=== PATIENT | male | born 1945 | race Caucasian/White ===

== ENCOUNTER 2024-07-09 13:29 | Inpatient (IN) ==
--- OUTSIDE RECORDS SUMMARY | 2024-07-09 13:36 | External Medical Summary | Summary of Care ---
Author Name Unknown Organization [facility] Address [address] [place] [address] Phone [phone] Care Team Providers Care Hitting Coach Name Role Phone Sourav Moss MD Primary Care Provider [phone] Reason for Referral * (Within 10 days (routine)) - Pending Review Specialty Diagnoses / Procedures Referred By Contac t Referred To Contact Radiology Diagnoses Brain tumor (HCC) Right hemiparesis (HCC) Procedures MRI NEURO 3-D RECONSTRUCTION James Moncada PA-C [address] [place] [address] Referral ID Status Reason Start Date Expiration Date V isits Requested Visits Authorized [id number] Pending Review 07/15/2024 999 999 * Precert (Within 10 days (routine)) - Pending Review Specialty Diagnoses / Procedures Referred By Contac t Referred To Contact Radiology Diagnoses Brain tumor (HCC) Right hemiparesis (HCC) Procedures MRI BRAIN W WO CONTRAST James Moncada PA-C [address] [place] [address] Referral ID Status Reason Start Date Expiration Date V isits Requested Visits Authorized [id number] Pending Review 07/15/2024 999 999 Reason for Visit * Reason Onset Date Comments Test Results 07/08/2024 Unexpected or In determinate Result Encounter Details Date Type Department Care Team (Late st Contact Info) Description 07/08/2024 Telephone Laboratory, [place] [address] [place] [address] James Moncada PA-C [address] [place] [address] Test Results (Unexpected or Indeterminate ... Allergies No known active allergiesdocumented as of this encounter (statuses as of 07/08/2024) Medications Medication Sig Dispensed Refills Start Date End Date Status ASPIRIN 81 MG PO TABSIndications:Othe r specified prophylactic or treatment measure one tab by mouth daily 0 0 07/14/2005 Active VITAMIN D 1000 UNITS PO CAPSIndications:Shabana min D deficiency 1 capsule daily 30 Cap 11 09/10/2012 Active ACETAMINOPHEN 500 MG PO TABSIndications:Gene ralized osteoarthritis Two pills by mouth 3 times daily as needd for arthritis 100 Tab 0 09/16/2013 Active metFORMIN HCl ER 500 MG Oral Tablet Extended Release 24 Hour (Glucophage XR) Take 1 Tablet by mouth in the morning. 90 Tablet 3 09/21/2023 Active Additional Information Patient not taking.Reported on 02/02/2024 Benzonatate 200 MG Oral CapsuleIndications:B gómeztis, complicated Take 1 Capsule by mouth 3 times a day as needed for Cough. 30 Capsule 02/02/2024 Active Additional Information Patient not taking.Reported on 05/25/2024 Atorvastatin Calcium 20 MG Oral Tablet (Lipitor)Indications :Hyperlipidemia with target LDL less than 100 Take 1 Tablet by mouth in the morning. 90 Tablet 3 02/18/2024 Active Lisinopril-hydroCHLO ROthiazide 10-12.5 MG Oral TabletIndications:St age 4 chronic kidney disease, unspecified whether stage 3a or 3b CKD (HCC) Take 1 Tablet by mouth in the morning. 90 Tablet 3 02/18/2024 Active Omeprazole 20 MG Oral Capsule Delayed Release (PriLOSEC)Indication s:Gastroesophageal reflux disease, unspecified whether esophagitis present Take 1 Capsule by mouth in the morning. 1 hour before the first meal of the day.. 90 Capsule 3 02/18/2024 Active Empagliflozin 10 MG Oral Tablet (Jardiance) Take 1 Tablet by mouth in the morning. 90 Tablet 3 03/07/2024 Active levETIRAcetam 500 MG Oral Tablet (Keppra) Take 1 Tablet by mouth in the morning and 1 Tablet before bedtime. 60 Tablet 07/08/2024 Active documented as of this encounter (statuses as of 07/08/2024) Active Problems Problem Noted Date Diagnosed Date Diabetes mellitus without complication 4 Chronic kidney disease, stage 3a 03/05/2021 Overview: Per CKD protocol Hypertensive kidney disease with stage 3a chronic kidney disease 09/03/2020 Overview: Per CKD protocol Hyperlipidemia with target LDL less than 100 02/2013 Overview: ICD-10 update of inactive term Generalized osteoarthritis 09/16/2013 Vitamin D deficiency 09/10/2012 Vertigo 11/16/2009 History of tobacco use 11/16/2009 Allergic rhinitis 03/21/2008 ADVANCE DIRECTIVE INFORMATION 07/14/2005 Overview: No, Advance Directive brochure offered , patient declined. Cervical spondylosis 04/18/2004 documented as of this encounter (statuses as of 07/08/2024) Resolved Problems Problem Noted Date Diagnosed Date Resolved Date Prediabetes 03/02/2023 03/09/2024 Overview: Per Prediabetes protocol Hypertensive kidney disease with chronic kidney disease stage III 09/16/2019 09/06/2020 Overview: Per CKD protocol Kidney disease, chronic, sta ge III (GFR 30-59 ml/min) 12/31/2015 10/06/2019 Overview: Per CKD protocol #1 Headache 11/16/2009 09/13/2018 Overview: ICD-10 update of inactive term Acute URI 11/16/2009 09/13/2018 Acute sinusitis 11/16/2009 09/13/2018 Dysfunction of eustachian tube 11/16/2009 09/13/2018 Acute URI 03/21/2008 12/14/2008 Overview: Resolved per Benign Acute Dxs Protocol #3 Cough 03/21/2008 09/13/2018 Acute bronchitis, antibiotics not indicated 03/21/2008 12/21/2008 Overview: Resolved per Benign Acute Dxs Protocol #3 Tobacco use disorder 03/21/2008 010 Major depressive disorder 01/26/2006 Overview: ICD-10 update of inactive term PROPHYLACTIC MEASURE NEC 07/14/2005 DEPRESS PSYCHOSIS-UNSPEC 07/12/1999 documented as of this encounter (statuses as of 07/08/2024) Immunizations Name Administration Dates Next Due COVID-19 mRNA, LNP-s, No Pre serve, 2-Dose Series (SputnikBot) 08/04/2021,01/12/2021,12/22/2020 COVID-19, LNP-s, No Preserve , Messi-sucrose, Ages 12+ (SputnikBot) 07/28/2022 COVID-19, MRNA-LNP, 23-24, P F, 30 MCG/0.3 mL, 12 YRS AND ABOVE, IM (UNYQ-Comirnat) 06/29/2024,07/16/2023 Covid-19, Mrna, Lnp-s, Pf, B ivalent, 30 Mcg, IM, 12 yrs and above (SputnikBot) 12/01/2022 PPD 08/16/2007 Pneumococcal Conjugate Vacc, 13 Valent (Prevnar) 11/27/2015 Pneumococcal Polysaccharide PPV23 (Pneumovax) 09/10/2012,01/26/2006 RSV Vac., Recomb, Adjuvant, PF,0.5 Ml (Arexvy) 07/02/2023 Season Influenza, Quad, PF, Adjuvanted, 65+ Yrs, IM (FLUAD) 06/29/2024,07/02/2023,07/09/2020 Seasonal Influenza Virus Vac cine, Unspecified Formulation 07/14/2018 Seasonal Influenza, High Dos e, Trivalent, PF, IM (Fluzone HD) 08/15/2019,08/07/2017 Seasonal Influenza, Quadriva lent Hd (Fluzone Hd) 07/01/2022,07/02/2021 Seasonal Influenza, Quadriva lent, No Preserve, IM 08/05/2016 Seasonal Influenza, Trivalen t, (IIV3), with Preserv, (Fluzone) 07/19/2015,08/28/2014,08/22/2013,09/10,08/16/2010,08/07/2009,08/21/2008 ,08/16/2007,09/02/2006,08/14/2005 TD - Tetanus/Diptheria (ADULT) 01/25/2004 TD, Preservative Free 02/05/2023 TDAP (age 10 and older)(Boostrix) 09/16/2013 Varicella Zoster Vaccine (Adult) 12/12/2015 Zoster Vaccine Recombinant (Shingrix) 05/14/2023 ,03/13/2023 documented as of this encounter Social History Tobacco Use Types Packs/Day Years Used Date Smoking Tobacco: Former Cigarettes Q uit: 10/26/2007 Smokeless Tobacco: Never Comments:4 months ago Alcohol Use Standard Drinks/Week Comments No 0 (1 standard drink = 0.6 oz pur e alcohol) PHQ-2 Answer Date Recorded PHQ Adult Total Score 0 02/18/2024 Hunger Vital Sign Answer Date Recorded Within the past 12 months, y ou worried that your food would run out before you got the money to buy more. Never true 05/26/20 24 Within the past 12 months, t he food you bought just didn't last and you didn't have money to get more. Never true 05/26/2024 Childcare Answer Date Recorded Do you feel overwhelmed with taking care of a child, family member or friend? No 05/26/2024 Does your family need help f inding childcare? (Household - for ages 0-17 years) Not on file 05/26/2024 Clothing Answer Date Recorded Have you been unable to get clothing when it was really needed? No 05/26/2024 Is your family able to get c lothes or diapers when needed? (Household - for ages 0-17 years) Not on file 05/26/2024 Personal Safety Answer Date Recorded Do you feel unsafe or have concerns for your saf ety? No 05/26/2024 Do you have concerns for you r family's safety? (Household - for ages 0-17 years) Not on file 05/26/2024 Utilities Answer Date Recorded Do you have trouble paying y our heating, water, or electric bill? No 05/26/2024 Is your family able to pay t he heat, water, or electric bill? (Household - for ages 0-17 years) Not on file 05/26/2024 Does your family have access to good internet? (Household - for ages 0-17 years) Not on file 05/26/2024 Employment Status Answer Date Recorded Are you unemployed or without regular income? No 05/26/2024 Does the household have a re lar source of income? (Household - for ages 0-17 years) Not on file 05/26/2024 Social Connections Answer Date Recorded How often do you feel lonely or isolated from th ose around you? Never 05/26/2024 Financial Resource Strain Answer Date R ecorded Do you have any trouble payi ng for your medications, or do you think you might in the future? No 05/26/2024 Does your family have troubl e paying for medicine? (Household - for ages 0-17 years) Not on file 05/26/2024 Transportation Needs Answer Date Record ed Do you have trouble getting a ride to medical visits or work? (Adult - for ages 18 years and over) Not on file 05/26/2024 Does your family have a hard time getting a ride to doctors visits? (Household - for ages 0-17 years) Not on file 05/26/2024 Has lack of transportation k ept you from medical appointments, meetings, work, or from getting things needed for daily living? Check all that apply. No 05/26/2024 Do you (or your family) have trouble finding or paying for a ride (transportation)? (Household - for ages 0-17 years) Not on file 05/26/2024 Housing Stability Answer Date Recorded Do you currently live in a s helter or have no steady place to sleep at night? No 05/26/2024 Do you think you are at risk of becoming homeless? (Adult - for ages 18 years and over) Not on file 05/26/2024 Does your family worry about paying for your home or becoming homeless? (Household - for ages 0-17 years) Not on file 0 05/26/2024 Are you homeless or worried that you might be in the future? No 05/26/2024 Are you (or your family) kapil eless or worried that you might be in the future? (Household - for ages 0-17 years) Not on file Food Insecurity Answer Date Recorded Do you need food for this week? No 05/26/2024 Are you able to get enough f ood for your family? (Household - for ages 0-17 years) Not on file 05/26/2024 Does your family need food t his week? (Household - for ages 0-17 years) Not on file 05/26/2024 Do you always have enough fo od for your family? (Household - for ages 0-17 years) Not on file 05/26/2024 Sex and Gender Information Value Date Recorded Sex Assigned at Male 09/16/2019 8:27 AM EST Gender Identity Male 09/16/2019 8:27 AM EST Sexual Orientation Straight 09/16/2019 8: 27 AM EST Job Start Date Occupation Industry Not on file Not on file Not on file documented as of this encounter Miscellaneous Notes * Addendum Note - James Moncada PA-C - 07/08/2024 1:12 PM EDTAddended by: JAMES MONCADA on: 07/08/2024 01:12 PM Modules accepted: Orders * Telephone Encounter - James Moncada PA-C - 07/08/2024 12:54 PM EDT I called and spoke to the patient and his spouse. Discussed current functional level - Can open/close his hand, can raise arm over his head. Issues with writing. Leg is worse - can lift antigravity but can not walk without a cane. (+) fatigue. He reports intermittent episodes of his R side being plegic and he can not speak. Occurred several times over past few months. Aware of episodes. Thus, I have E-Rx keppra 500 mg BID. He did have a spot EEG 06/08/24 which was negative but no episodes occurred during that visit. I discussed the use of dexamethasone but he still is functional and feels thathe is managing fine. He is diabetic and would like to hold off on steroids, which I feel is reasonable but we discussed if symptoms progress over the weekend then he should call or go to nearest ED. Lesion is concerning for malignancy given the progression over interval studies. I will place an order for CT CAP to rule out other primaries. Will also order a MRI brain w/wo contrast (brainlab protocol) with DTIs/tractography given the location of the tumor to assist in potential operative planning. * Telephone Encounter - Enma Palumbo RN - 07/08/2024 8:15 AM EDT Spoke with provider. Called patient to schedule appointment with Dr. Venegas for Thursday, 07/11. Patient states that his right side has progressively gotten weaker. He is walking with a cane for the past month. His b operator is not as tight as on the left but he is not dropping anything. Instructed him to present to the ED if the weakness symptoms get worse such as not being able to walk and not being able to hold on to objects. James Moncada PA-C will call patient in the afternoon as he is in the OR this morning. Relayed topatient and let him know to keep his phone with him for the mid to late afternoon. No further needs at this time. * Telephone Encounter - Julieth Mendez OSA - 07/08/2024 12:16 AM EDT Hello- The radiologist discovered an unexpected or indeterminate finding on Mayank Dolan ([id number]) and asks that you review the following report. Study Type: MRI BRAIN W WO CONTRAST Date of Study: 07/07/2024 IMPRESSION Significant interval increase in size of enhancing lesion at the left frontal vertex involving the precentral gyrus with new areas of leptomeningeal enhancement in the left frontal and parietal regions. 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 No midline shift. Please respond to this encounter to acknowledge receipt of this message and take responsibility to ensure this report is reviewed. Thank you, RUSTY Horner Client Service Rep [facility] [place] documented in this encounter Plan of Treatment Upcoming Encounters Date Type Department Care Team (Late st Contact Info) Description 07/11/2024 10:00 AM EDT Office Visit Neurosurgery, [address] [address] Nav Venegas MD [facility] [place] [address] 08/08/2024 12:00 PM EDT Telemedicine [facility], [address] [address] Nav Venegas MD [facility] [place] [address] 08/23/2024 8:20 AM EDT Office Visit [facility] [address] [place] [phone] Sourav Moss MD [address] [place] [address] Scheduled Orders Name Type Priority Associated Diagnoses Orde r Schedule MRI BRAIN W WO CONTRAST Medical Imaging Routine Brain tumor (HCC) Right hemiparesis (HCC) Expected: 07/15/2024 (Approximate), Expires: 08/07/2025 MRI NEURO 3-D RECONSTRUCTION Medical Imaging Routine Brain tumor (HCC) Right hemiparesis (HCC) Expected: 07/15/2024 (Approximate), Expires: 08/07/2025 Health Maintenance Due Date Last Done Comments Adult Wellness Visit 2012 *BASELINE EKG FOR HTN 05/25/2022 GFR 08/23/2024 02/22/2024, 01/24, 02/04/2022, Additional history exists HbA1c 08/23/2024 02/22/2024, 07/27, 02/05/2023, Additional history exists Depression Screening 02/17/2025 02/18/2024 Diabetic Eye Exam 02/17/2025 02/18/2024, 02/15/2024 Diabetic Foot Exam 02/17/2025 02/18/2024 Albumin/Creatinine Ratio 02/21/2025 024, 08/17/2023, 02/04/2022, Additional history exists CKD HGB USE SMARTSET 26307 02/21/202502/21, 08/17/2023, 08/17/2023, Additional history exists CKD PHOS USE SMARTSET 30373 02/21/202501/25, 02/05/2023, 02/04/2022, Additional history exists DTap/Tdap Vaccines (3 - Td or Tdap) 02/05/2033 02/05/2023, 09/16/2013, 01/25/2004 Pneumococcal Vaccine: 65+ Years Completed 11/27/2015, 09/10/2012, 01/26/2006 Zoster Vaccines Completed 05/14/2023, 02/23, 12/12/2015 COVID-19 Vaccine Completed 06/29/2024, , 12/01/2022, Additional history exists Influenza Vaccine (FLU shot) Completed 01/2024, 07/02/2023, 07/02/2023, Additional history exists HPV (Gardasil) Vaccine Aged Out No lo nger eligible based on patient's age to complete this topic Hepatitis B Vaccine Aged Out No longe r eligible based on patient's age to complete this topic MENINGOCOCCAL (MENACTRA/MENVEO) Aged Out No longer eligible based on patient's age to complete this topic documented as of this encounter Medical Devices Not on filedocumented as of this encounter Visit Diagnoses Diagnosis Brain tumor (HCC)- Primary Neoplasm of unspecified nature of brain Right hemiparesis (HCC) Hemiplegia, unspecified, affecting unspecified side documented in this encounter Care Teams Hitting Coach Relationship Specialty Start Date End Date Sourav Moss MD [address] [facility] [place] [address] PCP - General 11/13/1997 documented as of this encounter
--- OUTSIDE RECORDS SUMMARY | 2024-07-09 13:36 | External Medical Summary | Summary of Care ---
Author Name Unknown Organization [facility] Address [address] [place] [address] Phone [phone] Care Team Providers Care Cna Pct Name Role Phone Sourav Moss MD Primary Care Provider [phone] Reason for Referral * Precert (Within 10 days (routine)) - Pending Review Specialty Diagnoses / Procedures Referred By Contac t Referred To Contact Radiology Diagnoses Brain tumor (HCC) Right hemiparesis (HCC) Procedures CT CHEST/ABDOMEN/PELVIS WITH IV CONTRAST WITHOUT ORAL CONTRAST James Moncada PA-C [address] [place] [address] Referral ID Status Reason Start Date Expiration Date V isits Requested Visits Authorized [id number] Pending Review 07/09/2024 999 999 * (Within 10 days (routine)) - Pending Review Specialty Diagnoses / Procedures Referred By Contac t Referred To Contact Radiology Diagnoses Brain tumor (HCC) Right hemiparesis (HCC) Procedures MRI NEURO 3-D RECONSTRUCTION James Moncada PA-C [address] [place] [address] Referral ID Status Reason Start Date Expiration Date V isits Requested Visits Authorized [id number] Pending Review 07/15/2024 999 999 * Precert (Within 10 days (routine)) - Pending Review Specialty Diagnoses / Procedures Referred By Contac t Referred To Contact Radiology Diagnoses Brain tumor (HCC) Right hemiparesis (HCC) Procedures MRI BRAIN W WO CONTRAST James Moncada PA-C [address] [place] [address] Referral ID Status Reason Start Date Expiration Date V isits Requested Visits Authorized [id number] Pending Review 07/15/2024 999 999 Reason for Visit * Reason Onset Date Comments Test Results 07/08/2024 Unexpected or In determinate Result Encounter Details Date Type Department Care Team (Late st Contact Info) Description 07/08/2024 Telephone Laboratory, [place] [address] [place] [address] James Moncada PA-C [address] [place] [address] Test Results (Unexpected or Indeterminate [...] on 02/02/2024 Benzonatate 200 MG Oral CapsuleIndications:B ronchitis, complicated Take 1 Capsule by mouth 3 [...] mRNA, LNP-s, No Pre serve, 2-Dose Series (Make Meaning) 08/04/2021,01/12/2021,12/22/2020 COVID-19, LNP-s, No Preserve , Messi-sucrose, Ages 12+ (Pfizer) 07/28/2022 COVID-19, MRNA-LNP, 23-24, P F, 30 MCG/0.3 mL, 12 YRS AND ABOVE, IM (Biottery-Comirnat) 06/29/2024,07/16/2023 Covid-19, Mrna, Lnp-s, Pf, B ivalent, 30 Mcg, IM, 12 yrs and above (Make Meaning) 12/01/2022 PPD 08/16/2007 Pneumococcal Conjugate Vacc, 13 [...] Note - James Moncada PA-C - 07/08/2024 1:13 PM EDTAddended by: JAMES MONCADA on: 07/08/2024 01:13 PM Modules accepted: Orders * Addendum Note - James Moncada PA-C [...] a cane for the past month. 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 Thank you, RUSTY Horner Client Service [facility] documented in this encounter Plan of Treatment Upcoming Encounters Date Type Department Care Team (Late st Contact Info) Description 07/11/2024 10:00 AM EDT Office Visit Neurosurgery, [address] [address] Nav Venegas MD [facility] [place] [address] 08/08/2024 12:00 PM EDT Telemedicine Neurosurgery, [address] [address] Nav Venegas MD [address] [place] [address] 08/23/2024 8:20 AM EDT Office Visit [facility] [address] [place] [phone] Sourav Moss MD [address] [place] [address] Scheduled Orders Name Type Priority Associated Diagnoses Orde r Schedule MRI BRAIN W WO CONTRAST Medical Imaging Routine Brain tumor (HCC) Right hemiparesis (HCC) Expected: 07/15/2024 (Approximate), Expires: 08/07/2025 MRI NEURO 3-D RECONSTRUCTION Medical Imaging Routine Brain tumor (HCC) Right hemiparesis (HCC) Expected: 07/15/2024 (Approximate), Expires: 08/07/2025 CT CHEST/ABDOMEN/PELVIS WITH IV CONTRAST WITHOUT ORAL CONTRAST Medical Imaging Routine Brain tumor (HCC) Right hemiparesis (HCC) Expected: 07/09/2024 (Approximate), Expires: 08/07/2025 CREATININE Lab Routine Brain tumor (HCC) Right hemiparesis (HCC) Expected: 07/08/2024, Expires: 07/08/2025 Health Maintenance Due Date Last Done Comments Adult Wellness Visit 2012 *BASELINE EKG FOR HTN 05/25/2022 GFR 08/23/2024 02/22/2024, 01/24, 02/04/2022, Additional history exists HbA1c 08/23/2024 02/22/2024, 07/27, 02/05/2023, Additional history exists Depression Screening 02/17/2025 02/18/2024 Diabetic Eye Exam 02/17/2025 02/18/2024, 02/15/2024 Diabetic Foot Exam 02/17/2025 02/18/2024 Albumin/Creatinine Ratio 02/21/2025 024, 08/17/2023, 02/04/2022, Additional history exists CKD HGB USE SMARTSET 47216 02/21/202502/21, 08/17/2023, 08/17/2023, Additional history exists CKD PHOS USE SMARTSET 75769 02/21/202501/25, 02/05/2023, 02/04/2022, Additional history exists DTap/Tdap [...] side documented in this encounter Care Teams Cna Pct Relationship Specialty Start Date End Date Sourav Moss MD [address] [place] [address] PCP - General 11/13/1997 documented as of this encounter
--- OUTSIDE RECORDS SUMMARY | 2024-07-09 13:36 | External Medical Summary | Summary of Care ---
Author Name Unknown Organization [facility] Address [address] [place] [address] Phone [phone] Care Team Providers Care Sterile Supply Technician Name Role Phone Sourav Moss MD Primary Care Provider [phone] Reason for Visit * Reason Onset Date Comments Test Results 07/08/2024 Unexpected or In determinate Result Encounter Details Date Type Department Care Team (Late st Contact Info) Description 07/08/2024 Telephone Laboratory, [place] [address] [place] [address] James Moncada PA-C [address] [place] [address] Test Results (Unexpected or Indeterminate [...] the morning. 90 Tablet 3 03/07/2024 Active documented as of this encounter (statuses as of 07/08/2024) Active Problems Problem Noted Date Diagnosed Date Diabetes mellitus without complication Chronic kidney disease, stage 3a 03/05/2021 Overview: [...] mRNA, LNP-s, No Pre serve, 2-Dose Series ([employer]) 08/04/2021,01/12/2021,12/22/2020 COVID-19, LNP-s, No Preserve , Messi-sucrose, Ages 12+ ([employer]) 07/28/2022 COVID-19, MRNA-LNP, 23-24, P F, 30 MCG/0.3 mL, 12 YRS AND ABOVE, IM ([employer]-Comirnat) 06/29/2024,07/16/2023 Covid-19, Mrna, Lnp-s, Pf, B ivalent, 30 Mcg, IM, 12 yrs and above ([employer]) 12/01/2022 PPD 08/16/2007 Pneumococcal Conjugate Vacc, 13 [...] Trivalen t, (IIV3), with Preserv, (Fluzone) 07/19/2015,08/28/2014,08/22/2013,09/10,08/16/2010,08/07/2009,08/21/2008 ,08/16/2007,09/02/2006 TD - Tetanus/Diptheria (ADULT) 01/25/2004 TD, Preservative [...] No 05/26/2024 Does the household have a [facility] source of income? (Household - for ages [...] as of this encounter Miscellaneous Notes * Telephone Encounter - Julieth Mendez OSA - 07/08/2024 12:16 AM EDT Hello- The radiologist discovered an unexpected or indeterminate finding on Mayank Dolan ([id number]) and asks that you review the following [...] Thank you, RUSTY Horner Client Service Rep [facility] documented in this encounter Plan of Treatment Upcoming Encounters Date Type Department Care Team (Late st Contact Info) Description 08/08/2024 12:00 PM EDT Telemedicine Neurosurgery, [place] [address] [place] [address] Nav Venegas MD [address] [place] [address] 08/23/2024 8:20 AM EDT Office Visit [facility] [address] [place] [address] Sourav Moss MD [address], [place] [phone] Health Maintenance Due Date Last Done Comments Adult Wellness Visit 2012 *BASELINE EKG FOR HTN 05/25/2022 GFR 08/23/2024 02/22/2024, 01/24, 02/04/2022, Additional history exists HbA1c 08/23/2024 02/22/2024, 07/27, 02/05/2023, Additional history exists Depression Screening 02/17/2025 02/18/2024 Diabetic Eye Exam 02/17/2025 02/18/2024, 02/15/2024 Diabetic Foot Exam 02/17/2025 02/18/2024 Albumin/Creatinine Ratio 02/21/2025 024, 08/17/2023, 02/04/2022, Additional history exists CKD HGB USE SMARTSET 20180 02/21/202502/21, 08/17/2023, 08/17/2023, Additional history exists CKD PHOS USE SMARTSET 50223 02/21/202501/25, 02/05/2023, 02/04/2022, Additional history exists DTap/Tdap [...] Not on filedocumented as of this encounter Care Teams Sterile Supply Technician Relationship Specialty Start Date End Date Sourav Moss MD [address] [place] [address] PCP - General 11/13/1997 documented as of this encounter
--- OUTSIDE RECORDS SUMMARY | 2024-07-09 13:36 | External Medical Summary | Summary of Care ---
Author Name Unknown Organization [facility] Address [address] [place] [address] Phone [phone] Care Team Providers Care Inspector Tool Name Role Phone Sourav Moss MD Primary Care Provider [phone] Reason for Visit * Reason Onset Date Comments Test Results 07/08/2024 Unexpected or In determinate Result Encounter Details Date Type Department Care Team (Late st Contact Info) Description 07/08/2024 Telephone Laboratory, [place] [address] [place] [address] James Moncada PA-C [address] [place] [address] Test Results (Unexpected or Indeterminate [...] mRNA, LNP-s, No Pre serve, 2-Dose Series ([employer] 08/04/2021,01/12/2021,12/22/2020 COVID-19, LNP-s, No Preserve , Messi-sucrose, Ages 12+ ([employer] 07/28/2022 COVID-19, MRNA-LNP, 23-24, P F, 30 MCG/0.3 mL, 12 YRS AND ABOVE, IM ([employer]-Comirnat) 06/29/2024,07/16/2023 Covid-19, Mrna, Lnp-s, Pf, B ivalent, 30 Mcg, IM, 12 yrs and above ([employer] 12/01/2022 PPD 08/16/2007 Pneumococcal Conjugate Vacc, 13 [...] 05/26/2024 Does the household have a re gular source of income? (Household - for ages [...] encounter Miscellaneous Notes * Telephone Encounter - Enma Palumbo RN - 07/08/2024 8:15 AM EDT Spoke with provider. Called patient to schedule appointment with Dr. Venegas for Thursday, 07/11. Patient states that his right side has progressively gotten weaker. He is walking with a cane for the past month. His bedspread seamer is not as tight as on the [...] unexpected or indeterminate finding on Mayank Dolan ([id number]) and asks that you review the following [...] reviewed. Thank you, RUSTY Horner Client Service [facility] documented in this encounter Plan of Treatment Upcoming Encounters Date Type Department Care Team (Late st Contact Info) Description 07/11/2024 10:00 AM EDT Office Visit Neurosurgery, [place] [address] [place] [address] Nav Venegas MD [address] [place] [address] 08/08/2024 12:00 PM EDT Telemedicine Neurosurgery, [place] [address] [place] [address] Nav Venegas MD [address] [place] [address] 08/23/2024 8:20 AM EDT [facility] [address] [facility] [place] [address] Sourav Moss MD [address] [place] [address] Health Maintenance Due Date Last Done Comments Adult Wellness Visit 2012 *BASELINE EKG FOR HTN 05/25/2022 GFR 08/23/2024 02/22/2024, 01/24, 02/04/2022, Additional history exists HbA1c 08/23/2024 02/22/2024, 07/27, 02/05/2023, Additional history exists Depression Screening 02/17/2025 02/18/2024 Diabetic Eye Exam 02/17/2025 02/18/2024, 02/15/2024 Diabetic Foot Exam 02/17/2025 02/18/2024 Albumin/Creatinine Ratio 02/21/2025 024, 08/17/2023, 02/04/2022, Additional history exists CKD HGB USE SMARTSET 68577 02/21/202502/21, 08/17/2023, 08/17/2023, Additional history exists CKD PHOS USE SMARTSET 94551 02/21/202501/25, 02/05/2023, 02/04/2022, Additional history exists DTap/Tdap [...] filedocumented as of this encounter Care Teams Inspector Tool Relationship Specialty Start Date End Date Sourav Moss MD [address] [place] [address] PCP - General 11/13/1997 documented as of this encounter
--- OUTSIDE RECORDS SUMMARY | 2024-07-09 13:36 | External Medical Summary | Summary of Care ---
Author Name Unknown Organization [facility] Address [address] [place] [address] Phone [phone] Care Team Providers Care Pourer Metal Name Role Phone Sourav Moss MD Primary Care Provider [phone] Reason for Visit * Reason Onset Date Comments Medication Refill 07/08/2024 Encounter Details Date Type Department Care Team (Late st Contact Info) Description 07/08/2024 Refill [facility] [address], [place] [phone] James Moncada PA-C [address] [place], [place] [phone] Allergies No known active allergiesdocumented as of this encounter (statuses as of 07/08/2024) Medications Medication Sig Dispensed Refills Start Date End Date Status ASPIRIN 81 MG PO TABSIndications:Oth er specified prophylactic or treatment measure one tab by mouth daily 0 0 07/14/2005 Active VITAMIN D 1000 UNITS PO CAPSIndications:Vit miguel D deficiency 1 capsule daily 30 Cap 11 09/10/2012 Active ACETAMINOPHEN 500 MG PO TABSIndications:Gen eralized osteoarthritis Two pills by mouth 3 times daily as needd for arthritis 100 Tab 0 09/16/2013 Active metFORMIN HCl ER 500 MG Oral Tablet Extended Release 24 Hour (Glucophage XR) Take 1 Tablet by mouth in the morning. 90 Tablet 3 09/21/2023 Active Additional Information Patient not taking.Reported on 02/02/2024 Benzonatate 200 MG Oral CapsuleIndications: Bronchitis, complicated Take 1 Capsule by mouth 3 times a day as needed for Cough. 30 Capsule 02/02/2024 Active Additional Information Patient not taking.Reported on 05/25/2024 Atorvastatin Calcium 20 MG Oral Tablet (Lipitor)Indication s:Hyperlipidemia with target LDL less than 100 Take 1 Tablet by mouth in the morning. 90 Tablet 3 02/18/2024 Active Lisinopril-hydroCHL OROthiazide 10-12.5 MG Oral TabletIndications:S tage 3 chronic kidney disease, unspecified whether stage 3a or 3b CKD (HCC) Take 1 Tablet by mouth in the morning. 90 Tablet 3 02/18/2024 Active Omeprazole 20 MG Oral Capsule Delayed Release (PriLOSEC)Indicatio ns:Gastroesophageal reflux disease, unspecified whether esophagitis present Take [...] Tablet before bedtime. 60 Tablet 07/08/2024 Active levETIRAcetam 500 MG Oral Tablet (Keppra) Take 1 Tablet by mouth in the morning and 1 Tablet before bedtime. 60 Tablet 07/08/2024 4 Discontinu ed(Refill) documented as of this encounter (statuses as [...] mRNA, LNP-s, No Pre serve, 2-Dose Series ([employer]) 08/04/2021,01/12/2021,12/22/2020 COVID-19, LNP-s, No Preserve , Messi-sucrose, Ages 12+ ([employer]) 07/28/2022 COVID-19, MRNA-LNP, 23-24, P F, 30 MCG/0.3 mL, 12 YRS AND ABOVE, IM (PFIZER-Comirnaty) 06/29/2024,07/16/2023 Covid-19, Mrna, Lnp-s, Pf, B ivalent, 30 Mcg, IM, 12 yrs and above (Pfizer) 12/01/2022 PPD 08/16/2007 Pneumococcal Conjugate Vacc, 13 [...] encounter Miscellaneous Notes * Telephone Encounter - Miko Santos [facility] - 07/08/2024 4:19 PM EDTSigned Prescriptions: Disp Refills levETIRAcetam 500 MG Oral Tablet (Keppra) 60 Tab*0 Sig: Take 1 Tablet by mouth in the morning and 1 Tablet before bedtime.Authorizing Provider: JAMES MONCADA User: MIKO SANTOS ---- * Telephone Encounter - Miko Santos [facility] - 07/08/2024 4:19 PM EDTSigned Prescriptions: Disp Refills levETIRAcetam 500 MG Oral Tablet (Keppra) 60 Tab*0 Sig: Take 1 Tablet by mouth in the morning and 1 Tablet before bedtime.Authorizing Provider: JAMES MONCADA User: MIKO SANTOS ---- * Telephone Encounter - Miko Santos [facility] - 07/08/2024 4:18 PM EDT Pharmacy states they did not receive transmitted script from earlier today. Pharmacist resending again. Date/Time Signed: 07/08/2024 16:19 E-Prescribing Status: Receipt confirmed by pharmacy (07/08/2024 4:19 PM EDT) Miko Lozoya Pharm.D. Clinical Pharmacist [facility] ([facility]) [phone] 07/08/2024, 4:18 PM * Telephone Encounter - Gayle Steele CPhT - 07/08/2024 3:56 PM EDT Please resend Rx to [id number] [address] [facility]. Confirmed pharmacydid not receive original prescription. In chart as a phone order Pending Prescriptions: Disp Refills levETIRAcetam 500 MG Oral Tablet (Keppra) 60 Tab*0 Sig: Take 1 Tablet by mouth in the morning and 1 Tablet before bedtime. Last Visit: 05/25/2024 (in office), Visit date not found (telemedicine) 07/11/2024 If no future appointments scheduled, and last appointment is greater than a year ago, please schedule patient for a follow-up appointment Last date the medication was ordered: [id number] Patient Phone Numbers Labs: Lab Results Component Value Date/Time CREAT 1.3 (H) 02/22/2024 08:06 AM CREAT 1.5 (H) 09/16/2019 09:27 AM POTASSIUM 4.4 02/22/2024 08:06 AM POTASSIUM 5.0 09/16/2019 09:27 AM TSH 1.10 02/16/2008 02:14 PM LDL 58 02/22/2024 08:06 AM LDL 75 09/16/2019 09:27 AM LDL 82 08/30/2018 08:13 AM ALT 21 02/22/2024 08:06 AM ALT 28 09/16/2019 09:27 AM HGBA1C 7.0 (H) 02/22/2024 08:06 AM * Telephone Encounter - Prachi Pack PHARM Tech - 07/08/2024 3:40 PM EDT PT calling to check on status of Keppra. Caller can be reached at [phone]. Thank you, Prachi Pack Social And Political Studies Professor [facility] ([facility]) 07/08/2024,3:40 PM * Telephone Encounter - Radha Rocha PHARM Tech - 07/08/2024 3:29 PM EDT Please resend Rx to [id number]. Confirmed pharmacydid not receive original prescription. Pending Prescriptions: Disp Refills levETIRAcetam 500 MG Oral Tablet (Keppra) 60 Tab*0 Sig: Take 1 Tablet by mouth in the morning and 1 Tablet before bedtime. Last Visit: 05/25/2024 (in office), Visit date not found (telemedicine) 07/11/2024 If no future appointments scheduled, and last appointment is greater than a year ago, please schedule patient for a follow-up appointment Last date the medication was ordered: 07-08-2024 Patient Phone Numbers Labs: Lab Results Component Value Date/Time CREAT 1.3 (H) 02/22/2024 08:06 AM CREAT 1.5 (H) 09/16/2019 09:27 AM POTASSIUM 4.4 02/22/2024 08:06 AM POTASSIUM 5.0 09/16/2019 09:27 AM TSH 1.10 02/16/2008 02:14 PM LDL 58 02/22/2024 08:06 AM LDL 75 09/16/2019 09:27 AM LDL 82 08/30/2018 08:13 AM ALT 21 02/22/2024 08:06 AM ALT 28 09/16/2019 09:27 AM HGBA1C 7.0 (H) 02/22/2024 08:06 AM documented in this encounter Plan of Treatment Upcoming Encounters Date Type Department Care Team (Late st Contact Info) Description 07/11/2024 10:00 AM EDT Office Visit [facility] [place] [address] [place] [address] Nav Venegas MD [address] [place] [address] 07/11/2024 10:30 AM EDT Appointment Radiology, [place] [address] [place] [address] 08/08/2024 12:00 PM EDT Telemedicine Neurosurgery, [place] [address] [place] [address] Nav Venegas MD [address] [place] [address] 08/23/2024 8:20 AM EDT Office Visit [facility] [address] [place] [phone] Sourav Moss MD [address] [place] [address] Health Maintenance Due Date Last Done Comments Adult Wellness Visit 2012 *BASELINE EKG FOR HTN 05/25/2022 GFR 08/23/2024 02/22/2024, 01/24, 02/04/2022, Additional history exists HbA1c 08/23/2024 02/22/2024, 07/27, 02/05/2023, Additional history exists Depression Screening 02/17/2025 02/18/2024 Diabetic Eye Exam 02/17/2025 02/18/2024, 02/15/2024 Diabetic Foot Exam 02/17/2025 02/18/2024 Albumin/Creatinine Ratio 02/21/2025 024, 08/17/2023, 02/04/2022, Additional history exists CKD HGB USE SMARTSET 04310 02/21/202502/21, 08/17/2023, 08/17/2023, Additional history exists CKD PHOS USE SMARTSET 04023 02/21/202501/25, 02/05/2023, 02/04/2022, Additional history exists DTap/Tdap [...] filedocumented as of this encounter Care Teams Pourer Metal Relationship Specialty Start Date End Date Sourav Moss MD [address] [place] [address] PCP - General 11/13/1997 documented as of this encounter
--- OUTSIDE RECORDS SUMMARY | 2024-07-09 13:37 | External Medical Summary | Summary of Care ---
Author Name Unknown Organization [facility] Address [address] [place] [address] Phone [phone] Care Team Providers Care Public Stenographer Name Role Phone Sourav Moss MD Primary Care Provider [phone] Reason for Visit * Reason Onset Date Comments Appointment 06/21/2024 Schedule TTE Encounter Details Date Type Department Care Team (Late st Contact Info) Description 06/21/2024 Telephone Neurology, [place] [address] [place] [address] Mitul Velarde MD [address] [place] [address] Appointment (Schedule TTE) Allergies No known active allergiesdocumented as of this encounter (statuses as of 06/21/2024) Medications Medication Sig Dispensed Refills Start Date [...] as of this encounter (statuses as of 06/21/2024) Active Problems Problem Noted Date Diagnosed Date [...] as of this encounter (statuses as of 06/21/2024) Resolved Problems Problem Noted Date Diagnosed Date [...] as of this encounter (statuses as of 06/21/2024) Immunizations Name Administration Dates Next Due COVID-19 mRNA, LNP-s, No Pre serve, 2-Dose Series ([employer]) 08/04/2021,01/12/2021,12/22/2020 COVID-19, LNP-s, No Preserve , Messi-sucrose, Ages 12+ ([employer]) 07/28/2022 COVID-19, MRNA-LNP, 23-24, P F, 30 MCG/0.3 mL, 12 YRS AND ABOVE, IM ([employer]Comirnat) 07/16/2023 Covid-19, Mrna, Lnp-s, Pf, B ivalent, 30 Mcg, IM, 12 yrs and above ([employer]) 12/01/2022 PPD 08/16/2007 Pneumococcal Conjugate Vacc, 13 Valent (Prevnar) 11/27/2015 Pneumococcal Polysaccharide PPV23 (Pneumovax) 09/10/2012,01/26/2006 RSV Vac., Recomb, Adjuvant, PF,0.5 Ml (Arexvy) 07/02/2023 Season Influenza, Quad, PF, Adjuvanted, 65+ Yrs, IM (FLUAD) 07/02/2023,07/09/2020 Seasonal Influenza Virus Vac cine, Unspecified Formulation 07/14/2018 Seasonal Influenza, Quadriva lent Hd (Fluzone Hd) 07/01/2022,07/02/2021 Seasonal Influenza, Quadriva lent, No Preserve, IM 08/05/2016 Seasonal Influenza, Split, I IV3, With Preserve, Inj 07/19/2015,08/28/2014,08/22/2013,09/10,08/16/2010,08/07/2009,08/21/2008 ,08/16/2007,09/02/2006 Seasonal Influenza, Trivalen t, High Dose, No Preserve, IM 08/15/2019,08/07/2017 TD - Tetanus/Diptheria (ADULT) 01/25/2004 TD, Preservative [...] encounter Miscellaneous Notes * Telephone Encounter - Lucila Ramos LPN - 06/21/2024 9:34 AM EDT Called Cardiology Scheduling spoke with Ryan, stated I wanted to schedule patient for TTE. She stated that she cannot schedule it as the order is still pending. I spoke with Isabela Summers Regarding this matter and she stated that she will speak with someone in Cardiology to see what needs to be done. I thanked her. documented in this encounter Plan of Treatment Upcoming Encounters Date Type Department Care Team (Late st Contact Info) Description 07/28/2024 10:30 AM EDT Imaging Radiology [address], [place] [address] [facility] [place] [id number] 08/08/2024 12:00 PM EDT Telemedicine Neurosurgery, [place] [address] [place] [address] Nav Venegas MD [address] [place] [address] 08/23/2024 8:20 AM EDT Office Visit [place] [address] [place] [phone] Sourav Moss MD [address] [place] [address] 08/31/2024 1:00 PM EST Telemedicine Neurology [address] [place] [address] Mitul Velarde MD [address] [place], [place] [address] 09/08/2024 2:00 PM EST Appointment Cardiac Studies, [address] [address] Health Maintenance Due Date Last Done Comments Adult Wellness Visit 2012 *BASELINE EKG FOR HTN 05/25/2022 COVID-19 Vaccine ( season) 2023 07/16/2023, 12/01/2022, 07/28/2022, Additional history exists Influenza Vaccine (FLU shot) (#1) 2024 07/02/2023, 07/02/2023, 07/01/2022, Additional history exists GFR 08/23/2024 02/22/2024, 01/24, 02/04/2022, Additional history exists HbA1c 08/23/2024 02/22/2024, 07/27, 02/05/2023, Additional history exists Depression Screening 02/17/2025 02/18/2024 Diabetic Eye Exam 02/17/2025 02/18/2024, 02/15/2024 Diabetic Foot Exam 02/17/2025 02/18/2024 Albumin/Creatinine Ratio 02/21/2025 024, 08/17/2023, 02/04/2022, Additional history exists CKD HGB USE SMARTSET 18497 02/21/202502/21, 08/17/2023, 08/17/2023, Additional history exists CKD PHOS USE SMARTSET 19578 02/21/202501/25, 02/05/2023, 02/04/2022, Additional history exists DTap/Tdap Vaccines (3 - Td or Tdap) 02/05/2033 02/05/2023, 09/16/2013, 01/25/2004 Pneumococcal Vaccine: 65+ Years Completed 11/27/2015, 09/10/2012, 01/26/2006 Zoster Vaccines Completed 05/14/2023, 02/23, 12/12/2015 HPV (Gardasil) Vaccine Aged Out No lo [...] filedocumented as of this encounter Care Teams Public Stenographer Relationship Specialty Start Date End Date Sourav Moss MD [address] [place] [address] PCP - General 11/13/1997 documented as of this encounter
--- OUTSIDE RECORDS SUMMARY | 2024-07-09 13:37 | External Medical Summary | Summary of Care ---
Author Name Unknown Organization [facility] Address [address] [place] [address] Phone [phone] Care Team Providers Care Credit Associate Name Role Phone Sourav Moss MD Primary Care Provider [phone] Reason for Visit * Reason Onset Date Comments Advice 07/06/2024 Encounter Details Date Type Department Care Team (Late st Contact Info) Description 07/06/2024 Telephone Access Center, [place] [address] [facility] *DO NOT REMOVE THIS DEPARTMENT* [place] [phone] Services, Scheduling [address] [place] [address] Advice Allergies No known active allergiesdocumented as of this encounter (statuses as of 07/06/2024) Medications Medication Sig Dispensed Refills Start Date [...] as of this encounter (statuses as of 07/06/2024) Active Problems Problem Noted Date Diagnosed Date [...] as of this encounter (statuses as of 07/06/2024) Resolved Problems Problem Noted Date Diagnosed Date [...] as of this encounter (statuses as of 07/06/2024) Immunizations Name Administration Dates Next Due COVID-19 mRNA, LNP-s, No Pre serve, 2-Dose Series (Roomlr) 08/04/2021,01/12/2021,12/22/2020 COVID-19, LNP-s, No Preserve , Messi-sucrose, Ages 12+ (Pfizer) 07/28/2022 COVID-19, MRNA-LNP, 23-24, P F, 30 MCG/0.3 mL, 12 YRS AND ABOVE, IM (Setred-Comirnat) 06/29/2024,07/16/2023 Covid-19, Mrna, Lnp-s, Pf, B ivalent, 30 Mcg, IM, 12 yrs and above (Roomlr) 12/01/2022 PPD 08/16/2007 Pneumococcal Conjugate Vacc, 13 [...] encounter Miscellaneous Notes * Telephone Encounter - James Moncada PA-C - 07/06/2024 10:10 AM EDT Returned call. Agree with Neurology recs if symptoms are significantly progressing, he should obtain sooner work up. He was scheduled for MRI brain w/wo contrast tomorrow but it was cancelled by the patient and he is rescheduled for later in the month. He reports intermittent episodes of his R sidebeing paralyzed and he can not speak. These have been occurring since previous visit and Episodes occur in varying degrees and duration. He feels the R hemiparesis is worsening since his last evaluation ~ 2 months ago. I agree that an updated MRI brain w/wo contrast is warranted given the broad differential in prior visit and to re-evaluate for progression of the lesion. He will attempt to move MRI up to sooner date by calling radiology in his area. If symptoms significantly progress or acutelychange, an ER visit would be warranted. * Telephone Encounter - Clif Edmonds OSA - 07/06/2024 9:14 AM EDT Neuroscience Phone Call Form- Requested Information from caller: Who is calling patient Provider patient is established with: Dr Venegas What is the concern or issue they are having: neuro said all test are negative neuro would like for Pt to go to ER to get more test done. Pt would like some advice from neurosurg . Pt is still having mini seizure and would like to know what Dr Venegas has to advice about it How long has the issue been going on: 3 months on and off Any additional details to add: no Phone number for nurse to call back: [phone] Are forms needed? no Medication Refill? no Verify Pharmacy information is correct. Form to be used for established patients only (not new patients) Clinic has 24-48 hours to respond to caller. If caller is calling back before timeframe with any changes in condition/issues reported, update TEand re-route to appropriate pool If caller is calling back before timeframe- update TE- no need to re-route [facility] Neurology Pool- [facility] Neuro Food Service Attendant- [phone] (All messages get sent to the [facility]) Neurology Pool Numbers- [place] patients - follow normal process Ops req [facility] Neurology ([place])- [id number] Ops req [place] Neurology ([place]- [facility] and [facility] Only)- [id number] Neurosurgery Pool Numbers- [place] patients- follow normal process Ops req Neurosurgery [facility] ([place])- [id number] Ops req Neurosurgery [facility] ([place] Only) [id number] documented in this encounter Plan of Treatment Upcoming Encounters Date Type Department Care Team (Late st Contact Info) Description 07/07/2024 3:15 PM EDT Imaging Radiology [address], [place] [address] [email or web address] [place] [address] 08/08/2024 12:00 PM EDT Telemedicine Neurosurgery, [place] [address] [place] [address] Nav Venegas MD [address] [place] [address] 08/23/2024 8:20 AM EDT Office Visit [facility] [address] [place] [address] Sourav Moss MD [address] [place] [address] Health Maintenance Due Date Last Done Comments Adult Wellness Visit 2012 *BASELINE EKG FOR HTN 05/25/2022 GFR 08/23/2024 02/22/2024, 01/24, 02/04/2022, Additional history exists HbA1c 08/23/2024 02/22/2024, 07/27, 02/05/2023, Additional history exists COVID-19 Vaccine ( season) 2024 06/29/2024, 07/16/2023, 12/01/2022, Additional history exists Depression Screening 02/17/2025 02/18/2024 Diabetic Eye Exam 02/17/2025 02/18/2024, 02/15/2024 Diabetic Foot Exam 02/17/2025 02/18/2024 Albumin/Creatinine Ratio 02/21/2025 024, 08/17/2023, 02/04/2022, Additional history exists CKD HGB USE SMARTSET 62217 02/21/202502/21, 08/17/2023, 08/17/2023, Additional history exists CKD PHOS USE SMARTSET 77516 02/21/202501/25, 02/05/2023, 02/04/2022, Additional history exists DTap/Tdap Vaccines (3 - Td or Tdap) 02/05/2033 02/05/2023, 09/16/2013, 01/25/2004 Pneumococcal Vaccine: 65+ Years Completed 11/27/2015, 09/10/2012, 01/26/2006 Zoster Vaccines Completed 05/14/2023, 02/23, 12/12/2015 Influenza Vaccine (FLU shot) Completed 01/2024, 07/02/2023, [...] filedocumented as of this encounter Care Teams Credit Associate Relationship Specialty Start Date End Date Sourav Moss MD [address] [place] [address] PCP - General 11/13/1997 documented as of this encounter
--- OUTSIDE RECORDS SUMMARY | 2024-07-09 13:37 | External Medical Summary | Summary of Care ---
Author Name Unknown Organization [facility] Address [address] [place] [address] Phone [phone] Care Team Providers Care Music Therapy Teacher Name Role Phone Sourav Moss MD Primary Care Provider [phone] Reason for Visit * Reason Onset Date Comments Test Results 06/20/2024 Encounter Details Date Type Department Care Team (Late st Contact Info) Description 06/20/2024 Telephone [facility] Neurology [address] [place] [address] Mitul Velarde MD [address] [place] [address] Test Results Allergies No known active allergiesdocumented as of [...] mRNA, LNP-s, No Pre serve, 2-Dose Series (SVXR) 08/04/2021,01/12/2021,12/22/2020 COVID-19, LNP-s, No Preserve , Messi-sucrose, Ages 12+ (SVXR) 07/28/2022 COVID-19, MRNA-LNP, 23-24, P F, 30 MCG/0.3 mL, 12 YRS AND ABOVE, IM ([employer]-Comirnat) 07/16/2023 Covid-19, Mrna, Lnp-s, Pf, B ivalent, 30 Mcg, IM, 12 yrs and above (SVXR) 12/01/2022 PPD 08/16/2007 Pneumococcal Conjugate Vacc, 13 [...] Split, I IV3, With Preserve, Inj 07/19/2015,08/28/2014,08/22/2013,09/10,08/16/2010,08/07/2009,08/21/2008 ,08/16/2007,09/02/2006,08/14/2005 Seasonal Influenza, Trivalen t, High Dose, No [...] Encounter - Lucila Ramos LPN - 06/21/2024 9:37 AM EDT Called patient's mobile number, no answer, left message stating I was calling with results and thatI will send a [facility] message regarding this. If he has any questions he may call me at [phone]. Wanted to inform him per Dr. Velarde: No seizure seen on EEG, it showed some slowing but this does not need a seizure medication. Still needs TTE. Based on the results of the TTE he may consider a zio patch. Received a call back from Isabela stating that patient is scheduled for TTE on 09/08/24 at [facility] and patient is aware. She also stated that the insurance was listed as HMO and he actually has a PPO so there should be not issue with insurance. * Telephone Encounter - Mitul Velarde MD - 06/20/2024 4:17 AM EDT EEG showed no epileptifrom changes but showed some slowing. No need to start a seizure medication. Needs TTE performed and based on this consider ziopatch. documented in this encounter Plan of Treatment Upcoming Encounters Date Type Department Care Team (Late st Contact Info) Description 07/28/2024 10:30 AM EDT Imaging Radiology [address] [place] [address] 08/08/2024 12:00 PM EDT Telemedicine Neurosurgery, [place] [address] [place], [place] [phone] Nav Venegas MD [address] [place] [address] 08/23/2024 8:20 AM EDT Office Visit [facility] [address] [place] [phone] Sourav Moss MD [address] [place] [address] 08/31/2024 1:00 PM EST Telemedicine Neurology [address] [place] [address] Mitul Velarde MD [address] [place] [address] 09/08/2024 2:00 PM EST Appointment Cardiac Studies, [address] [place] [address] Health Maintenance Due Date Last Done Comments Adult Wellness Visit 2012 *BASELINE EKG FOR HTN 05/25/2022 COVID-19 Vaccine (2022- season) 2023 07/16/2023, 12/01/2022, 07/28/2022, Additional history [...] Additional history exists CKD HGB USE SMARTSET 92817 02/21/202502/21, 08/17/2023, 08/17/2023, Additional history exists CKD PHOS USE SMARTSET 08423 02/21/202501/25, 02/05/2023, 02/04/2022, Additional history exists DTap/Tdap [...] filedocumented as of this encounter Care Teams Music Therapy Teacher Relationship Specialty Start Date End Date Sourav Moss MD [address] [place] [address] PCP - General 11/13/1997 documented as of this encounter
--- OUTSIDE RECORDS SUMMARY | 2024-07-09 13:37 | External Medical Summary | Summary of Care ---
Author Name Unknown Organization [facility] Address [address] [place] [address] Phone [phone] Care Team Providers Care Masking Machine Feeder Name Role Phone Sourav Moss MD Primary Care Provider [phone] Reason for Visit * Reason Onset Date Comments Advice 06/23/2024 Encounter Details Date Type Department Care Team (Late st Contact Info) Description 06/23/2024 Telephone Neurology, [place] [address] [place] [address] Mitul Velarde MD [address] [place] [address] Advice Allergies No known active allergiesdocumented as of this encounter (statuses as of 07/05/2024) Medications Medication Sig Dispensed Refills Start Date [...] as of this encounter (statuses as of 07/05/2024) Active Problems Problem Noted Date Diagnosed Date [...] as of this encounter (statuses as of 07/05/2024) Resolved Problems Problem Noted Date Diagnosed Date [...] as of this encounter (statuses as of 07/05/2024) Immunizations Name Administration Dates Next Due COVID-19 mRNA, LNP-s, No Pre serve, 2-Dose Series ([employer]) 08/04/2021,01/12/2021,12/22/2020 COVID-19, LNP-s, No Preserve , Messi-sucrose, Ages 12+ ([employer]) 07/28/2022 COVID-19, MRNA-LNP, 23-24, P F, 30 MCG/0.3 mL, 12 YRS AND ABOVE, IM (Syncano-Comirnat) 06/29/2024,07/16/2023 Covid-19, Mrna, Lnp-s, Pf, B ivalent, 30 Mcg, IM, 12 yrs and above ([employer]) 12/01/2022 PPD 08/16/2007 Pneumococcal Conjugate Vacc, 13 [...] No 05/26/2024 Does the household have a [facility] source of income? (Household - for ages [...] encounter Miscellaneous Notes * Telephone Encounter - Mitul Velarde MD - 07/05/2024 3:37 PM EDT There is no significant abnormalities seen on the TTE other than some narrowing of the aortic valvethat I would have him see his PCP and Cardiology for and this does not explain his symptoms. If he is worsening that may point to a tumor as opposed to stroke and would recommend that he go to the emergency department if his speech is worsening. Things could be progression of the previously seen lesion or a new ischemic event. My concern on his initial evaluation was it seemed less likely to be an ischemic event given description of onset and lack of improvement in his examination at that time which differed from the neurosurgical report. I asked that he go to the ED for further evaluation including possible CT head/repeat MRI brain w/wo contrast in light of his deteriorating condition and Neurology evaluation as we will be unable to obtain testing/evaluate him in an urgent OP setting at this time. * Telephone Encounter - Lucila Ramos LPN - 07/05/2024 10:07 AM EDT Patient's called back stating that they saw the report of the TTE. I stated that I will check again. Completed result listed under Provider unknown, no physician data. I stated that I will send another message to Dr. Velarde. She also stated that his speech is deteriorating and he is getting worse instead of better. She stated that this is going on too long and if nothing is done they will have to get a second opinion. She stated that she can't sit still and watch her deteriorate. I stated that I will send the message to Dr. Velarde. She thanked me. * Telephone Encounter - Lucila Ramos LPN - 07/05/2024 9:23 AM EDT Received a message from patient's Tereza stating that patient completed his TTE and they wouldlike to know the results and what the treatment plan is going forward. She stated that the use of his right hand is deteriorating and he is very weak. She also stated that they wanted to know if he really had a stroke or is there something else goingon. Requested a call back at [phone]. Called patient's Tereza back, no answer, left message stating that in the chart it is showing that we do not have the final result of the TTE, it is still in process. Stated that when Dr. Velarde receives results we will contact her. I also stated that if she has any further questions please call me at [phone]. * Telephone Encounter - Lucila Ramos LPN - 06/23/2024 10:13 AM EDT Received a message from patient's stating that she would like a call back at [phone] as patients condition is deteriorated since he was seen by Dr. Velarde and she would like to speak with someone. Called patient's Tereza Verified patient's identity by spelling of last name and date. She stated that he is starting to get off balance. When he went to talk his lip just quivers but hecouldn't get the words out. This is not all the time, but the first time she noticed it was last evening. Mostly, whenever he goes to tell her something he has to stop and think of what he wants to say because the words are not coming to him. Last night was the first time he could not speak. T his morning he was able to speak and said he felt okay. He also tends to get off balance and his leg doesn't work all the time. His right hand is getting clawlike. He holds his right arm to his chest and his hand is turned outward and his palm is being clutched. He isn't able to write his name anymore. She stated that he is not near where he was on 05/25/24. Or when he was seen by Dr. Velarde on 06/01/24. She stated after that he had a couple of good days and then any stressful event would throw him off balance. She states that she and her son are seeing a decline since the beginning of May. She also stated that he seems to be depressed because of his condition and worries that he won't get any better. I stated that depression is not unusual when someone has experienced a life changing event that alters their capabilities and they feel frustrated. She stated that when he went to see the neurosurgeon he was told that because of the timing and howthe dye shows up on the MRI he did not believe it was a brain tumor. I stated that yes he has that documented in his note regarding the MRI results: I would not expect symptoms related to a tumor to improve untreated, but a small stroke can cause symptoms related to edema which then resolve as the edema subsides. 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 She stated that they would just like answers and requested the number for [facility] Cardiology to see if she can have his TTE scheduled sooner even if they have to come to [place] for the test. I gave her the number [phone] to call. I also stated that if his condition would worsen or he developed new symptoms or she was afraid forhis life she should get him to the ED. She stated that she would do this and thanked me for calling back. I stated that I will send this message for review, however Dr. Velarde is not in the office this week but there is a covering doctor. If something is recommended we will contact her. documented in this encounter Plan of Treatment Upcoming Encounters Date Type Department Care Team (Late st Contact Info) Description 07/28/2024 10:30 AM EDT Imaging Radiology [facility], [address] [place] [address] 08/08/2024 12:00 PM EDT Telemedicine Neurosurgery, [place] [address] [place] [address] Nav Venegas MD [address] [place] [address] 08/23/2024 8:20 AM EDT Office Visit [facility] [address] [place] [phone] Sourav Moss MD [address] [place], [place] [id number] 08/31/2024 1:00 PM EST Telemedicine Neurology [facility] [place] [address] [place] [address] Mitul Velarde MD [address] [place] [address] Health Maintenance Due Date Last Done Comments [...] Additional history exists CKD HGB USE SMARTSET 80428 02/21/202502/21, 08/17/2023, 08/17/2023, Additional history exists CKD PHOS USE SMARTSET 46642 02/21/202501/25, 02/05/2023, 02/04/2022, Additional history exists DTap/Tdap [...] filedocumented as of this encounter Care Teams Masking Machine Feeder Relationship Specialty Start Date End Date Sourav Moss MD [address] [facility] [place] [address] PCP - General 11/13/1997 documented as of this encounter
--- OUTSIDE RECORDS SUMMARY | 2024-07-09 13:37 | External Medical Summary | Summary of Care ---
Author Name Unknown Organization [facility] Address [address] [place] [address] Phone [phone] Care Team Providers Care Voice Network Administrator Name Role Phone Sourav Moss MD Primary Care Provider [phone] Reason for Referral * Precert (Diagnostic [facility]) (Within 10 days (routine)) - Pending Review Specialty Diagnoses / Procedures Referred By Contac t Referred To Contact Cardiac Studies Diagnoses Stroke-like episode Procedures ECHO, COMPLETE (2D), TRANS-THORACIC Mitul Velarde MD [address] [place] [address] Referral ID Status Reason Start Date Expiration Date Visits Requested Visits Authorized [id number] Pending Review Precert 06/28/2024 [id number] Reason for Visit * Reason Onset Date Comments Cardiology Study 06/28/2024 Encounter Details Date Type Department Care Team (Late st Contact Info) Description 06/28/2024 Telephone Cardiac Studies, [facility] [address] [place] [address] Mitul Velarde MD [address] [place] [address] Cardiology Study Allergies No known active allergiesdocumented as of this encounter (statuses as of 06/28/2024) Medications Medication Sig Dispensed Refills Start Date [...] the morning. 90 Tablet 3 03/07/2024 Active Hospital, Clinic, or Other Facility Administered Medication Ordered Dose Route Frequency Start Date End Date Status perflutren lipid microsphere inj SUSP 1.956 mgIndications:Stroke-like symptoms 1.956 mg IV ONCE PRN 06/28/2024 06/28/2024 Active documented as of this encounter (statuses as of 06/28/2024) Active Problems Problem Noted Date Diagnosed Date [...] as of this encounter (statuses as of 06/28/2024) Resolved Problems Problem Noted Date Diagnosed Date [...] as of this encounter (statuses as of 06/28/2024) Immunizations Name Administration Dates Next Due COVID-19 mRNA, LNP-s, No Pre serve, 2-Dose Series ([employer] Control) 08/04/2021,01/12/2021,12/22/2020 COVID-19, LNP-s, No Preserve , Messi-sucrose, Ages 12+ (SubC Control) 07/28/2022 COVID-19, MRNA-LNP, 23-24, P F, 30 MCG/0.3 mL, 12 YRS AND ABOVE, IM ([employer]-Comirnaty) 07/16/2023 Covid-19, Mrna, Lnp-s, Pf, B ivalent, 30 Mcg, IM, 12 yrs and above (SubC Control) 12/01/2022 PPD 08/16/2007 Pneumococcal Conjugate Vacc, 13 [...] on file documented as of this encounter Plan of Treatment Upcoming Encounters Date Type Department Care Team (Late st Contact Info) Description 07/28/2024 10:30 AM EDT Imaging Radiology [address] [place] [address] 08/08/2024 12:00 PM EDT Telemedicine Neurosurgery, [place] [address] [place], [place] [phone] Nav Venegas MD [address] [place] [address] 08/23/2024 8:20 AM EDT Office Visit [facility] [address] [place] [phone] Sourav Moss MD [address] [place], [place] [phone] 08/31/2024 1:00 PM EST Telemedicine Neurology [facility] [place] [address] [place] [address] Mitul Velarde MD [address] [place], [place] [phone] Pending Results Name Type Priority Associated Diagnoses Date /Time ECHO, COMPLETE (2D), TRANS-THORACIC Echocardiology Routine Stroke-like episode 06/28/2024 12:02 PM EDT Scheduled Orders Name Type Priority Associated Diagnoses Orde r Schedule ECHO, COMPLETE (2D), TRANS-THORACIC Echocardiology Routine Stroke-like episode Expected: 06/28/2024 (Approximate), Expires: 12/26/2024 Health Maintenance Due Date Last Done Comments Adult Wellness Visit 2012 *BASELINE EKG FOR HTN 05/25/2022 COVID-19 Vaccine ( season) 2024 07/16/2023, 12/01/2022, 07/28/2022, Additional history exists Influenza Vaccine (FLU shot) (#1) 2024 07/02/2023, 07/02/2023, 07/01/2022, Additional history exists GFR 08/23/2024 02/22/2024, 01/24, 02/04/2022, Additional history exists HbA1c 08/23/2024 02/22/2024, 07/27, 02/05/2023, Additional history exists Depression Screening 02/17/2025 02/18/2024 Diabetic Eye Exam 02/17/2025 02/18/2024, 02/15/2024 Diabetic Foot Exam 02/17/2025 02/18/2024 Albumin/Creatinine Ratio 02/21/2025 024, 08/17/2023, 02/04/2022, Additional history exists CKD HGB USE SMARTSET 85587 02/21/202502/21, 08/17/2023, 08/17/2023, Additional history exists CKD PHOS USE SMARTSET 44703 02/21/202501/25, 02/05/2023, 02/04/2022, Additional history exists DTap/Tdap [...] as of this encounter Visit Diagnoses Diagnosis Stroke-like episode- Primary Unspecified cerebral artery occlusion with cerebral infarction documented in this encounter Care Teams Voice Network Administrator Relationship Specialty Start Date End Date Sourav Moss MD [address] [place] [facility] [place] [address] PCP - General 11/13/1997 documented as of this encounter
--- OUTSIDE RECORDS SUMMARY | 2024-07-09 13:37 | External Medical Summary | Summary of Care ---
Author Name Unknown Organization [facility] Address [address] [facility] [address] Phone [phone] Care Team Providers Care Cigar Packer Name Role Phone Sourav Moss MD Primary Care Provider [phone] Encounter Details Date Type Department Care Team (Late st Contact Info) Description 06/28/2024 Orders Only Unspecified Department Allergies No known active allergiesdocumented as of [...] on 02/02/2024 Benzonatate 200 MG Oral CapsuleIndications:B rontravtis, complicated Take 1 Capsule by mouth 3 [...] mRNA, LNP-s, No Pre serve, 2-Dose Series (Edvivo) 08/04/2021,01/12/2021,12/22/2020 COVID-19, LNP-s, No Preserve , Messi-sucrose, Ages 12+ (Pfizer) 07/28/2022 COVID-19, MRNA-LNP, 23-24, P F, 30 MCG/0.3 mL, 12 YRS AND ABOVE, IM ([employer]-Comirnaty) 07/16/2023 Covid-19, Mrna, Lnp-s, Pf, B ivalent, 30 Mcg, IM, 12 yrs and above (Edvivo) 12/01/2022 PPD 08/16/2007 Pneumococcal Conjugate Vacc, 13 [...] Description 07/28/2024 10:30 AM EDT Imaging Radiology [address] [place] [address] 08/08/2024 12:00 PM EDT Telemedicine Neurosurgery, [place] [address] [place] [address] Nav Venegas MD [address] [place] [address] 08/23/2024 8:20 AM EDT Office Visit [facility] [address] [place] [address] Sourav Moss MD [address] [place], [place] [address] 08/31/2024 1:00 PM EST Telemedicine Neurology [address] [place] [address] Mitul Velarde MD [address] [facility] [place] [address] Health Maintenance Due Date Last Done Comments [...] Additional history exists CKD HGB USE SMARTSET 22836 02/21/202502/21, 08/17/2023, 08/17/2023, Additional history exists CKD PHOS USE SMARTSET 50875 02/21/202501/25, 02/05/2023, 02/04/2022, Additional history exists DTap/Tdap [...] Not on filedocumented as of this encounter Procedures Procedure Name Priority Date/Time Associated Diagnosis Comments ECHO, COMPLETE (2D), TRANS-THORACIC Routine 06/28/2024 10:36 AM EDT documented in this encounter Results * ECHO, COMPLETE (2D), TRANS-THORACIC (06/28/2024 10:36 AM EDT) 06/28/2024 10:3 6 AM EDT No Physician Data Unknown ECHOCARDIOLOGY Performing Organization Address City/State/[facility] [place] Phone Number [facility] documented in this encounter Care Teams Cigar Packer Relationship Specialty Start Date End Date Sourav Moss MD [address] [place] [address] PCP - General 11/13/1997 documented as of this encounter
--- OUTSIDE RECORDS SUMMARY | 2024-07-09 13:37 | External Medical Summary | Summary of Care ---
Author Name Unknown Organization [facility] Address [address] [place] [address] Phone [phone] Care Team Providers Care Furniture Crater Name Role Phone Sourav Moss MD Primary Care Provider [phone] Reason for Visit * Reason Onset Date Comments Advice 06/23/2024 Encounter Details Date Type Department Care Team (Late st Contact Info) Description 06/23/2024 Telephone Neurology, [place] [address] [place] [address] Mitul Velarde MD [address] [place] [address] Advice Allergies No known active allergiesdocumented as of this encounter (statuses as of 07/04/2024) Medications Medication Sig Dispensed Refills Start Date [...] as of this encounter (statuses as of 07/04/2024) Active Problems Problem Noted Date Diagnosed Date [...] as of this encounter (statuses as of 07/04/2024) Resolved Problems Problem Noted Date Diagnosed Date [...] as of this encounter (statuses as of 07/04/2024) Immunizations Name Administration Dates Next Due COVID-19 mRNA, LNP-s, No Pre serve, 2-Dose Series (Treehouse) 08/04/2021,01/12/2021,12/22/2020 COVID-19, LNP-s, No Preserve , Messi-sucrose, Ages 12+ (Treehouse) 07/28/2022 COVID-19, MRNA-LNP, 23-24, P F, 30 MCG/0.3 mL, 12 YRS AND ABOVE, IM ([employer]-Comirnat) 06/29/2024,07/16/2023 Covid-19, Mrna, Lnp-s, Pf, B ivalent, 30 Mcg, IM, 12 yrs and above (Treehouse) 12/01/2022 PPD 08/16/2007 Pneumococcal Conjugate Vacc, 13 [...] No 05/26/2024 Does the household have a [facility] source of income? (Household - for ages [...] she would like a call back at [phone] as patients condition is deteriorated since he [...] like answers and requested the number for [facility] Cardiology to see if she can have his TTE scheduled sooner even if they have to come to [place] for the test. I gave her the number [phone] to call. I also stated that if [...] Description 07/28/2024 10:30 AM EDT Imaging Radiology [address], [place] [address] [facility] [place] [address] 08/08/2024 12:00 PM EDT Telemedicine Neurosurgery, [place] [address] [place], [place] [phone] Nav Venegas MD [address] [place], [place] [phone] 08/23/2024 8:20 AM EDT Office Visit [facility] [address] [place] [address] Sourav Moss MD [address] [place] [address] 08/31/2024 1:00 PM EST Telemedicine Neurology [address] [place] [address] [place] [address] Mitul Velarde MD [address] [place], [place] [address] Health Maintenance Due Date Last Done Comments Adult Wellness Visit 2012 *BASELINE EKG FOR HTN 05/25/2022 GFR 08/23/2024 02/22/2024, 01/24, 02/04/2022, Additional history exists HbA1c 08/23/2024 02/22/2024, 07/27, 02/05/2023, Additional history exists Depression Screening 02/17/2025 02/18/2024 Diabetic Eye Exam 02/17/2025 02/18/2024, 02/15/2024 Diabetic Foot Exam 02/17/2025 02/18/2024 Albumin/Creatinine Ratio 02/21/2025 024, 08/17/2023, 02/04/2022, Additional history exists CKD HGB USE SMARTSET 84007 02/21/202502/21, 08/17/2023, 08/17/2023, Additional history exists CKD PHOS USE SMARTSET 83992 02/21/202501/25, 02/05/2023, 02/04/2022, Additional history exists DTap/Tdap [...] filedocumented as of this encounter Care Teams Furniture Crater Relationship Specialty Start Date End Date Sourav Moss MD [address] [place] [address] PCP - General 11/13/1997 documented as of this encounter
--- OUTSIDE RECORDS SUMMARY | 2024-07-09 13:37 | External Medical Summary | Summary of Care ---
Author Name Unknown Organization [facility] Address [address] [place] [address] Phone [phone] Care Team Providers Care Pizzamaker Name Role Phone Sourav Moss MD Primary Care Provider [phone] Reason for Visit * Reason Onset Date Comments Advice 06/23/2024 Encounter Details Date Type Department Care Team (Late st Contact Info) Description 06/23/2024 Telephone Neurology, [place] [address] [place] [address] Mitul Velarde MD [address] [place] [address] Advice Allergies No known active [...] mRNA, LNP-s, No Pre serve, 2-Dose Series (Peer39) 08/04/2021,01/12/2021,12/22/2020 COVID-19, LNP-s, No Preserve , Messi-sucrose, Ages 12+ (Peer39) 07/28/2022 COVID-19, MRNA-LNP, 23-24, P F, 30 MCG/0.3 mL, 12 YRS AND ABOVE, IM ([employer]SQUAR-Comirnat) 06/29/2024,07/16/2023 Covid-19, Mrna, Lnp-s, Pf, B ivalent, 30 Mcg, IM, 12 yrs and above (Peer39) 12/01/2022 PPD 08/16/2007 Pneumococcal Conjugate Vacc, 13 [...] No 05/26/2024 Does the household have a [facility]? (Household - for ages [...] else goingon. Requested a call back at [phone]. Called patient's Tereza back, no answer, left message stating that in the chart it is showing that we do not have the final result of the TTE, it is still in process. Stated that when Dr. Velarde receives results we will contact her. I also stated that if she has any further questions please call me at [phone]. * Telephone Encounter - Lucila Ramos LPN - 06/23/2024 10:13 AM EDT Received a message from patient's stating that she would like a call back at [phone] as patients condition is deteriorated since he [...] like answers and requested the number for [facility] Cardiology to see if she can have his TTE scheduled sooner even if they have to come to [place] for the test. I gave her the number [phone] to call. I also stated that if [...] Description 07/28/2024 10:30 AM EDT Imaging Radiology [facility] [address] [place] [address] 08/08/2024 12:00 PM EDT Telemedicine Neurosurgery, [place] [address] [place] [address] Nav Venegas MD [address] [place] [address] 08/23/2024 8:20 AM EDT Office Visit [facility] [address] [place] [address] Sourav Msos MD [address] [place] [address] 08/31/2024 1:00 PM EST Telemedicine Neurology [address] [place] [address] Mitul Velarde MD [address] [facility] [place] [address] Health Maintenance Due Date Last Done Comments [...] Additional history exists CKD HGB USE SMARTSET 80673 02/21/202502/21, 08/17/2023, 08/17/2023, Additional history exists CKD PHOS USE SMARTSET 91523 02/21/202501/25, 02/05/2023, 02/04/2022, Additional history exists DTap/Tdap [...] filedocumented as of this encounter Care Teams Pizzamaker Relationship Specialty Start Date End Date Sourav Moss MD [address] [place] [address] PCP - General 11/13/1997 documented as of this encounter
--- OUTSIDE RECORDS SUMMARY | 2024-07-09 13:37 | External Medical Summary | Summary of Care ---
Author Name Unknown Organization [facility] Address [address] [facility] [address] Phone [phone] Care Team Providers Care Manufacturing Production Technician Name Role Phone Sourav Moss MD Primary Care Provider [phone] Reason for Visit * Reason Onset Date Comments Appointment 07/06/2024 Encounter Details Date Type Department Care Team (Late st Contact Info) Description 07/06/2024 [address]phone [address] [place] [address] Alyse Pack, RT (R) Appointment Allergies No known active allergiesdocumented as of [...] mRNA, LNP-s, No Pre serve, 2-Dose Series ([employer] [facility]) 08/04/2021,01/12/2021,12/22/2020 COVID-19, LNP-s, No Preserve , Messi-sucrose, Ages 12+ (Pfizer) 07/28/2022 COVID-19, MRNA-LNP, 23-24, P F, 30 MCG/0.3 mL, 12 YRS AND ABOVE, IM ([employer]-Comirnat) 06/29/2024,07/16/2023 Covid-19, Mrna, Lnp-s, Pf, B ivalent, 30 Mcg, IM, 12 yrs and above ([facility] [facility]) 12/01/2022 PPD 08/16/2007 Pneumococcal Conjugate Vacc, 13 [...] No 05/26/2024 Does the household have a [facility] source [facility] income? (Household - for ages [...] encounter Miscellaneous Notes * Telephone Encounter - Alyse Pack RT (R) - 07/06/2024 2:27 PM EDT Name: Mayank Dolan Do you have any of the following: Pacemaker, stents, heart valves, aneurysm clips? No Have you ever worked with metal or have you ever gotten metal in your eyes? No Have you had a colonoscopy in the last 30 days? No On dialysis? No Do you have any dermals or body piercing's? No or ? Do you wear an insulin pump or diabetic monitor? no RT Siddhartha (R) documented in this encounter Plan of Treatment Upcoming Encounters Date Type Department Care Team (Late st Contact Info) Description 07/07/2024 3:15 PM EDT Imaging Radiology [address], [place] 132 [facility] [place] [address] 08/08/2024 12:00 PM EDT Telemedicine Neurosurgery, [place] [address] [place] [address] Nav Venegas MD [address] [place], [place] [address] 08/23/2024 8:20 AM EDT Office Visit [facility] [address] [place] [address] Sourav Moss MD [address] [place] [address] Health Maintenance Due Date Last Done Comments [...] Additional history exists CKD HGB USE SMARTSET 35323 02/21/202502/21, 08/17/2023, 08/17/2023, Additional history exists CKD PHOS USE SMARTSET 38212 02/21/202501/25, 02/05/2023, 02/04/2022, Additional history exists DTap/Tdap [...] filedocumented as of this encounter Care Teams Manufacturing Production Technician Relationship Specialty Start Date End Date Sourav Moss MD [address] [place] [address] PCP - General 11/13/1997 documented as of this encounter
--- OUTSIDE RECORDS SUMMARY | 2024-07-09 13:37 | External Medical Summary | Summary of Care ---
Author Name Unknown Organization [facility] Address [address] [place] [address] Phone [phone] Care Team Providers Care Second Cutter Name Role Phone Sourav Moss MD Primary Care Provider [phone] Reason for Visit * Reason Onset Date Comments Advice 06/23/2024 Encounter Details Date Type Department Care Team (Late st Contact Info) Description 06/23/2024 Telephone Neurology, [place] [address] [place] [address] Mitul Velarde MD [address] [place] [address] Advice Allergies No known active [...] mRNA, LNP-s, No Pre serve, 2-Dose Series (L[employer]Era) 08/04/2021,01/12/2021,12/22/2020 COVID-19, LNP-s, No Preserve , Messi-sucrose, Ages 12+ (LucidEra) 07/28/2022 COVID-19, MRNA-LNP, 23-24, P F, 30 MCG/0.3 mL, 12 YRS AND ABOVE, IM ([employer]-Comirnat) 06/29/2024,07/16/2023 Covid-19, Mrna, Lnp-s, Pf, B ivalent, 30 Mcg, IM, 12 yrs and above (LucidEra) 12/01/2022 PPD 08/16/2007 Pneumococcal Conjugate Vacc, 13 [...] No 05/26/2024 Does the household have a [facility] source of income? (Household - for ages [...] Encounter - Lucila Ramos LPN - 07/05/2024 3:[address] Velarde: Called patient's Tereza and informed her There is no significant abnormalities seen on the TTEother than some narrowing of the aortic valve that I would have him see his PCP [...] an urgent OP setting at this time. She stated that she understands this and she will take him to the ED. She also wanted to make sure this information was documented in the chart and I told her yes it is under the 06/23/24 TE encounter. She thanked me for calling. * Telephone Encounter - Mitul Velarde MD [...] else goingon. Requested a call back at [phone]. Called patient's Tereza back, no answer, left message stating that in the chart it is showing that we do not have the final result of the TTE, it is still in process. Stated that when Dr. Velarde receives results we will contact her. I also stated that if she has any further questions please call me at [phone]. * Telephone Encounter - Lucila Ramos LPN - 06/23/2024 10:13 AM EDT Received a message from patient's stating that she would like a call back at [phone] as patients condition is deteriorated since he [...] like answers and requested the number for [facility] Cardiology to see if she can have his TTE scheduled sooner even if they have to come to [place] for the test. I gave her the number [phone] to call. I also stated that if [...] Description 07/28/2024 10:30 AM EDT Imaging Radiology [address], [address] [place] [address] 08/08/2024 12:00 PM EDT Telemedicine Neurosurgery, [place] [address] [place], [place] [phone] Nav Venegas MD [address] [place], [place] [address] 08/23/2024 8:20 AM EDT Office Visit [facility] [address] [place] [address] Sourav Moss MD [address] [place], [place] [address] 08/31/2024 1:00 PM EST Telemedicine Neurology [address] [place] [address] Mitul Velarde MD [address] [place], [place] [address] Health Maintenance Due Date Last Done Comments [...] Additional history exists CKD HGB USE SMARTSET 39425 02/21/202502/21, 08/17/2023, 08/17/2023, Additional history exists CKD PHOS USE SMARTSET 59369 02/21/202501/25, 02/05/2023, 02/04/2022, Additional history exists DTap/Tdap [...] filedocumented as of this encounter Care Teams Second Cutter Relationship Specialty Start Date End Date Sourav Moss MD [address] [place] [address] PCP - General 11/13/1997 documented as of this encounter
--- OUTSIDE RECORDS SUMMARY | 2024-07-09 13:37 | External Medical Summary | Summary of Care ---
Author Name Unknown Organization [facility] Address [address] [place] [address] Phone [phone] Care Team Providers Care Hardware Press Operator Name Role Phone Sourav Moss MD Primary Care Provider [phone] Reason for Visit * Reason Onset Date Comments Advice 06/23/2024 Encounter Details Date Type Department Care Team (Late st Contact Info) Description 06/23/2024 Telephone Neurology, [place] [address] [place] [address] Mitul Velarde MD [address] [place] [address] Advice Allergies No known active allergiesdocumented as of this encounter (statuses as of 06/23/2024) Medications Medication Sig Dispensed Refills Start Date [...] as of this encounter (statuses as of 06/23/2024) Active Problems Problem Noted Date Diagnosed Date [...] as of this encounter (statuses as of 06/23/2024) Resolved Problems Problem Noted Date Diagnosed Date [...] as of this encounter (statuses as of 06/23/2024) Immunizations Name Administration Dates Next Due COVID-19 mRNA, LNP-s, No Pre serve, 2-Dose Series (Missing[employer]) 08/04/2021,01/12/2021,12/22/2020 COVID-19, LNP-s, No Preserve , Messi-sucrose, Ages 12+ (Missingames) 07/28/2022 COVID-19, MRNA-LNP, 23-24, P F, 30 MCG/0.3 mL, 12 YRS AND ABOVE, IM ([employer]-Comirnat) 07/16/2023 Covid-19, Mrna, Lnp-s, Pf, B ivalent, 30 Mcg, IM, 12 yrs and above (Missingames) 12/01/2022 PPD 08/16/2007 Pneumococcal Conjugate Vacc, 13 [...] she would like a call back at [phone] as patients condition is deteriorated since he [...] like answers and requested the number for [facility] Cardiology to see if she can have his TTE scheduled sooner even if they have to come to [place] for the test. I gave her the number [phone] to call. I also stated that if [...] Description 07/28/2024 10:30 AM EDT Imaging Radiology [facility] 1st [facility] [address] [place] [address] 08/08/2024 12:00 PM EDT Telemedicine Neurosurgery, [place] [address] [place], [place] [phone] Nav Venegas MD [address] [place], [place] [address] 08/23/2024 8:20 AM EDT Office Visit [facility] [address] [place] [address] Sourav Moss MD [address] [place] [address] 08/26/2024 2:00 PM EDT Cardiac Studies Cardiac Studies, [facility] 132 [place] [address] 08/31/2024 1:00 PM EST Telemedicine Neurology [address] [place] [address] Mitul Velarde MD [address] [place], [place] [address] Health Maintenance Due Date Last Done Comments [...] Additional history exists CKD HGB USE SMARTSET 20753 02/21/202502/21, 08/17/2023, 08/17/2023, Additional history exists CKD PHOS USE SMARTSET 64090 02/21/202501/25, 02/05/2023, 02/04/2022, Additional history exists DTap/Tdap [...] filedocumented as of this encounter Care Teams Hardware Press Operator Relationship Specialty Start Date End Date Sourav Moss MD [address] [place] [address] PCP - General 11/13/1997 documented as of this encounter
--- OUTSIDE RECORDS SUMMARY | 2024-07-09 13:37 | External Medical Summary | Summary of Care ---
Author Name Unknown Organization [facility] Address [address] [place] [address] Phone [phone] Care Team Providers Care Mobile Service Rv Technician Name Role Phone Sourav Moss MD Primary Care Provider [phone] Reason for Visit * Reason Onset Date Comments Advice 06/23/2024 Encounter Details Date Type Department Care Team (Late st Contact Info) Description 06/23/2024 Telephone Neurology, [place] [address] [place] [address] Mitul Velarde MD [address] [place] [address] Advice Allergies No known active [...] mRNA, LNP-s, No Pre serve, 2-Dose Series ([employer]) 08/04/2021,01/12/2021,12/22/2020 COVID-19, LNP-s, No Preserve , Messi-sucrose, Ages 12+ ([employer]) 07/28/2022 COVID-19, MRNA-LNP, 23-24, P F, 30 MCG/0.3 mL, 12 YRS AND ABOVE, IM ([employer]-Comirnat) 06/29/2024,07/16/2023 Covid-19, Mrna, Lnp-s, Pf, B ivalent, 30 Mcg, IM, 12 yrs and above ([employer]) 12/01/2022 PPD 08/16/2007 Pneumococcal Conjugate Vacc, 13 [...] No 05/26/2024 Does the household have a [facility] source of income? (Household - for [...] else goingon. Requested a call back at [phone]. Called patient's Tereza back, no answer, left message stating that in the chart it is showing that we do not have the final result of the TTE, it is still in process. Stated that when Dr. Velarde receives results we will contact her. I also stated that if she has any further questions please call me at [phone]. * Telephone Encounter - Lucila Ramos LPN - 06/23/2024 10:13 AM EDT Received a message from patient's stating that she would like a call back at [phone] as patients condition is deteriorated since he [...] like answers and requested the number for [facility] Cardiology to see if she can have his TTE scheduled sooner even if they have to come to [place] for the test. I gave her the number [phone] to call. I also stated that if [...] Description 07/28/2024 10:30 AM EDT Imaging Radiology [facility] [address] [facility] [place] [address] [facility] [place] [address] 08/08/2024 12:00 PM EDT Telemedicine Neurosurgery, [place] [address] [place], [place] [address] Nav Venegas MD [address] [place], [place] [address] 08/23/2024 8:20 AM EDT Office Visit [facility] [address] [place] [address] Sourav Moss MD [address] [place], [place] [address] 08/31/2024 1:00 PM EST Telemedicine Neurology [address] [place] [address] Mitul Velarde MD [address] [place], [place] [address] Health Maintenance Due Date Last Done Comments [...] Additional history exists CKD HGB USE SMARTSET 09713 02/21/202502/21, 08/17/2023, 08/17/2023, Additional history exists CKD PHOS USE SMARTSET 84853 02/21/202501/25, 02/05/2023, 02/04/2022, Additional history exists DTap/Tdap [...] filedocumented as of this encounter Care Teams Mobile Service Rv Technician Relationship Specialty Start Date End Date Sourav Moss MD [address] [place] [address] PCP - General 11/13/1997 documented as of this encounter
--- OUTSIDE RECORDS SUMMARY | 2024-07-09 13:37 | External Medical Summary | Summary of Care ---
Author Name Unknown Organization [facility] Address [address] [place] [address] Phone [phone] Care Team Providers Care Dry Cleaner Helper Name Role Phone Sourav Moss MD Primary Care Provider [phone] Reason for Visit * Reason Onset Date Comments Advice 06/23/2024 Encounter Details Date Type Department Care Team (Late st Contact Info) Description 06/23/2024 Telephone Neurology, [place] [address] [place] [address] Mitul Velarde MD [address] [place] [address] Advice Allergies No known active [...] mRNA, LNP-s, No Pre serve, 2-Dose Series ([employer]) 08/04/2021,01/12/2021,12/22/2020 COVID-19, LNP-s, No Preserve , Messi-sucrose, Ages 12+ (WideOrbit) 07/28/2022 COVID-19, MRNA-LNP, 23-24, P F, 30 MCG/0.3 mL, 12 YRS AND ABOVE, IM (MuseStorm-Comirnat) 06/29/2024,07/16/2023 Covid-19, Mrna, Lnp-s, Pf, B ivalent, 30 Mcg, IM, 12 yrs and above ([employer]Orbit) 12/01/2022 PPD 08/16/2007 Pneumococcal Conjugate Vacc, 13 [...] No 05/26/2024 Does the household have a [facility] source [facility] income? (Household - for [...] and this does not explain his symptoms. IF he is worsening that may point to a tumor as opposed to stroke and would recommend that he go to the emergency department if his speech is worsening. Things could be progression of the previously seen lesion or a new ischemic event * Telephone Encounter - Lucila Ramos LPN [...] else goingon. Requested a call back at [phone]. Called patient's Tereza back, no answer, left message stating that in the chart it is showing that we do not have the final result of the TTE, it is still in process. Stated that when Dr. Velarde receives results we will contact her. I also stated that if she has any further questions please call me at [phone]. * Telephone Encounter - Lucila Ramos LPN - 06/23/2024 10:13 AM EDT Received a message from patient's stating that she would like a call back at [phone] as patients condition is deteriorated since he [...] answers and requested the number for [facility] to see if she can have his TTE scheduled sooner even if they have to come to [place] for the test. I gave her the number [phone] to call. I also stated that if [...] Description 07/28/2024 10:30 AM EDT Imaging Radiology [address], [address] [place] [address] 08/08/2024 12:00 PM EDT Telemedicine Neurosurgery, [place] [address] [place] [address] Nav Venegas MD [address] [place] [address] 08/23/2024 8:20 AM EDT Office Visit [facility] [address] [place] [phone] Sourav Moss MD [address] [place] [address] 08/31/2024 1:00 PM EST Telemedicine Neurology [address] [place] [address] Mitul Velarde MD [address] [place], [place] [id number] Health Maintenance Due Date Last Done Comments Adult Wellness Visit 2012 *BASELINE EKG FOR HTN 05/25/2022 GFR 08/23/2024 02/22/2024, 01/24, 02/04/2022, Additional history exists HbA1c 08/23/2024 02/22/2024, 07/27, 02/05/2023, Additional history exists COVID-19 Vaccine (2022- season) 2024 06/29/2024, 07/16/2023, 12/01/2022, Additional history exists Depression Screening 02/17/2025 02/18/2024 Diabetic Eye Exam 02/17/2025 02/18/2024, 02/15/2024 Diabetic Foot Exam 02/17/2025 02/18/2024 Albumin/Creatinine Ratio 02/21/2025 024, 08/17/2023, 02/04/2022, Additional history exists CKD HGB USE SMARTSET 50469 02/21/202502/21, 08/17/2023, 08/17/2023, Additional history exists CKD PHOS USE SMARTSET 62035 02/21/202501/25, 02/05/2023, 02/04/2022, Additional history exists DTap/Tdap [...] filedocumented as of this encounter Care Teams Dry Cleaner Helper Relationship Specialty Start Date End Date Sourav Moss MD [address] [place] [address] PCP - General 11/13/1997 documented as of this encounter
--- OUTSIDE RECORDS SUMMARY | 2024-07-09 13:38 | External Medical Summary | Summary of Care ---
Author Name Unknown Organization [facility] Address [address] [place] [address] Phone [phone] Care Team Providers Care Highwall Drill Operator Name Role Phone Sourav Moss MD Primary Care Provider [phone] Reason for Visit * Reason Onset Date Comments Test Results 06/20/2024 Encounter Details Date Type Department Care Team (Late st Contact Info) Description 06/20/2024 Telephone [facility] Neurology [address] [place] [address] Mitul Velarde MD [address] [place] [address] Test Results Allergies No known active allergiesdocumented as of this encounter (statuses as of 06/20/2024) Medications Medication Sig Dispensed Refills Start Date [...] as of this encounter (statuses as of 06/20/2024) Active Problems Problem Noted Date Diagnosed Date [...] as of this encounter (statuses as of 06/20/2024) Resolved Problems Problem Noted Date Diagnosed Date [...] as of this encounter (statuses as of 06/20/2024) Immunizations Name Administration Dates Next Due COVID-19 mRNA, LNP-s, No Pre serve, 2-Dose Series ([employer]) 08/04/2021,01/12/2021,12/22/2020 COVID-19, LNP-s, No Preserve , Messi-sucrose, Ages 12+ ([employer]) 07/28/2022 COVID-19, MRNA-LNP, 23-24, P F, 30 MCG/0.3 mL, 12 YRS AND ABOVE, IM ([employer]ane-Comirnat) 07/16/2023 Covid-19, Mrna, Lnp-s, Pf, B ivalent, 30 Mcg, IM, 12 yrs and above ([employer]o) 12/01/2022 PPD 08/16/2007 Pneumococcal Conjugate Vacc, 13 [...] Does the household have a [facility] source [facility] income? (Household - for [...] Description 07/28/2024 10:30 AM EDT Imaging Radiology [address] [facility] [place] [address] 08/08/2024 12:00 PM EDT Telemedicine Neurosurgery, [place] [address] [place] [address] Nav Venegas MD [address] [place] [address] 08/23/2024 8:20 AM EDT Office Visit [facility] [address] [place] [phone] Sourav Moss MD [address] [place] [address] 08/31/2024 1:00 PM EST Telemedicine Neurology [facility] [place] [address] [place] [address] Mitul Velarde MD [address], [place] [phone] Health Maintenance Due Date Last Done Comments [...] Additional history exists CKD HGB USE SMARTSET 79938 02/21/202502/21, 08/17/2023, 08/17/2023, Additional history exists CKD PHOS USE SMARTSET 38294 02/21/2025 0406/2024, 02/05/2023, 02/04/2022, Additional history exists DTaP,Tdap,and Td Vaccines (3 - Td or Tdap) 02/05/2033 [...] filedocumented as of this encounter Care Teams Highwall Drill Operator Relationship Specialty Start Date End Date Sourav Moss MD [address] [place] [facility] [place] [address] PCP - General 11/13/1997 documented as of this encounter
--- OUTSIDE RECORDS SUMMARY | 2024-07-09 13:38 | External Medical Summary | Summary of Care ---
Author Name Unknown Organization [facility] Address [address] [place] [address] Phone [phone] Care Team Providers Care Crusher And Blender Operator Name Role Phone Sourav Moss MD Primary Care Provider [phone] Encounter Details Date Type Department Care Team (Latest Contact Info) Description 05/10/2024 8:40 AM EDT - 05/10/2024 11:14 AM EDT Hospital Encounter Radiology [facility] [address] [place], [place] [id number] Arrived Discharge Disposition: Home - Self Care Allergies No known active allergiesdocumented as of this encounter (statuses as of 05/11/2024) Medications Medication Sig Dispensed Refills Start Date [...] needed for Cough. 30 Capsule 02/02/2024 Active Atorvastatin Calcium 20 MG Oral Tablet (Lipitor)Indications [...] as of this encounter (statuses as of 05/11/2024) Active Problems Problem Noted Date Diagnosed Date [...] as of this encounter (statuses as of 05/11/2024) Resolved Problems Problem Noted Date Diagnosed Date [...] as of this encounter (statuses as of 05/11/2024) Immunizations Name Administration Dates Next Due COVID-19 mRNA, LNP-s, No Pre serve, 2-Dose Series ([employer]) 08/04/2021,01/12/2021,12/22/2020 COVID-19, LNP-s, No Preserve , Messi-sucrose, Ages 12+ (Pfizer) 07/28/2022 COVID-19, MRNA-LNP, 23-24, P F, 30 MCG/0.3 mL, 12 YRS AND ABOVE, IM (PFIZER-Comirnaty) 07/16/2023 Covid-19, Mrna, Lnp-s, Pf, B ivalent, [...] the money to buy more. Never true 02/06/20 23 Within the past 12 months, t he food you bought just didn't last and you didn't have money to get more. Never true 02/05/2023 Utilities Answer Date Recorded Do you have trouble paying y our heating, water, or electric bill? (Adult - for ages 18 years and over) Not on file 04/12/2024 Is your family able to pay t he heat, water, or electric bill? (Household - for ages 0-17 years) Not on file 04/12/2024 Does your family have access to good internet? (Household - for ages 0-17 years) Not on file 04/12/2024 Social Connections Answer Date Recorded How often do you feel lonely or isolated from those around you? (Adult - for ages 18 years and over) Not on file 04/12/2024 Sex and Gender Information Value Date Recorded [...] Care Team (Late st Contact Info) Description 05/25/2024 2:00 PM EDT Office Visit [facility] [place] [address] [place] [address] Nav Venegas MD [address] [place] [address] 08/23/2024 8:20 AM EDT Office Visit [facility] [address] [place] [phone] Sourav Moss MD [address] [place] [address] Health Maintenance Due Date Last Done Comments *BASELINE EKG FOR HTN 05/25/2022 COVID-19 Vaccine [...] Additional history exists CKD HGB USE SMARTSET 86125 02/21/202502/21, 08/17/2023, 08/17/2023, Additional history exists CKD PHOS USE SMARTSET 35641 02/21/202501/25, 02/05/2023, 02/04/2022, Additional history exists DTaP,Tdap,and Td [...] Procedure Name Priority Date/Time Associated Diagnosis Comments RADIOLOGY EXAM - CT (IMAGES ONLY, NO REPORT) Routine 05/10/2024 8:40 AM EDT documented in this encounter Results * RADIOLOGY EXAM - CT (IMAGES ONLY, NO REPORT) (05/10/2024 8:40 AM EDT) 05/10/2024 8:36 AM EDT Narrative Scheduling, Silent - 05/10/2024 4:56 PM EDT This is an imaging study not interpreted or resulted by a [facility] or [facility] contracted radiologist. Ede Kaye MD RAD CT documented in this encounter Care Teams Crusher And Blender Operator Relationship Specialty Start Date End Date Sourav Moss MD [address] [place] [facility] [place] [address] PCP - General 11/13/1997 documented as of this encounter
--- OUTSIDE RECORDS SUMMARY | 2024-07-09 13:38 | External Medical Summary | Summary of Care ---
Author Name Unknown Organization [facility] Address [address] [place] [address] Phone [phone] Care Team Providers Care High School Coordinator Name Role Phone Sourav Moss MD Primary Care Provider [phone] Encounter Details Date Type Department Care Team (Late st Contact Info) Description 05/10/2024 Telephone [facility] [address] [place] [address] Enma Palumbo RN Allergies No known active allergiesdocumented as of this encounter (statuses as of 05/16/2024) Medications Medication Sig Dispensed Refills Start Date [...] as of this encounter (statuses as of 05/16/2024) Active Problems Problem Noted Date Diagnosed Date [...] as of this encounter (statuses as of 05/16/2024) Resolved Problems Problem Noted Date Diagnosed Date [...] as of this encounter (statuses as of 05/16/2024) Immunizations Name Administration Dates Next Due COVID-19 mRNA, LNP-s, No Pre serve, 2-Dose Series ([employer]) 08/04/2021,01/12/2021,12/22/2020 COVID-19, LNP-s, No Preserve , Messi-sucrose, Ages 12+ (Pfizer) 07/28/2022 COVID-19, MRNA-LNP, 23-24, P F, 30 MCG/0.3 mL, 12 YRS AND ABOVE, IM (PFIZER-Comirnaty) 07/16/2023 Covid-19, Mrna, Lnp-s, Pf, B ivalent, 30 Mcg, IM, 12 yrs and above (Aiotra) 12/01/2022 PPD 08/16/2007 Pneumococcal Conjugate Vacc, 13 [...] Telephone Encounter - Enma Palumbo RN - 05/16/2024 9:21 AM EDT Imaging is in [facility] * Telephone Encounter - Nadia Booth Student - 05/11/2024 9:34 AM EDT Called [facility] and requested Brain images be pushed. * Telephone Encounter - Enma Palumbo RN - 05/10/2024 2:17 PM EDT Patient scheduled with Dr. Venegas at patient's convenience. Please call over to [facility] to obtain any brain imaging. He had a CT head and MRI brain. Thanks! * Telephone Encounter - Enma Palumbo RN - 05/10/2024 2:04 PM EDT LVM for spouse. Need to get patient scheduled with Dr. Levine or Dr. Venegas. Asked for return call. documented in this encounter Plan of Treatment Upcoming Encounters Date Type Department Care Team (Late st Contact Info) Description 05/25/2024 2:00 PM EDT [facility] [address] [place] [address] Nav Venegas MD [address] [place] [address] 08/23/2024 8:20 AM EDT Office Visit [facility] [address] [place] [address] Sourav Moss MD [address] [place] [address] Health Maintenance Due Date Last [...] Additional history exists CKD HGB USE SMARTSET 07386 02/21/202502/21, 08/17/2023, 08/17/2023, Additional history exists CKD PHOS USE SMARTSET 89938 02/21/202501/25, 02/05/2023, 02/04/2022, Additional history exists DTaP,Tdap,and [...] filedocumented as of this encounter Care Teams High School Coordinator Relationship Specialty Start Date End Date Sourav Moss MD [address] [place] [address] PCP - General 11/13/1997 documented as of this encounter
--- OUTSIDE RECORDS SUMMARY | 2024-07-09 13:38 | External Medical Summary | Summary of Care ---
Author Name Unknown Organization [facility] Address [address] [place] [address] Phone [phone] Care Team Providers Care Salesperson Children'S Shoes Name Role Phone Sourav Moss MD Primary Care Provider [phone] Reason for Visit * Reason Comments EEG * Ancillary Services (Within 3 days (urgent)) - Authorized Specialty Diagnoses / Procedures Referred By Contac t Referred To Contact Neurophysiology Diagnoses Unspecified convulsions (HCC) Procedures EEG Mitul Velarde MD [address] [place] [address] Referral ID Status Reason Start Date Expiration Date Visits Requested Visits Authorized [id number] Authorized Ancillary Services Required 06/01/2024 06/24/[phone] Encounter Details Date Type Department Care Team (Late st Contact Info) Description 06/08/2024 10:30 AM EDT NeuroDiagnostic Study Neurophysiology [facility] [address] [facility] [place] [address] Sp, Neurophys Tech [facility] [address] Allergies No known active allergiesdocumented as of this encounter (statuses as of 06/14/2024) Medications Medication Sig Dispensed Refills Start Date [...] as of this encounter (statuses as of 06/14/2024) Active Problems Problem Noted Date Diagnosed Date [...] as of this encounter (statuses as of 06/14/2024) Resolved Problems Problem Noted Date Diagnosed Date [...] as of this encounter (statuses as of 06/14/2024) Immunizations Name Administration Dates Next Due COVID-19 mRNA, LNP-s, No Pre serve, 2-Dose Series (Testt) 08/04/2021,01/12/2021,12/22/2020 COVID-19, LNP-s, No Preserve , Messi-sucrose, Ages 12+ (Testt) 07/28/2022 COVID-19, MRNA-LNP, 23-24, P F, 30 [...] on file documented as of this encounter Progress Notes * Jhon Hernandez, - 06/14/2024 2:02 PM EDT ROUTINE EEG REPORT Name: Mayank Dolan Date of study: 06/08/2024, 10:29-10:59 Age: [age] year old Outpatient Referring Physician: Mitul Velarde MD TECHNICAL REMARKS: This is a technically satisfactory eighteen channel record employing 21 disc electrodes applied according to a measured international 10-20 electrode placement system. There were no significant technical difficulties. CLINICAL INFORMATION: A 78-year-old male with seizure-like activity. EEG performed for evaluation of epileptiform activity. MEDICATIONS: Current Outpatient Medications Medication Sig Dispense Refill ASPIRIN 81 MG PO TABS one tab by mouth daily 0 0 VITAMIN D 1000 UNITS PO CAPS 1 capsule daily 30 Cap 11 ACETAMINOPHEN 500 MG PO TABS Two pills by mouth 3 times daily as needd for arthritis 100 Tab 0 metFORMIN HCl ER 500 MG Oral Tablet Extended Release 24 Hour (Glucophage XR) Take 1 Tablet by mouthin the morning. (Patient not taking: Reported on 02/02/2024) 90 Tablet 3 Benzonatate 200 MG Oral Capsule Take 1 Capsule by mouth 3 times a day as needed for Cough. (Patientnot taking: Reported on 05/25/2024) 30 Capsule 0 Atorvastatin Calcium 20 MG Oral Tablet (Lipitor) Take 1 Tablet by mouth in the morning. 90 Tablet 3 Lisinopril-hydroCHLOROthiazide 10-12.5 MG Oral Tablet Take 1 Tablet by mouth in the morning. 90 Tablet 3 Omeprazole 20 MG Oral Capsule Delayed Release (PriLOSEC) Take 1 Capsule by mouth in the morning. 1 hour before the first meal of the day.. 90 Capsule 3 Empagliflozin 10 MG Oral Tablet (Jardiance) Take 1 Tablet by mouth in the morning. 90 Tablet 3 No current facility-administered medications for this visit. REPORT: At the onset of the EEG, the patient is awake. The background is continuous and appears symmetric. The posterior dominant rhythm is 9 Hz with low amplitude faster frequencies in the frontal head region. Drowsiness is characterized by increased theta activity with intermittent generalized 2-3 Hz polymorphic delta activity. No stage 2 sleep transients are seen. Photic stimulation does not induce any abnormalities. IMPRESSION: This is an abnormal awake and drowsy routine EEG due to intermittent generalized slowing suggestive of a mild nonspecific encephalopathy. No epileptiform activity seen. Jhon Hernandez DO documented in this encounter Plan of Treatment Upcoming Encounters Date Type Department Care Team (Late st Contact Info) Description 07/28/2024 10:30 AM EDT Imaging Radiology [facility] [address] [facility], [place] [address] [facility] [place] [address] 08/08/2024 12:00 PM EDT Telemedicine Neurosurgery, [place] [address] [place], [place] [phone] Nav Venegas MD [address] [place], [place] [address] 08/23/2024 8:20 AM EDT Office Visit [facility] [address] [place] [address] Sourav Moss MD [address] [place] [address] 08/31/2024 1:00 PM EST Telemedicine Neurology [address] [place] [address] Mitul Velarde MD [address] [place] [address] Health Maintenance Due Date Last Done Comments [...] Additional history exists CKD HGB USE SMARTSET 11631 02/21/202502/21, 08/17/2023, 08/17/2023, Additional history exists CKD PHOS USE SMARTSET 79275 02/21/202501/25, 02/05/2023, 02/04/2022, Additional history exists DTaP,Tdap,and [...] as of this encounter Visit Diagnoses Diagnosis Seizure-like activity (HCC) [R56.9]- Primary Other convulsions documented in this encounter Care Teams Salesperson Children'S Shoes Relationship Specialty Start Date End Date Sourav Moss MD [address] [place] [address] PCP - General 11/13/1997 documented as of this encounter
--- OUTSIDE RECORDS SUMMARY | 2024-07-09 13:38 | External Medical Summary | Summary of Care ---
Author Name Unknown Organization [facility] Address [address] [place] [address] Phone [phone] Care Team Providers Care Inspector Tubes Name Role Phone Sourav Moss MD Primary Care Provider [phone] Reason for Visit * Reason Onset Date Comments Scan To Read 02/18/2024 Encounter Details Date Type Department Care Team (Late st Contact Info) Description 02/18/2024 Telephone [facility] [address] [place] [address] Sourav Moss MD [address] [place] [address] Scan To Read Allergies No known active allergiesdocumented as of this encounter (statuses as of 05/19/2024) Medications Medication Sig Dispensed Refills Start Date [...] the day.. 90 Capsule 3 02/18/2024 Active documented as of this encounter (statuses as of 05/19/2024) Active Problems Problem Noted Date Diagnosed Date [...] as of this encounter (statuses as of 05/19/2024) Resolved Problems Problem Noted Date Diagnosed Date [...] as of this encounter (statuses as of 05/19/2024) Immunizations Name Administration Dates Next Due COVID-19 mRNA, LNP-s, No Pre serve, 2-Dose Series ([employer]) 08/04/2021,01/12/2021,12/22/2020 COVID-19, LNP-s, No Preserve , Messi-sucrose, Ages 12+ (Pfizer) 07/28/2022 COVID-19, MRNA-LNP, 23-24, P F, 30 MCG/0.3 mL, 12 YRS AND ABOVE, IM ([employer]-Comirnat) 07/16/2023 Covid-19, Mrna, Lnp-s, Pf, B ivalent, 30 Mcg, IM, 12 yrs and above ([employer]) 12/01/2022 PPD 08/16/2007 Pneumococcal Conjugate Vacc, 13 [...] encounter Miscellaneous Notes * Telephone Encounter - Rober Carter MD - 02/18/2024 3:44 PM EDT Retinal Scan Imaging [facility] [place] [id number] Retinal Scan Interpretation: The images are not able to be interpreted. Diabetes Retinal Imaging Care Plan: The retinal scan results are uninterpretable - I will forward this encounter to the Ophthalmology DM Letter Pool [[id number]], they will send an unreadable retinal scan letter to the patient. I will forward this encounter to the ordering provider. Patient prefers to be seen at [facility] for follow-up evaluation. This encounter will be sent to Ophthalmology scheduling services, please schedule the patient within 3 months. Rober Carter MD 02/18/2024 3:44 PM * Telephone Encounter - Allegra Richards LPN - 02/18/2024 1:19 PM EDT A Diabetic Telemed Eye image was taken and requires your interpretation for Dr Moss. [facility]. Patient prefers to be seen at [facility] if a follow-up appointment is needed. documented in this encounter Plan of Treatment Upcoming Encounters Date Type Department Care Team (Late st Contact Info) Description 05/25/2024 2:00 PM EDT Office Visit [facility], [address] [address] Nav Venegas MD [address] [place] [address] 08/23/2024 8:20 AM EDT Office Visit [facility] [address] [place] [address] Sourav Moss MD [address] [place] [address] Health Maintenance Due Date Last [...] Additional history exists CKD HGB USE SMARTSET 80934 02/21/202502/21, 08/17/2023, 08/17/2023, Additional history exists CKD PHOS USE SMARTSET 42203 02/21/202501/25, 02/05/2023, 02/04/2022, Additional history exists DTaP,Tdap,and [...] as of this encounter Care Teams Inspector Tubes Relationship Specialty Start Date End Date Sourav Moss MD [address] [place] [address] PCP - General 11/13/1997 documented as of this encounter
--- OUTSIDE RECORDS SUMMARY | 2024-07-09 13:38 | External Medical Summary | Summary of Care ---
Author Name Unknown Organization [facility] Address [address] [place] [address] Phone [phone] Care Team Providers Care Rooter Operator Name Role Phone Sourav Moss MD Primary Care Provider [phone] Encounter Details Date Type Department Care Team (Latest Contact Info) Description 05/10/2024 8:50 AM EDT - 05/10/2024 11:14 AM EDT Hospital Encounter Radiology Film File [address] [place] [address] Discharge Disposition: Home - Self Care Allergies No known active allergiesdocumented as of this encounter (statuses as of 05/26/2024) Medications Medication Sig Dispensed Refills Start Date [...] as of this encounter (statuses as of 05/26/2024) Active Problems Problem Noted Date Diagnosed Date [...] as of this encounter (statuses as of 05/26/2024) Resolved Problems Problem Noted Date Diagnosed Date [...] as of this encounter (statuses as of 05/26/2024) Immunizations Name Administration Dates Next Due COVID-19 mRNA, LNP-s, No Pre serve, 2-Dose Series ([employer]) 08/04/2021,01/12/2021,12/22/2020 COVID-19, LNP-s, No Preserve , Messi-sucrose, Ages 12+ (Pfizer) 07/28/2022 COVID-19, MRNA-LNP, 23-24, P F, 30 MCG/0.3 mL, 12 YRS AND ABOVE, IM ([employer]-Comirnaty) 07/16/2023 Covid-19, Mrna, Lnp-s, Pf, B ivalent, [...] No 05/26/2024 Does the household have a [facility] source of income? (Household - for [...] Care Team (Late st Contact Info) Description 06/01/2024 1:00 PM EDT Telemedicine Neurology [address] [place] [phone] Mitul Velarde MD [address] [facility] [place] [address] 07/07/2024 12:30 PM EDT Imaging Radiology [address] [place] [id number] 08/23/2024 8:20 AM EDT Office Visit [address] [place] [address] Sourav oMss MD [address] [place] [address] Health Maintenance Due Date Last Done Comments *BASELINE EKG FOR HTN 05/25/2022 COVID-19 Vaccine (2022-24 season) 2023 07/16/2023, 12/01/2022, 07/28/2022, Additional history [...] Additional history exists CKD HGB USE SMARTSET 44719 02/21/202502/21, 08/17/2023, 08/17/2023, Additional history exists CKD PHOS USE SMARTSET 28063 02/21/202501/25, 02/05/2023, 02/04/2022, Additional history exists DTaP,Tdap,and [...] CT (IMAGES ONLY, NO REPORT) Routine 05/10/2024 8:50 AM EDT documented in this encounter Results * RADIOLOGY EXAM - CT (IMAGES ONLY, NO REPORT) (05/10/2024 8:50 AM EDT) 05/10/2024 8:36 AM EDT Narrative Scheduling, Silent - 05/25/2024 8:49 PM EDT This is an imaging study not interpreted or resulted by a [facility] or [facility] contracted radiologist. Nav Venegas MD RAD CT documented in this encounter Care Teams Rooter Operator Relationship Specialty Start Date End Date Sourav Moss MD [address] [place] [address] PCP - General 11/13/1997 documented as of this encounter
--- OUTSIDE RECORDS SUMMARY | 2024-07-09 13:38 | External Medical Summary | Summary of Care ---
Author Name Unknown Organization [facility] Address [address] [place] [address] Phone [phone] Care Team Providers Care Revolving Field Assembler Name Role Phone Sourva Moss MD Primary Care Provider Reason for Visit * Reason Onset Date Comments Appointment 06/02/2024 Encounter Details Date Type Department Care Team (Late st Contact Info) Description 06/02/2024 Telephone [facility] [address] [place], [place] [phone] Specified, Karl No Resource [address] [place], [place] [phone] Appointment Allergies No known active allergiesdocumented as of this encounter (statuses as of 06/02/2024) Medications Medication Sig Dispensed Refills Start Date [...] as of this encounter (statuses as of 06/02/2024) Active Problems Problem Noted Date Diagnosed Date [...] as of this encounter (statuses as of 06/02/2024) Resolved Problems Problem Noted Date Diagnosed Date [...] as of this encounter (statuses as of 06/02/2024) Immunizations Name Administration Dates Next Due COVID-19 mRNA, LNP-s, No Pre serve, 2-Dose Series ([employer]) 08/04/2021,01/12/2021,12/22/2020 COVID-19, LNP-s, No Preserve , Messi-sucrose, Ages 12+ ([employer]) 07/28/2022 COVID-19, MRNA-LNP, 23-24, P F, 30 MCG/0.3 mL, 12 YRS AND ABOVE, IM ([employer]-Comirnat) 07/16/2023 Covid-19, Mrna, Lnp-s, Pf, B ivalent, 30 Mcg, IM, 12 yrs and above ([employer] [facility]) 12/01/2022 PPD 08/16/2007 Pneumococcal Conjugate Vacc, 13 [...] No 05/26/2024 Does the household have a [facility] health systemr source of income? (Household - for ages [...] encounter Miscellaneous Notes * Telephone Encounter - Shona Garcia OSA - 06/02/2024 3:36 PM EDT Spoke to patient and patient stated that he wont be getting the MRI until July, I gave him the scheduling number so that once he has that scheduled we can get him back on the schedule with Dr Venegas * Telephone Encounter - Shona Garcia OSA - 06/02/2024 3:35 PM EDT ----- Message from Marcie Carter sent at 06/02/2024 12:32 PM EDT ----- Regarding: follow up appt with Neris Looks like neris's 05/25/24 ofc note indicates follow up to review MRI Brain once completed. No appt has been scheduled, just didn't want to lose the patient. Thanks, Marcie Carter PA-C 06/02/2024 12:35 PM documented in this encounter Plan of Treatment Upcoming Encounters Date Type Department Care Team (Late st Contact Info) Description 06/08/2024 10:30 AM EDT NeuroDiagnostic Study Neurophysiology [facility] [place] [address] [facility] [place] [address] Sp, Neurophys Tech [address] [facility] [place] [address] 08/23/2024 8:20 AM EDT Office Visit [facility] [address] [place] [phone] Sourav Moss MD [address] [place] [address] 08/31/2024 1:00 PM EST Telemedicine Neurology [address] [place] [phone] Mitul Velarde MD [address] [facility] [place] [address] Health Maintenance Due Date Last Done [...] Additional history exists CKD HGB USE SMARTSET 07853 02/21/202502/21, 08/17/2023, 08/17/2023, Additional history exists CKD PHOS USE SMARTSET 57603 02/21/202501/25, 02/05/2023, 02/04/2022, Additional history exists DTaP,Tdap,and [...] filedocumented as of this encounter Care Teams Revolving Field Assembler Relationship Specialty Start Date End Date Sourav Moss MD [address] [place] [address] PCP - General 11/13/1997 documented as of this encounter
--- OUTSIDE RECORDS SUMMARY | 2024-07-09 13:38 | External Medical Summary | Summary of Care ---
Author Name Unknown Organization [facility] Address [address] [place] [address] Phone [phone] Care Team Providers Care Rn Integrated Name Role Phone Sourav Moss MD Primary Care Provider [phone] Encounter Details Date Type Department Care Team (Latest Contact Info) Description 05/10/2024 8:20 AM EDT - 05/10/2024 8:39 AM EDT Hospital Encounter Radiology Film File [address] [place] [address] Discharge Disposition: Home - Self [...] mRNA, LNP-s, No Pre serve, 2-Dose Series ([employer]) 08/04/2021,01/12/2021,12/22/2020 COVID-19, LNP-s, No Preserve , Messi-sucrose, Ages 12+ (Pfizer) 07/28/2022 COVID-19, MRNA-LNP, 23-24, P F, 30 MCG/0.3 mL, 12 YRS AND ABOVE, IM ([employer]-Comirnaty) 07/16/2023 Covid-19, Mrna, Lnp-s, Pf, B ivalent, [...] No 05/26/2024 Does the household have a [facility] source of income? (Household - for [...] [place] [phone] Mitul Velarde MD [address] [facility] [place] [address] 07/07/2024 12:30 PM EDT Imaging Radiology [address] [place] [id number] 08/23/2024 8:20 AM EDT Office Visit [address] [place] [address] Sourav Moss MD [address] [place] [address] Health Maintenance Due Date Last [...] Additional history exists CKD HGB USE SMARTSET 37144 02/21/202502/21, 08/17/2023, 08/17/2023, Additional history exists CKD PHOS USE SMARTSET 22757 02/21/202501/25, 02/05/2023, 02/04/2022, Additional history exists DTaP,Tdap,and [...] Date/Time Associated Diagnosis Comments RADIOLOGY EXAM - GENERAL RAD (IMAGES ONLY,NO REPORT) Routine 05/10/2024 8:20 AM EDT documented in this encounter Results * RADIOLOGY EXAM - GENERAL RAD (IMAGES ONLY,NO REPORT) (05/10/2024 8:20 AM EDT) 05/10/2024 8:18 AM EDT Narrative Scheduling, Silent - 05/25/2024 8:45 PM EDT This is an imaging study not interpreted or resulted by a [facility] or [employer] contracted radiologist. Nav Venegas MD RADIOLOGY (RAD GENERAL) documented in this encounter Care Teams Rn Integrated Relationship Specialty Start Date End Date Sourav Moss MD [address] [place] [address] PCP - General 11/13/1997 documented as of this encounter
--- OUTSIDE RECORDS SUMMARY | 2024-07-09 13:38 | External Medical Summary | Summary of Care ---
Author Name Unknown Organization [facility] Address [address] [place] [address] Phone [phone] Care Team Providers Care Director Of Corporate Marketing Name Role Phone Sourav Moss MD Primary Care Provider [phone] Encounter Details Date Type Department Care Team (Late st Contact Info) Description 05/10/2024 Orders Only Neurosurgery, [place] [address] [place], [place] [phone] Nav Venegas MD [address] [place] [address] Allergies No known active allergiesdocumented as of this encounter (statuses as of 05/25/2024) Medications Medication Sig Dispensed Refills Start Date [...] as of this encounter (statuses as of 05/25/2024) Active Problems Problem Noted Date Diagnosed Date [...] as of this encounter (statuses as of 05/25/2024) Resolved Problems Problem Noted Date Diagnosed Date [...] as of this encounter (statuses as of 05/25/2024) Immunizations Name Administration Dates Next Due COVID-19 mRNA, LNP-s, No Pre serve, 2-Dose Series ([employer]) 08/04/2021,01/12/2021,12/22/2020 COVID-19, LNP-s, No Preserve , Messi-sucrose, Ages 12+ (Pfizer) 07/28/2022 COVID-19, MRNA-LNP, 23-24, P F, 30 MCG/0.3 mL, 12 YRS AND ABOVE, IM ([employer]-Comirnat) 07/16/2023 Covid-19, Mrna, Lnp-s, Pf, B ivalent, 30 Mcg, IM, 12 yrs and above ([employer]) 12/01/2022 PPD 08/16/2007 Pneumococcal Conjugate Vacc, 13 [...] Care Team (Late st Contact Info) Description 08/23/2024 8:20 AM EDT Office Visit [facility] [address] [place] [phone] Sourav Moss MD [address] [place] [address] Health Maintenance Due Date Last [...] Additional history exists CKD HGB USE SMARTSET 61433 02/21/202502/21, 08/17/2023, 08/17/2023, Additional history exists CKD PHOS USE SMARTSET 89411 02/21/202501/25, 02/05/2023, 02/04/2022, Additional history exists DTaP,Tdap,and [...] CT (IMAGES ONLY, NO REPORT) Routine 05/10/2024 8:45 AM EDT documented in this encounter Results * RADIOLOGY EXAM - CT (IMAGES ONLY, NO REPORT) (05/10/2024 8:45 AM EDT) 05/10/2024 8:36 AM EDT Narrative Scheduling, Silent - 05/25/2024 8:47 PM EDT This is an imaging study not interpreted or resulted by a [facility] or [employer] contracted radiologist. Nav Venegas MD RAD CT documented in this encounter Care Teams Director Of Corporate Marketing Relationship Specialty Start Date End Date Sourav Moss MD [address] [place] [address] PCP - General 11/13/1997 documented as of this encounter
--- OUTSIDE RECORDS SUMMARY | 2024-07-09 13:38 | External Medical Summary | Summary of Care ---
Author Name Unknown Organization [facility] Address [address] [place] [address] Phone [phone] Care Team Providers Care Animal Shelter Manager Name Role Phone Sourav Moss MD Primary Care Provider [phone] Reason for Visit * Reason Onset Date Comments Appointment 02/23/2024 Encounter Details Date Type Department Care Team (Late st Contact Info) Description 02/23/[address] [facility], [address] [phone] Services, Scheduling [address] [place] [address] Appointment Allergies No known active allergiesdocumented as of this encounter (statuses as of 05/24/2024) Medications Medication Sig Dispensed Refills Start Date [...] as of this encounter (statuses as of 05/24/2024) Active Problems Problem Noted Date Diagnosed Date [...] as of this encounter (statuses as of 05/24/2024) Resolved Problems Problem Noted Date Diagnosed Date [...] as of this encounter (statuses as of 05/24/2024) Immunizations Name Administration Dates Next Due COVID-19 mRNA, LNP-s, No Pre serve, 2-Dose Series ([employer]) 08/04/2021,01/12/2021,12/22/2020 COVID-19, LNP-s, No Preserve , Messi-sucrose, Ages 12+ (Pfizer) 07/28/2022 COVID-19, MRNA-LNP, 23-24, P F, 30 MCG/0.3 mL, 12 YRS AND ABOVE, IM ([employer]-Comirnaty) 07/16/2023 Covid-19, Mrna, Lnp-s, Pf, B ivalent, 30 Mcg, IM, 12 yrs and above ([employer]) 12/01/2022 PPD 08/16/2007 Pneumococcal Conjugate Vacc, 13 [...] encounter Miscellaneous Notes * Telephone Encounter - Mansi Westbrook OSA - 02/23/2024 5:54 PM EDT LMOM for pt to call to schedule New Pt- Diabetic Eye Exam documented in this encounter Plan of Treatment Upcoming Encounters Date Type Department Care Team (Late st Contact Info) Description 05/25/2024 2:00 PM EDT Office Visit [facility] [address] [place] [address] Nav Venegas MD [address] [place] [address] 08/23/2024 8:20 AM EDT Office Visit [facility] [address] [place] [address] Sourav Moss MD [address] [place] [address] Health Maintenance Due Date Last [...] Additional history exists CKD HGB USE SMARTSET 56604 02/21/202502/21, 08/17/2023, 08/17/2023, Additional history exists CKD PHOS USE SMARTSET 27507 02/21/202501/25, 02/05/2023, 02/04/2022, Additional history exists DTaP,Tdap,and [...] filedocumented as of this encounter Care Teams Animal Shelter Manager Relationship Specialty Start Date End Date Sourav Moss MD [address] [place] [address] PCP - General 11/13/1997 documented as of this encounter
--- OUTSIDE RECORDS SUMMARY | 2024-07-09 13:38 | External Medical Summary | Summary of Care ---
Author Name Unknown Organization [facility] Address [address] [place] [address] Phone [phone] Care Team Providers Care Decorating Inspector Name Role Phone Negra Moss MD Primary Care Provider [phone] Reason for Referral * Precert (Within 10 days (routine)) - Pending Review Specialty Diagnoses / Procedures Referred By Cosmo t Referred To Contact Cardiac Studies Diagnoses Stroke-like episode Procedures ECHO, COMPLETE (2D), TRANS-THORACIC Mitul Velarde MD [address] [place] [address] Referral ID Status Reason Start Date Expiration Date Visits Requested Visits Authorized [id number] Pending Review Precert 06/01/2024 [id number] Reason for Visit * Reason Comments NEW PATIENT * Evaluate & Treat - Unlimited Visits (Within 30 days (routine)) - Pending Review Specialty Diagnoses / Procedures Referred By Cosmo flores Referred To Contact Neurology Diagnoses Abnormal MRI of head Cerebrovascular accident (CVA), unspecified mechanism (HCC) James Moncada PA-C [address] [place] [address] Referral ID Status Reason Start Date Expiration Date Visits Requested Visits Authorized [id number] Pending Review Specialty Services Required 05/25/[phone] Encounter Details Date Type Department Care Team (Late st Contact Info) Description 06/01/2024 1:00 PM EDT Telemedicine Neurology [address] [place] [phone] Mitul Velarde MD [address] [place] [address] Stroke-like episode*; Abnormal brain MRI; Dyslipidemia, goal LDL below 70; HTN, goal below 130/80; Type 2 diabetes mellitus with hemoglobin A1c goal of less than 7.0% (HCC); Seizure-like activity (HCC) Allergies No known active allergiesdocumented as of this encounter (statuses as of 06/01/2024) Medications Medication Sig Dispensed Refills Start Date [...] taking.Reported on 02/02/2024 Benzonatate 200 MG Oral CapsuleIndications:Renuka reis, complicated Take 1 Capsule by mouth 3 [...] as of this encounter (statuses as of 06/01/2024) Active Problems Problem Noted Date Diagnosed Date [...] as of this encounter (statuses as of 06/01/2024) Resolved Problems Problem Noted Date Diagnosed Date [...] as of this encounter (statuses as of 06/01/2024) Immunizations Name Administration Dates Next Due COVID-19 mRNA, LNP-s, No Pre serve, 2-Dose Series ([employer] Formula) 08/04/2021,01/12/2021,12/22/2020 COVID-19, LNP-s, No Preserve , Messi-sucrose, Ages 12+ (Physicians Formula) 07/28/2022 COVID-19, MRNA-LNP, 23-24, P F, 30 MCG/0.3 mL, 12 YRS AND ABOVE, IM (PFIZER-Comirnaty) 07/16/2023 Covid-19, Mrna, Lnp-s, Pf, B ivalent, 30 Mcg, IM, 12 yrs and above (Physicians Formula) 12/01/2022 PPD 08/16/2007 Pneumococcal Conjugate Vacc, 13 [...] as of this encounter Progress Notes * Mitul Velarde MD - 06/01/2024 12:50 PM EDT Patient location: HOME. I was not in a hospital or clinic location. After connecting through televideo, patient was verified with two unique identifiers. Patient (or authorized legal customer development representative) was then informed that this was a Telemedicine visit and being conducted confidentially over secure lines. Methods to assure confidentiality were taken. Patient acknowledged consent and understanding of privacy and security of the Telemedicine visit. The patient agreed to participate. VASCULAR NEUROLOGY- New Patient Referral [facility] Name: Mayank Dolan Ref: JAMES MONCADA[[id number]] [address] [place] [address] (office) [phone] (fax) PCP: NEGRA MOSS [address] [place] [address] History provided by: Patient and Family Chief Complaint: Chief Complaint Patient presents with NEW PATIENT HPI: 78 year old right handed male referred to Neurology for suspicion for subacute infarct seen onMRI brain w/wo. He was seen in follow up by neurosurgery for concern for tumor though based on their review of the imaging and history, concern was for a subacute ischemic event rather than malignancy and planned for repeat MRI brain w/o at 3 months. He stated that he was developing 'tremors' in his right leg off an on and was sent to the hospital for a CT and MRI. Since the event and admission he does feel like the leg is weak. He noted about 3 weeks he had had those symptoms before getting the imaging. The first time it happened he noted thathis right leg went tingling or numb at that time and he started to develop a twitch in his right leg. This lasted less than 1 minute. This happened about 1 week later though it was less severe--no tingling but did have twitching at that time that occurred in the thigh. There did not appear to be any position that did not seem to help--though he moved his leg during one of the events. After the twitching started he noted that he began to develop weakness in the left leg. Again he did not note any weakness the first time and this developed over time. He does not feel that this has improved muchthough has some good days and bad. Really notices the weakness in the left leg at the end of the day No history of stroke or TIA in the past. No palpitations or fluttering in his chest. No history of seizure in self or family. Family does not recall any odd movements in between these events. During his admission he did not seem to have an ECHO performed. PAST MEDICAL HISTORY: Past Medical History: Diagnosis Date Depressive disorder, not elsewhere classified 01/26/2006 Hyperlipidemia LDL goal < 100 09/29/2013 HYPERLIPIDEMIA NEC-NOS 07/12/1999 Current Outpatient Medications: Current Outpatient Medications Medication Sig Dispense Refill [...] No current facility-administered medications for this visit. PAST SURGICAL HISTORY: Past Surgical History: Procedure Laterality Date NECK SPINE FUSION (CERV, BELOW C2) 07/25/04 Dr. Doran FAMILY HISTORY: Family History Problem Relation Name Age of Onset Glaucoma Mother Ele Dolan Arthritis Mother Ele Dolan Eye Problems Mother Ele Dolan Alcohol and Other Disorders Associated Father Eulogio Dolan Other (alcohol related father) Other Cancer Brother of [place] Kidney Cancer Brother Julian Dolan Obesity Brother Julian Dolan SOCIAL HISTORY: Social History Tobacco Use Smoking status: Former Current packs/day: 0.00 Types: Cigarettes Quit date: 10/26/2007 Years since quittin.6 Smokeless tobacco: Never Tobacco comments: 4 months ago Substance Use Topics Alcohol use: No Drug use: Not Currently ALLERGIES: Patient has no known allergies. ROS: 14 systems were reviewed are otherwise negative unless noted in HPI. PHYSICAL EXAMINATION: Most Recent Vital Signs: There were no vitals filed for this visit. Exam: Constitutional: Appearance normally developed, well nourished, non-obese, no deformities and well groomed Head and face: normocephalic and atraumatic Eyes: normal lids, normal sclera, normal conjunctiva Neck: symmetrical Respiratory: normal effort Cardiovascular: Unable to perform via video Abdomen: Unable to perform via video Skin: no rashes, lesions, or ulcers noted Psychiatric: normal judgement and insight, normal mood and normal affect NEUROLOGIC EXAMINATION: Appearance: No Acute Distress Orientation: Awake, Alert, and Oriented x 3 Mental status: alert Memory: Intact Attention: Normal Knowledge: Appropriate Language: No aphasia Speech: No dysarthria Cranial Nerves: 2 Pupils round, equal 3,4,6 Extraocular Movements Intact; no nystagmus 7 No facial asymmetry 8 Intact hearing 9,10 Palate symmetric 11 Good shoulder shrug 12 Tongue Midline Gait: Stable, No ataxia Coordination: No ataxia with finger to nose testing Sensory: Unable to perform via video Muscle exam: Normal appearing power in the bilateral upper and lower extremities. Able to lift and sustain against gravity Reflexes: Unable to perform via video LABORATORY: Labs reviewed and pertinent findings are indicated below: LDL results: Lab Results Component Value Date/Time LDL CHOLESTEROL (CALCULATED) - [facility] 82 08/30/2018 08:13 AM LDL CHOLESTEROL (DIRECT MEASURE) - [facility] 58 02/22/2024 08:06 AM LDL CHOLESTEROL (DIRECT MEASURE) - [facility] 75 09/16/2019 09:27 AM Hemoglobin AIC Results: Lab Results Component Value Date/Time HEMOGLOBIN A1C - [facility] 7.0 (H) 02/22/2024 08:06 AM HEMOGLOBIN A1C - [facility] 6.7 (H) 08/17/2023 04:00 PM HEMOGLOBIN A1C - [facility] 6.4 (H) 02/05/2023 09:41 AM Lab Results Component Value Date/Time TSH - [facility] 1.10 02/16/2008 02:14 PM Review of prior Radiology Studies: -NCCT/CTA/CTP Head and Neck 05/10/24 IMPRESSION: 1. There is no evidence of hemorrhage, midline shift, or acute territorial ischemia noting angiographic phase technique. 2. There is a 2.3 cm heterogeneously enhancing lesion seen in the high left frontoparietal cortex. Neoplasm is the diagnosis of exclusion. 3. Unremarkable CT angiogram of the brain. 4. Unremarkable CT angiogram of the neck. Decision making: -I personally reviewed the following images. My findings and interpretations are as follows: MRI brain shows a left frontal [place] territory region of DWI change with no normal ADC and contrast enhancement. Vessel imaging of the neck to the level of the [place] reviewed which showed some mildsoft and calcified plaque present in the carotid arteries though no significant stenosis noted. IMPRESSION: 78 year old male with an interesting history of onset of sensory complaints along side development of twitching of his right leg--predominantly the proximal portion lasting less than a minute then resolving. The twitching occurred for a similar duration 2 other times about 1 week apart each and during that time felt that he developed some weakness though minor in the right leg. Since his MRI he has had no recurrence of the twitching though his weakness feels about the same in which he only notices it after exercise/end of the day. Seems more concerning for a malignancy based on the description of the complaints especially with possible seizure--though it could be possible to have a relatively silent ischemic event (though based on the size and location of DWI change I would have suspected him to have significant proximal leg weakness at onset as this is more in the motor strip (or just anterior). His MRI was done in a timeframe where it would be difficult to discern a late subacute stroke from a malignant lesion. I will order a TTE and routine EEG and if evidence of epileptic focus will discuss an AED. Based on TTE will then consider ziopatch testing. No significant steno-occlusive disease that warrants surgical evaluation and will likely need ziopatch testing though will hold off until TTE performed. Agree with repeat MRI brain w/wo--would wait closer to 3 months as some DWI and enhancement after ischemic can last 2 months or slightly longer. RECOMMENDATIONS: (R29.90) Stroke-like episode (primary encounter diagnosis) (R90.89) Abnormal brain MRI Plan: ECHO, COMPLETE (2D), TRANS-THORACIC Continue low dose aspirin. Consider ziopatch after TTE (E78.5) Dyslipidemia, goal LDL below 70 Plan: Lasl LDL at goal. No change in statin dose at this time (I10) HTN, goal below 130/80 Plan: I encouraged the patient to follow up with their PCP regarding ongoing treatment and care forthis condition. (E11.9) Type 2 diabetes mellitus with hemoglobin A1c goal of less than 7.0% (HCC) Plan: At goal. I encouraged the patient to follow up with their PCP regarding ongoing treatment andcare for this condition (R56.9) Seizure-like activity (HCC) Plan: EEG ROUTINE Plan: Eeg routine Echo, complete (2d), trans-thoracic -Risk factors for stroke should continue to be addressed aggressively, with the following goals as applicable: SBP < 130/80, LDL < 70, HbA1c < 7%, adequate oral hydration (at least 64oz of water daily), 3-5 days of moderate intensity exercise per week, Mediterranean diet, -I educated the patient and his/her family regarding stroke risk factors, warning symptoms, the availability of time-sensitive therapy, and the importance of activating EMS early. He will follow up with me in 3 month(s) or sooner if needed. Mitul Velarde MD 06/01/2024 12:51 PM documented in this encounter Plan of Treatment Upcoming Encounters Date Type Department Care Team (Late st Contact Info) Description 06/08/2024 10:30 AM EDT NeuroDiagnostic Study Neurophysiology Scenery [facility] [address] [place] [address] Sp, Neurophys Tech [address] [facility] [place] [address] 07/07/2024 12:30 PM EDT Imaging Radiology [facility] [facility], [place] [address] [facility] [place] [address] 08/23/2024 8:20 AM EDT Office Visit [facility] [address] [place] [address] Negra Moss MD [address] [place] [address] 08/31/2024 1:00 PM EST Telemedicine Neurology [address] [place] [phone] Mitul Velarde MD [address] [facility] [place] [id number] Scheduled Orders Name Type Priority Associated Diagnoses Orde r Schedule EEG ROUTINE Procedures Routine Seizure-like activity (HCC) Ordered: 06/01/2024 ECHO, COMPLETE (2D), TRANS-THORACIC Echocardiology Routine Stroke-like episode Ordered: 06/01/2024 Health Maintenance Due Date Last Done Comments [...] Additional history exists CKD HGB USE SMARTSET 87726 02/21/202502/21, 08/17/2023, 08/17/2023, Additional history exists CKD PHOS USE SMARTSET 34580 02/21/202501/25, 02/05/2023, 02/04/2022, Additional history exists DTaP,Tdap,and [...] Unspecified cerebral artery occlusion with cerebral infarction Abnormal brain MRI Nonspecific (abnormal) findings on radiological and other examination of skull and head Dyslipidemia, goal LDL below 70 Other and unspecified hyperlipidemia HTN, goal below 130/80 Unspecified essential hypertension Type 2 diabetes mellitus with hemoglobin A1c goal of less than 7.0% (HCC) Seizure-like activity (HCC) Other convulsions documented in this encounter Care Teams Decorating Inspector Relationship Specialty Start Date End Date Negra Moss MD [address] [place] [address] PCP - General 11/13/1997 documented as of this encounter
--- OUTSIDE RECORDS SUMMARY | 2024-07-09 13:38 | External Medical Summary | Summary of Care ---
Author Name Unknown Organization [facility] Address [address] [place] [address] Phone [phone] Care Team Providers Care Dehorner Name Role Phone Sourav Moss MD Primary Care Provider [phone] Encounter Details Date Type Department Care Team (Latest Contact Info) Description 05/10/2024 8:45 AM EDT - 05/10/2024 8:49 AM EDT Hospital Encounter Radiology Film File [address] [place] [address] Discharge Disposition: Home - Self [...] mRNA, LNP-s, No Pre serve, 2-Dose Series ([employer]) 08/04/2021,01/12/2021,12/22/2020 COVID-19, LNP-s, No Preserve , Messi-sucrose, Ages 12+ (Pfizer) 07/28/2022 COVID-19, MRNA-LNP, 23-24, P F, 30 MCG/0.3 mL, 12 YRS AND ABOVE, IM (Shutter Guardian-Comirnaty) 07/16/2023 Covid-19, Mrna, Lnp-s, Pf, B ivalent, [...] 05/26/2024 Does the household have a [facility] source of income? (Household - for [...] [place] [phone] Mitul Velarde MD [address] [facility] [place] [address] 07/07/2024 12:30 PM EDT Imaging Radiology [address] [place] [id number] 08/23/2024 8:20 AM EDT Office Visit [address] [place] [address] Sourav Moss MD [address] [place] [address] Health Maintenance Due Date Last [...] Additional history exists CKD HGB USE SMARTSET 07502 02/21/202502/21, 08/17/2023, 08/17/2023, Additional history exists CKD PHOS USE SMARTSET 84488 02/21/202501/25, 02/05/2023, 02/04/2022, Additional history exists DTaP,Tdap,and [...] interpreted or resulted by a [facility] or [facility] contracted radiologist. Nav Venegas MD RAD CT documented in this encounter Care Teams Dehorner Relationship Specialty Start Date End Date Sourav Moss MD [address] [place] [address] PCP - General 11/13/1997 documented as of this encounter
--- OUTSIDE RECORDS SUMMARY | 2024-07-09 13:38 | External Medical Summary | Summary of Care ---
Author Name Unknown Organization [facility] Address [address] [place] [address] Phone [phone] Care Team Providers Care Shellfish Weigher Name Role Phone Sourav Moss MD Primary Care Provider [phone] Encounter Details Date Type Department Care Team (Late st Contact Info) Description 05/10/2024 Orders Only Neurosurgery, [place] [address] [place], [place] [id number] Nav Venegas MD [address] [place] [address] Allergies No known active allergiesdocumented [...] mRNA, LNP-s, No Pre serve, 2-Dose Series ([employer]) 08/04/2021,01/12/2021,12/22/2020 COVID-19, LNP-s, No Preserve , Messi-sucrose, Ages 12+ (Pfizer) 07/28/2022 COVID-19, MRNA-LNP, 23-24, P F, 30 MCG/0.3 mL, 12 YRS AND ABOVE, IM (OptiWi-fi-Comirnat) 07/16/2023 Covid-19, Mrna, Lnp-s, Pf, B ivalent, 30 Mcg, IM, 12 yrs and above ([place]) 12/01/2022 PPD 08/16/2007 Pneumococcal Conjugate Vacc, 13 [...] Description 08/23/2024 8:20 AM EDT Office Visit [facility] [address] [place] [id number] Sourav Moss MD [address] [place] [address] Health Maintenance Due Date Last [...] Additional history exists CKD HGB USE SMARTSET 51432 02/21/202502/21, 08/17/2023, 08/17/2023, Additional history exists CKD PHOS USE SMARTSET 10832 02/21/202501/25, 02/05/2023, 02/04/2022, Additional history exists DTaP,Tdap,and [...] study not interpreted or resulted by a [facility] or [employer] contracted radiologist. Nav Venegas MD RADIOLOGY (RAD GENERAL) documented in this encounter Care Teams Shellfish Weigher Relationship Specialty Start Date End Date Sourav Moss MD [address] [place] [address] PCP - General 11/13/1997 documented as of this encounter
--- OUTSIDE RECORDS SUMMARY | 2024-07-09 13:38 | External Medical Summary | Summary of Care ---
Author Name Unknown Organization [facility] Address [address] [place] [address] Phone [phone] Care Team Providers Care Candle Molder Machine Name Role Phone Sourav Moss MD Primary Care Provider [phone] Encounter Details Date Type Department Care Team (Late st Contact Info) Description 05/10/2024 Orders Only Neurosurgery, [place] [address] [place], [place] [phone] Nav Venegas MD [address] [place] [address] Allergies No known active allergiesdocumented [...] mRNA, LNP-s, No Pre serve, 2-Dose Series ([employer]) 08/04/2021,01/12/2021,12/22/2020 COVID-19, LNP-s, No Preserve , Messi-sucrose, Ages 12+ (Pfizer) 07/28/2022 COVID-19, MRNA-LNP, 23-24, P F, 30 MCG/0.3 mL, 12 YRS AND ABOVE, IM (OneShift-Comirnat) 07/16/2023 Covid-19, Mrna, Lnp-s, Pf, B ivalent, 30 Mcg, IM, 12 yrs and above ([employer]) 12/01/2022 PPD 08/16/2007 Pneumococcal Conjugate Vacc, 13 [...] Description 08/23/2024 8:20 AM EDT Office Visit [facility] [address] [place] [phone] Sourav Moss MD [address] [place] [address] Health Maintenance Due Date Last [...] Additional history exists CKD HGB USE SMARTSET 17955 02/21/202502/21, 08/17/2023, 08/17/2023, Additional history exists CKD PHOS USE SMARTSET 99197 02/21/202501/25, 02/05/2023, 02/04/2022, Additional history exists DTaP,Tdap,and [...] study not interpreted or resulted by a [facility] or [employer] contracted radiologist. Nav Venegas MD RAD CT documented in this encounter Care Teams Candle Molder Machine Relationship Specialty Start Date End Date Sourav Moss MD [address] [place] [address] PCP - General 11/13/1997 documented as of this encounter
--- OUTSIDE RECORDS SUMMARY | 2024-07-09 13:38 | External Medical Summary | Summary of Care ---
Author Name Unknown Organization [facility] Address [address] [place] [address] Phone [phone] Care Team Providers Care Fine Grade Bulldozer Operator Name Role Phone Sourav Moss MD Primary Care Provider [phone] Reason for Referral * Precert (Within 10 days (routine)) - Pending Review Specialty Diagnoses / Procedures Referred By Cosmo flores Referred To Contact Radiology Diagnoses Abnormal MRI of head Cerebrovascular accident (CVA), unspecified mechanism (HCC) Procedures MRI BRAIN W WO CONTRAST James Moncada PA-C [address] [place] [address] Referral ID Status Reason Start Date Expiration Date V isits Requested Visits Authorized [id number] Pending Review 06/25/[phone] * Evaluate & Treat - Unlimited Visits (Within 30 days (routine)) - Pending Review Specialty Diagnoses / Procedures Referred By Cosmo flores Referred To Contact Neurology Diagnoses Abnormal MRI of head Cerebrovascular accident (CVA), unspecified mechanism (HCC) James Moncada PA-C [address] [place] [address] Referral ID Status Reason Start Date Expiration Date Visits Requested Visits Authorized [id number] Pending Review Specialty Services Required 05/25/2024 [id number] Question Answer Referral Priority Within 30 days (routine) Where should this appointment be scheduled? [facility] Is this referral being placed for insurance purposes ONLY No, patient needs appointment [facility] NEUROLOGY REFERRAL QUESTIONS Stroke Comments MRI concerning for subacute stroke. Multiple risk factors. Reason for Visit * Reason Comments NEW PATIENT * Evaluate & Treat - Unlimited Visits (Within 10 days (routine)) - Pending Review Specialty Diagnoses / Procedures Referred By Cosmo t Referred To Contact Neurological Surgery Diagnoses Brain tumor (HCC) Sourav Moss MD [address] [place] [address] Referral ID Status Reason Start Date Expiration Date Visits Requested Visits Authorized [id number] Pending Review Specialty Services Required 05/11/2024 05/11/[phone] Encounter Details Date Type Department Care Team (Latest Contact Info) Description 05/25/2024 2:00 PM EDT Office Visit Neurosurgery, [place] [address] [place] [address] Nav Venegas MD [address], [place] [phone] Cerebrovascular accident (CVA), unspecified mechanism (HCC)*; Abnormal MRI of head Allergies No known active allergiesdocumented as of this encounter (statuses as of 05/29/2024) Medications Medication Sig Dispensed Refills Start Date [...] as of this encounter (statuses as of 05/29/2024) Active Problems Problem Noted Date Diagnosed Date [...] as of this encounter (statuses as of 05/29/2024) Resolved Problems Problem Noted Date Diagnosed Date [...] as of this encounter (statuses as of 05/29/2024) Immunizations Name Administration Dates Next Due COVID-19 mRNA, LNP-s, No Pre serve, 2-Dose Series ([employer]) 08/04/2021,01/12/2021,12/22/2020 COVID-19, LNP-s, No Preserve , Messi-sucrose, Ages 12+ (Pfizer) 07/28/2022 COVID-19, MRNA-LNP, 23-24, P F, 30 MCG/0.3 mL, 12 YRS AND ABOVE, IM ([employer]) 07/16/2023 Covid-19, Mrna, Lnp-s, Pf, B ivalent, 30 Mcg, IM, 12 yrs and above ([employer]) 12/01/2022 PPD 08/16/2007 Pneumococcal Conjugate Vacc, 13 [...] No 05/26/2024 Does the household have a [facility] source [facility] income? (Household - for [...] on file documented as of this encounter Last Filed Vital Signs Vital Sign Reading Time Taken Comments Blood Pressure 128/92 05/25/2024 1:40 PM EDT Pulse 103 05/25/2024 1:40 PM EDT Temperature 36.3 C (97.4 F) 05/25/2024 1:40 PM ED T Respiratory Rate - - Oxygen Saturation 95% 05/25/2024 1:40 PM EDT Inhaled Oxygen Concentration - - Weight 86 kg (189 lb 11.2 oz) 05/25/2024 1:40 PM EDT Height 172 cm (5' 7.72") 05/25/2024 1:40 PM EDT Body Mass Index 29.08 05/25/2024 1:40 PM EDT documented in this encounter Progress Notes * Nav Venegas MD - 05/29/2024 6:32 PM EDT HISTORY AND PHYSICAL EXAMINATION - Neurosurgery [facility], [facility] [address] Name: Mayank Dolan Date: 05/29/2024 Time: 6:32 PM PRESENTING PROBLEM: Brain lesion HPI: 78 yr old male who about one month ago acutely developed right sided sensori- motor symptoms primarily in the lower extremity but also in the upper extremity. Two weeks later he underwent MRI imaging.Subsequently his symptoms have more or less resolved with time. He has a history of smoking but quit several years ago. +HTN, +high cholesterol, no afib, takes baby ASA. PHYSICAL EXAMINATION: Visit Vital Signs: BP 128/92 | Pulse 103 | Temp 36.3 C (97.4 F) (Tympanic) | Ht 1.72 m (5' 7.72") | Wt 86 kg (189 lb 11.2 oz) | SpO2 95% | BMI 29.08 kg/m | BSA 2.03 m Currently his neurological exam is normal. IMAGES: . I reviewed his MRI which shows an area of contrast enhancement along the paramedian posterior left frontal lobe. This was interpreted as a tumor, but given the abrupt onset of symptoms, thetwo week interval between symptoms and imaging, and the complete resolution of symptoms over time, I suspect this area is actually a small subacute infarct. IMPRESSION: 78 yr old male who about one month ago acutely developed right sided sensori-motor symptoms that localize to a new brain lesion found on MRI. I would not expect symptoms related to a tumor to improve untreated, but a small stroke can cause symptoms related to edema which then resolve asthe edema subsides. 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 PLAN: I have recommended repeat MRI and referral to a stroke neurologist for a complete workup and secondary risk factor reduction. I will see him back to go over the new MRI. I spent a total of 40-54 minutes (exact time 46 mins) on the date of service in preparation, delivery, and documentation of the care provided to Mayank Dolan excluding any time spent in the performance of separately billed services or time spent by another provider/QHP. Nav Venegas MD, MS Pituitary and Skull Base Neurosurgery Neurosurgical Oncology [facility] documented in this encounter Plan of Treatment Upcoming Encounters Date Type Department Care Team (Late st Contact Info) Description 06/01/2024 1:00 PM EDT Telemedicine Neurology [address], [place] [phone] Mitul Velarde MD [address] [place] [address] 07/07/2024 12:30 PM EDT Imaging Radiology [address], [place] [address] [facility] [place] [address] 08/23/2024 8:20 AM EDT Office Visit [facility] [address] [place] [phone] Sourav Moss MD [address], [place] [phone] Scheduled Orders Name Type Priority Associated Diagnoses Orde r Schedule MRI BRAIN W WO CONTRAST Medical Imaging Routine Abnormal MRI of head Cerebrovascular accident (CVA), unspecified mechanism (HCC) Expected: 06/25/2024 (Approximate), Expires: 06/25/2025 Scheduled Referrals Name Type Priority Associated Diagnoses Orde r Schedule ADULT NEUROLOGY REFERRAL OP Referral Within 30 days (routine) Abnormal MRI of head Cerebrovascular accident (CVA), unspecified mechanism (HCC) Ordered: 05/25/2024 Health Maintenance Due Date Last Done Comments [...] Additional history exists CKD HGB USE SMARTSET 79167 02/21/202502/21, 08/17/2023, 08/17/2023, Additional history exists CKD PHOS USE SMARTSET 94195 02/21/202501/25, 02/05/2023, 02/04/2022, Additional history exists DTaP,Tdap,and [...] as of this encounter Visit Diagnoses Diagnosis Cerebrovascular accident (CVA), unspecified mechanism (HCC)- Primary Abnormal MRI of head Nonspecific (abnormal) findings on radiological and other examination of skull and head documented in this encounter Care Teams Fine Grade Bulldozer Operator Relationship Specialty Start Date End Date Sourav Moss MD [address] [place] [address] PCP - General 11/13/1997 documented as of this encounter
--- OUTSIDE RECORDS SUMMARY | 2024-07-09 13:39 | External Medical Summary | Summary of Care ---
Author Name Unknown Organization [facility] Address [address] [place] [address] Phone [phone] Care Team Providers Care Electrical Tester Name Role Phone Sourav Moss MD Primary Care Provider [phone] Encounter Details Date Type Department Care Team (Late st Contact Info) Description 05/10/2024 Orders Only Neurosurgery, [place] [address] [place] [phone] Ede Kaye MD [address] [place], [place] [phone] Allergies No known active allergiesdocumented as of this encounter (statuses as of 05/10/2024) Medications Medication Sig Dispensed Refills Start Date [...] as of this encounter (statuses as of 05/10/2024) Active Problems Problem Noted Date Diagnosed Date [...] as of this encounter (statuses as of 05/10/2024) Resolved Problems Problem Noted Date Diagnosed Date [...] as of this encounter (statuses as of 05/10/2024) Immunizations Name Administration Dates Next Due COVID-19 mRNA, LNP-s, No Pre serve, 2-Dose Series ([employer]) 08/04/2021,01/12/2021,12/22/2020 COVID-19, LNP-s, No Preserve , Messi-sucrose, Ages 12+ ([employer]) 07/28/2022 COVID-19, MRNA-LNP, 23-24, P F, 30 MCG/0.3 mL, 12 YRS AND ABOVE, IM ([employer]) 07/16/2023 Covid-19, Mrna, Lnp-s, Pf, B ivalent, 30 Mcg, IM, 12 yrs and above ([employer]) 12/01/2022 PPD 08/16/2007 Pneumococcal Conjugate Vacc, 13 [...] Office Visit [facility] [address] [place] [address] Nav Venegas MD [address] [place] [address] 08/23/2024 8:20 AM EDT Office Visit [facility] [address] [place] [address] Sourav Moss MD [address] [place] [address] Health Maintenance Due Date Last [...] Additional history exists CKD HGB USE SMARTSET 19669 02/21/202502/21, 08/17/2023, 08/17/2023, Additional history exists CKD PHOS USE SMARTSET 09049 02/21/2025 0406/2024, 02/05/2023, 02/04/2022, Additional history exists [...] Date/Time Associated Diagnosis Comments RADIOLOGY EXAM - MRI (IMAGES ONLY, NO REPORT) Routine 05/10/2024 11:15 AM EDT documented in this encounter Results * RADIOLOGY EXAM - MRI (IMAGES ONLY, NO REPORT) (05/10/2024 11:15 AM EDT) 05/10/2024 11:1 5 AM EDT Narrative Scheduling, Silent - 05/10/2024 4:53 PM EDT This is an imaging study not interpreted or resulted by a [facility] or [facility] contracted radiologist. Ede Kaye MD RAD MRI-MRA documented in this encounter Care Teams Electrical Tester Relationship Specialty Start Date End Date Sourav Moss MD [address] [place] [address] PCP - General 11/13/1997 documented as of this encounter
--- OUTSIDE RECORDS SUMMARY | 2024-07-09 13:39 | External Medical Summary | Summary of Care ---
Author Name Unknown Organization [facility] Address [address] [place] [address] Phone [phone] Care Team Providers Care Tie Inspector Name Role Phone Sourav Moss MD Primary Care Provider [phone] Encounter Details Date Type Department Care Team (Late st Contact Info) Description 05/10/2024 Telephone [facility] [address] [place] [address] Enma Palumbo RN Allergies No [...] mRNA, LNP-s, No Pre serve, 2-Dose Series ([employer]) 08/04/2021,01/12/2021,12/22/2020 COVID-19, LNP-s, No Preserve , Messi-sucrose, Ages 12+ (Pfizer) 07/28/2022 COVID-19, MRNA-LNP, 23-24, P F, 30 MCG/0.3 mL, 12 YRS AND ABOVE, IM ([employer]-Comirnat[employer]) 07/16/2023 Covid-19, Mrna, Lnp-s, Pf, B ivalent, 30 Mcg, IM, 12 yrs and above ([employer]) 12/01/2022 PPD 08/16/2007 Pneumococcal Conjugate Vacc, 13 [...] encounter Miscellaneous Notes * Telephone Encounter - Nadia Booth Student [...] 05/25/2024 2:00 PM EDT Office Visit Neurosurgery, [place] [address] [place] [address] Nav Venegas MD [address] [place] [address] 08/23/2024 8:20 AM EDT Office Visit [place] [phone] [place] [facility] [place] [phone] Sourav Moss MD [address] [place] [facility] [place] [address] Health Maintenance Due Date Last Done [...] Additional history exists CKD HGB USE SMARTSET 68275 02/21/202502/21, 08/17/2023, 08/17/2023, Additional history exists CKD PHOS USE SMARTSET 14520 02/21/202501/25, 02/05/2023, 02/04/2022, Additional history exists DTaP,Tdap,and [...] filedocumented as of this encounter Care Teams Tie Inspector Relationship Specialty Start Date End Date Sourav Moss MD [address] [place] [address] PCP - General 11/13/1997 documented as of this encounter
--- OUTSIDE RECORDS SUMMARY | 2024-07-09 13:39 | External Medical Summary | Summary of Care ---
Author Name Unknown Organization [facility] Address [address] [place] [address] Phone [phone] Care Team Providers Care Concrete Placement Equipment Operator Name Role Phone Sourav Moss MD Primary Care Provider [phone] Encounter Details Date Type Department Care Team (Late st Contact Info) Description 05/10/2024 Orders Only Neurosurgery, [place] [address] [phone] Ede Kaye MD [address] [place], [place] [phone] Allergies No known active allergiesdocumented as of [...] mRNA, LNP-s, No Pre serve, 2-Dose Series ([employer]) 08/04/2021,01/12/2021,12/22/2020 COVID-19, LNP-s, No Preserve , Messi-sucrose, Ages 12+ ([employer]) 07/28/2022 COVID-19, MRNA-LNP, 23-24, P F, 30 MCG/0.3 mL, 12 YRS AND ABOVE, IM ([employer]-Comirnat) 07/16/2023 Covid-19, Mrna, Lnp-s, Pf, B ivalent, 30 Mcg, IM, 12 yrs and above ([employer]) 12/01/2022 PPD 08/16/2007 Pneumococcal Conjugate Vacc, 13 [...] Description 05/25/2024 2:00 PM EDT Office Visit [facility] [address] [place] [address] Nav Venegas MD [address] [place] [address] 08/23/2024 8:20 AM EDT Office Visit [facility] [address] [place] [address] Sourav Msos MD [address] [place] [address] Health Maintenance Due Date Last [...] Additional history exists CKD HGB USE SMARTSET 69846 02/21/202502/21, 08/17/2023, 08/17/2023, Additional history exists CKD PHOS USE SMARTSET 81856 02/21/2025 0406/2024, 02/05/2023, 02/04/2022, Additional history exists [...] interpreted or resulted by a [facility] or [facility] contracted radiologist. Ede Kaye MD RAD CT documented in this encounter Care Teams Concrete Placement Equipment Operator Relationship Specialty Start Date End Date Sourav Moss MD [address] [facility] [place] [address] PCP - General 11/13/1997 documented as of this encounter
--- OUTSIDE RECORDS SUMMARY | 2024-07-09 13:39 | External Medical Summary | Summary of Care ---
Author Name Unknown Organization [facility] Address [address] [place] [address] Phone [phone] Care Team Providers Care Airplane Pilot Chief Name Role Phone Sourav Moss MD Primary Care Provider [phone] Encounter Details Date Type Department Care Team (Latest Contact Info) Description 05/10/2024 11:15 AM EDT - 05/10/2024 11:59 PM EDT Hospital Encounter Radiology [place] [address] [place], [place] [phone] Arrived Discharge Disposition: Home - Self Care [...] mRNA, LNP-s, No Pre serve, 2-Dose Series ([email or web address]) 08/04/2021,01/12/2021,12/22/2020 COVID-19, LNP-s, No Preserve , Messi-sucrose, [...] Description 05/25/2024 2:00 PM EDT Office Visit [facility] [place] [address] [place] [address] Nav Venegas MD [address] [place] [address] 08/23/2024 8:20 AM EDT Office Visit [facility] [address] [place] [phone] Sourav Moss MD [address] [place] [address] Health Maintenance Due Date Last [...] Additional history exists CKD HGB USE SMARTSET 28923 02/21/202502/21, 08/17/2023, 08/17/2023, Additional history exists CKD PHOS USE SMARTSET 31026 02/21/202501/25, 02/05/2023, 02/04/2022, Additional history exists DTaP,Tdap,and [...] interpreted or resulted by a [facility] or [facility] contracted radiologist. Ede Kaye MD RAD MRI-MRA documented in this encounter Care Teams Airplane Pilot Chief Relationship Specialty Start Date End Date Sourav Moss MD [address] [facility] [place] [address] PCP - General 11/13/1997 documented as of this encounter
--- NOTE | 2024-07-09 14:05 | Emergency Department Note ---
Impression & Plan Brain tumor ADMIT ED Provider Note HPI: History obtained from patient. The patient is a 78-year-old gentleman with history of previous CVA, presents to the emergency department with a chief complaint of continued right-sided weakness in the right upper extremity and right lower extremity for the past several months. Patient states that he was here at [facility] in April and diagnosed with a likely brain tumor, patient states and subsequent follow-up visits he was told he more likely had some type of stroke with surrounding edema. Patient states he was recently placed on Keppra. Patient states that over the past several weeks he had had increasing right sided weakness and he has had difficulty using utensils to feed himself. Patient states he did have an MRI this past at [facility] of the brain but he is unsure of what the result was. On arrival here to the ED the patient is alert and oriented x 3, he does not have any focal deficits, he ambulates all extremity spontaneously and otherwise appears to be in no acute distress. ROS: - Per HPI Differential Diagnosis: Stroke, progression of intracranial mass/brain tumor, seizure, critical electrolyte abnormalities, labile blood sugar, intracranial hemorrhage, amongst other potential pathologies. *Outpatient medications and allergy history reviewed. PE: General: Alert HEENT: Normocephalic, trachea midline Eyes: Extraocular eye movement is intact, no scleral erythema Pulmonary: Clear to auscultation bilaterally, no wheezing Cardio: Regular rate and rhythm GI: Abdomen is soft to palpation : No suprapubic tenderness MSK: No evidence of trauma or malformation of the extremities, no edema Skin: No evidence of rash Neuro: Alert, no focal deficits, equal bilateral hostel manager strength, symmetrical facial movements are appreciated, no drift of the upper extremities or lower extremities with testing against gravity Psychiatric: Cooperative INDEPENDENT INTERPRETATIONS: phototypesetting equipment monitor: (As interpreted by myself): - An order was placed for continuous cardiac monitoring - Patient was noted to be in sinus rhythm with a rate of 80 EKG: (As interpreted by myself): Rate: 96 Rhythm: Normal sinus rhythm Intervals: Within normal limits ST changes: No ST elevation Time: 1338 Interventions provided in ED: -IV Phenytoin, IV Zofran, IV Decadron Medical Decision Making: IV was established and lab work obtained, patient was placed on phototypesetting equipment monitor. Patient does not have any focal deficits on arrival. 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 This was considered per the interpreting radiologist to be highly suspicious for malignant neoplasm. I discussed this with the patient and his at the bedside. They were in contact with the neurosurgery physician offset press assistant through [facility] in regards to this report. They state they had a phone conversation with him yesterday. At that time a decision was made to hold off on steroid therapy and the patient was initiated on Keppra. I discussed all of this with the on- call neurologist at [facility], Dr. Keys. I did inform her that the patient states he is not reacting well to Keppra as he took 1 dose last night and he felt like it made him feel very lightheaded and gave him an uncomfortable feeling. He states this did correlate with taking the Keppra therefore he is concerned that this was a medication reaction of some sort. She recommends at this time loading the patient with IV phenytoin and the patient can be started on phenytoin 200 twice daily upon discharge. Patient was also advised that he will have to have a phenytoin level checked in 4 days. Patient was at this point and initially placed for discharge, unfortunately during his phenytoin infusion the patient did have what appeared to be some type of seizure-like event. He remained alert throughout the event but had some stiffness in his right upper extremity and became tearful and anxious. His speech was normal but he did have a delay in response. He was given Ativan and this did improve his symptoms. Following a period of observation, the patient was reassessed again and when he got out of bed he had an episode of vomiting. At this time I did again discuss the patient's presentation with on-call neurology at [facility], Dr. Keys. She recommended that the patient receive IV steroids and he could be admitted to this facility as long as CT imaging of the head without contrast did not show any concerning new findings. She stated he could be admitted for observation however he did not require transfer to tertiary care at this time because they would not be planning to do perform any interventions that could not be done at this facility potentially. I discussed this with the patient and his family. At this time they are in agreement, on my reassessment the patient states his nausea is improved, he is resting comfortably in bed and he is watching TV. I discussed the patient's presentation and the above conversations with the on-call hospitalist for [facility] at [facility], Dr. Loving, and the patient was placed for admission in stable condition for further care and observation. Consultants/Discussions held with other healthcare providers: -Neurology, Dr. Reese-Andary -Hospitalist, Dr. Loving Disposition discussion held by myself with: -Patient and patient's at the bedside as well as the patient's son at the bedside Discharge prescriptions: -Phenytoin Diagnosis: 1. Right sided weakness in the setting of known brain mass, acute on chronic 2. Seizure-like activity, acute 3. Nausea and vomiting, acute Disposition: Admission Sourav Damian DO Emergency Medicine Past Med/Surg History Problem List (Updated 07/09/24 @ 14:54 by Sourav Damian DO) Brain tumor (Acute) Bilateral hip bursitis Social History Smoking Status: Former smoker Preferred Language: Greenlandic Feels Safe at Home: Yes Allergies Allergies Allergy/AdvReac Type Severity Reaction Status Date / Time No Known Allergies Allergy Unknown Verified 05/10/24 09:59 Home Meds Home Medications Medication Instructions Recorded Confirmed atorvastatin 20 mg tablet 20 mg PO DAILY 05/12/22 07/09/24 omeprazole 20 mg capsule,delayed 20 mg PO DAILY 05/12/22 07/09/24 release aspirin 81 mg tablet,delayed 81 mg PO DAILY 05/10/24 07/09/24 release cholecalciferol (vitamin D3) 25 25 mcg PO DAILY 05/10/24 07/09/24 mcg (1,000 unit) tablet (Vitamin D3) empagliflozin 10 mg tablet 10 mg PO DAILY 05/10/24 07/09/24 (Jardiance) lisinopril 10 1 tab PO DAILY 05/10/24 07/09/24 mg-hydrochlorothiazide 12.5 mg tablet vit C 250 mg-vit E 90 mg-zinc 40 1 tab PO BID 05/10/24 07/09/24 mg-copper 1 [id number] capsule (PreserVision AREDS-2) Previous Rx's Medication Instructions Recorded phenytoin sodium extended 200 mg 200 mg PO BID #60 caps 07/09/24 capsule Results & Data (ED) Vital Signs Vital Signs - 24 hr 07/09/24 13:29 07/09/24 13:29 07/09/24 14:05 Temperature 36.6 C 36.8 C Temperature Source Oral Oral Pulse Rate 93 H Pulse Rate [Apical] 87 Pulse Rhythm Pulse Rhythm [Apical] Regular Pulse Strength [Apical] Normal Respiratory Rate 18 20 Respiratory Effort / Characteristics Non-Labored Spontaneous Respiratory Depth Normal Respiratory Pattern Regular Blood Pressure 125/77 Blood Pressure [Right Arm] 148/81 H Blood Pressure Mean 93 Blood Pressure Mean [Right Arm] 103 Blood Pressure Position [Right Arm] Semi-fowlers Pulse Oximetry 96 99 Oxygen Delivery Method Room Air Room Air Sepsis Recent Fever Within 48 Hours No Sepsis New/Unexplained Change in Mental Status N/A Sepsis Action Taken by Nursing No Action Required 07/09/24 14:05 07/09/24 14:05 07/09/24 16:52 Temperature Temperature Source Pulse Rate 81 Pulse Rate [Apical] 83 Pulse Rhythm Regular Pulse Rhythm [Apical] Pulse Strength [Apical] Respiratory Rate 20 20 Respiratory Effort / Characteristics Non-Labored Respiratory Depth Normal Respiratory Pattern Blood Pressure Blood Pressure [Right Arm] 142/81 H Blood Pressure Mean Blood Pressure Mean [Right Arm] 101 Blood Pressure Position [Right Arm] Pulse Oximetry 94 94 98 Oxygen Delivery Method Room Air Room Air Room Air Sepsis Recent Fever Within 48 Hours Sepsis New/Unexplained Change in Mental Status Sepsis Action Taken by Nursing 07/09/24 17:08 07/09/24 18:40 Temperature Temperature Source Pulse Rate Pulse Rate [Apical] 83 63 Pulse Rhythm Pulse Rhythm [Apical] Pulse Strength [Apical] Respiratory Rate 20 20 Respiratory Effort / Characteristics Non-Labored Non-Labored Respiratory Depth Normal Normal Respiratory Pattern Blood Pressure Blood Pressure [Right Arm] 122/68 144/72 H Blood Pressure Mean Blood Pressure Mean [Right Arm] 86 96 Blood Pressure Position [Right Arm] Pulse Oximetry 98 93 Oxygen Delivery Method Room Air Room Air Sepsis Recent Fever Within 48 Hours Sepsis New/Unexplained Change in Mental Status Sepsis Action Taken by Nursing Laboratory Data 07/09/24 13:50 07/09/24 13:50 Lab Results 07/09/24 07/09/24 Range/Units 13:50 14:24 WBC 8.55 (4.8-10.8) K/ul RBC 6.40 H (4.70-6.10) M/uL Hgb 19.5 H (14.0-18.0) g/dl Hct 57.8 H (42.0-52.0) % MCV 90.3 (80.0-100.0) fL MCH 30.5 (25.0-34.0) pg MCHC 33.7 (32.0-36.0) g/dL RDW Std Deviation 42.6 (36.4-46.3) fL RDW Coeff of Irvin 12.9 (11.5-14.5) % Plt Count 262 (130-400) K/uL MPV 10.2 (9.4-12.4) fL Immature Gran % (Auto) 0.2 % Neut % (Auto) 71.1 % Lymph % (Auto) 17.5 % O'Brien % (Auto) 8.9 % Eos % (Auto) 1.6 % Baso % (Auto) 0.7 % Neut # (Auto) 6.07 (1.40-6.50) K/uL Lymph # (Auto) 1.50 (1.20-3.40) K/uL O'Brien # (Auto) 0.76 H (0.11-0.59) K/uL Eos # (Auto) 0.14 (0.00-0.50) K/uL Baso # (Auto) 0.06 (0.00-0.20) K/uL Immature Gran # (Auto) 0.02 (0.01-0.20) K/uL PT Cancelled 10.9 INR Cancelled 1.0 APTT Cancelled 24 PTT Ratio Cancelled 0.9 Sodium 138 (136-145) mmol/L Potassium 5.0 (3.5-5.1) mmol/L Chloride 98 (98-107) mmol/L Carbon Dioxide 27 (21-32) mmol/L Anion Gap 13 H (3-11) BUN 22 (6-23) mg/dl Creatinine 1.33 (0.6-1.4) mg/dl Est Cr Clr Drug Dosing 47.8 ml/min Est GFR ( Amer) 59.3 ml/min Est GFR (Non-Af Amer) 51.2 ml/min BUN/Creatinine Ratio 16.5 (10-20) Glucose 117 H (70-99(Fasting)) mg/dl Calcium 10.5 H (8.6-10.3) mg/dl Magnesium 2.4 (1.7-2.4) mg/dl Total Bilirubin 1.2 H (0.2-1.0) mg/dl AST 21 (13-39) U/L ALT 16 (7-52) U/L Alkaline Phosphatase 94 (34-104) U/L Troponin I High Sens 7.5 (0-20) pg/ml Total Protein 8.2 (6.0-8.3) gm/dl Albumin 5.1 H (3.4-5.0) gm/dl Globulin 3.1 (2.5-4.0) gm/dl Albumin/Globulin Ratio 1.6 (0.9-2) TSH 1.825 (0.300-4.500) uIu/ml Administered Medications Discontinued Medications Dexamethasone Sodium Phosphate (DexamethasonePf 10 Mg/Ml Vial) 10 mg IV NOW ONE Stop: 07/09/24 19:00 Last Admin: 07/09/24 19:25 Dose: 10 mg Documented By: DONALD Phenytoin 1,000 mg/ Sodium (Chloride) 120 mls @ 360 mls/hr IV NOW ONE Stop: 07/09/24 15:19 Last Infusion: 07/09/24 16:18 Dose: Infused Documented By: Admin: 07/09/24 15:39 Dose: 360 mls/hr Documented By: SERENA Lorazepam (Lorazepam 1 Mg/1 Ml Syr Ed Inj Use) Confirm Administered Dose 1 mg .ROUTE .STK-MED ONE Stop: 07/09/24 16:47 Last Admin: 07/09/24 16:47 Dose: 1 mg Documented By: SERENA Ondansetron HCl (Ondansetron Inj 2 Mg/Ml 2 Ml Vial) Confirm Administered Dose 4 mg .ROUTE .STK-MED ONE Stop: 07/09/24 18:36 Last Admin: 07/09/24 18:38 Dose: 4 mg Documented By: SERENA Sodium Chloride (Sodium Chloride 0.9% 10ml Flush) 20 ml IV ONCE STA Stop: 07/09/24 14:39 Last Admin: 07/09/24 16:17 Dose: 20 ml Documented By: ES Imaging Data Radiologist's Impression: Chest X-Ray 07/09/24 13:35 XR chest 1V portable CLINICAL HISTORY: Weakness TECHNIQUE: Single frontal radiograph of the chest was obtained. Comparison: Comparison is made to chest radiograph 05/10/2024 FINDINGS: ACDF is seen. Calcified aortic knob is seen. The lungs are clear. No evidence of pleural effusion or pneumothorax. IMPRESSION: No acute chest disease. ACT 112: Negative or not required by law. Electronically signed by: Gilberto Cruz M.D. 07/09/2024 2:[address] 07/09/24 18:35 CT head/brain wo con CLINICAL HISTORY: dizzy, R sided stiffness, brain mass Technique: Contiguous axial CT images of the head were acquired from the base of the skull to the vertex without intravenous contrast administration. Images were viewed in brain, subdural and bone windows. Automated dose lowering techniques and/or adjustment according to patient size were utilized for this exam. Comparison: Comparison is made to CT head 05/10/2024 Findings: Partial visualization of left frontal mass lesion with associated vasogenic edema. No intracranial hemorrhage. Imaged portions of the paranasal sinuses and mastoid air cells are clear. The orbits appear normal. There are no acute fractures of the calvaria or scalp swelling. Impression: No acute abnormality. Partial visualization of left frontal mass lesion which was seen on prior exam. ACT 112: Negative or not required by law. Electronically signed by: Gilberto Cruz M.D. 07/09/2024 7:45 PM Discharge Plan Visit Data Chief Complaint: Weakness Stated Complaint: CARDIAC ASSESSMENT ED Provider: Sourav Damian Discharge Problem: Brain tumor Patient Disposition: Home - Self-Care Condition: Good Discharge Instructions Mara/Other Patient Handouts: Brain Tumors Activity Restrictions/Additional Instructions: Please follow-up with your neurology and neurosurgery providers through [facility] within the next 2 to 3 days for reassessment and further management. Please begin taking your new medication, phenytoin, as prescribed. Please stop taking your Keppra. Please return to the ER if you have any new or worsening symptoms. Forms Stand Alone Forms: My [facility], Important Visit Information Prescriptions Prescriptions: New phenytoin sodium extended 200 mg capsule 200 mg PO BID Qty: 60 0RF No Action omeprazole 20 mg capsule,delayed release(DR/EC) 20 mg PO DAILY atorvastatin 20 mg tablet 20 mg PO DAILY aspirin 81 mg Tablet,Delayed Release (Dr/Ec) 81 mg PO DAILY lisinopril-hydrochlorothiazide 10-12.5 mg tablet 1 tab PO DAILY cholecalciferol (vitamin D3) [Vitamin D3] 25 mcg (1,000 unit) Tablet 25 mcg PO DAILY PreserVision AREDS-2 250-90-40-1 mg Capsule 1 tab PO BID Jardiance 10 mg tablet 10 mg PO DAILY Referrals Referrals: Sourav Moss MD [Primary Care Provider] -
[2024-07-09 14:11] LABS: Basophils # (auto) 0.06 K/uL (0.00-0.20); Basophils % (auto) 0.7 %; Eosinophils # (auto) 0.14 K/uL (0.00-0.50); Eosinophils % (auto) 1.6 %; Hematocrit (blood only) 57.8 % (42.0-52.0); Hemoglobin 19.5 g/dl (14.0-18.0); Immature Granulocytes # (auto) 0.02 K/uL (0.01-0.20); Immature Granulocytes % (auto) 0.2 %; Lymphocytes % (auto) 17.5 %; Mean Corpuscular Hemoglobin 30.5 pg (25.0-34.0); Mean Corpuscular Hgb Conc 33.7 g/dL (32.0-36.0); Mean Corpuscular Volume 90.3 fL (80.0-100.0); Mean Platelet Volume 10.2 fL (9.4-12.4); Monocytes # (auto) 0.76 K/uL (0.11-0.59); Monocytes % (auto) 8.9 %; Neutrophils # (auto) 6.07 K/uL (1.40-6.50); Neutrophils % (auto) 71.1 %; Platelet Count 262 K/uL (130-400); RDW Coefficient of Variation 12.9 % (11.5-14.5); RDW Standard Deviation 42.6 fL (36.4-46.3); White Blood Count 8.55 K/ul (4.8-10.8)
--- NOTE | 2024-07-09 14:17 | XRay Report ---
XR chest 1V portable CLINICAL HISTORY: Weakness TECHNIQUE: Single frontal radiograph of the chest was obtained. Comparison: Comparison is made to chest radiograph 05/10/2024 FINDINGS: ACDF is seen. Calcified aortic knob is seen. The lungs are clear. No evidence of pleural effusion or pneumothorax. IMPRESSION: No acute chest disease. ACT 112: Negative or not required by law. Electronically signed by: Gilberto Cruz M.D. 07/09/2024 2:16 PM
[2024-07-09 14:20] LABS: Albumin Globulin Ratio 1.6 (0.9-2); Albumin Level 5.1 gm/dl (3.4-5.0); BUN Creatinine Ratio 16.5 (10-20); Bilirubin,Total 1.2 mg/dl (0.2-1.0); Calcium 10.5 mg/dl (8.6-10.3); Creatinine Clr Calc Pharmacy 47.8 ml/min; Est GFR (African American) 59.3 ml/min; Est GFR (Non-African American) 51.2 ml/min; Globulin 3.1 gm/dl (2.5-4.0); Magnesium 2.4 mg/dl (1.7-2.4); Total Protein 8.2 gm/dl (6.0-8.3)
[2024-07-09 14:28] LABS: Troponin I High Sensitivity 7.5 pg/ml (0-20)
[2024-07-09 14:38] LABS: Thyroid Stimulating Hormone 1.825 uIu/ml (0.300-4.500)
[2024-07-09] MEDS ORDERED: 0.2 MICRON FILTER SET 1 EACH IV ONE ×2 (14:38→14:47)
[2024-07-09] MEDS ORDERED: PHENYTOIN SOD INJ 50 MG/ML 5 ML VIAL IV ONE (14:39)
[2024-07-09] MEDS ORDERED: SODIUM CHLORIDE 0.9% 10ML FLUSH IV STA (14:47)
[2024-07-09 14:59] LABS: Partial Thromboplastin Ratio 0.9; Partial Thromboplastin Time 24 Seconds (21-31); Prothrombin Time 10.9 Seconds (9.0-12.0)
[2024-07-09] MEDS: PHENYTOIN IV ONE (15:39)
[2024-07-09] MEDS: SODIUM CHLORIDE 0.9% IV ONE (15:39)
[2024-07-09] MEDS: SODIUM CHLORIDE 0.9% 10ML FLUSH IV STA (16:17)
[2024-07-09] MEDS: LORazepam 1 MG/1 ML SYR ED Inj Use ONE (16:47)
[2024-07-09] MEDS: ONDANSETRON INJ 2 MG/ML 2 ML VIAL ONE (18:38)
[2024-07-09] MEDS: dexAMETHasone**PF** 10 MG/ML VIAL IV ONE (19:25)
--- NOTE | 2024-07-09 19:47 | CT Scan Report ---
CT head/brain wo con CLINICAL HISTORY: dizzy, R sided stiffness, brain mass Technique: Contiguous axial CT images of the head were acquired from the base of the skull to the mingo mary alice without intravenous contrast administration. Images were viewed in brain, subdural and bone windo ws. Automated dose lowering techniques and/or adjustment according to patient size were utilized for this exam. Comparison: Comparison is made to CT head 05/10/2024 Findings: Partial visualization of left frontal mass lesion with associated vasogenic edema. No intracranial h emorrhage. Imaged portions of the paranasal sinuses and mastoid air cells are clear. The orbits appear normal. There are no acute fractures of the calvaria or scalp swelling. Impression: No acute abnormality. Partial visualization of left frontal mass lesion which was seen on prior exam. ACT 112: Negative or not required by law. Electronically signed by: Gilberto Cruz M.D. 07/09/2024 7:45 PM
--- NOTE | 2024-07-09 21:30 | History & Physical Report ---
Date of Service July 09, 2024 Assessment & Plan (1) Seizure-like activity: Plan: 78-year-old male with past medical history significant for hyperlipidemia, diabetes, allergic rhinitis, CKD stage III, cervical spondylosis, generalized osteoarthritis, vertigo, history of tobacco abuse, comes because of weakness in the right side and also seizure-like activities of the right extremities. Patient was initially found to have left-sided brain mass on April 10, 2024. Followed up with neurosurgery and also neurology at [place]. Initially there was question of subacute infarct versus neoplasm. He was having on and off twitching starting in the right lower extremity extending the right arm and with some shakiness. This episodes last about couple of minutes. When episodes are severe he finds it difficult to speak. He had a repeat brain MRI done on 07/07/2024 which showed increase in size of enhancing lesion of the left frontal vertex involving the precentral gyrus with new areas of leptomeningeal enhancement in the left frontal and parietal regions and findings are highly suspicious for malignant neoplasm and with surrounding vasogenic edema. Seems patient had a phone conversation with neurosurgery at [place] and decision was made to hold steroid and initiate on Keppra. Patient was started Keppra last night. And there is a plan to follow-up with neurosurgery in [place] on Thursday. After taking Keppra he had a very bad reaction he felt very woozy tired nauseous and sick which made him come to the ER today. ER talked with the on- call neurologist at [facility] and was recommended IV phenytoin loading dose and then started phenytoin 200 mg twice daily upon discharge and check the phenytoin levels in 4 days. But after phenytoin infusion patient had a seizure- like event where he had some stiffness in the right extremity and became tearful and anxious though he was alert through the event and his speech was normal but seems had some delayed response. He was given Ativan and his symptoms were improved. He was observed for some time and when the patient was reassessed by ER and he got out of bed he had episode of vomiting. At this time ER again called neurology at [place] and was recommended to give IV steroids and could be admitted here for observation if CT imaging of the head without contrast did not show any concerning new findings. CT head was done which showed findings compatible with left superior frontal lesions. Patient currently resting comfortably and his nausea improved. Denies any headache. No dizziness. 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 No runny nose or sore throat or cough. No difficulty swallowing. No fevers. No chest pain or shortness of breath. No abdominal pain. Normal bowel and bladder movements. Ambulating with a cane. States he lost about 15 pounds in the last 2 months after starting Jardiance. is in the room. Hemodynamics are okay currently. Seizure-like activity Brain mass Could not tolerate Keppra Currently loaded with IV phenytoin Patient and thinks he had a reaction to phenytoin also but patient okay to try p.o. phenytoin in the morning Received IV Decadron 10 mg Will continue IV Decadron 4 mg every 6 hours Seizure precautions Consult neurology in a.m. for further recommendations followup phenytoin levels Follow-up with neurosurgery Diabetes Hold Jardiance Sliding scale We will monitor CKD stage III Creatinine 1.3 Will follow labs Hyperlipidemia On statin Hypertension Lisinopril hydrochlorothiazide And monitor GERD On omeprazole DVT prophylaxis SCDs Disposition Telemetry Full code. History of Present Illness Chief Complaint: Weakness and seizure-like activity Primary Care Provider: Sourav Moss MD 78-year-old male with past medical history significant for hyperlipidemia, diabetes, allergic rhinitis, CKD stage III, cervical spondylosis, generalized osteoarthritis, vertigo, history of tobacco abuse, comes because of weakness in the right side and also seizure-like activities of the right extremities. Taiwo mott was initially found to have left-sided brain mass on April 10, 2024. Followed up with neurosurgery and also neurology at [place]. Initially there was question of subacute infarct versus neoplasm. He was having on and off twitching starting in the right lower extremity extending the right arm and with some shakiness. This episodes last about couple of minutes. When episodes are severe he finds it difficult to speak. He had a repeat brain MRI done on 07/07/2024 which showed increase in size of enhancing lesion of the left frontal vertex involving the precentral gyrus with new areas of leptomeningeal enhancement in the left frontal and parietal regions and findings are highly suspicious for malignant neoplasm and with surrounding vasogenic edema. Seems patient had a phone conversation with neurosurgery at [place] and decision was made to hold steroid and initiate on Keppra. Patient was started Keppra last night. And there is a plan to follow-up with neurosurgery in [place] on Thursday. After taking Keppra he had a very bad reaction he felt very woozy tired nauseous and sick which made him come to the ER today. ER talked with the on- call neurologist at [facility] and was recommended IV phenytoin loading dose and then started phenytoin 200 mg twice daily upon discharge and check the phenytoin levels in 4 days. But after phenytoin infusion patient had a seizure- like event where he had some stiffness in the right extremity and became tearful and anxious though he was alert through the event and his speech was normal but seems had some delayed response. He was given Ativan and his symptoms were improved. He was observed for some time and when the patient was reassessed by ER and he got out of bed he had episode of vomiting. At this time ER again called neurology at [place] and was recommended to give IV steroids and could be admitted here for observation if CT imaging of the head without contrast did not show any concerning new findings. CT head was done which showed findings compatible with left superior frontal lesions. Patient currently resting comfortably and his nausea improved. Denies any headache. No dizziness. 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 No runny nose or sore throat or cough. No difficulty swallowing. No fevers. No chest pain or shortness of breath. No abdominal pain. Normal bowel and bladder movements. Ambulating with a cane. States he lost about 15 pounds in the last 2 months after starting Jardiance. is in the room. Hemodynamics are okay currently. Past medical history. As mentioned above. Past surgical history. Neck spine fusion. Social history. . Quit smoking 2007. No alcohol use. No drug use. Family history. Father had alcoholism. Mother had arthritis. Glaucoma. Brother from kidney cancer. Allergies Allergy/AdvReac Type Severity Reaction Status Date / Time No Known Allergies Allergy Unknown Verified 05/10/24 09:59 Home Medications Medication Instructions Recorded Confirmed Type atorvastatin 20 mg tablet 20 mg PO DAILY 05/12/22 07/09/24 History omeprazole 20 mg capsule,delayed 20 mg PO DAILY 05/12/22 07/09/24 History release aspirin 81 mg tablet,delayed 81 mg PO DAILY 05/10/24 07/09/24 History release cholecalciferol (vitamin D3) 25 25 mcg PO DAILY 05/10/24 07/09/24 History mcg (1,000 unit) tablet (Vitamin D3) empagliflozin 10 mg tablet 10 mg PO DAILY 05/10/24 07/09/24 History (Jardiance) lisinopril 10 1 tab PO DAILY 05/10/24 07/09/24 History mg-hydrochlorothiazide 12.5 mg tablet vit C 250 mg-vit E 90 mg-zinc 40 1 tab PO BID 05/10/24 07/09/24 History mg-copper 1 qv-wadlci-nbnemr capsule (PreserVision AREDS-2) phenytoin sodium extended 200 mg 200 mg PO BID #60 caps 07/09/24 Rx capsule Past Med/Surg History Problem List (Updated 07/09/24 @ 21:49 by Dayne Loving MD) Seizure-like activity Brain tumor (Acute) Bilateral hip bursitis Social History Smoking Status: Former smoker Hx Alcohol Use: No Hx Substance Use: No Preferred Language: Bulgarian Communication Ability: Effective Engineering Teacher Required: No Beliefs That Will Affect Care: None Current Living Situation: Spouse Other Information That Helps Us Care for You: No Feels Safe at Home: Yes Safety Concerns: Feels Safe At This Time Assistive Devices: Glasses Review of Systems Review of Systems: All systems reviewed & are unremarkable except as noted in HPI & below Physical Exam Physical Exam: General- Not in distress Head- atraumatic Eyes- PERRL. ENT- oropharynx clear Neck- supple, no JVD. Lungs- clear to auscultation no wheezing or crackles Heart- regular rate and rhythm; no murmur, no gallop. Abdomen- normal bowel sounds, soft, nontender, no distension Extremities- no pretibial edema, no erythema seen Neuro- alert, oriented PERRL, no facial palsy; no dysarthria; power 5/5 in left extremities 4/5 in right extremities. sensations decreased right side. Skin- warm & dry Results & Data Results & Data Vital Signs (Past 12 Hours) Vital Signs Temp Pulse Pulse Resp BP BP Pulse Ox 07/09/24 20:00 82 18 114/75 96 07/09/24 18:40 63 20 144/72 H 93 07/09/24 17:08 83 20 122/68 98 07/09/24 16:52 83 20 142/81 H 98 07/09/24 14:05 81 20 94 07/09/24 14:05 94 07/09/24 14:05 36.8 C 87 20 148/81 H 99 07/09/24 13:29 07/09/24 13:29 36.6 C 93 H 18 125/77 96 O2 Del Method 07/09/24 20:00 Room Air 07/09/24 18:40 Room Air 07/09/24 17:08 Room Air 07/09/24 16:52 Room Air 07/09/24 14:05 Room Air 07/09/24 14:05 Room Air 07/09/24 14:05 Room Air 07/09/24 13:29 Room Air 07/09/24 13:29 Diagnostic Findings Laboratory Results WBC 8.55 K/ul (4.8-10.8) 07/09/24 13:50 RBC 6.40 M/uL (4.70-6.10) H 07/09/24 13:50 Hgb 19.5 g/dl (14.0-18.0) H 07/09/24 13:50 Hct 57.8 % (42.0-52.0) H 07/09/24 13:50 MCV 90.3 fL (80.0-100.0) 07/09/24 13:50 MCH 30.5 pg (25.0-34.0) 07/09/24 13:50 MCHC 33.7 g/dL (32.0-36.0) 07/09/24 13:50 RDW Std Deviation 42.6 fL (36.4-46.3) 07/09/24 13:50 RDW Coeff of Irvin 12.9 % (11.5-14.5) 07/09/24 13:50 Plt Count 262 K/uL (130-400) 07/09/24 13:50 MPV 10.2 fL (9.4-12.4) 07/09/24 13:50 Immature Gran % (Auto) 0.2 % 07/09/24 13:50 Neut % (Auto) 71.1 % 07/09/24 13:50 Lymph % (Auto) 17.5 % 07/09/24 13:50 [place] % (Auto) 8.9 % 07/09/24 13:50 Eos % (Auto) 1.6 % 07/09/24 13:50 Baso % (Auto) 0.7 % 07/09/24 13:50 Neut # (Auto) 6.07 K/uL (1.40-6.50) 07/09/24 13:50 Lymph # (Auto) 1.50 K/uL (1.20-3.40) 07/09/24 13:50 [place] # (Auto) 0.76 K/uL (0.11-0.59) H 07/09/24 13:50 Eos # (Auto) 0.14 K/uL (0.00-0.50) 07/09/24 13:50 Baso # (Auto) 0.06 K/uL (0.00-0.20) 07/09/24 13:50 Immature Gran # (Auto) 0.02 K/uL (0.01-0.20) 07/09/24 13:50 PT 10.9 Seconds (9.0-12.0) 07/09/24 14:24 INR 1.0 (0.9-1.1) 07/09/24 14:24 APTT 24 Seconds (21-31) 07/09/24 14:24 PTT Ratio 0.9 07/09/24 14:24 Sodium 138 mmol/L (136-145) 07/09/24 13:50 Potassium 5.0 mmol/L (3.5-5.1) 07/09/24 13:50 Chloride 98 mmol/L (98-107) 07/09/24 13:50 Carbon Dioxide 27 mmol/L (21-32) 07/09/24 13:50 Anion Gap 13 (3-11) H 07/09/24 13:50 BUN 22 mg/dl (6-23) 07/09/24 13:50 Creatinine 1.33 mg/dl (0.6-1.4) 07/09/24 13:50 Est Cr Clr Drug Dosing 47.8 ml/min 07/09/24 13:50 Est GFR ( Amer) 59.3 ml/min 07/09/24 13:50 Est GFR (Non-Af Amer) 51.2 ml/min 07/09/24 13:50 BUN/Creatinine Ratio 16.5 (10-20) 07/09/24 13:50 Glucose 117 mg/dl (70-99(Fasting)) H 07/09/24 13:50 Calcium 10.5 mg/dl (8.6-10.3) H 07/09/24 13:50 Magnesium 2.4 mg/dl (1.7-2.4) 07/09/24 13:50 Total Bilirubin 1.2 mg/dl (0.2-1.0) H 07/09/24 13:50 AST 21 U/L (13-39) 07/09/24 13:50 ALT 16 U/L (7-52) 07/09/24 13:50 Alkaline Phosphatase 94 U/L (34-104) 07/09/24 13:50 Troponin I High Sens 7.5 pg/ml (0-20) 07/09/24 13:50 Total Protein 8.2 gm/dl (6.0-8.3) 07/09/24 13:50 Albumin 5.1 gm/dl (3.4-5.0) H 07/09/24 13:50 Globulin 3.1 gm/dl (2.5-4.0) 07/09/24 13:50 Albumin/Globulin Ratio 1.6 (0.9-2) 07/09/24 13:50 TSH 1.825 uIu/ml (0.300-4.500) 07/09/24 13:50 Impressions Chest X-Ray 07/09/24 13:35 XR chest 1V portable CLINICAL HISTORY: Weakness TECHNIQUE: Single frontal radiograph of the chest was obtained. Comparison: Comparison is made to chest radiograph 05/10/2024 FINDINGS: ACDF is seen. Calcified aortic knob is seen. The lungs are clear. No evidence of pleural effusion or pneumothorax. IMPRESSION: No acute chest disease. ACT 112: Negative or not required by law. Electronically signed by: Gilberto Cruz M.D. 07/09/2024 2:[address] 07/09/24 18:35 CT head/brain wo con CLINICAL HISTORY: dizzy, R sided stiffness, brain mass Technique: Contiguous axial CT images of the head were acquired from the base of the skull to the vertex without intravenous contrast administration. Images were viewed in brain, subdural and bone windows. Automated dose lowering techniques and/or adjustment according to patient size were utilized for this exam. Comparison: Comparison is made to CT head 05/10/2024 Findings: Partial visualization of left frontal mass lesion with associated vasogenic edema. No intracranial hemorrhage. Imaged portions of the paranasal sinuses and mastoid air cells are clear. The orbits appear normal. There are no acute fractures of the calvaria or scalp swelling. Impression: No acute abnormality. Partial visualization of left frontal mass lesion which was seen on prior exam. ACT 112: Negative or not required by law. Electronically signed by: Gilberto Cruz M.D. 07/09/2024 7:45 PM ECG Additional Comments: ECG normal sinus rhythm rate of 96. QTc 434 Code Status & VTE Plan VTE Prophylaxis Plan VTE Prophylaxis will be ordered: Yes
--- OUTSIDE RECORDS SUMMARY | 2024-07-09 22:13 | External Medical Summary | Summary of Care ---
Author Name Unknown Organization [facility] Address [address] [place] [address] Phone [phone] Care Team Providers Care Orthotic Assistant Name Role Phone Sourav Moss MD Primary Care Provider [phone] Encounter Details Date Type Department Care Team ([facility] st Contact Info) Description 07/09/2024 Telephone [facility] Neurology [address] [place] [address] Guido Morocho MD [address] [place] [address] Allergies No known active allergiesdocumented as of this encounter (statuses as of 07/09/2024) Medications Medication Sig Dispensed Refills Start Date [...] as of this encounter (statuses as of 07/09/2024) Active Problems Problem Noted Date Diagnosed Date [...] as of this encounter (statuses as of 07/09/2024) Resolved Problems Problem Noted Date Diagnosed Date [...] as of this encounter (statuses as of 07/09/2024) Immunizations Name Administration Dates Next Due COVID-19 mRNA, LNP-s, No Pre serve, 2-Dose Series ([employer]) 08/04/2021,01/12/2021,12/22/2020 COVID-19, LNP-s, No Preserve , Messi-sucrose, Ages 12+ ([employer]) 07/28/2022 COVID-19, MRNA-LNP, 23-24, P F, 30 MCG/0.3 mL, 12 YRS AND ABOVE, IM ([employer]) 06/29/2024,07/16/2023 Covid-19, Mrna, Lnp-s, Pf, B ivalent, 30 Mcg, IM, 12 yrs and above ([employer]) 12/01/2022 PPD 08/16/2007 Pneumococcal Conjugate Vacc, 13 [...] encounter Miscellaneous Notes * Telephone Encounter - Guido Morocho MD - 07/09/2024 2:41 PM EDT Dilantin level to be checked on 07/13: and follow up with PCP / neurology for dose adjustment. documented in this encounter Plan of Treatment Upcoming Encounters Date Type Department Care Team (Late st Contact Info) Description 07/11/2024 10:00 AM EDT Office Visit Neurosurgery, [address] [address] Nav Venegas MD [facility] [place] [address] 07/11/2024 10:30 AM EDT Appointment Radiology, [address] [phone] 08/08/2024 12:00 PM EDT Telemedicine Neurosurgery, [address] [address] Nav Venegas MD [address] [place] [id number] 08/23/2024 8:20 AM EDT Office Visit [facility] [address] [place] [phone] Sourav Moss MD [address] [place] [address] Health Maintenance Due Date Last Done Comments Adult Wellness Visit 2012 *BASELINE EKG FOR HTN 05/25/2022 GFR 08/23/2024 02/22/2024, 01/24, 02/04/2022, Additional history exists HbA1c 08/23/2024 02/22/2024, 07/27, 02/05/2023, Additional history exists Depression Screening 02/17/2025 02/18/2024 Diabetic Eye Exam 02/17/2025 02/18/2024, 02/15/2024 Diabetic Foot Exam 02/17/2025 02/18/2024 Albumin/Creatinine Ratio 02/21/2025 024, 08/17/2023, 02/04/2022, Additional history exists CKD HGB USE SMARTSET 88266 02/21/202502/21, 08/17/2023, 08/17/2023, Additional history exists CKD PHOS USE SMARTSET 69546 02/21/202501/25, 02/05/2023, 02/04/2022, Additional history exists DTap/Tdap [...] filedocumented as of this encounter Care Teams Orthotic Assistant Relationship Specialty Start Date End Date Sourav Moss MD [address] [place] [address] PCP - General 11/13/1997 documented as of this encounter
--- OUTSIDE RECORDS SUMMARY | 2024-07-09 22:13 | External Medical Summary | Summary of Care ---
Author Name Unknown Organization [facility] Address [address] [place] [address] Phone [phone] Care Team Providers Care Industrial Methods Consultant Name Role Phone Sourav Moss MD Primary Care Provider [phone] Encounter Details Date Type Department Care Team ([facility] st Contact Info) Description 07/09/2024 Medication Management [facility] [place] [place] Neurology [address], [place] [phone] Guido Morocho MD [address] [place] [address] Allergies No known active allergiesdocumented as of [...] mRNA, LNP-s, No Pre serve, 2-Dose Series ([employer]) 08/04/2021,01/12/2021,12/22/2020 COVID-19, LNP-s, No Preserve , Messi-sucrose, Ages 12+ ([employer]) 07/28/2022 COVID-19, MRNA-LNP, 23-24, P F, 30 MCG/0.3 mL, 12 YRS AND ABOVE, IM ([employer]) 06/29/2024,07/16/2023 Covid-19, Mrna, Lnp-s, Pf, B ivalent, 30 Mcg, IM, 12 yrs and above ([employer]) 12/01/2022 PPD 08/16/2007 Pneumococcal Conjugate Vacc, 13 [...] as of this encounter Progress Notes * Guido Morocho MD - 07/09/2024 2:39 PM EDT I was called about this patient presenting to [facility] ED after feeling dizzy and woozy and uncomfortable after taking Keppra. Came to the emergency room for further evaluation. Recommended stopping Keppra and loading him with 1 g of Dilantin and starting Dilantin 200 mg twicedaily. Follow-up with neuro-oncology and neurosurgery as outpatient documented in this encounter Plan of Treatment Upcoming Encounters Date Type Department Care Team (Late st Contact Info) Description 07/11/2024 10:00 AM EDT Office Visit Neurosurgery, [address] [address] Nav Venegas MD [facility] [place] [address] 07/11/2024 10:30 AM EDT Appointment Radiology, [address] [phone] 08/08/2024 12:00 PM EDT Telemedicine Neurosurgery, [address] [address] Nav Venegas MD [facility] [place] [address] 08/23/2024 8:20 AM EDT Office Visit [facility] [address] [place] [address] Sourav Moss MD [address] [place], [place] [phone] Health Maintenance Due Date Last Done Comments Adult Wellness Visit 2012 *BASELINE EKG FOR HTN 05/25/2022 GFR 08/23/2024 02/22/2024, 01/24, 02/04/2022, Additional history exists HbA1c 08/23/2024 02/22/2024, 07/27, 02/05/2023, Additional history exists Depression Screening 02/17/2025 02/18/2024 Diabetic Eye Exam 02/17/2025 02/18/2024, 02/15/2024 Diabetic Foot Exam 02/17/2025 02/18/2024 Albumin/Creatinine Ratio 02/21/2025 024, 08/17/2023, 02/04/2022, Additional history exists CKD HGB USE SMARTSET 34066 02/21/202502/21, 08/17/2023, 08/17/2023, Additional history exists CKD PHOS USE SMARTSET 95767 02/21/202501/25, 02/05/2023, 02/04/2022, Additional history exists DTap/Tdap [...] filedocumented as of this encounter Care Teams Industrial Methods Consultant Relationship Specialty Start Date End Date Sourav Moss MD [address] [place] [address] PCP - General 11/13/1997 documented as of this encounter
[2024-07-09] MEDS ORDERED: LORazepam 2 MG/1 ML VIAL IV PRN (22:15)
[2024-07-09] MEDS ORDERED: ACETAMINOPHEN 325 MG TAB PO PRN (22:15)
[2024-07-09] MEDS ORDERED: POLYETHYLENE (MIRALAX) 17 GM PACK PO PRN (22:15)
[2024-07-09] MEDS ORDERED: GLUCOSE 40% GEL 15 GM TUBE PO PRN (22:15)
[2024-07-09] MEDS ORDERED: NITROGLYCERIN SL 0.4 MG/TAB TAB SL PRN (22:15)
[2024-07-09] MEDS ORDERED: ONDANSETRON INJ 2 MG/ML 2 ML VIAL IV PRN (22:15)
[2024-07-09] MEDS ORDERED: DEXTROSE 50% 50 ML SYRINGE IV PRN (22:15)
[2024-07-09] MEDS ORDERED: CARBOHYDRATES FOR HYPOGLYCEMIA PO PRN (22:15)
[2024-07-09] MEDS ORDERED: GLUCAGON FOR INJ 1 MG VIAL SQ PRN (22:15)
[2024-07-09] MEDS ORDERED: GLUCOSE 10 TAB/TUBE PO PRN (22:15)
[2024-07-09 23:56] LABS: Appearance Urine Clear (Clear); Bilirubin Urine Negative (Negative); Blood Urine Negative (Negative); Color Urine Yellow; Glucose Urine UA 3+ (Negative); Ketones Urine 1+ (Negative); Leukocyte Esterase Urine Negative (Negative); Nitrite Urine Negative (Negative); Protein Urine Negative (Negative); Specific Gravity Urine 1.025 (1.000-1.030); Urobilinogen Urine Negative (Negative)
[2024-07-10] MEDS: dexAMETHasone 4 MG in SYRINGE 0 ML IV SCH (00:58)
[2024-07-10] MEDS ORDERED: DEXAMETHASONE SOD INJ 4 MG/ML VIAL IV SCH (01:00)
[2024-07-10 06:11] LABS: Basophils # (auto) 0.03 K/uL (0.00-0.20); Basophils % (auto) 0.4 %; Hemoglobin 18.6 g/dl (14.0-18.0); Immature Granulocytes # (auto) 0.03 K/uL (0.01-0.20); Immature Granulocytes % (auto) 0.4 %; Lymphocytes # (auto) 0.93 K/uL (1.20-3.40); Lymphocytes % (auto) 11.4 %; Mean Corpuscular Hemoglobin 30.6 pg (25.0-34.0); Mean Corpuscular Hgb Conc 33.8 g/dL (32.0-36.0); Mean Corpuscular Volume 90.5 fL (80.0-100.0); Mean Platelet Volume 10.1 fL (9.4-12.4); Monocytes # (auto) 0.13 K/uL (0.11-0.59); Monocytes % (auto) 1.6 %; Neutrophils # (auto) 7.05 K/uL (1.40-6.50); Neutrophils % (auto) 86.2 %; Platelet Count 259 K/uL (130-400); RDW Coefficient of Variation 12.8 % (11.5-14.5); RDW Standard Deviation 42.3 fL (36.4-46.3); Red Blood Count 6.08 M/uL (4.70-6.10); White Blood Count 8.17 K/ul (4.8-10.8)
[2024-07-10 06:27] LABS: BUN Creatinine Ratio 18.9 (10-20); Calcium 9.7 mg/dl (8.6-10.3); Creatinine Clr Calc Pharmacy 49.6 ml/min; Est GFR (African American) 62.7 ml/min; Est GFR (Non-African American) 54.1 ml/min; Magnesium 2.2 mg/dl (1.7-2.4); Potassium 4.2 mmol/L (3.5-5.1)
[2024-07-10] MEDS: ATORVASTATIN 20 MG TAB PO SCH (07:59)
[2024-07-10] MEDS: ASPIRIN 81 MG ECTAB PO SCH (07:59)
[2024-07-10] MEDS: PHENYTOIN SODIUM ER 100 MG CAP PO SCH (07:59)
[2024-07-10] MEDS: CHOLECALCIFEROL 25 MCG (1000 UNITS) TAB PO SCH (07:59)
[2024-07-10] MEDS: LISINOPRIL/HCTZ 10/12.5MG TAB PO SCH (08:00)
[2024-07-10] MEDS: CEROVITE ADV FORMULA TAB PO SCH (08:00)
[2024-07-10] MEDS: PANTOprazole 40 MG TAB PO SCH (08:00)
--- NOTE | 2024-07-10 08:42 | Hospitalist Progress Note ---
Date of Service July 10, 2024 Assessment & Plan (1) Seizure-like activity: Plan: 78-year-old male with past medical history significant for hyperlipidemia, diabetes, allergic rhinitis, CKD stage III, cervical spondylosis, generalized osteoarthritis, vertigo, history of tobacco abuse, comes because of weakness in the right side and also seizure-like activities of the right extremities. Patient was initially found to have left-sided brain mass on April 10, 2024. Followed up with neurosurgery and also neurology at [facility]. Patient was seen by neurosurgery Dr. Venegas on May 29, 2024 for possible brain lesion. He was recommended to repeat MRI and refer to stroke neurologist to complete workup and secondary risk factor reduction. Patient underwent MRI brain without contrast on 07/07; there was increased in size of the enhancing lesion at the left frontal vertex with new areas of leptomeningeal enhancement in left frontal and parietal lesion highly suspicious of malignant neoplasm. The result was reviewed by James Moncada PA-C;" lesion is concerning for malignancy given the progression over interval studies". Ordered for CT abdomen pelvis was placed along with MRI brain without and with contrast ([facility] protocol) given the location of the tumor to assist in potential operative planning. Patient had a phone conversation with neurosurgery at [facility] and decision was made to hold steroid and initiate on Keppra. Patient was started Keppra a day prior to presentation to the hospital here. After taking Keppra he had a very bad reaction he felt very woozy tired nauseous and sick which made him come to the ER. ER talked with the on-call neurologist at [facility] and was recommended IV phenytoin loading dose and then started phenytoin 200 mg twice daily upon discharge and check the phenytoin levels in 4 days. But after phenytoin infusion patient had a seizure-like event where he had some stiffness in the right extremity and became tearful and anxious though he was alert through the event and his speech was normal but seems had some delayed response. He was given Ativan and his symptoms were improved. He was observed for some time and when the patient was reassessed by ER and he got out of bed he had episode of vomiting. At this time ER again called neurology at [facility] and was recommended to give IV steroids and could be admitted here for observation if CT imaging of the head without contrast did not show any concerning new findings. CT head was done which showed findings compatible with left superior frontal lesions. Seizure-like activity Brain mass Medical history as above Could not tolerate Keppra Loaded with IV phenytoin Continue on oral phenytoin 200 mg twice a day Continue on steroids Discussed with neurosurgery Dr. Nelson from [facility]. Updated on clinical course and current patient's condition. Patient is due for neurosurgery follow- up tomorrow which he will not be able to make it. Plan to transfer to [facility] when bed is available. Type 2 Diabetes Hold Jardiance Sliding scale We will monitor CKD stage III Creatinine 1.3 Will follow labs Hyperlipidemia On statin, continue Hypertension Lisinopril hydrochlorothiazide And monitor GERD On omeprazole DVT prophylaxis SCDs Disposition Telemetry Full code. Time spent evaluating patient, direct bedside care, chart review, placing orders, interpretation of diagnostic studies, discussion with consultants, patient, and family members, as well as other required patient management activities is 75 minutes Please note the above document was generated using voice recognition software. It may contain grammatical, syntax or spelling errors. Any formal questions or concerns about the content, text or information contained within the body of this dictation should be directly addressed to the provider for clarification Admission and Anticipated Discharge Date Admission Date: July 09, 2024 Subjective Patient seen and examined at bedside. He reports he is tired and fatigued. Denies any seizure-like activity overnight Review of Systems Review of Systems: All systems reviewed & are unremarkable except as noted in Subjective Physical Exam Physical Exam: General- Not in distress Head- atraumatic Eyes- PERRL. ENT- oropharynx clear Neck- supple, no JVD. Lungs- clear to auscultation no wheezing or crackles Heart- regular rate and rhythm; no murmur, no gallop. Abdomen- normal bowel sounds, soft, nontender, no distension Extremities- no pretibial edema, no erythema seen Neuro- alert, oriented PERRL, no facial palsy; no dysarthria; power 5/5 in left extremities 4/5 in right upper and lower extremities. sensations decreased right side. Skin- warm & dry Results & Data Results & Data Vital Signs (Past 12 Hours) Vital Signs Temp Pulse Pulse Resp BP Pulse Ox Pulse Ox 07/10/24 04:44 36.4 C L 90 18 126/73 96 07/09/24 22:47 88 07/09/24 22:20 36.7 C 85 18 110/71 91 07/09/24 22:15 98 O2 Del Method O2 Del Method 07/10/24 04:44 Room Air 07/09/24 22:47 07/09/24 22:20 Room Air 07/09/24 22:15 Room Air
[2024-07-10 09:17] LABS: Estimated Average Glucose 137 mg/dl; Hemoglobin A1C 6.4 % (4.5-5.6)
[2024-07-10] MEDS: INSULIN ASPART PER UNIT CHARGE SC SCH (09:31)
--- NOTE | 2024-07-10 12:55 | Neurology Consultation ---
Date of Consultation July 10, 2024 Assessment & Plan (1) Seizure-like activity: Loaded with Dilantin 1 g. Continue with 200 mg twice daily. Check Dilantin level in 2 days. (2) Brain tumor: Received 1 dose of steroids. No need for continuation. Follow-up with neurology and neurosurgery as an outpatient Telehealth Consultation Telehealth Information Telehealth Information: I performed this visit using a real-time telehealth connection between my location and the patients location ([facility]). After connecting through interactive tele-video, patient was identified by name and date of and/or wristband check.Patient (or authorized healthcare floor representative) was informed that this was a telemedicine visit and it was being conducted confidentially over secure lines. My office door was closed and no one else was present in the room with me.Patient (or authorized healthcare floor representative) provided consent to proceed with the visit, expressed an understanding of privacy and security of the telemedicine visit, and gave permission to have a hospital floor representative in the room in order to assist with the visit and to conduct portions of the visit, as needed. I informed the patient (or authorized healthcare floor representative) that I reviewed their record and presented the opportunity for them to ask any questions regarding the visit today. The patient agreed to participate. History of Present Illness Reason for Consultation: seizures , brain tumor Attending Physician: Adalid Herrera MD History of Present Illness Mayank Dolan is a 78 Y.O with a PMH of HTN , HLP ,DM, CKD stage III,hx of tobacco abuse who has been recently diagnosed with a brain tumor, being followed neurology and neurosurgery. The patient was started on Keppra 500 mg twice daily for episodes of stiffening of his right upper and lower extremities. The patient took the Keppra and felt groggy throughout the day yesterday so he came to the emergency room. In the ED he had some stiffening episodes of the right upper and lower extremities. I have recommended switching Keppra to phenytoin and giving a loading dose of phenytoin 1000 mg. The patient became nauseous and was not feeling well, felt dizzy, so he was admitted for observation. Today he tells me that he feels a little foggy but a little better, he does not have any nausea did not have any significant allergic reactions to phenytoin, he still has some weakness in his right lower extremity but his right upper extremity feels fine today. Allergies Allergy/AdvReac Type Severity Reaction Status Date / Time No Known Allergies Allergy Unknown Verified 05/10/24 09:59 Home Medications Medication Instructions Recorded Confirmed Type atorvastatin 20 mg tablet 20 mg PO DAILY 05/12/22 07/09/24 History omeprazole 20 mg capsule,delayed 20 mg PO DAILY 05/12/22 07/09/24 History release aspirin 81 mg tablet,delayed 81 mg PO DAILY 05/10/24 07/09/24 History release cholecalciferol (vitamin D3) 25 25 mcg PO DAILY 05/10/24 07/09/24 History mcg (1,000 unit) tablet (Vitamin D3) empagliflozin 10 mg tablet 10 mg PO DAILY 05/10/24 07/09/24 History (Jardiance) lisinopril 10 1 tab PO DAILY 05/10/24 07/09/24 History mg-hydrochlorothiazide 12.5 mg tablet vit C 250 mg-vit E 90 mg-zinc 40 1 tab PO BID 05/10/24 07/09/24 History mg-copper 1 [id number] capsule (PreserVision AREDS-2) phenytoin sodium extended 200 mg 200 mg PO BID #60 caps 07/09/24 Rx capsule Patient History Social History Smoking Status: Former smoker Hx Alcohol Use: No Hx Substance Use: No Preferred Language: Kazakh Communication Ability: Effective In Service Educator Required: No Beliefs That Will Affect Care: None Current Living Situation: Spouse Other Information That Helps Us Care for You: No Feels Safe at Home: Yes Safety Concerns: Feels Safe At This Time Assistive Devices: Glasses Review of Systems Constitutional: Patient denies weight loss, fever, chills, and night sweats Eyes: Patient denies change in vision, tearing, pain, and redness ENT: Patient denies pain, bleeding, rhinorrhea, and dysphagia Cardiovascular: Patient denies chest pain, palpitation, dyspnea at rest, and dyspnea with exertion Respiratory: Patient denies shortness of breath, cough, wheezing, and productive cough GI: Patient denies reflux, pain, constipation, and diarrhea Skin: Patient denies rash, dryness, and itching Allergies/Immune System: Patient denies rhinorrhea, seasonal allergies, reaction to current MEDS, and joint swelling Endocrine: Patient denies weight loss, weight gain, temperature intolerance, and excessive thirst Neurological: All negative unless mentioned in the HPI Physical Exam General Constitutional: Appearance normally developed Head and face: normocephalic and atraumatic Eyes: no ptosis, no anisocoria, and no dysconjugate gaze Respiratory: normal effort Cardiovascular: regular rhythm and regular rate Abdomen: non distended Skin: no rashes, lesions, or ulcers noted Psychiatric: normal judgement and insight, normal mood, and normal affect NEUROLOGIC EXAMINATION: Mental Status:alert, oriented to time, place, person, normal recent memory, normal remote memory, normal attention span, normal concentration, normal language and normal fund of knowledge Cranial Nerves: CN 2 - no visual defect on confrontation and pupils round, equal, reactive to light CN 3, 4, 6 - extra-ocular movements intact and no nystagmus CN 5 - facial sensation intact CN 7 - no facial asymmetry CN 8 - intact hearing CN 9, 10 - palate symmetric, normal gag CN 11 - good shoulder shrug CN 12 - tongue midline MOTOR: Strength was at least antigravity throughout, right leg drift and There were no abnormal movements SENSATION: intact and symmetric to pinprick, light touch, vibration and joint position GAIT: stable, no ataxia and can perform tandem walking COORDINATION: no ataxia with finger to nose testing and heel to barcenas testing REFLEXES: cannot assess over telemedicine Results & Data Vital Signs (Past 12 Hours) Vital Signs Temp Pulse Pulse Pulse Pulse Resp BP 07/10/24 09:12 36.8 C 100 H 98 H 22 124/72 07/10/24 09:00 100 H 07/10/24 04:44 36.4 C L 90 18 126/73 Pulse Ox O2 Del Method 07/10/24 09:12 92 Room Air 07/10/24 09:00 07/10/24 04:44 96 Room Air Laboratory Results Abnormal lab results 07/09/24 07/09/24 07/10/24 Range/Units 13:50 23:40 05:26 RBC 6.40 H (4.70-6.10) M/uL Hgb 19.5 H 18.6 H (14.0-18.0) g/dl Hct 57.8 H 55.0 H (42.0-52.0) % Neut # (Auto) 7.05 H (1.40-6.50) K/uL Lymph # (Auto) 0.93 L (1.20-3.40) K/uL [place] # (Auto) 0.76 H (0.11-0.59) K/uL Anion Gap 13 H 13 H (3-11) BUN 24 H (6-23) mg/dl Glucose 117 H 159 H (70-99(Fasting)) mg/dl POC Glucose (70-99) mg/dl Hemoglobin A1c 6.4 H (4.5-5.6) % Calcium 10.5 H (8.6-10.3) mg/dl Total Bilirubin 1.2 H (0.2-1.0) mg/dl Albumin 5.1 H (3.4-5.0) gm/dl Urine Glucose (UA) 3+ H (Negative) Urine Ketones 1+ H (Negative) 07/10/24 Range/Units 08:44 RBC (4.70-6.10) M/uL Hgb (14.0-18.0) g/dl Hct (42.0-52.0) % Neut # (Auto) (1.40-6.50) K/uL Lymph # (Auto) (1.20-3.40) K/uL [place] # (Auto) (0.11-0.59) K/uL Anion Gap (3-11) BUN (6-23) mg/dl Glucose (70-99(Fasting)) mg/dl POC Glucose 130 H (70-99) mg/dl Hemoglobin A1c (4.5-5.6) % Calcium (8.6-10.3) mg/dl Total Bilirubin (0.2-1.0) mg/dl Albumin (3.4-5.0) gm/dl Urine Glucose (UA) (Negative) Urine Ketones (Negative) Diagnostic Findings Chest X-Ray 07/09/24 13:35 XR chest 1V portable CLINICAL HISTORY: Weakness TECHNIQUE: Single frontal radiograph of the chest was obtained. Comparison: Comparison is made to chest radiograph 05/10/2024 FINDINGS: ACDF is seen. Calcified aortic knob is seen. The lungs are clear. No evidence of pleural effusion or pneumothorax. IMPRESSION: No acute chest disease. ACT 112: Negative or not required by law. Electronically signed by: Gilberto Cruz M.D. 07/09/2024 2:[address] 07/09/24 18:35 CT head/brain wo con CLINICAL HISTORY: dizzy, R sided stiffness, brain mass Technique: Contiguous axial CT images of the head were acquired from the base of the skull to the vertex without intravenous contrast administration. Images were viewed in brain, subdural and bone windows. Automated dose lowering techniques and/or adjustment according to patient size were utilized for this exam. Comparison: Comparison is made to CT head 05/10/2024 Findings: Partial visualization of left frontal mass lesion with associated vasogenic edema. No intracranial hemorrhage. Imaged portions of the paranasal sinuses and mastoid air cells are clear. The orbits appear normal. There are no acute fractures of the calvaria or scalp swelling. Impression: No acute abnormality. Partial visualization of left frontal mass lesion which was seen on prior exam. ACT 112: Negative or not required by law. Electronically signed by: Gilberto Cruz M.D. 07/09/2024 7:45 PM Medications Administered Home Medications Medication Instructions Recorded Confirmed Last Taken atorvastatin 20 mg tablet 20 mg PO DAILY 05/12/22 07/09/24 07/08/24 omeprazole 20 mg capsule,delayed 20 mg PO DAILY 05/12/22 07/09/24 07/09/24 release aspirin 81 mg tablet,delayed 81 mg PO DAILY 05/10/24 07/09/24 07/09/24 release cholecalciferol (vitamin D3) 25 25 mcg PO DAILY 05/10/24 07/09/24 07/08/24 mcg (1,000 unit) tablet (Vitamin D3) empagliflozin 10 mg tablet 10 mg PO DAILY 05/10/24 07/09/24 07/09/24 (Jardiance) lisinopril 10 1 tab PO DAILY 05/10/24 07/09/24 07/09/24 mg-hydrochlorothiazide 12.5 mg tablet vit C 250 mg-vit E 90 mg-zinc 40 1 tab PO BID 05/10/24 07/09/24 07/09/24 mg-copper 1 [id number] capsule (PreserVision AREDS-2) phenytoin sodium extended 200 mg 200 mg PO BID #60 caps 07/09/24 Unknown capsule Active Medications Generic Name Dose Route Start Last Admin Trade Name Freq PRN Reason Stop Dose Admin Aspirin 81 mg 07/10/24 09:00 07/10/24 07:59 Aspirin 81 Mg Ectab PO 08/09/24 08:59 81 mg DAILY CUATE Administration Atorvastatin Calcium 20 mg 07/10/24 09:00 07/10/24 07:59 Atorvastatin 20 Mg Tab PO 08/09/24 08:59 20 mg DAILY CUATE Administration Lisinopril/HCTZ 1 tab 07/10/24 09:00 07/10/24 08:00 Lisinopril/Hctz 10/12.5mg Tab PO 08/09/24 08:59 1 tab DAILY CUATE Administration Dexamethasone 4 mg/ Syringe 1 mls @ 1 mls/min 07/10/24 01:00 07/10/24 06:42 IV 08/09/24 00:59 1 mls/min Q6H CUATE Administration Insulin Aspart 0 units 07/10/24 07:30 07/10/24 09:31 Insulin Aspart Per Unit Charge SC 08/09/24 07:29 3 units ACHS CUATE Administration Multivitamins/Minerals 1 tab 07/10/24 09:00 07/10/24 08:00 Cerovite Adv Formula Tab PO 08/09/24 08:59 1 tab QAM CUATE Administration Pantoprazole Sodium 40 mg 07/10/24 09:00 07/10/24 08:00 Pantoprazole 40 Mg Tab PO 08/09/24 08:59 40 mg DAILY CUATE Administration Phenytoin Sodium 200 mg 07/10/24 09:00 07/10/24 07:59 Phenytoin Sodium Er 100 Mg Cap PO 08/09/24 08:59 200 mg BID CUATE Administration Vitamin D 25 mcg 07/10/24 09:00 07/10/24 07:59 Cholecalciferol 25 Mcg (1000 Units) Tab PO 08/09/24 08:59 25 mcg DAILY CUATE Administration
[2024-07-11 02:57] VITALS: TEMP 97.5
[2024-07-11 07:58] VITALS: RESP 16
[2024-07-11] MEDS: dexAMETHasone 4 MG in SYRINGE 0 ML IV SCH (08:04)
[2024-07-11 11:48] VITALS: BP 112/66; PULSE 88; O2SAT 93
--- NOTE | 2024-07-11 14:06 | Discharge Summary ---
Date of Service July 11, 2024 Admission HPI Per Admitting Provider 78-year-old male with past medical history significant for hyperlipidemia, diabetes, allergic rhinitis, CKD stage III, cervical spondylosis, generalized osteoarthritis, vertigo, history of tobacco abuse, comes because of weakness in the right side and also seizure-like activities of the right extremities. Patient was initially found to have left-sided brain mass on April 10, 2024. Followed up with neurosurgery and also neurology at [facility]. Initially there was question of subacute infarct versus neoplasm. He was having on and off twitching starting in the right lower extremity extending the right arm and with some shakiness. This episodes last about couple of minutes. When episodes are severe he finds it difficult to speak. He had a repeat brain MRI done on 07/07/2024 which showed increase in size of enhancing lesion of the left frontal vertex involving the precentral gyrus with new areas of leptomeningeal enhancement in the left frontal and parietal regions and findings are highly suspicious for malignant neoplasm and with surrounding vasogenic edema. Seems patient had a phone conversation with neurosurgery at [facility] and decision was made to hold steroid and initiate on Keppra. Patient was started Keppra last night. And there is a plan to follow-up with neurosurgery in [place] on Thursday. After taking Keppra he had a very bad reaction he felt very woozy tired nauseous and sick which made him come to the ER today. ER talked with the on- call neurologist at [facility] and was recommended IV phenytoin loading dose and then started phenytoin 200 mg twice daily upon discharge and check the phenytoin levels in 4 days. But after phenytoin infusion patient had a seizure- like event where he had some stiffness in the right extremity and became tearful and anxious though he was alert through the event and his speech was normal but seems had some delayed response. He was given Ativan and his symptoms were improved. He was observed for some time and when the patient was reassessed by ER and he got out of bed he had episode of vomiting. At this time ER again called neurology at [facility] and was recommended to give IV steroids and could be admitted here for observation if CT imaging of the head without contrast did not show any concerning new findings. CT head was done which showed findings compatible with left superior frontal lesions. Patient currently resting comfortably and his nausea improved. Denies any headache. No dizziness. 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 No runny nose or sore throat or cough. No difficulty swallowing. No fevers. No chest pain or shortness of breath. No abdominal pain. Normal bowel and bladder movements. Ambulating with a cane. States he lost about 15 pounds in the last 2 months after starting Jardiance. is in the room. Hemodynamics are okay currently. Past medical history. As mentioned above. Past surgical history. Neck spine fusion. Social history. . Quit smoking 2007. No alcohol use. No drug use. Family history. Father had alcoholism. Mother had arthritis. Glaucoma. Brother from kidney cancer. Admission Exam Per Admitting Provider General- Not in distress Head- atraumatic Eyes- PERRL. ENT- oropharynx clear Neck- supple, no JVD. Lungs- clear to auscultation no wheezing or crackles Heart- regular rate and rhythm; no murmur, no gallop. Abdomen- normal bowel sounds, soft, nontender, no distension Extremities- no pretibial edema, no erythema seen Neuro- alert, oriented PERRL, no facial palsy; no dysarthria; power 5/5 in left extremities 4/5 in right extremities. sensations decreased right side. Skin- warm & dry Principal Diagnosis Brain mass Seizure-like activity Discharge Exam General- Not in distress Head- atraumatic Eyes- PERRL. ENT- oropharynx clear Neck- supple, no JVD. Lungs- clear to auscultation no wheezing or crackles Heart- regular rate and rhythm; no murmur, no gallop. Abdomen- normal bowel sounds, soft, nontender, no distension Extremities- no pretibial edema, no erythema seen Neuro- alert, oriented PERRL, no facial palsy; no dysarthria; power 5/5 in left extremities 4/5 in right upper and lower extremities. sensations decreased right side. Skin- warm & dry Discharge Data Allergies Allergy/AdvReac Type Severity Reaction Status Date / Time No Known Allergies Allergy Unknown Verified 05/10/24 09:59 Consultations 07/09/24 20:05 ED Decision to Admit Stat 07/10/24 08:00 Consult Neurology Routine 07/10/24 12:59 Burn CD for patient Stat Ordered Studies 07/09/24 18:35 CT head/brain wo con Stat Hospital Course (1) Seizure-like activity: 78-year-old male with past medical history significant for hyperlipidemia, diabetes, allergic rhinitis, CKD stage III, cervical spondylosis, generalized osteoarthritis, vertigo, history of tobacco abuse, comes because of weakness in the right side and also seizure-like activities of the right extremities. Patient was initially found to have left-sided brain mass on April 10, 2024. Followed up with neurosurgery and also neurology at [facility]. Patient was seen by neurosurgery Dr. Venegas on May 29, 2024 for possible brain lesion. He was recommended to repeat MRI and refer to stroke neurologist to complete workup and secondary risk factor reduction. Patient underwent MRI brain without contrast on 07/07; there was increased in size of the enhancing lesion at the left frontal vertex with new areas of leptomeningeal enhancement in left frontal and parietal lesion highly suspicious of malignant neoplasm. The result was reviewed by James Moncada PA-C;" lesion is concerning for malignancy given the progression over interval studies". Ordered for CT abdomen pelvis was placed along with MRI brain without and with contrast ([facility] protocol) given the location of the tumor to assist in potential operative planning. Patient had a phone conversation with neurosurgery at [facility] and decision was made to hold steroid and initiate on Keppra. Patient was started Keppra a day prior to presentation to the hospital here. After taking Keppra he had a very bad reaction he felt very woozy tired nauseous and sick which made him come to the ER. ER talked with the on-call neurologist at [facility] and was recommended IV phenytoin loading dose and then started phenytoin 200 mg twice daily upon discharge and check the phenytoin levels in 4 days. But after phenytoin infusion patient had a seizure-like event where he had some stiffness in the right extremity and became tearful and anxious though he was alert through the event and his speech was normal but seems had some delayed response. He was given Ativan and his symptoms were improved. He was observed for some time and when the patient was reassessed by ER and he got out of bed he had episode of vomiting. At this time ER again called neurology at [facility] and was recommended to give IV steroids and could be admitted here for observation if CT imaging of the head without contrast did not show any concerning new findings. CT head was done which showed findings compatible with left superior frontal lesions. Patient was admitted to telemetry floor. He was started on phenytoin 200 mg twice a day. He was also started on dexamethasone 6 mg every 6 hours. Discussion was done with neurosurgery in [facility]. Updated clinical course and current patient condition. Patient has a follow-up on 07/11/2024 which he will not be able to make due to the hospitalization. Patient [place] [facility] [place]. Please note the above document was generated using voice recognition software. It may contain grammatical, syntax or spelling errors. Any formal questions or concerns about the content, text or information contained within the body of this dictation should be directly addressed to the provider for clarification Total Time Total Time Spent Total Time Spent (In Minutes): 34 Total Time Includes: Examination of the Patient, Discharge Planning, Medication Reconciliation, Communication With Other Providers and Other Discharge Plan Discharge Items Patient Disposition: Home - Self-Care Reason For Visit: WEAKNESS, SEIZURE LIKE ACTIVITY Discharge Diagnosis: Brain mass Seizure-like activity Condition on Discharge: Good Activity: Resume your previous activity Non-emergency contact: Primary Care Provider Call non-emergency contact if: you have any medication questions and your symptoms worsen Follow-up/Referrals: Sourav Moss MD [Primary Care Provider] - Diet: Regular Addtl Attending Provider Instructions: Please follow-up with your primary care doctor after discharge. Pending Studies at Discharge: No Stand-Alone Forms: My [employer], Smoking Cessation Medications and DC Order Prescriptions: New phenytoin sodium extended 200 mg capsule 200 mg PO BID Qty: 60 0RF Continued omeprazole 20 mg capsule,delayed release(DR/EC) 20 mg PO DAILY atorvastatin 20 mg tablet 20 mg PO DAILY lisinopril-hydrochlorothiazide 10-12.5 mg tablet 1 tab PO DAILY cholecalciferol (vitamin D3) [Vitamin D3] 25 mcg (1,000 unit) Tablet 25 mcg PO DAILY PreserVision AREDS-2 250-90-40-1 mg Capsule 1 tab PO BID Jardiance 10 mg tablet 10 mg PO DAILY Held aspirin 81 mg Tablet,Delayed Release (Dr/Ec) 81 mg PO DAILY Hold Instructions: Resume on 07/25/24. Discharge Orders: Discharge Order (Routine); Ordered 07/11/24 Ordered By: Adalid Terry/Other Patient Handouts: Managing Type 2 Diabetes Admission Data Admit Date/Time: 07/09/24 21:22 Attending Provider: Adalid Herrera Admit Provider: Dayne Loving Primary Care Provider: Sourav Moss Other Providers: Dayne Loving; Tona Crane; Myles Lopez; Tona Fermin; Julian Tello; Mitul Velarde; Jhon Hernandez; Bobby Lutz; Alysa Leiva; Junaid Leos; Kenny Burciaga; Guido Morocho; Kaiden Johnson; Lisa Mendez; Maryjane Parikh; Bobby Matthews Other Interventions: Discharge Summary Assessment (RN) Last Done: 07/10/24 18:39
--- NOTE | 2024-07-12 05:29 | Electrocardiogram Report ---
Test Reason : Blood Pressure : */* mmHG Vent. Rate : 96 BPM Atrial Rate : 96 BPM P-R Int : 170 ms QRS Dur : 86 ms QT Int : 344 ms P-R-T Axes : -9 -10 -9 degrees QTcB Int : 434 ms Normal sinus rhythm Inferior infarct , age undetermined Abnormal ECG When compared with ECG of 10-May-2024 08:13, Premature ventricular complexes are no longer Present Inferior infarct is now Present T wave inversion now evident in Inferior leads Confirmed by Wilson López ([id number]) on 07/12/2024 5:29:09 AM Referred By: REFERRED SELF Confirmed By: Wilson López
== END 2024-07-11 12:17 | disposition home or self-care (01) | DRG 101 ==
LOC: ED 13:29 → 2W 21:22

== ENCOUNTER 2024-10-20 12:12 | Observation (INO) ==
[2024-10-20] MEDS: OPTIRAY 320 125ml IV ONE (12:27)
--- NOTE | 2024-10-20 12:51 | CT Scan Report ---
CT head/brain wo con CLINICAL HISTORY: neuro deficit, acute stroke suspected Technique: Contiguous axial CT images of the head were acquired from the base of the skull to the mingo mary alice without intravenous contrast administration. Images were viewed in brain, subdural and bone [facility]. Automated dose lowering techniques and/or adjustment according to patient size were utilized for this exam. Comparison: Comparison is made to CT head 07/09/2014 Findings: Interval increase in conspicuity of a region of vasogenic edema in the left frontal lobe. Previously noted mass lesion is not as well seen. Imaged portions of the paranasal sinuses and mastoid air cells are clear. The orbits appear normal. Postcraniotomy changes are seen apex. Impression: Increased vasogenic edema in the left frontal lobe is likely secondary to post craniotomy change. No acute abnormalities are seen against this background. ACT 112: Negative or not required by law. Electronically signed by: Gilberto Cruz M.D. 10/20/2024 12:49 PM
--- NOTE | 2024-10-20 12:52 | Electrocardiogram Report ---
Test Reason : Blood Pressure : */* mmHG Vent. Rate : 95 BPM Atrial Rate : 95 BPM P-R Int : 206 ms QRS Dur : 90 ms QT Int : 336 ms P-R-T Axes : -11 47 4 degrees QTcB Int : 422 ms Sinus rhythm with Fusion complexes Cannot exclude lateral injury pattern (significant artifact) Confirmed by Fredis Phan ([id number]) on 10/20/2024 12:52:01 PM Referred By: Confirmed By: Fredis Phan
--- NOTE | 2024-10-20 13:06 | CT Scan Report ---
CT angio head w con, CT angio neck with con CLINICAL HISTORY: 78 years-old Male with neuro deficit, acute stroke suspected. Acute stroke like symptoms COMPARISON STUDY: Head CT of same day, Brain MRI 07/14/2024 TECHNIQUE: Following the IV administration of 120 cc of Optiray, CT angiogram of the head and neck wa s performed from the aortic arch to the skull apex. Images are reviewed in the axial, sagittal, and c oronal planes. 3-D MIPS images are created and assessed. IV contrast was administered without complic ation. All measurements were obtained according to NASCET criteria. A dose lowering technique was uti lized adhering to the principles of ALARA. CT DOSE: 1913.79 mGy.cm FINDINGS: CT BRAIN: Dictated separately. Left parietal calvarial craniotomy. Posttreatment related changes of the superio r left frontal lobe with encephalomalacia and vasogenic edema redemonstrated. CT ANGIOGRAM OF THE HEAD AND NECK: Bovine morphology of the thoracic aortic arch which demonstrates mild atherosclerosis. Patency of the innominate and image subclavian arteries. The common carotid arteries are patent. Atherosclerosis of the carotid bulbs without significant stenosis. The internal carotid arteries are patent. The verteb ral arteries are patent. There is short segment high-grade stenosis involving the distal V4 segment r ight vertebral artery on image 340 of series 10. Patent basilar artery. There is origin of the left posterior cerebral artery. Posterior cerebral arteries are patent bilaterally. The middle and anterior cerebral arteries appear patent. Cerebral venous sinuses are patent. No defin ite intracranial enhancing lesion identified by CT. Lung apices appear clear. No pneumothorax. Unremarkable soft tissues. Degenerative and postoperative changes of the cervical spine. Mild polypoid mucosal thickening of the right maxillary sinus. IMPRESSION: 1. 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 2. No aneurysm, dissection or arterial occlusion identified within the head or neck. 3. Postoperative changes of the left frontal lobe with prior left-sided craniotomy. Please refer to [facility] same day head CT for additional findings. ACT 112: Negative or not required by law. The above report was generated using voice recognition software. It may contain grammatical, syntax o r spelling errors. Electronically signed by: Miko Rodriguez M.D. 10/20/2024 1:04 PM
[2024-10-20 13:37] LABS: Basophils # (auto) 0.05 K/uL (0.00-0.20); Basophils % (auto) 0.7 %; Eosinophils # (auto) 0.19 K/uL (0.00-0.50); Eosinophils % (auto) 2.6 %; Hemoglobin 16.2 g/dl (14.0-18.0); Immature Granulocytes # (auto) 0.02 K/uL (0.01-0.20); Immature Granulocytes % (auto) 0.3 %; Lymphocytes # (auto) 1.09 K/uL (1.20-3.40); Lymphocytes % (auto) 14.8 %; Mean Corpuscular Hgb Conc 33.8 g/dL (32.0-36.0); Mean Platelet Volume 9.7 fL (9.4-12.4); Monocytes # (auto) 0.56 K/uL (0.11-0.59); Monocytes % (auto) 7.6 %; Neutrophils # (auto) 5.47 K/uL (1.40-6.50); Platelet Count 175 K/uL (130-400); RDW Coefficient of Variation 13.1 % (11.5-14.5); RDW Standard Deviation 44.2 fL (36.4-46.3); Red Blood Count 5.22 M/uL (4.70-6.10); White Blood Count 7.38 K/ul (4.8-10.8)
[2024-10-20 13:42] LABS: Bilirubin,Total 0.7 mg/dl (0.2-1.0); Calcium 8.8 mg/dl (8.6-10.3); Magnesium 2.1 mg/dl (1.7-2.4); Potassium 4.1 mmol/L (3.5-5.1)
[2024-10-20] MEDS: levETIRAcetam 500 MG/5 ML VIAL IV STA (13:43)
--- NOTE | 2024-10-20 13:44 | History & Physical Report ---
Date of Service October 20, 2024 Assessment & Plan (1) Seizure-like activity: (2) Right sided weakness: Plan: This is a 78-year-old male with PMH of glioblastoma (s/p craniotomy with bone flap excision at [facility] in June 2024, completed chemo/radiation 09/12/24), type 2 diabetes, CKD 3 and other medical problems listed below who presents from home with stroke vs seizure like symptoms starting this morning. Painful spasms of RUE and RLE at home this AM, resolved after 10-12 minutes Back to residual R sided weakness that has been baseline since glioblastoma diagnosed in Jun [address] head with increased vasogenic edema in the left frontal lobe is likely secondary to post craniotomy change. No acute abnormalities are seen against this background CTA head/neck with : 1. 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 2. No aneurysm, dissection or arterial occlusion identified within the head or neck. 3. Postoperative changes of the left frontal lobe with prior left-sided craniotomy. Please refer to the same day head CT for additional findings. ED provider discussed with hydroelectric production manager neuro from [facility], who reviewed imaging- recommended increasing Keppra from 500mg BID to 1000mg BID, holding off on steroids for now Plan for repeat brain MRI tomorrow as patient has already received IV contrast Neuro checks, PT/OT speech evals, seizure precautions PRN Ativan for seizure Neuro to consult, appreciate recs (3) Glioblastoma of frontal lobe: Plan: S/p craniotomy with bone flap excision at [facility] in June 2024, completed chemo/radiation 09/12/[address] Mckinney (heme/onc) and Dr. Mcbride (rad onc), scheduled for repeat Brain MRI 11/11 2024 to determine next phase of treatment Will obtain repeat brain MRI while admitted (4) DM type 2 (diabetes mellitus, type 2): Plan: A1c 6.6 Jun 2024 Hold home agents SSI while in-patient BSG AC HS (5) CKD (chronic kidney disease), stage III: Plan: Cr 1.18 (at baseline), monitor with daily BMP (6) Hypertension: Plan: BP has been low over past few months - PCP discontinued lisinopril-hctz in favor of amlodipine 5mg but has not yet started Hold for now DVT Ppx: SCDs Code status: DNR/DNI per patient, paperwork PCP: Isa Dispo: admitted to [facility] tele Patient seen in collaboration with Dr. Gamino. Please see addendum. I spent a total of 75 minutes coordinating, documenting, and providing care for this patient excluding time spent in the performance of separately billed services. History of Present Illness Chief Complaint: Strokelike symptoms Primary Care Provider: Sourav Moss MD This is a 78-year-old male with PMH of glioblastoma (s/p craniotomy with bone flap excision at [facility] in June 2024, completed chemo/radiation 09/12/24), type 2 diabetes, CKD 3 and other medical problems listed below who presents from home with stroke like symptoms starting this morning. Ever since glioblastoma diagnosis and treatment, has felt weak with R sided weakness. Has been working with home PT/OT but is discouraged that he remains weak. Ambulates with a walker at baseline. Was getting ready in his room this AM and started to have spasming in his R leg followed by R arm that lasted for approximately 10-12 minutes per , who witnessed it. Spasming was very painful yet similar to presentation back in Jun when he was initially found to have glioblastoma. No LOC or difficulty speaking/swallowing although was "out of it," per . Called EMS due to concern he was having another stroke vs. seizure. R sided weakness slightly improved since arrival. Recently had lisinopril-hctz discontinued and amlodipine ordered but has not yet started because BP has been low. No other recent medication changes. No F/C, lightheadedness, CP, SOB, N/V, abd pain, dysuria, diarrhea or constipation. Poor appetite since chemo. Following with Dr. Mckinney (heme/onc) and Dr. Mcbride (rad onc) due for repeat Brain MRI 11/11 2024 to determine next phase of treatment. ED provider discussed with hydroelectric production manager neuro from [facility], who reviewed imaging - recommended increasing Keppra from 500mg BID to 1000mg BID, considering addition of steroids but holding off for now. Allergies Allergy/AdvReac Type Severity Reaction Status Date / Time No Known Allergies Allergy Unknown Verified 09/05/24 11:10 Home Medications Medication Instructions Recorded Confirmed Type atorvastatin 20 mg tablet 20 mg PO DAILY 05/12/22 10/20/24 History omeprazole 20 mg capsule,delayed 20 mg PO DAILY 05/12/22 10/20/24 History release aspirin 81 mg tablet,delayed 81 mg PO DAILY 05/10/24 10/20/24 History release cholecalciferol (vitamin D3) 25 25 mcg PO DAILY 05/10/24 10/20/24 History mcg (1,000 unit) tablet (Vitamin D3) empagliflozin 10 mg tablet 10 mg PO DAILY 05/10/24 10/20/24 History (Jardiance) acetaminophen 325 mg capsule 650 mg PO QID PRN pain or fever 08/29/24 10/20/24 History (Tylenol) levetiracetam 500 mg tablet 500 mg PO BID 08/29/24 10/20/24 History (Keppra) amlodipine 5 mg tablet 5 mg PO DAILY 10/20/24 10/20/24 History vit C 250 mg-vit E 90 mg-zinc 40 1 tab PO AMHS 10/20/24 10/20/24 History mg-copper 1 qx-ixdaic-szlopx capsule (PreserVision AREDS-2) Past Med/Surg History Problem List (Updated 10/20/24 @ 14:37 by Luz Higuera PA-C) Seizure-like activity Seizure (Acute) Right sided weakness (Acute) Glioblastoma of frontal lobe (Chronic) Bilateral hip bursitis Medical History (Updated 10/20/24 @ 14:37 by Luz Higuera PA-C) CKD (chronic kidney disease), stage III DM type 2 (diabetes mellitus, type 2) AMD (age-related macular degeneration), wet wet to right eye, dry to left eye Acid reflux Elevated lipids Hypertension Surgical History S/P cervical spinal fusion H/O craniotomy 07/14/[address] Venegas Family History Brother Cancer kidney cancer Mother Cancer Colon cancer Social History Smoking Status: Former smoker Tobacco Type: Cigarettes Age Started Using Tobacco: 20; packs per day: 1.5; Hx Alcohol Use: No Hx Substance Use: No Preferred Language: Croatian Communication Ability: Effective Adult And Pediatric Neurologist Required: No Beliefs That Will Affect Care: None Current Living Situation: Spouse current occupational status: retired Feels Safe at Home: Yes Assistive Devices: Denture - Upper, Glasses and Walker Review of Systems Review of Systems: At least ten systems reviewed and negative except as noted in the HPI. Physical Exam Physical Exam: Please see Dr. Gamino's addendum for physical exam. Results & Data Results & Data Vital Signs (Past 12 Hours) Vital Signs Pulse Pulse Resp BP BP Pulse Ox O2 Del Method 10/20/24 12:51 91 H 10/20/24 12:48 94 H 18 147/86 H 97 Room Air 10/20/24 12:27 92 H 18 143/68 H 96 Room Air Laboratory Results Short CBC 10/20/24 Range/Units 12:45 WBC 7.38 (4.8-10.8) K/ul Hgb 16.2 (14.0-18.0) g/dl Hct 48.0 (42.0-52.0) % Plt Count 175 (130-400) K/uL BMP 10/20/24 12:45 Sodium 137 Potassium 4.1 Chloride 105 Carbon Dioxide 20 L BUN 18 Creatinine 1.18 Glucose 96 Calcium 8.8 Liver Function 10/20/24 Range/Units 12:45 Total Bilirubin 0.7 (0.2-1.0) mg/dl AST 15 (13-39) U/L ALT 9 (7-52) U/L Alkaline Phosphatase 71 (34-104) U/L Albumin 4.0 (3.4-5.0) gm/dl Diagnostic Findings Head CT 10/20/24 12:09 CT head/brain wo con CLINICAL HISTORY: neuro deficit, acute stroke suspected Technique: Contiguous axial CT images of the head were acquired from the base of the skull to the vertex without intravenous contrast administration. Images were viewed in brain, subdural and bone windows. Automated dose lowering techniques and/or adjustment according to patient size were utilized for this exam. Comparison: Comparison is made to CT head 07/09/2014 Findings: Interval increase in conspicuity of a region of vasogenic edema in the left frontal lobe. Previously noted mass lesion is not as well seen. Imaged portions of the paranasal sinuses and mastoid air cells are clear. The orbits appear normal. Postcraniotomy changes are seen apex. Impression: Increased vasogenic edema in the left frontal lobe is likely secondary to post craniotomy change. No acute abnormalities are seen against this background. ACT 112: Negative or not required by law. Electronically signed by: Gilberto Cruz M.D. 10/20/2024 12:49 PM Head CTA 10/20/24 12:09 CT angio head w con, CT angio neck with con CLINICAL HISTORY: 78 years-old Male with neuro deficit, acute stroke suspected. Acute stroke like symptoms COMPARISON STUDY: Head CT of same day, Brain MRI 07/14/2024 TECHNIQUE: Following the IV administration of 120 cc of Optiray, CT angiogram of the head and neck was performed from the aortic arch to the skull apex. Images are reviewed in the axial, sagittal, and coronal planes. 3-D MIPS images are created and assessed. IV contrast was administered without complication. All measurements were obtained according to NASCET criteria. A dose lowering technique was utilized adhering to the principles of ALARA. CT DOSE: 1913.79 mGy.cm FINDINGS: CT BRAIN: Dictated separately. Left parietal calvarial craniotomy. Posttreatment related changes of the superior left frontal lobe with encephalomalacia and vasogenic edema redemonstrated. CT ANGIOGRAM OF THE HEAD AND NECK: Bovine morphology of the thoracic aortic arch which demonstrates mild atherosclerosis. Patency of the innominate and image subclavian arteries. The common carotid arteries are patent. Atherosclerosis of the carotid bulbs without significant stenosis. The internal carotid arteries are patent. The vertebral arteries are patent. There is short segment high-grade stenosis involving the distal V4 segment right vertebral artery on image 340 of series 10. Patent basilar artery. There is origin of the left posterior cerebral artery. Posterior cerebral arteries are patent bilaterally. The middle and anterior cerebral arteries appear patent. Cerebral venous sinuses are patent. No definite intracranial enhancing lesion identified by CT. Lung apices appear clear. No pneumothorax. Unremarkable soft tissues. Degenerative and postoperative changes of the cervical spine. Mild polypoid mucosal thickening of the right maxillary sinus. IMPRESSION: 1. 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 2. No aneurysm, dissection or arterial occlusion identified within the head or neck. 3. Postoperative changes of the left frontal lobe with prior left-sided craniotomy. Please refer to the same day head CT for additional findings. ACT 112: Negative or not required by law. The above report was generated using voice recognition software. It may contain grammatical, syntax or spelling errors. Electronically signed by: Miko Rodriguez M.D. 10/20/2024 1:04 PM Neck CTA 10/20/24 12:09 CT angio head w con, CT angio neck with con CLINICAL HISTORY: 78 years-old Male with neuro deficit, acute stroke suspected. Acute stroke like symptoms COMPARISON STUDY: Head CT of same day, Brain MRI 07/14/2024 TECHNIQUE: Following the IV administration of 120 cc of Optiray, CT angiogram of the head and neck was performed from the aortic arch to the skull apex. Images are reviewed in the axial, sagittal, and coronal planes. 3-D MIPS images are created and assessed. IV contrast was administered without complication. All measurements were obtained according to NASCET criteria. A dose lowering technique was utilized adhering to the principles of ALARA. CT DOSE: 1913.79 mGy.cm FINDINGS: CT BRAIN: Dictated separately. Left parietal calvarial craniotomy. Posttreatment related changes of the superior left frontal lobe with encephalomalacia and vasogenic edema redemonstrated. CT ANGIOGRAM OF THE HEAD AND NECK: Bovine morphology of the thoracic aortic arch which demonstrates mild atherosclerosis. Patency of the innominate and image subclavian arteries. The common carotid arteries are patent. Atherosclerosis of the carotid bulbs without significant stenosis. The internal carotid arteries are patent. The vertebral arteries are patent. There is short segment high-grade stenosis involving the distal V4 segment right vertebral artery on image 340 of series 10. Patent basilar artery. There is origin of the left posterior cerebral artery. Posterior cerebral arteries are patent bilaterally. The middle and anterior cerebral arteries appear patent. Cerebral venous sinuses are patent. No definite intracranial enhancing lesion identified by CT. Lung apices appear clear. No pneumothorax. Unremarkable soft tissues. Degenerative and postoperative changes of the cervical spine. Mild polypoid mucosal thickening of the right maxillary sinus. IMPRESSION: 1. 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 2. No aneurysm, dissection or arterial occlusion identified within the head or neck. 3. Postoperative changes of the left frontal lobe with prior left-sided craniotomy. Please refer to the same day head CT for additional findings. ACT 112: Negative or not required by law. The above report was generated using voice recognition software. It may contain grammatical, syntax or spelling errors. Electronically signed by: Miko Rodriguez M.D. 10/20/2024 1:04 PM ECG Additional Comments: NSR with HR 90, no acute ST changes Supervising Physician Co-Signing Physician Notes Attending Addendum: Case reviewed with the advanced practitioner. I have personally performed a history and physical examination on the patient. I have reviewed the advanced practitioner's documentation on the date of service referenced in note, and I agree with, and take responsibility for the plan of care. please refer to her notes for full details patient seen and examined, records reviewed by myself as well on exam, patient seen resting in bed, comfortable starting to feel better R arm and lower leg acute on chronic weakness improving no other symptoms VS noted and reviewed General- oriented x 3, not in distress, speaks in sentences with no effort or accessory muscle use Head- atraumatic Eyes- PERRL, EOMI, anicteric ENT- oropharynx clear Neck- supple, no JVD, no adenopathy, no thyromegaly; carotids +2/2, no bruits appreciated Lungs- clear to auscultation bilaterally, no rales/wheezes Heart- normal rate, regular rhythm; no murmur, no gallop, no rub appreciated Abdomen- normal bowel sounds, nondistended, soft, nontender, no masses or hepatosplenomegaly Extremities- no pretibial edema, no calf tenderness; peripheral pulses intact Neuro- alert, oriented x 3; CN 2-12 grossly intact; motor 4/5 R side, 5/5 left side;sensation 100% on all extremities; no other gross focal neurologic deficits Skin- warm & dry all labs, imaging noted and reviewed ASSESSMENT AND PLAN> BREAKTHROUGH SEIZURE LEFT FRONTAL GLIOBLASTOMA S/P RESECTION 06/2024, S/P CHEMO AND RADIATION THERAPY -- CT head: Increased vasogenic edema in the left frontal lobe is likely secondary to post craniotomy change. No acute abnormalities are seen against this background. -- Neurologist consulted, discussed with Dr. Burciaga does not recommend Brain MRI this admission, advised to keep scheduled Brain MRI in next month increase Keppra from 500mg bid to 1000mg BID --no signs of infection, electrolytes ok -- patient has R sided weakness since resection of glioblastoma, receives PT/OT at home other diagnoses and plan of care as per advanced practitioner's notes Marcelo Gamino MD
[2024-10-20 13:48] LABS: Albumin Globulin Ratio 1.8 (0.9-2); BUN Creatinine Ratio 15.3 (10-20); Creatinine Clr Calc Pharmacy 53.4 ml/min; Globulin 2.2 gm/dl (2.5-4.0); Total Protein 6.2 gm/dl (6.0-8.3)
[2024-10-20 13:53] LABS: Troponin I High Sensitivity 8.9 pg/ml (0-20)
[2024-10-20 13:58] LABS: Partial Thromboplastin Time 26 Seconds (21-31)
[2024-10-20] MEDS ORDERED: PHARMACIST DISCHARGE MED REC CONSULT PRN (14:05)
--- NOTE | 2024-10-20 14:05 | Emergency Department Note ---
Impression & Plan Glioblastoma of frontal lobe, Brain tumor, Right sided weakness, Seizure ED Provider Note NAME: RAY NASSAR AGE: 78 SEX: M : 1945 ARRIVES VIA: Ambulance INFORMANT: Patient ED PROVIDER(S): Ron Horne DO CHIEF COMPLAINT: Right-sided weakness HPI: Patient is a 78-year-old male who presents ER for right-sided weakness. He has a past medical history of a GBM with previous surgery. He had sudden onset of tightness/rigidity in his right upper and right lower extremity followed by sudden onset of weakness around 1115 this morning. He denies any headache or change in vision. No chest pain or shortness of breath. No nausea vomiting or diarrhea. No dysuria urgency or frequency. No other exacerbating or remitting factors. who is present at bedside confirms the story. ADDITIONAL HISTORY OBTAINED: Per HPI Chronic Medical/Social Conditions Affecting Care: Per HPI PAST MEDICAL HISTORY:See Below PAST SURGICAL HISTORY:See Below FAMILY HISTORY:See Below SOCIAL HISTORY:See Below HOME MEDICATIONS:See Below ALLERGIES:See Below VITALS:See Below PHYSICAL EXAMINATION: GENERAL: Sitting up in bed, alert, well appearing, well nourished, no distress, non-toxic EYE EXAM: normal conjunctiva. OROPHARYNX: no exudate, no erythema, lips, buccal mucosa, and tongue normal and mucous membranes are moist NECK: supple, no nuchal rigidity, no adenopathy, non-tender LUNGS: Clear to auscultation. Normal chest wall mechanics HEART: no murmurs, S1 normal and S2 normal ABDOMEN: abdomen soft, non-tender, normo-active bowel sounds, no masses, no rebound or guarding. BACK: Back is symmetrical on inspection and there is no deformity, no midline tenderness, no CVA tenderness. SKIN: no rashes and no bruising UPPER EXTREMITIES: upper extremities are grossly normal. LOWER EXTREMITIES: No pitting edema. NEURO EXAM: Normal sensorium, cranial nerves II-XII intact, normal speech, weakness in his right upper extremity with just barely able to lift off the bed initially and a faint squeeze/movement of the digits. Able to lift the right lower extremity about 2 inches off the bed. Minimal plantar and dorsiflexion. MEDICAL DECISION MAKING: Patient is a 78-year-old male who presents to the ER via EMS for sudden onset of right-sided weakness. Upon talking to the patient and the patient has a known GBM with previous surgery the patient was taken emergently to the CAT scan. He is not a TNK candidate due to known GBM and surgery. He in fact has a DNR/DNI with no aggressive measures including no additional surgeries, or antibiotics. Labs show no significant leukocytosis or anemia. BMP with a CO2 slightly low at 20. LFTs and bilirubin were unremarkable. Troponin was negative. Based on his presentation this does appear to be consistent with a seizure. I did discuss the case with [facility] neurology Dr. Cox evaluate the patient and agrees and recommended increasing the Keppra to 1 g twice daily from 500. Will hold on steroids at this time. Patient is unable to ambulate and with this discussed case with the hospitalist for further evaluation management and treatment. Patient was given a gram of Keppra while here in the ER via IV. Consults/Care Managements Discussions: Per [facility] Triage Nursing notes reviewed. Limited review of prior medical records performed Vital Signs: reviewed and remarkable for HTN Differential diagnosis: Differential Diagnosis includes but is not limited to ischemic Stroke, hemorrhagic stroke, bells palsy, mass, neoplasm, migraine headache, seizure, subarachnoid hemorrhage, TIA, and transient global amnesia. ER treatment provided: See below Diagnostics interpreted by me include EKG and cardiac monitoring as listed below: -Cardiac Monitoring: An order was placed for continuous cardiac monitoring. The monitor shows a rate of 90 with sinus rhythm. -ECG: Sinus rhythm rate of 95 Normal axis No PVCs QTc 422 -Laboratory studies:Interpreted by me as stated above in MDM and shown below. Imaging studies: Xrays: As interpreted by me:none CTs show: CT of the head per my preliminary interpretation shows abnormality in the left frontal region CTA of the head angios of the head and neck shows cerebral edema and distal V4 stenosis Procedures:none Critical Care: None Past Med/Surg History Problem List (Updated 10/20/24 @ 14:05 by Ron Horne DO) Seizure (Acute) Right sided weakness (Acute) Glioblastoma of frontal lobe (Chronic) Brain tumor (Acute) Bilateral hip bursitis Medical History (Updated 10/20/24 @ 14:05 by Ron Horne DO) Seizure-like activity AMD (age-related macular degeneration), wet wet to right eye, dry to left eye Acid reflux DM type 2 (diabetes mellitus, type 2) Elevated lipids Hypertension Surgical History (Updated 08/09/24 @ 13:36 by Karen Bishop RN) S/P cervical spinal fusion H/O craniotomy 07/14/[address] Venegas Family History (Updated 08/09/24 @ 13:37 by Karen Bishop, NICOLLE) Brother Cancer kidney cancer Mother Cancer Colon cancer Social History (Updated 08/09/24 @ 13:40 by Karen Bishop RN) Smoking Status: Current some day smoker Tobacco Type: Cigarettes Age Started Using Tobacco: 20; packs per day: 1.5; Hx Alcohol Use: No Hx Substance Use: No Preferred Language: Kazakh Communication Ability: Effective Ship Worker Required: No Beliefs That Will Affect Care: Adventism Current Living Situation: Spouse current occupational status: retired Feels Safe at Home: Yes Assistive Devices: Cane Allergies Allergies Allergy/AdvReac Type Severity Reaction Status Date / Time No Known Allergies Allergy Unknown Verified 09/05/24 11:10 Home Meds Home Medications Medication Instructions Recorded Confirmed atorvastatin 20 mg tablet 20 mg PO DAILY 05/12/22 10/20/24 omeprazole 20 mg capsule,delayed 20 mg PO DAILY 05/12/22 10/20/24 release aspirin 81 mg tablet,delayed 81 mg PO DAILY 05/10/24 10/20/24 release cholecalciferol (vitamin D3) 25 25 mcg PO DAILY 05/10/24 10/20/24 mcg (1,000 unit) tablet (Vitamin D3) empagliflozin 10 mg tablet 10 mg PO DAILY 05/10/24 10/20/24 (Jardiance) lisinopril 10 1 tab PO DAILY 05/10/24 10/20/24 mg-hydrochlorothiazide 12.5 mg tablet acetaminophen 325 mg capsule 650 mg PO QID PRN pain or fever 08/29/24 10/20/24 (Tylenol) levetiracetam 500 mg tablet 500 mg PO BID 08/29/24 10/20/24 (Keppra) amlodipine 5 mg tablet 5 mg PO DAILY 10/20/24 10/20/24 doxylamine succinate 25 mg tablet 25 mg PO HS PRN Insomnia 10/20/24 10/20/24 Results & Data (ED) Vital Signs Vital Signs - 24 hr 10/20/24 12:27 10/20/24 12:48 10/20/24 12:51 Temperature Source Oral Pulse Rate 92 H 91 H Pulse Rate [Finger] 94 H Pulse Rhythm [Finger] Regular Pulse Strength [Finger] Normal Respiratory Rate 18 18 Respiratory Effort / Characteristics Non-Labored Spontaneous Respiratory Depth Normal Blood Pressure 143/68 H Blood Pressure [Left Arm] 147/86 H Blood Pressure Mean 93 Blood Pressure Mean [Left Arm] 106 Blood Pressure Position [Left Arm] Sitting Pulse Oximetry 96 97 Oxygen Delivery Method Room Air Room Air Sepsis Recent Fever Within 48 Hours No Sepsis New/Unexplained Change in Mental Status No Sepsis Action Taken by Nursing No Action Required Laboratory Data 10/20/24 12:45 10/20/24 12:45 Lab Results 10/20/24 Range/Units 12:45 WBC 7.38 (4.8-10.8) K/ul RBC 5.22 (4.70-6.10) M/uL Hgb 16.2 (14.0-18.0) g/dl Hct 48.0 (42.0-52.0) % MCV 92.0 (80.0-100.0) fL MCH 31.0 (25.0-34.0) pg MCHC 33.8 (32.0-36.0) g/dL RDW Std Deviation 44.2 (36.4-46.3) fL RDW Coeff of Irvin 13.1 (11.5-14.5) % Plt Count 175 (130-400) K/uL MPV 9.7 (9.4-12.4) fL Immature Gran % (Auto) 0.3 % Neut % (Auto) 74.0 % Lymph % (Auto) 14.8 % [place] % (Auto) 7.6 % Eos % (Auto) 2.6 % Baso % (Auto) 0.7 % Neut # (Auto) 5.47 (1.40-6.50) K/uL Lymph # (Auto) 1.09 L (1.20-3.40) K/uL [place] # (Auto) 0.56 (0.11-0.59) K/uL Eos # (Auto) 0.19 (0.00-0.50) K/uL Baso # (Auto) 0.05 (0.00-0.20) K/uL Immature Gran # (Auto) 0.02 (0.01-0.20) K/uL Sodium 137 (136-145) mmol/L Potassium 4.1 (3.5-5.1) mmol/L Chloride 105 (98-107) mmol/L Carbon Dioxide 20 L (21-32) mmol/L Anion Gap 12 H (3-11) BUN 18 (6-23) mg/dl Creatinine 1.18 (0.6-1.4) mg/dl Est Cr Clr Drug Dosing 53.4 ml/min eGFR 63.55 BUN/Creatinine Ratio 15.3 (10-20) Glucose 96 (70-99(Fasting)) mg/dl Calcium 8.8 (8.6-10.3) mg/dl Magnesium 2.1 (1.7-2.4) mg/dl Total Bilirubin 0.7 (0.2-1.0) mg/dl AST 15 (13-39) U/L ALT 9 (7-52) U/L Alkaline Phosphatase 71 (34-104) U/L Troponin I High Sens 8.9 (0-20) pg/ml Total Protein 6.2 (6.0-8.3) gm/dl Albumin 4.0 (3.4-5.0) gm/dl Globulin 2.2 L (2.5-4.0) gm/dl Albumin/Globulin Ratio 1.8 (0.9-2) Administered Medications Discontinued Medications Ioversol (Optiray 320 125ml) 120 ml IV ONCE ONE Stop: 10/20/24 12:28 Last Admin: 10/20/24 12:27 Dose: 120 ml Documented By: LANEY Levetiracetam (Levetiracetam 500 Mg/5 Ml Vial) 1,000 mg IV NOW STA Stop: 10/20/24 13:29 Last Admin: 10/20/24 13:43 Dose: 1,000 mg Documented By: REBECA Imaging Data Radiologist's Impression: Head CT 10/20/24 12:09 CT head/brain wo con CLINICAL HISTORY: neuro deficit, acute stroke suspected Technique: Contiguous axial CT images of the head were acquired from the base of the skull to the vertex without intravenous contrast administration. Images were viewed in brain, subdural and bone windows. Automated dose lowering techniques and/or adjustment according to patient size were utilized for this exam. Comparison: Comparison is made to CT head 07/09/2014 Findings: Interval increase in conspicuity of a region of vasogenic edema in the left frontal lobe. Previously noted mass lesion is not as well seen. Imaged portions of the paranasal sinuses and mastoid air cells are clear. The orbits appear normal. Postcraniotomy changes are seen apex. Impression: Increased vasogenic edema in the left frontal lobe is likely secondary to post craniotomy change. No acute abnormalities are seen against this background. ACT 112: Negative or not required by law. Electronically signed by: Gilberto Cruz M.D. 10/20/2024 12:49 PM Head CTA 10/20/24 12:09 CT angio head w con, CT angio neck with con CLINICAL HISTORY: 78 years-old Male with neuro deficit, acute stroke suspected. Acute stroke like symptoms COMPARISON STUDY: Head CT of same day, Brain MRI 07/14/2024 TECHNIQUE: Following the IV administration of 120 cc of Optiray, CT angiogram of the head and neck was performed from the aortic arch to the skull apex. Images are reviewed in the axial, sagittal, and coronal planes. 3-D MIPS images are created and assessed. IV contrast was administered without complication. All measurements were obtained according to NASCET criteria. A dose lowering technique was utilized adhering to the principles of ALARA. CT DOSE: 1913.79 mGy.cm FINDINGS: CT BRAIN: Dictated separately. Left parietal calvarial craniotomy. Posttreatment related changes of the superior left frontal lobe with encephalomalacia and vasogenic edema redemonstrated. CT ANGIOGRAM OF THE HEAD AND NECK: Bovine morphology of the thoracic aortic arch which demonstrates mild atherosclerosis. Patency of the innominate and image subclavian arteries. The common carotid arteries are patent. Atherosclerosis of the carotid bulbs without significant stenosis. The internal carotid arteries are patent. The vertebral arteries are patent. There is short segment high-grade stenosis involving the distal V4 segment right vertebral artery on image 340 of series 10. Patent basilar artery. There is origin of the left posterior cerebral artery. Posterior cerebral arteries are patent bilaterally. The middle and anterior cerebral arteries appear patent. Cerebral venous sinuses are patent. No definite intracranial enhancing lesion identified by CT. Lung apices appear clear. No pneumothorax. Unremarkable soft tissues. Degenerative and postoperative changes of the cervical spine. Mild polypoid mucosal thickening of the right maxillary sinus. IMPRESSION: 1. 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 2. No aneurysm, dissection or arterial occlusion identified within the head or neck. 3. Postoperative changes of the left frontal lobe with prior left-sided craniotomy. Please refer to the same day head CT for additional findings. ACT 112: Negative or not required by law. The above report was generated using voice recognition software. It may contain grammatical, syntax or spelling errors. Electronically signed by: Miko Rodriguez M.D. 10/20/2024 1:04 PM Neck CTA 10/20/24 12:09 CT angio head w con, CT angio neck with con CLINICAL HISTORY: 78 years-old Male with neuro deficit, acute stroke suspected. Acute stroke like symptoms COMPARISON STUDY: Head CT of same day, Brain MRI 07/14/2024 TECHNIQUE: Following the IV administration of 120 cc of Optiray, CT angiogram of the head and neck was performed from the aortic arch to the skull apex. Images are reviewed in the axial, sagittal, and coronal planes. 3-D MIPS images are created and assessed. IV contrast was administered without complication. All measurements were obtained according to NASCET criteria. A dose lowering technique was utilized adhering to the principles of ALARA. CT DOSE: 1913.79 mGy.cm FINDINGS: CT BRAIN: Dictated separately. Left parietal calvarial craniotomy. Posttreatment related changes of the superior left frontal lobe with encephalomalacia and vasogenic edema redemonstrated. CT ANGIOGRAM OF THE HEAD AND NECK: Bovine morphology of the thoracic aortic arch which demonstrates mild atherosclerosis. Patency of the innominate and image subclavian arteries. The common carotid arteries are patent. Atherosclerosis of the carotid bulbs without significant stenosis. The internal carotid arteries are patent. The vertebral arteries are patent. There is short segment high-grade stenosis involving the distal V4 segment right vertebral artery on image 340 of series 10. Patent basilar artery. There is origin of the left posterior cerebral artery. Posterior cerebral arteries are patent bilaterally. The middle and anterior cerebral arteries appear patent. Cerebral venous sinuses are patent. No definite intracranial enhancing lesion identified by CT. Lung apices appear clear. No pneumothorax. Unremarkable soft tissues. Degenerative and postoperative changes of the cervical spine. Mild polypoid mucosal thickening of the right maxillary sinus. IMPRESSION: 1. 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 2. No aneurysm, dissection or arterial occlusion identified within the head or neck. 3. Postoperative changes of the left frontal lobe with prior left-sided craniotomy. Please refer to the same day head CT for additional findings. ACT 112: Negative or not required by law. The above report was generated using voice recognition software. It may contain grammatical, syntax or spelling errors. Electronically signed by: Miko oRdriguez M.D. 10/20/2024 1:04 PM Discharge Plan Visit Data Chief Complaint: Stroke Alert Stated Complaint: STROKE ALERT ED Provider: Ron Horne Discharge Problem: Glioblastoma of frontal lobe, Brain tumor, Right sided weakness, Seizure Forms Stand Alone Forms: My [facility] [place] Prescriptions Prescriptions: No Action levetiracetam [Keppra] 500 mg tablet 500 mg PO BID acetaminophen [Tylenol] 325 mg capsule 650 mg PO QID PRN (Reason: pain or fever) omeprazole 20 mg capsule,delayed release(DR/EC) 20 mg PO DAILY atorvastatin 20 mg tablet 20 mg PO DAILY amlodipine 5 mg tablet 5 mg PO DAILY doxylamine succinate 25 mg Tablet 25 mg PO HS PRN (Reason: Insomnia) aspirin 81 mg Tablet,Delayed Release (Dr/Ec) 81 mg PO DAILY Hold Instructions: Resume on 07/25/24. lisinopril-hydrochlorothiazide 10-12.5 mg tablet 1 tab PO DAILY Patient Comments: ON HOLD FOR NOW cholecalciferol (vitamin D3) [Vitamin D3] 25 mcg (1,000 unit) Tablet 25 mcg PO DAILY Jardiance 10 mg tablet 10 mg PO DAILY Referrals Referrals: Sourav Moss MD [Primary Care Provider] -
[2024-10-20] MEDS ORDERED: LORazepam 2 MG/1 ML VIAL IV PRN (14:15)
--- OUTSIDE RECORDS SUMMARY | 2024-10-20 14:17 | External Medical Summary | Summary of Care ---
Author Name Unknown Organization [facility] Address [address] [place] [address] Phone [phone] Care Team Providers Care Investigation Clerk Name Role Phone Sourav Moss MD Primary Care Provider [phone] Reason for Visit * Reason Comments Medication Management Encounter Details Date Type Department Care Team (Late st Contact Info) Description 10/17/2024 3:45 PM [facility] Pharmacy Pharmacy Hematology Oncology [facility] [address] [place] [address] [facility] Hem/Onc [address] [place] [address] Glioblastoma (HCC)* Allergies No known active allergiesdocumented as of this encounter (statuses as of 10/17/2024) Medications ASPIRIN 81 MG PO TABSIndications:Ot her specified prophylactic or treatment measure one tab by mouth daily 0 0 07/14/20 05 Active VITAMIN D 1000 UNITS PO CAPSIndications:Vi tamin D deficiency 1 capsule daily 30 Cap 11 09/10/20 12 Active ACETAMINOPHEN 500 MG PO TABSIndications:Ge neralized osteoarthritis Two pills by mouth 3 times daily as needd for arthritis 100 Tab 0 09/16/20 13 Active Atorvastatin Calcium 20 MG Oral Tablet (Lipitor)Indicatio ns:Hyperlipidemia with target LDL less than 100 Take 1 Tablet by mouth in the morning. 90 Tablet 3 02/18/20 24 Active Lisinopril-hydroCH LOROthiazide 10-12.5 MG Oral TabletIndications: Stage 3 chronic kidney disease, unspecified whether stage 3a or 3b CKD (HCC) Take 1 Tablet by mouth in the morning. 90 Tablet 3 02/18/20 24 Active Omeprazole 20 MG Oral Capsule Delayed Release (PriLOSEC)Indicati ons:Gastroesophage al reflux disease, unspecified whether esophagitis present Take 1 Capsule by mouth in the morning. 1 hour before the first meal of the day.. 90 Capsule 3 02/18/20 24 Active Empagliflozin 10 MG Oral Tablet (Jardiance) Take 1 Tablet by mouth in the morning. 90 Tablet 3 03/07/20 24 Active PreserVision AREDS Oral Capsule Take 1 Capsule by mouth in the morning and 1 Capsule before bedtime. 05/10/20 24 Active oxyCODONE HCl 5 MG Oral Tablet (Oxy IR) Take 1 Tablet by mouth every 4 hours as needed for Pain, Severe. 30 Tablet 07/21/20 Active Additional Information Patient not taking.Reported on 10/12/2024 Polyethylene Glycol 3350 17 GM/SCOOP Oral Powder (Miralax) Take 17 grams by mouth in the morning. 238 g 07/21/20 Active Additional Information Patient not taking.Reported on 10/12/2024 Sennosides 8.6 MG Oral Tablet (Senokot) Take 2 Tablets by mouth in the morning. 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 180 Tablet 3 08/03/20 Active Doxylamine Succinate (Sleep) 25 MG Oral Tablet (Sleep Aid) Take 1 Tablet by mouth at bedtime as needed. Active Ondansetron HCl 8 MG Oral Tablet (Zofran)Indication s:Glioblastoma (HCC) Take 1 tablet by mouth 30 minutes prior to temozolomide (Temodar) and every 8 hours as needed for nausea. Do not exceed 3 tablets per 24 hours. 60 Tablet 1 08/09/20 Active Additional Information Patient not taking.Reported on 10/12/2024 Temozolomide 5 MG Oral Capsule (Temodar)Indicatio ns:Glioblastoma (HCC) Take 1 Capsule by mouth in the morning. Take with other temozolomide prescription for dose of 145 mg by mouth daily. Take 1 hour prior to radiation therapy and at the same time on weekends. 21 Capsule 4 11:50 AM EDT 08/09/20 24 Active Temozolomide 140 MG Oral Capsule (Temodar)Indicatio ns:Glioblastoma (HCC) Take 1 Capsule by mouth in the morning. Take with other temozolomide prescription for dose of 145 mg by mouth daily. Take 1 hour prior to radiation therapy and at the same time on weekends. 21 Capsule 4 11:50 AM EDT 08/09/20 24 Active amLODIPine Besylate 5 MG Oral Tablet (Norvasc)Indicatio ns:Hypertensive kidney disease with stage 3a chronic kidney disease (HCC) Take 1 Tablet by mouth in the morning. 90 Tablet 3 10/12/20 24 Active documented as of this encounter (statuses as of 10/17/2024) Active Problems Problem Noted Date Diagnosed Date Glioblastoma 07/12/2024 Diabetes mellitus without complication 4 Chronic kidney disease, stage 3a 03/05/2021 Overview: Per CKD protocol Hypertensive kidney disease with stage 3a chronic kidney disease 09/03/2020 Overview: Per CKD protocol Hyperlipidemia with target LDL less than 100 02/2013 Overview (02/25/2016): ICD-10 update of inactive term Generalized osteoarthritis 09/16/2013 Vitamin D deficiency 09/10/2012 Vertigo 11/16/2009 History of tobacco use 11/16/2009 Allergic rhinitis 03/21/2008 Cervical spondylosis 04/18/2004 documented as of this encounter (statuses as of 10/17/2024) Resolved Problems Problem Noted Date Diagnosed Date Resolved Date Prediabetes 03/02/2023 03/09/2024 Overview: Per Prediabetes protocol Hypertensive kidney disease with chronic kidney disease stage III 09/16/2019 09/06/2020 Overview: Per CKD protocol Kidney disease, chronic, sta ge III (GFR 30-59 ml/min) 12/31/2015 10/06/2019 Overview: Per CKD protocol #1 Headache 11/16/2009 09/13/2018 Overview (01/16/2016): ICD-10 update of inactive term Acute URI 11/16/2009 09/13/2018 Acute sinusitis 11/16/2009 09/13/2018 Dysfunction of eustachian tube 11/16/2009 09/13/2018 Acute URI 03/21/2008 12/14/2008 Overview (12/14/2008): Resolved per Benign Acute Dxs Protocol #3 Cough 03/21/2008 09/13/2018 Acute bronchitis, antibiotics not indicated 03/21/2008 12/21/2008 Overview (12/21/2008): Resolved per Benign Acute Dxs Protocol #3 Tobacco use disorder 03/21/2008 010 Major depressive disorder 01/26/2006 Overview (08/18/2017): ICD-10 update of inactive term ADVANCE DIRECTIVE INFORMATION 07/14/2005 08/29/2024 Overview (07/14/2005): No, Advance Directive brochure offered , patient declined. PROPHYLACTIC MEASURE NEC 07/14/2005 DEPRESS PSYCHOSIS-UNSPEC 07/12/1999 documented as of this encounter (statuses as of 10/17/2024) Immunizations Name Administration Dates Next Due COVID-19 mRNA, LNP-s, No Pre serve, 2-Dose Series (Glycominds) 08/04/2021,01/12/2021,12/22/2020 COVID-19, LNP-s, No Preserve , Messi-sucrose, Ages 12+ (Pfizer) 07/28/2022 COVID-19, MRNA-LNP, PF, 30 M CG/0.3 mL, 12 YRS AND ABOVE, IM (PFIZER-Comirnaty) 06/29/2024,07/16/2023 Covid-19, Mrna, Lnp-s, Pf, B ivalent, 30 Mcg, IM, 12 yrs and above (Glycominds) 12/01/2022 PPD 08/16/2007 Pneumococcal Conjugate Vacc, 13 Valent (Prevnar) 11/27/2015 Pneumococcal Polysaccharide PPV23 (Pneumovax) 09/10/2012,01/26/2006 RSV Vac., Recomb, Adjuvant, PF,0.5 Ml (Arexvy) 07/02/2023 Season Influenza, Quad, PF, Adjuvanted, 65+ Yrs, IM (FLUAD) 06/29/2024,07/02/2023,07/09/2020 Seasonal Influenza Vac., MDV , IM, 0.5 mL (Fluzone) 07/19/2015,08/28/2014,08/22/2013,09/10,08/16/2010,08/07/2009,08/21/2008 ,08/16/2007,09/02/2006 Seasonal Influenza Virus Vac cine, Unspecified Formulation 07/14/2018 Seasonal Influenza, High Dos e, Trivalent, PF, IM (Fluzone HD) 08/15/2019,08/07/2017 Seasonal Influenza, Quadriva lent Hd (Fluzone Hd) 07/01/2022,07/02/2021 Seasonal Influenza, Quadriva lent, No Preserve, IM 08/05/2016 TD - Tetanus/Diptheria (ADULT) 01/25/2004 TD, Preservative [...] have concerns for your saf ety? No 07/11/2024 Do you have concerns for you r family's safety? (Household - for ages 0-17 years) Not on file 07/11/2024 Utilities Answer Date Recorded Do you have trouble paying y our heating, water, or electric bill? No 07/11/2024 Is your family able to pay t he heat, water, or electric bill? (Household - for ages 0-17 years) Not on file 07/11/2024 Does your family have access to good internet? (Household - for ages 0-17 years) Not on file 07/11/2024 Employment Status Answer Date Recorded Are you [...] 18 years and over) Not on file 07/11/2024 Does your family have a hard time getting a ride to doctors visits? (Household - for ages 0-17 years) Not on file 07/11/2024 Has lack of transportation k ept you from medical appointments, meetings, work, or from getting things needed for daily living? Check all that apply. No 07/11/2024 Do you (or your family) have trouble finding or paying for a ride (transportation)? (Household - for ages 0-17 years) Not on file 07/11/2024 Housing Stability Answer Date Recorded Do you currently live in a s helter or have no steady place to sleep at night? No 07/11/2024 Do you think you are at risk of becoming homeless? (Adult - for ages 18 years and over) Not on file 07/11/2024 Does your family worry about paying for your home or becoming homeless? (Household - for ages 0-17 years) Not on file 0 07/11/2024 Are you homeless or worried that you might be in the future? No 07/11/2024 Are you (or your family) kapil eless or worried that you might be in the future? (Household - for ages 0-17 years) Not on file Food Insecurity Answer Date Recorded Do you need food for this week? No 07/11/2024 Are you able to get enough f ood for your family? (Household - for ages 0-17 years) Not on file 07/11/2024 Does your family need food t his week? (Household - for ages 0-17 years) Not on file 07/11/2024 Do you always have enough fo od for your family? 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 Answer Date of Assessment Author No 07/11/2024 2:38 PM Sunni Huertas, RN * Are you blind or do you have serious difficulty seeing, even when wearing glasses? Answer Date of Assessment Author No 07/11/2024 2:38 PM Sunni Huertas RN * Do you have serious difficulty walking or climbing stairs? (5 years old or older) Answer Date of Assessment Author Yes 07/11/2024 2:38 PM Sunni Huertas RN * Do you have difficulty dressing or bathing? (5 years old or older) Answer Date of Assessment Author No 07/11/2024 2:38 PM Sunni Huertas RN * Because of a physical, mental, or emotional condition, do you have difficulty doing errands alone such as visiting a doctors office or shopping? (15 years old or older) Answer Date of Assessment Author Yes 07/11/2024 2:38 PM Sunni Huertas RN documented as of this encounter Mental Status * Because of a physical, mental, or emotional condition, do you have serious difficulty concentrating, remembering, or making decisions? (5 years old or older) Answer Entry Date Author No 07/11/2024 2:38 PM Sunni Huertas RN documented in this encounter Progress Notes * Ariadna Curtis, [facility] - 10/17/2024 4:18 PM EST MEDICATION THERAPY MANAGEMENT TEMOZOLOMIDE TREATMENT PROGRESS NOTE Mayank Dolan [id number] Patient Phone Numbers : Tereza Communication: Chart review Treatment: Medication: Temozolomide (Temodar) Indication/Staging/Diagnosis Code: Glioblastoma, IDH WT, MGMT unmethylated, WHO Grade IV, C71.9 Dose Basis: 75 mg/m2 - 75 mg/m2 * 1.93 m2 (07/20/24) = 144.75 mg (rounded to 145 mg) Dose: 145 mg PO daily w/ RT Administration: 1 hour before RT and at the same time on non-radiation days Start Date: 08/23/24 Primary Contracts Director/Oncologist: Dr. Mckinney Additional Therapy: RT @ [facility] Supportive Care Meds: Ondansetron Senna Miralax Prophylactic Meds: PJP ppx for ALC < 0.5 Relevant Chronic Medications: Category Medications Pertinent Notes Antihypertensives Lisinopril-HCTZ Antidiabetic Empagliflozin Anticoagulation Aspirin 81 mg PO daily Treatment History: Resection 07/14/24 Treatment Dose Adjustment/Hold History: N/A Interval History: Concurrent TMZ/RT completed 09/12 Changes to medication list since last visit? No Drug interaction assessment: Treatment plan and current medication list evaluated for drug-drug interactions. No clinically significant drug interaction identified Assessment and Plan: MRI not yet completed (scheduled for 11/11), and office f/u pending Will follow-up at that time to review plan for adjuvant therapy Assessment of compliance: compliant Assessment of adverse effects attributed to drug therapy: N/A Dose adjustment needed based on lab or adverse drug reaction? No Follow up: 1 month Ariadna Curtis, PharmD, BCOP Ambulatory Clinical Pharmacist | Oral [facility]otherapy [facility] 10/17/2024, 4:21 PM Monitoring Parameters: Estimated CrCl Serum creatinine: 1.18 mg/dL 09/07/24 0000 Estimated creatinine clearance: 49 mL/min Hepatitis panel Complete 08/05/24 Not immune to hepatitis B virus Suggested lab monitoring CBCd and CMP weekly Treatment Parameters Please refer to PI Pertinent Labs: documented in this encounter Plan of Treatment Upcoming Encounters Date Type Department Care Team (Late st Contact Info) Description 11/11/2024 1:45 PM EST Imaging Radiology [address] [facility] [place] [id number] 11/18/2024 3:45 PM EST Pharmacy Pharmacy Hematology Oncology [facility] [address] [place] [address] [facility] [address] [place] [address] 01/18/2025 4:20 PM EDT Office Visit [facility] Derrick Parham [address] [place] [address] Sourav Moss MD [address] [place] [address] Health Maintenance Due Date Last Done Comments Adult Wellness Visit 2012 HbA1c 01/10/2025 07/13/2024, 01/25, 08/17/2023, Additional history exists Depression Screening 02/17/2025 02/18/2024 Diabetic Eye Exam 02/17/2025 02/18/2024, 02/15/2024 Diabetic Foot Exam 02/17/2025 02/18/2024 Albumin/Creatinine Ratio 02/21/2025 024, 08/17/2023, 02/04/2022, Additional history exists GFR 03/07/2025 09/07/2024, 1103/2024, 08/24/2024, Additional history exists CKD PHOS USE SMARTSET 62685 07/16/202506/27, 07/15/2024, 07/14/2024, Additional history exists CKD HGB USE SMARTSET 36667 09/07/202509/07, 08/31/2024, 08/24/2024, Additional history exists DTap/Tdap Vaccines (3 - Td or Tdap) 02/05/2033 02/05/2023, 09/16/2013, 01/25/2004 Pneumococcal Vaccine: 65+ Years Completed 11/27/2015, 09/10/2012, 01/26/2006 Zoster Vaccines Completed 05/14/2023, 02/23, 12/12/2015 COVID-19 Vaccine Completed 06/29/2024, , 12/01/2022, Additional history exists Influenza Vaccine (FLU shot) Completed 01/2024, 06/29/2024, 07/02/2023, Additional history exists HPV (Gardasil) Vaccine Aged Out No lo nger eligible based on patient's age to complete this topic Hepatitis B Vaccine Aged Out No longe r eligible based on patient's age to complete this topic MENINGOCOCCAL (MENACTRA/MENVEO) Aged Out No longer eligible based on patient's age to complete this topic documented as of this encounter Medical Devices Implanted Type Area Patent Attorney Device Identifier Shelf Expiration Date Model / Serial / Lot Graft Lyoplant 5.0x5.0cm 2x2 - [id number] - [id number] Implanted:Qty : 1 on 07/14/2024 by Peter Bates MD at [facility] Left: Head B JENKINS : AESCULAP [id number] 01/23/2029 [id number] / [id number] / [id number] Cover Bur Hol Ti Lo 12 421.525 - [id number] Implanted:Qty : 2 on 07/14/2024 by Peter Bates MD at [facility] Left: Head SYNTHES MAXILLOFACIAL 421.525 / / Plate Ti Lo Pro Str 2h 421.502 - [id number] Implanted:Qty : 2 on 07/14/2024 by Peter Bates MD at [facility] Left: Head SYNTHES MAXILLOFACIAL 421.502 / / Screw Ti Lo Pro Sd 4mm 400.834 - [id number] Implanted:Qty : 10 on 07/14/2024 by Peter Bates MD at [facility] Left: Head SYNTHES MAXILLOFACIAL 400.834 / / Screw Ti Lo Pro Sd 3mm 400.833 - [id number] Implanted:Qty : 4 on 07/14/2024 by Peter Bates MD at [place] [facility] Left: Head SYNTHES MAXILLOFACIAL 400.833 / / documented as of this encounter Visit Diagnoses Diagnosis Glioblastoma (HCC)- Primary Malignant neoplasm of brain, unspecified site documented in this encounter Advance Directives * Full Code (Latest Code Status on File) Date Activated Date Inactivated Comments 07/14/2024 2:31 PM 07/21/2024 8:10 PM This order r eflects the patients wishes and were consensually agreed upon. Question Answer Comments Discussion of Advance Direct romi occurred with: Not Discussed due to patient's condition * Full Code Date Activated Date Inactivated Comments 07/14/2024 12:39 PM 07/14/2024 2:31 PM This order reflects the patients wishes and were consensually agreed upon. Question Answer Comments Discussion of Advance Directives occurred with: Patient * Full Code Date Activated Date Inactivated Comments 07/11/2024 2:31 PM 07/14/2024 12:39 PM This order reflects the patients wishes and were consensually agreed upon. Question Answer Comments Discussion of Advance Direct romi occurred with: Not Discussed due to patient's condition Care Teams Investigation Clerk Relationship Specialty Start Date End Date Sourav Moss MD PCP - General 11/13/1997 documented as of this encounter"
--- OUTSIDE RECORDS SUMMARY | 2024-10-20 14:17 | External Medical Summary | Summary of Care ---
Author Name Unknown Organization [facility] Address [address] [facility] [place] [address] Phone [phone] Care Team Providers Care Success Coach Name Role Phone Sourav Moss MD Primary Care Provider [phone] Reason for Visit * Reason Onset Date Comments Appointment Canceled 10/14/2024 Encounter Details Date Type Department Care Team (Late st Contact Info) Description 10/14/2024 Telephone Hematology/Oncology [facility] [place] [address] [facility] [address] Emily Mckinney MD Appointment Canceled Allergies No known active allergiesdocumented as of this encounter (statuses as of 10/20/2024) Medications ASPIRIN 81 MG PO TABSIndications:Ot her [...] as of this encounter (statuses as of 10/20/2024) Active Problems Problem Noted Date Diagnosed Date [...] as of this encounter (statuses as of 10/20/2024) Resolved Problems Problem Noted Date Diagnosed Date [...] as of this encounter (statuses as of 10/20/2024) Immunizations Name Administration Dates Next Due COVID-19 mRNA, LNP-s, No Pre serve, 2-Dose Series (Vertical Acuity) 08/04/2021,01/12/2021,12/22/2020 COVID-19, LNP-s, No Preserve , Messi-sucrose, Ages 12+ (Vertical Acuity) 07/28/2022 COVID-19, MRNA-LNP, PF, 30 M CG/0.3 mL, 12 YRS AND ABOVE, IM (GENERAL MEDICAL MERATE-Comirnaty) 06/29/2024,07/16/2023 Covid-19, Mrna, Lnp-s, Pf, B ivalent, 30 Mcg, IM, 12 yrs and above (Vertical Acuity) 12/01/2022 PPD 08/16/2007 Pneumococcal Conjugate Vacc, 13 Valent (Prevnar) 11/27/2015 Pneumococcal Polysaccharide PPV23 (Pneumovax) 09/10/2012,01/26/2006 RSV Vac., Recomb, Adjuvant, PF,0.5 Ml (Arexvy) 07/02/2023 Season Influenza, Quad, PF, Adjuvanted, 65+ Yrs, IM (FLUAD) 06/29/2024,07/02/2023,07/09/2020 Seasonal Influenza Vac., MDV , IM, 0.5 mL (Fluzone) 07/19/2015,08/28/2014,08/22/2013,09/10,08/16/2010,08/07/2009,08/21/2008 ,08/16/2007,09/02/2006,08/14/2005 Seasonal Influenza Virus Vac cine, Unspecified Formulation [...] 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 Answer Date of Assessment Author No 07/11/2024 2:38 PM Sunni Huertas RN * Are you blind or do you have serious difficulty seeing, even when wearing glasses? Answer Date of Assessment Author No 07/11/2024 2:38 PM Sunni Huertas RN * Do you have serious difficulty walking or climbing stairs? (5 years old or older) Answer Date of Assessment Author Yes 07/11/2024 2:38 PM EDT Sunni Ash RN * Do you have difficulty dressing or bathing? (5 years old or older) Answer Date of Assessment Author No 07/11/2024 2:38 PM EDT Sunni Ash RN * Because of a physical, mental, or emotional condition, do you have difficulty doing errands alone such as visiting a doctors office or shopping? (15 years old or older) Answer Date of Assessment Author Yes 07/11/2024 2:38 PM EDT Sunni Ash RN documented as of this encounter Mental Status * Because of a physical, mental, or emotional condition, do you have serious difficulty concentrating, remembering, or making decisions? (5 years old or older) Answer Entry Date Author No 07/11/2024 2:38 PM EDT Sunni Ash RN documented in this encounter Miscellaneous Notes * Telephone Encounter - Daksha Shaw RN - 10/20/2024 11:03 AM EST Left message for patients to return call. Will need to schedule transfer of care visit with Dr Mcbride or Dr Coelho after 11/11/24 MRI * Telephone Encounter - Cecily Stephenson OSA - 10/14/2024 9:29 AM EST Spoke to patient about rescheduling appt for 10/17/24 to morning appt - stated that he cannot do morning appts - he doesn't do well in the mornings. She then stated that he didn't do well after his chemo and radiation and rescheduled his MRI of the Brain until 11/11/24. She wanted to wait untilafter that point to schedule a follow up with the provider or until at least after the holidays. Advised that we would call patient to reschedule after the holidays. FYI - nursing. documented in this encounter Plan of Treatment Upcoming Encounters Date Type Department Care Team (Late st Contact Info) Description 11/11/2024 1:45 PM EST Imaging Radiology [facility] [address] [facility] [place] [address] [place] [address] 11/18/2024 3:45 PM EST Pharmacy Pharmacy Hematology Oncology [facility] [address] [place] [address] [facility] [address] [place] [address] 01/18/2025 4:20 PM EDT Office Visit [facility] Josie Renee [address] [phone] Sourav Moss MD [address] [place] [address] Health Maintenance Due Date Last Done Comments Adult Wellness Visit 2012 HbA1c 01/10/2025 07/13/2024, 01/25, 08/17/2023, Additional history exists Depression Screening 02/17/2025 02/18/2024 Diabetic Eye Exam 02/17/2025 02/18/2024, 02/15/2024 Diabetic Foot Exam 02/17/2025 02/18/2024 Albumin/Creatinine Ratio 02/21/2025 024, 08/17/2023, 02/04/2022, Additional history exists GFR 03/07/2025 09/07/2024, 1103/2024, 08/24/2024, Additional history exists CKD PHOS USE SMARTSET 46631 07/16/202506/27, 07/15/2024, 07/14/2024, Additional history exists CKD HGB USE SMARTSET 70624 09/07/202509/07, 08/31/2024, 08/24/2024, Additional history exists DTap/Tdap Vaccines (3 - Td or Tdap) 02/05/2033 02/05/2023, 09/16/2013, 01/25/2004 Pneumococcal Vaccine: 50+ Years Completed 11/27/2015, 09/10/2012, 01/26/2006 Zoster Vaccines [...] this encounter Medical Devices Implanted Type Area Geological Manager Device Identifier Shelf Expiration Date Model / Serial / Lot Graft Lyoplant 5.0x5.0cm 2x2 - [id number] - [id number] Implanted:Qty : 1 on 07/14/2024 [place] Bates [place] [facility] [place] Head B JENKINS : AESCULAP [id number] 01/23/2029 [id number] / [id number] / [id number] Cover Bur Hol Ti Lo 12 421.525 - [id number] Implanted:Qty : 2 on 07/14/2024 by Peter Bates [place] [facility] [place]: Head SYNTHES MAXILLOFACIAL 421.525 / / Plate Ti Lo Pro Str 2h 421.502 - [id number] Implanted:Qty : 2 on 07/14/2024 by Peter Bates [place] [facility] [place]: Head SYNTHES MAXILLOFACIAL 421.502 / / Screw Ti Lo Pro Sd 4mm 400.834 - [id number] Implanted:Qty : 10 on 07/14/2024 by Peter Bates [place] [facility] [place]: Head SYNTHES MAXILLOFACIAL 400.834 / / Screw Ti Lo Pro Sd 3mm 400.833 - [id number] Implanted:Qty : 4 on 07/14/2024 by Peter Bates MD [place] [facility] [place]: Head SYNTHES MAXILLOFACIAL 400.833 / / documented as of this encounter Advance Directives * Full Code [...] Discussed due to patient's condition Care Teams Success Coach Relationship Specialty Start Date End Date Sourav Moss MD PCP - General 11/13/1997 documented as of this encounter
--- OUTSIDE RECORDS SUMMARY | 2024-10-20 14:18 | External Medical Summary | Summary of Care ---
Author Name Unknown Organization [facility] Address [address] [address] Phone [phone] Care Team Providers Care Band Straightener Name Role Phone Sourav Moss MD Primary Care Provider [phone] Encounter Details Date Type Department Care Team (Late st Contact Info) Description 09/08/2024 Orders Only Hematology/Oncology, [facility] [address] [facility] [place] [id number] Emily Mckinney MD [address] [place] [address] Allergies No known active allergiesdocumented as of this encounter (statuses as of 09/08/2024) Medications ASPIRIN 81 MG PO TABSIndications:Ot her [...] Active Additional Information Patient not taking.Reported on 08/09/2024 Brivaracetam 25 MG Oral Tablet (Briviact) Take 1 Tablet by mouth in the morning and 1 Tablet before bedtime. 60 Tablet 07/21/20 Active Additional Information Patient not taking.Reported on 09/05/2024 Polyethylene Glycol 3350 17 GM/SCOOP Oral Powder (Miralax) Take 17 grams by mouth in the morning. 238 g 07/21/20 Active Additional Information Patient not taking.Reported on 08/09/2024 Sennosides 8.6 MG Oral Tablet (Senokot) Take 2 Tablets by mouth in the morning. 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 180 Tablet 3 08/03/20 Active LORazepam 0.5 MG Oral Tablet (Ativan)Indication s:Insomnia, unspecified type Take 1 Tablet by mouth at bedtime. 30 Tablet 3 08/03/20 24 Active Additional Information Patient not taking.Reported on 08/09/2024 Doxylamine Succinate (Sleep) 25 MG Oral Tablet (Sleep Aid) Take 1 Tablet by mouth at bedtime as needed. Active Ondansetron HCl 8 MG Oral Tablet (Zofran)Indication s:Glioblastoma (HCC) Take 1 tablet by mouth 30 minutes prior to temozolomide (Temodar) and every 8 hours as needed for nausea. Do not exceed 3 tablets per 24 hours. 60 Tablet 1 08/09/20 24 Active Temozolomide 5 MG Oral Capsule (Temodar)Indicatio ns:Glioblastoma [...] 4 11:50 AM EDT 08/09/20 24 Active documented as of this encounter (statuses as of 09/08/2024) Active Problems Problem Noted Date Diagnosed Date [...] as of this encounter (statuses as of 09/08/2024) Resolved Problems Problem Noted Date Diagnosed Date [...] as of this encounter (statuses as of 09/08/2024) Immunizations Name Administration Dates Next Due COVID-19 mRNA, LNP-s, No Pre serve, 2-Dose Series (PO-MO) 08/04/2021,01/12/2021,12/22/2020 COVID-19, LNP-s, No Preserve , Messi-sucrose, [...] 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 (5 years old or older) Answer Date of Assessment Author Yes 07/11/2024 2:38 PM SHELLYT Sunni Ash RN * Do you have [...] Sunni Huertas RN documented in this encounter Plan of Treatment Upcoming Encounters Date Type Department Care Team (Late st Contact Info) Description 09/08/2024 3:30 PM EST Pharmacy Pharmacy Hematology Oncology [facility] [address] [place] [address] [facility]c [address] [place] [address] 10/12/2024 4:20 PM EST Office Visit [facility] [address] [place] [address] Sourav Moss MD [address] [place] [address] 10/17/2024 2:30 PM EST Office Visit Hematology/Oncology [facility] [place] [address] [facility] [address] Emily Mckinney MD [address] [place] [address] [place] [phone] 11/11/2024 1:45 PM EST Imaging Radiology [address], [address] [place] [address] Health Maintenance Due Date Last Done Comments Adult Wellness Visit 2012 HbA1c 01/10/2025 07/13/2024, 01/25, 08/17/2023, Additional history exists Depression Screening 02/17/2025 02/18/2024 Diabetic Eye Exam 02/17/2025 02/18/2024, 02/15/2024 Diabetic Foot Exam 02/17/2025 02/18/2024 Albumin/Creatinine Ratio 02/21/2025 024, 08/17/2023, 02/04/2022, Additional history exists GFR 03/07/2025 09/07/2024, 1103/2024, 08/24/2024, Additional history exists CKD PHOS USE SMARTSET 68692 07/16/202506/27, 07/15/2024, 07/14/2024, Additional history exists CKD HGB USE SMARTSET 82565 09/07/202509/07, 08/31/2024, 08/24/2024, Additional history exists DTap/Tdap [...] this encounter Medical Devices Implanted Type Area Tailor Women'S Garment Alteration Device Identifier Shelf Expiration Date Model / Serial / Lot Graft Lyoplant 5.0x5.0cm 2x2 - [id number] - [id number] Implanted:Qty : 1 on 07/14/2024 by [place] Bates [place] [facility] [place] Head B JENKINS : AESCULAP [id number] 01/23/2029 [id number] / [id number] / [id number] Cover Bur Hol Ti Lo 12 421.525 - [id number] Implanted:Qty : 2 on 07/14/2024 by Peter Bates MD [place] [facility] [place]: Head SYNTHES MAXILLOFACIAL 421.525 / / Plate Ti Lo Pro Str 2h 421.502 - [id number] Implanted:Qty : 2 on 07/14/2024 by Peter Bates MD at [place] [facility] [place]: Head SYNTHES MAXILLOFACIAL 421.502 / / Screw Ti Lo Pro Sd 4mm 400.834 - [id number] Implanted:Qty : 10 on 07/14/2024 by Peter Bates MD [place] [facility] [place]: Head SYNTHES MAXILLOFACIAL 400.834 / / Screw Ti Lo Pro Sd 3mm 400.833 - [id number] Implanted:Qty : 4 on 07/14/2024 by Peter Bates MD at [place] [facility] [place]: Head SYNTHES MAXILLOFACIAL 400.833 / / documented as of this encounter Procedures Procedure Name Priority Date/Time Associated Diagnosis Comments CHEMISTRY-OUTSIDE Routine 09/07/2024 documented in this encounter Results * (ABNORMAL) CHEMISTRY-OUTSIDE (09/07/2024) Not all results display below - see scan for full detail SCAN INCLUDES: CMP, CBCD OUTSIDE LAB (SEE SCANNED REPORT) CREATININE 1.18 0.6 - 1.4 MG/DL OUTSIDE LAB (SEE SCANNED REPORT) EGFR 63.55 OUTSIDE LA B (SEE SCANNED REPORT) POTASSIUM 4.3 3.5 - 5.1 MMOL/L OUTSIDE LAB (SEE SCANNED REPORT) GLUCOSE 121(A) 70 - 99 MG/DL OUTSIDE LAB (SEE SCANNED REPORT) HOURS FASTING OUTSID E LAB (SEE SCANNED REPORT) TRIGLYCERIDES-OUT SIDE LAB OUTSIDE LAB (SEE SCANNED REPORT) CHOLESTEROL-OUTSI DE LAB OUTSIDE LAB (SEE SCANNED REPORT) HDL-OUTSIDE LAB OUTS VINICIO LAB (SEE SCANNED REPORT) CHOL/HDL RATIO-OUTSIDE LAB OUTSIDE LA B (SEE SCANNED REPORT) LDL (CALCULATED)-OUTS VINICIO LAB OUTSIDE LAB (SEE SCANNED REPORT) LDL (DIRECT MEASURE)-OUTSIDE LAB OUTSIDE LAB (SEE SCANNED REPORT) HEMOGLOBIN, O2J-LLZBKHB LAB OUTSIDE LAB (SEE SCANNED REPORT) PHOSPHORUS-OUTSID E LAB OUTSIDE LAB (SEE SCANNED REPORT) PTH-OUTSIDE LAB OUTS VINICIO LAB (SEE SCANNED REPORT) MICROALBUMIN RATIO-OUTSIDE LAB OUTSIDE LA B (SEE SCANNED REPORT) PROTEIN, UA-OUTSIDE LAB OUTSIDE LAB (SEE SCANNED REPORT) HGB 15.5 14.0 - 18.0 G/DL OUTSIDE LAB (SEE SCANNED REPORT) 09/07/2024 Emily Mckinney MD LABORATORY Final Result OUTSIDE LAB (SEE SCANNED REPORT) documented in this encounter Advance Directives * [...] Discussed due to patient's condition Care Teams Band Straightener Relationship Specialty Start Date End Date Sourav Moss MD [address] [place] [address] PCP - General 11/13/1997 documented as of this encounter
--- OUTSIDE RECORDS SUMMARY | 2024-10-20 14:18 | External Medical Summary | Summary of Care ---
Author Name Unknown Organization [facility] Address [address] [facility] [address] Phone [phone] Care Team Providers Care Director Athletic Name Role Phone Sourav Moss MD Primary Care Provider [phone] Reason for Referral * Precert (Within 10 days (routine)) - Authorized Specialty Diagnoses / Procedures Referred By Contac t Referred To Contact Pain Medicine Diagnoses Pain in joint of right shoulder Procedures ARTHROCENT ASP &/OR INJ MAJOR JX/BURSA W/O Sourav Moss MD [address] [place] [address] Phone: tel: fax: Referral ID Status Reason Start Date Expiration Date V isits Requested Visits Authorized [id number] Authorized 10/12/2024 999 999 Reason for Visit * Reason Comments Follow Up Pt is here today for a follow up.Pt states he is getting off of chemo due to brain cancer.Pt states he has been having fluctuating blood pressure. Pt is still taking blood pressure medication. Encounter Details Date Type Department Care Team (Late st Contact Info) Description 10/12/2024 4:20 PM EST Office Visit [facility] [phone] Sourav Moss MD [address] [place] [address] Hypertensive kidney disease with stage 3a chronic kidney disease*; Pain in joint of right shoulder Allergies No known active allergiesdocumented as of this encounter (statuses as of 10/12/2024) Medications ASPIRIN 81 MG PO TABSIndications:Ot her [...] needed for Pain, Severe. 30 Tablet 07/21/20 24 Active Additional Information Patient not taking.Reported on 10/12/2024 Polyethylene Glycol 3350 17 GM/SCOOP Oral Powder (Miralax) Take 17 grams by mouth in the morning. 238 g 07/21/20 24 Active Additional Information Patient not taking.Reported on 10/12/2024 Sennosides 8.6 MG Oral Tablet (Senokot) Take 2 Tablets by mouth in the morning. 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 180 Tablet 3 08/03/20 24 Active Doxylamine Succinate (Sleep) 25 MG Oral Tablet (Sleep Aid) Take 1 Tablet by mouth at bedtime as needed. Active Ondansetron HCl 8 MG Oral Tablet (Zofran)Indication s:Glioblastoma (HCC) Take 1 tablet by mouth 30 minutes prior to temozolomide (Temodar) and every 8 hours as needed for nausea. Do not exceed 3 tablets per 24 hours. 60 Tablet 1 08/09/20 24 Active Additional Information Patient not taking.Reported [...] morning. 90 Tablet 3 10/12/20 24 Active Brivaracetam 25 MG Oral Tablet (Briviact) Take 1 Tablet by mouth in the morning and 1 Tablet before bedtime. 60 Tablet 07/21/20 24 024 Discontin ued(Patie nt preferenc e/discont inuation) LORazepam 0.5 MG Oral Tablet (Ativan)Indication s:Insomnia, unspecified type Take 1 Tablet by mouth at bedtime. 30 Tablet 3 10 024 Discontin ued(Patie nt preferenc e/discont inuation) Hospital, Clinic, or Other Facility Administered Medication Ordered Dose Route Frequency Start Date End Date Status lidocaine 1 % inj 10 mgIndications:Pain in joint of right shoulder 10 mg IX ONCE 10/12/2024 10/13/2024 Active Triamcinolone Acetonide (Kenalog) 40 MG/ML inj 40 mgIndications:Pain in joint of right shoulder 40 mg IX ONCE 10/12/2024 10/13/2024 Active documented as of this encounter (statuses as of 10/12/2024) Active Problems Problem Noted Date Diagnosed Date Glioblastoma 07/12/2024 Diabetes mellitus without complication Chronic kidney disease, [...] as of this encounter (statuses as of 10/12/2024) Resolved Problems Problem Noted Date Diagnosed Date [...] as of this encounter (statuses as of 10/12/2024) Immunizations Name Administration Dates Next Due COVID-19 mRNA, LNP-s, No Pre serve, 2-Dose Series ([facility]) 08/04/2021,01/12/2021,12/22/2020 COVID-19, LNP-s, No Preserve , Messi-sucrose, Ages 12+ ([facility]) 07/28/2022 COVID-19, MRNA-LNP, PF, 30 M CG/0.3 mL, 12 YRS AND ABOVE, IM ([place]-Comirnaty) 06/29/2024,07/16/2023 Covid-19, Mrna, Lnp-s, Pf, B ivalent, [...] No 05/26/2024 Does the household have a [facility] source of income? 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 Not on file Not on file documented as of this encounter Last Filed Vital Signs Vital Sign Reading Time Taken Comments Blood Pressure 114/82 10/12/2024 4:02 PM EST Pulse 80 10/12/2024 4:02 PM EST Temperature 36.9 C (98.4 F) 10/12/2024 4:02 PM ES T Respiratory Rate 16 10/12/2024 4:02 PM EST Oxygen Saturation 99% 10/12/2024 4:02 PM EST Inhaled Oxygen Concentration - - Weight 79.3 kg (174 lb 14.4 oz) 10/12/2024 4:02 PM EST Height 170.2 cm (5' 7") 10/12/2024 4:02 PM EST Body Mass Index 27.39 10/12/2024 4:02 PM EST documented in this encounter Functional Status * Are you [...] documented in this encounter Progress Notes * Sourav Moss MD - 10/12/2024 5:07 PM EST Subjective: Mayank Dolan is a 78 year old male. Chief Complaint Patient presents with Follow Up Pt is here today for a follow up. Pt states he is getting off of chemo due to brain cancer. Pt states he has been having fluctuating blood pressure. Pt is still taking blood pressure medication. HPI: 78-year-old seen today per scheduled visit. I saw him just a little over a month ago in that was shortly after discharge from [facility] where he had Neurosurgery for glioblastoma. Sincethat visit he did radiation which he is finished with an also chemotherapy. He felt like the radiation did cause some issues: He is not as steady with his gait. When I saw him a month ago he was placed on lisinopril with hydrochlorothiazide because of elevatedblood pressure. But since then his blood pressures have dropped at times have been low with a systolic dropping to or near 100. With the lower blood pressure, he has had lightheadedness and a worsening in his balancing gait. He has stopped the lisinopril with hydrochlorothiazide in the blood pressures did increase. He thinks that on the blood pressure is high (this may be a systolic in the high 130s in 140s) he gets a headache. He is worried that his blood pressure is too high. Currently he is not taking anything for blood pressure. Is bothered with right shoulder pain having difficulty abducting the shoulder in is limited to about 70. Also limitation in internal rotation. He is working with a physical therapist at home Patient Active Problem List Diagnosis Cervical spondylosis Allergic rhinitis Vertigo History of tobacco use Vitamin D deficiency Generalized osteoarthritis Hyperlipidemia with target LDL less than 100 Hypertensive kidney disease with stage 3a chronic kidney disease Chronic kidney disease, stage 3a (HCC) Diabetes mellitus without complication (HCC) Glioblastoma (HCC) Current Outpatient Medications Medication Sig Dispense Refill ASPIRIN 81 MG PO TABS one tab by mouth daily 0 0 VITAMIN D 1000 UNITS PO CAPS 1 capsule daily 30 Cap 11 ACETAMINOPHEN 500 MG PO TABS Two pills by mouth 3 times daily as needd for arthritis 100 Tab 0 Atorvastatin Calcium 20 MG Oral Tablet [...] mouth in the morning. 90 Tablet 3 PreserVision AREDS Oral Capsule Take 1 Capsule by mouth in the morning and 1 Capsule before bedtime. Sennosides 8.6 MG Oral Tablet (Senokot) Take 2 Tablets by mouth in the morning. 60 Tablet 0 levETIRAcetam 500 MG Oral Tablet (Keppra) Take 1 Tablet by mouth in the morning and 1 Tablet beforebedtime. 180 Tablet 3 amLODIPine Besylate 5 MG Oral Tablet (Norvasc) Take 1 Tablet by mouth in the morning. 90 Tablet 3 oxyCODONE HCl 5 MG Oral Tablet (Oxy IR) Take 1 Tablet by mouth every 4 hours as needed for Pain, Severe. (Patient not taking: Reported on 10/12/2024) 30 Tablet 0 Brivaracetam 25 MG Oral Tablet (Briviact) Take 1 Tablet by mouth in the morning and 1 Tablet beforebedtime. (Patient not taking: Reported on 09/05/2024) 60 Tablet 0 Polyethylene Glycol 3350 17 GM/SCOOP Oral Powder (Miralax) Take 17 grams by mouth in the morning. (Patient not taking: Reported on 10/12/2024) 238 g 0 LORazepam 0.5 MG Oral Tablet (Ativan) Take 1 Tablet by mouth at bedtime. (Patient not taking: Reported on 08/09/2024) 30 Tablet 3 Doxylamine Succinate (Sleep) 25 MG Oral Tablet (Sleep Aid) Take 1 Tablet by mouth at bedtime as needed. Ondansetron HCl 8 MG Oral Tablet (Zofran) Take 1 tablet by mouth 30 minutes prior to temozolomide (Temodar) and every 8 hours as needed for nausea. Do not exceed 3 tablets per 24 hours. (Patient not taking: Reported on 10/12/2024) 60 Tablet 1 Temozolomide 5 MG Oral Capsule (Temodar) Take 1 Capsule by mouth in the morning. Take with other temozolomide prescription for dose of 145 mg by mouth daily. Take 1 hour prior to radiation therapy and at the same time on weekends. 21 Capsule 0 Temozolomide 140 MG Oral Capsule (Temodar) Take 1 Capsule by mouth in the morning. Take with other temozolomide prescription for dose of 145 mg by mouth daily. Take 1 hour prior to radiation therapy and at the same time on weekends. 21 Capsule 0 No current facility-administered medications for this visit. Review of patient's allergies indicates: No Known Allergies Objective: BP 114/82 | Pulse 80 | Temp 98.4 F (36.9 C) (Temporal Artery) | Resp 16 | Ht 5' 7" (1.702 m) | Wt 174 lb 14.4 oz (79.3 kg) | SpO2 99% | BMI 27.39 kg/m | BSA 1.94 m Physical Exam: CONST: alert, pleasant, no acute distress. There were a couple times when he tried to stand up fromthe exam chair as well as getting off of the exam table where he got off balance and looked like itwould be pretty easy for him to fall. He is using a walker when he is up and moving about. HEAD: Craniotomy scar in the left parietal scalp NECK: supple, soft, no adenopathy EARS: canals normal, TMs normal Eyes - PERRLA, EOM'I OROPHARYNX: clear, no swelling or erythema, moist CV: regular rate and rhythm, no murmur CHEST: clear to auscultation bilaterally, no rales or wheezing ABD: soft, non tender, non distended, no masses or hepatosplenomegaly Extremity: He does not have any pinpoint tenderness over the shoulder but he points to the anterioraspect of the shoulder in into the deltoid muscle. Adduction is limited to about 70 internal rotation is limited significantly. MENTAL STATUS: no evidence of thought disorder, no delusional thought, no evidence of paranoia, thought is non-tangential. SKIN: no rash or significant lesions ASSESSMENT/PLAN: Hypertensive kidney disease with stage 3a chronic kidney disease (Primary) - amLODIPine Besylate 5 MG Oral Tablet (Norvasc); Take 1 Tablet by mouth in the morning. Right now he is not going to take anything for his blood pressure i.e. he is not going to use amlodipine. I gave him a prescription for amlodipine so that he has a encases blood pressure does start to creep up. I told him that I do not have any problems with his systolic blood pressure in the 130s or 140s even low low 150s. He would not need an antihypertensive with blood pressures in those systol ic values unless he was getting headache. In other words, he would treat the blood pressure symptomatically as opposed to controlling blood pressure values. Right shoulder pain-probable rotator cuff tendonitis or possible tear After discussion with the patient we decided to do an injection. The right anterior shoulder was prepped with Betadine and alcohol and shoulder was then in checked it with a combination of 1.5 mL of sent lidocaine and 1 mL of triamcinolone 40 milligrams/mL. He tolerated the procedure well. if he gets reasonable results for couple of months would consider injecting again Follow Up: Return in about 3 months (around 01/10/2025). Sourav Moss MDTime Out Procedure: Correct patient identity (Ask Name/Date of ) - Yes Correct Procedure and Consent - Yes Verified Side and Site - Yes Correct patient position - Yes All necessary Equipment/Prior Studies Present - Yes Reviewed special requirements of this patient (i.e. Allergies) - Yes Sourav Moss MD After reviewing the risks with the patient (including bleeding, infection and skin atrophy) - understerile conditions and preparing the site with betadine and isopropyl alcohol, the right shoulder joint was injected with lidocaine 1% and triamcinolone 40 mg. The patient tolerated the procedure well without complications and was instructed on subsequent follow-up care (local care and any necessary restrictions). Risks, benefits, and alternatives to the procedures were discussed with the patient and all questions were answered. Patient specific risk factors were reviewed and considered. Sourav Moss MD documented in this encounter Nursing Notes * Neeta Piper, Student - 10/12/2024 4:07 PM EST The patient has been properly identified by confirmation of name and date of . Chief Complaint Patient presents with Follow Up Pt is here today for a follow up. Pt states he is getting off of chemo due to brain cancer. Pt states he has been having fluctuating blood pressure. Pt is still taking blood pressure medication. documented in this encounter Plan of Treatment Upcoming Encounters Date Type Department Care Team (Late st Contact Info) Description 10/17/2024 2:30 PM EST Office Visit Hematology/Oncology [facility] [place] [address] [facility] [place] [place] [phone] Emily Mckinney MD [address] [place] [address] [place] [phone] 10/17/2024 3:45 PM EST Pharmacy Pharmacy Hematology Oncology [facility] [address] [place] [address] [facility] Hem[facility]Onc [address] [place] [address] 11/11/2024 1:45 PM EST Imaging Radiology [facility] [place] [address] [place] [address] 01/18/2025 4:20 PM EDT Office Visit Family Practice, [facility] [address] [place] [phone] Sourav Moss MD [address] [place] [address] Scheduled Orders Name Type Priority Associated Diagnoses Orde r Schedule ARTHROCENT ASP &/OR INJ MAJOR JX/BURSA W/O US Procedures Routine Pain in joint of right shoulder Ordered: 10/12/2024 Health Maintenance Due Date Last Done Comments Adult Wellness Visit 2012 HbA1c 01/10/2025 07/13/2024, 01/25, 08/17/2023, Additional history exists Depression Screening 02/17/2025 02/18/2024 Diabetic Eye Exam 02/17/2025 02/18/2024, 02/15/2024 Diabetic Foot Exam 02/17/2025 02/18/2024 Albumin/Creatinine Ratio 02/21/2025 024, 08/17/2023, 02/04/2022, Additional history exists GFR 03/07/2025 09/07/2024, 11/03/2024, 08/24/2024, Additional history exists CKD PHOS USE SMARTSET 83987 07/16/202506/27, 07/15/2024, 07/14/2024, Additional history exists CKD HGB USE SMARTSET 87350 09/07/202509/07, 08/31/2024, 08/24/2024, Additional history exists DTap/Tdap [...] this encounter Medical Devices Implanted Type Area Strap Buckler Machine Device Identifier Shelf Expiration Date Model / Serial / Lot Graft Lyoplant 5.0x5.0cm 2x2 - [id number] - [id number] Implanted:Qty : 1 on 07/14/2024 by Peter Bates MD [place] [facility] [place]: Head B JENKINS : AESCULAP [id number] 01/23/2029 [id number] / [id number] / [id number] Cover Bur Hol Ti Lo 12 421.525 - [id number] Implanted:Qty : 2 on 07/14/2024 by Peter Bates MD [place] [facility] [place] Left: Head SYNTHES MAXILLOFACIAL 421.525 / / Plate Ti Lo Pro Str 2h 421.502 - [id number] Implanted:Qty : 2 on 07/14/2024 by Peter Bates MD [place] [facility] [place] Left: Head SYNTHES MAXILLOFACIAL 421.502 / / Screw Ti Lo Pro Sd 4mm 400.834 - [id number] Implanted:Qty : 10 on 07/14/2024 by Peter Bates MD [place] [facility] [place] Left: Head SYNTHES MAXILLOFACIAL 400.834 / / Screw Ti Lo Pro Sd 3mm 400.833 - [id number] Implanted:Qty : 4 on 07/14/2024 by Peter Bates MD [place] [facility] [place] Left: Head SYNTHES MAXILLOFACIAL 400.833 / / documented as of this encounter Visit Diagnoses Diagnosis Hypertensive kidney disease with stage 3a chronic kidney disease- Primary Pain in joint of right shoulder Pain in joint, shoulder region documented in this encounter Advance Directives * [...] Discussed due to patient's condition Care Teams Director Athletic Relationship Specialty Start Date End Date Sourav Moss MD PCP - General 11/13/1997 documented as of this encounter
--- OUTSIDE RECORDS SUMMARY | 2024-10-20 14:18 | External Medical Summary | Summary of Care ---
Author Name Unknown Organization [facility] Address [address] [facility] [address] Phone [phone] Care Team Providers Care Assistant Chief Nursing Officer Name Role Phone Sourav Moss MD Primary Care Provider Reason for Referral * Precert (Within 10 days (routine)) - Authorized Specialty Diagnoses / Procedures Referred By Contac t Referred To Contact Pain Medicine Diagnoses Pain in joint of right shoulder Procedures ARTHROCENT ASP &/OR INJ MAJOR JX/BURSA W/O Sourav Moss MD [address] [place] [address] Phone: tel: fax: Referral ID Status Reason Start Date Expiration Date V isits Requested Visits Authorized [id number] Authorized 10/12/2024 999 999 Reason for Visit [...] Description 10/12/2024 4:20 PM EST Office Visit [facility] Derrick Parham [address] [place] [phone] Sourav Moss MD [address] [place] [address] Hypertensive kidney disease with stage 3a chronic kidney disease*; Pain in joint of right shoulder Allergies No known active allergiesdocumented as of this encounter (statuses as of 10/13/2024) Medications ASPIRIN 81 MG PO TABSIndications:Ot her [...] at bedtime. 30 Tablet 3 08/03/20 24 024 Discontin ued(Patie nt preferenc e/discont inuation) Hospital, Clinic, or Other Facility Administered Medication Ordered Dose Route Frequency Start Date End Date Status lidocaine 1 % inj 10 mgIndications:Pain in joint of right shoulder 10 mg IX ONCE 10/12/2024 10/12/2024 Ended Triamcinolone Acetonide (Kenalog) 40 MG/ML inj 40 mgIndications:Pain in joint of right shoulder 40 mg IX ONCE 10/12/2024 10/12/2024 Ended documented as of this encounter (statuses as of 10/13/2024) Active Problems Problem Noted Date Diagnosed Date [...] as of this encounter (statuses as of 10/13/2024) Resolved Problems Problem Noted Date Diagnosed Date [...] as of this encounter (statuses as of 10/13/2024) Immunizations Name Administration Dates Next Due COVID-19 mRNA, LNP-s, No Pre serve, 2-Dose Series ([employer] [facility]) 08/04/2021,01/12/2021,12/22/2020 COVID-19, LNP-s, No Preserve , Messi-sucrose, Ages 12+ ([facility] [facility]) 07/28/2022 COVID-19, MRNA-LNP, PF, 30 M CG/0.3 mL, 12 YRS AND ABOVE, IM ([employer]-Comirnaty) 06/29/2024,07/16/2023 Covid-19, Mrna, Lnp-s, Pf, B ivalent, [...] No 05/26/2024 Does the household have a [facility] source of income? 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 Sincethat [...] PM EST Office Visit Hematology/Oncology [facility] [place] [address] [place] [address] Emily Mckinney MD [address] [place] [phone] 10/17/2024 3:45 PM EST Pharmacy Pharmacy Hematology Oncology [facility] [address] [place] [address] [facility], [facility] Hem/Onc [address] [place] [address] 11/11/2024 1:45 PM EST Imaging Radiology [facility] 1st [facility], [place] [address] [place] [address] 01/18/2025 4:20 PM EDT Office Visit Family Practice, [place] Josie Renee [address] [phone] Sourav Moss MD [address] [place] [address] Scheduled Orders Name Type Priority Associated Diagnoses [...] 02/04/2022, Additional history exists GFR 03/07/2025 09/07/2024, 11/0 03/2024, 08/24/2024, Additional history exists CKD PHOS USE SMARTSET 84550 07/16/202506/27, 07/15/2024, 07/14/2024, Additional history exists CKD HGB USE SMARTSET 21612 09/07/202509/07, 08/31/2024, 08/24/2024, Additional history exists DTap/Tdap [...] this encounter Medical Devices Implanted Type Area Alpine Patroller Device Identifier Shelf Expiration Date Model / Serial / Lot Graft Lyoplant 5.0x5.0cm 2x2 - [id number] - [id number] Implanted:Qty : 1 on 07/14/2024 by Peter Bates MD [place] [facility] Left: Head B JENKINS : AESCULAP [id number] 01/23/2029 [id number] / [id number] / [id number] Cover Bur Hol Ti Lo 12 421.525 - [id number] Implanted:Qty : 2 on 07/14/2024 by Peter Bates MD at [place] [facility] Left: Head SYNTHES MAXILLOFACIAL 421.525 / / Plate Ti Lo Pro Str 2h 421.502 - [id number] Implanted:Qty : 2 on 07/14/2024 by Peter Bates MD [place] [facility] Left: Head SYNTHES MAXILLOFACIAL 421.502 / / Screw Ti Lo Pro Sd 4mm 400.834 - [id number] Implanted:Qty : 10 on 07/14/2024 by Peter Bates MD at [place] [facility] Left: Head SYNTHES MAXILLOFACIAL 400.834 / / Screw Ti Lo Pro Sd 3mm 400.833 - [id number] Implanted:Qty : 4 on 07/14/2024 by Peter Bates MD at [place] [facility] Left: Head SYNTHES MAXILLOFACIAL 400.833 / / documented as of this encounter Visit Diagnoses Diagnosis Hypertensive kidney disease with stage 3a chronic kidney disease- Primary Pain in joint of right shoulder Pain in joint, shoulder region documented in this encounter Administered Medications Inactive Administered Medications - up to 3 most recent administrations Medication Order MAR Action Action Date Dose Rate Site lidocaine 1 % inj 10 mg 10 mg (1 mL), Intra-Articular, ONCE, On Thu10/12/24 at 1999, For 1 doseIndications:Pain in joint of right shoulder Given By 10/12/2024 6:49 PM EST 10 mg Triamcinolone Acetonide (Kenalog) 40 MG/ML inj 40 mg 40 mg, Intra-Articular, ONCE, On Thu10/12/24 at 1999, For 1 doseIndications:Pain in joint of right shoulder Given 10/12/2024 6:49 PM EST 40 mg documented in this encounter Advance Directives * [...] Discussed due to patient's condition Care Teams Assistant Chief Nursing Officer Relationship Specialty Start Date End Date Sourav Moss MD PCP - General 11/13/1997 documented as of this encounter
--- OUTSIDE RECORDS SUMMARY | 2024-10-20 14:18 | External Medical Summary | Summary of Care ---
Author Name Unknown Organization [facility] Address [address] [place] [address] Phone [phone] Care Team Providers Care Bottoming Machine Operator Name Role Phone Sourav Moss MD Primary Care Provider [phone] Reason for Visit * Reason Comments Medication Management Encounter Details Date Type Department Care Team (Late st Contact Info) Description 09/08/2024 3:30 PM [facility] Pharmacy Pharmacy Hematology Oncology [facility] [address] [place] [address] 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 Answer Date of Assessment Author No 07/11/2024 2:38 PM EDT Sunni Ash RN * Are you blind or do [...] 07/11/2024 2:38 PM SHELLYT Sunni Ash RN documented as of this encounter Mental Status * Because of a physical, mental, or emotional condition, do you have serious difficulty concentrating, remembering, or making decisions? (5 years old or older) Answer Entry Date Author No 07/11/2024 2:38 PM SHELLYT Sunni Ash RN documented in this encounter Progress Notes * Daksha Miller, [facility] - 09/08/2024 1:30 PM EST MEDICATION THERAPY MANAGEMENT TEMOZOLOMIDE TREATMENT PROGRESS NOTE Mayank Dolan [id number] Patient Phone Numbers : Tereza Communication: Left message Treatment: Medication: Temozolomide (Temodar) Indication/Staging/Diagnosis Code: Glioblastoma, IDH WT, MGMT unmethylated, WHO Grade IV, C71.9 Dose Basis: 75 mg/m2 - 75 mg/m2 * 1.93 m2 (07/20/24) = 144.75 mg (rounded to 145 mg) Dose: 145 mg PO daily w/ RT Administration: 1 hour before RT and at the same time on non-radiation days Start Date: 08/23/24 Primary Puppy Sitter/Oncologist: Dr. Mckinney Additional Therapy: RT @ [facility] Supportive Care Meds: Ondansetron Senna Miralax Prophylactic Meds: PJP ppx for ALC < 0.5 Relevant Chronic Medications: Category Medications Pertinent Notes Antihypertensives Lisinopril-HCTZ Antidiabetic Empagliflozin Anticoagulation Aspirin 81 mg PO daily Treatment History: Resection 07/14/24 Treatment Dose Adjustment/Hold History: N/A Interval History: Changes to medication list since last visit? No Drug interaction assessment: Treatment plan and current medication list evaluated for drug-drug interactions. No clinically significant drug interaction identified Assessment and Plan: Labs complete yesterday (under media) Labs are within parameters to continue Temodar PJP ppx not indicated for ALC > 0.5 Continue current therapy Pt completing therapy on 09/12 - advised to take last dose of Temodar on 09/12 Per review of 09/05 OV note, patient to have MRI around 10/12/24 with f/u visit around 10/17/24 Will follow-up at that time to review plan for adjuvant therapy Assessment of compliance: compliant Assessment of adverse effects attributed to drug therapy: N/A Dose adjustment needed based on lab or adverse drug reaction? No Follow up: 10/17 (tx plan) Daksha Miller, PharmD, BCOP Ambulatory Clinical Pharmacist | Oral Chemotherapy Clinic [facility] 09/08/2024, 1:33 PM Monitoring Parameters: Estimated CrCl Serum creatinine: 1.18 mg/dL 09/07/24 0000 Estimated creatinine clearance: 53 mL/min Hepatitis panel Complete 08/05/24 Not immune to hepatitis B virus Suggested lab monitoring CBCd and CMP weekly Treatment Parameters Please refer to PI Pertinent Labs: Time Spent on Encounter: 6 - 10 minutes Encounter Group: Neuro-Oncology Encounter Interventions Item Category: Oral Chemotherapy Temozolomide Problem/Rationale: Safety: Needs additional monitoring - Medication Requires monitoring Pharmacist Intervention(s): Care coordination and Lab monitoring Magnitude of Intervention: Monitoring with direction (Level 1) documented in this encounter Plan of Treatment Upcoming Encounters Date Type Department Care Team (Late st Contact Info) Description 10/12/2024 4:20 PM EST Office Visit [facility] [place] [address] [facility] [address] [place] [address] Sourav Moss MD [facility] [address] [place] [phone] 10/17/2024 2:30 PM EST Office Visit Hematology/Oncology [facility] [address] [facility] [phone] Emily Mckinney MD [address] [place] [phone] 10/17/2024 3:45 PM EST Pharmacy Pharmacy Hematology Oncology [facility] [address] [place] [facility] [place] [address] [facility], [facility] Hem/Onc [address] [place] [address] 11/11/2024 1:45 PM EST Imaging Radiology [address] [facility] [address] [place] [address] Health Maintenance Due Date Last Done Comments Adult Wellness Visit 2012 HbA1c 01/10/2025 07/13/2024, 01/25, 08/17/2023, Additional history exists Depression Screening 02/17/2025 02/18/2024 Diabetic Eye Exam 02/17/2025 02/18/2024, 02/15/2024 Diabetic Foot Exam 02/17/2025 02/18/2024 Albumin/Creatinine Ratio 02/21/2025 024, 08/17/2023, 02/04/2022, Additional history exists GFR 03/07/2025 09/07/2024, 1103/2024, 08/24/2024, Additional history exists CKD PHOS USE SMARTSET 89927 07/16/202506/27, 07/15/2024, 07/14/2024, Additional history exists CKD HGB USE SMARTSET 04834 09/07/202509/07, 08/31/2024, 08/24/2024, Additional history exists DTap/Tdap [...] this encounter Medical Devices Implanted Type Area Overseamer Device Identifier Shelf Expiration Date Model / Serial / Lot Graft Lyoplant 5.0x5.0cm 2x2 - [id number] - [id number] Implanted:Qty : 1 on 07/14/2024 by Peter Bates MD at [place] [facility] [facility] Left: Head B JENKINS : AESCULAP [id number] 01/23/2029 [id number] / [id number] / [id number] Cover Bur Hol Ti Lo 12 421.525 - [id number] Implanted:Qty : 2 on 07/14/2024 by Peter Bates MD at OR [facility] Left: Head SYNTHES MAXILLOFACIAL 421.525 / / Plate Ti Lo Pro Str 2h 421.502 - [id number] Implanted:Qty : 2 on 07/14/2024 by Peter Bates MD at OR [facility] Left: Head SYNTHES MAXILLOFACIAL 421.502 / / Screw Ti Lo Pro Sd 4mm 400.834 - [id number] Implanted:Qty : 10 on 07/14/2024 by Peter Bates MD at OR [facility] Left: Head SYNTHES MAXILLOFACIAL 400.834 / / Screw Ti Lo Pro Sd 3mm 400.833 - [id number] Implanted:Qty : 4 on 07/14/2024 by Peter Bates MD at [place] [facility] Left: Head SYNTHES MAXILLOFACIAL 400.833 / / [...] Discussed due to patient's condition Care Teams Bottoming Machine Operator Relationship Specialty Start Date End Date Sourav Moss MD [address] [place] [address] PCP - General 11/13/1997 documented as of this encounter"
--- OUTSIDE RECORDS SUMMARY | 2024-10-20 14:18 | External Medical Summary | Summary of Care ---
Author Name Unknown Organization [facility] Address [address] [place] [place] [address] Phone [phone] Care Team Providers Care Applications Development Consultant Name Role Phone Sourav Moss MD Primary Care Provider [phone] Reason for Visit * Reason Onset Date Comments Appointment 10/17/2024 Encounter Details Date Type Department Care Team (Late st Contact Info) Description 10/17/2024 Telephone Hematology/Oncology Treatment, [place] [address] [place] [address] Emily Mckinney MD [address] [place] [phone] Appointment Allergies No known active allergiesdocumented as [...] mRNA, LNP-s, No Pre serve, 2-Dose Series ([employer]) 08/04/2021,01/12/2021,12/22/2020 COVID-19, LNP-s, No Preserve , Messi-sucrose, Ages 12+ ([employer]) 07/28/2022 COVID-19, MRNA-LNP, PF, 30 M CG/0.3 [...] 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 Scheduling: looks like this was just scheduled today- was patients follow up supposed to be what was rescheduled? Appt 10/21/24 for infusion will need to be cancelled as infed was not ordered for patient. documented in this encounter Plan of Treatment Upcoming Encounters Date Type Department Care Team (Late st Contact Info) Description 10/17/2024 3:45 PM EST Pharmacy Pharmacy Hematology Oncology [address] [address] [facility] Hem/Onc [facility] [place] [address] 11/11/2024 1:45 PM EST Imaging Radiology [facility] 1st [facility], [place] [address] [place] [address] 01/18/2025 4:20 PM EDT Office Visit Family [facility], [place] Josie Renee [address] [place] [phone] Sourav Moss MD [address] [place] [address] Health Maintenance Due Date Last Done Comments Adult Wellness Visit 2012 HbA1c 01/10/2025 07/13/2024, 01/25, 08/17/2023, Additional history exists Depression Screening 02/17/2025 02/18/2024 Diabetic Eye Exam 02/17/2025 02/18/2024, 02/15/2024 Diabetic Foot Exam 02/17/2025 02/18/2024 Albumin/Creatinine Ratio 02/21/2025 024, 08/17/2023, 02/04/2022, Additional history exists GFR 03/07/2025 09/07/2024, 03/2024, 08/24/2024, Additional history exists CKD PHOS USE SMARTSET 65562 07/16/202506/27, 07/15/2024, 07/14/2024, Additional history exists CKD HGB USE SMARTSET 40483 09/07/202509/07, 08/31/2024, 08/24/2024, Additional history exists DTap/Tdap [...] this encounter Medical Devices Implanted Type Area Bobbin Handler Device Identifier Shelf Expiration Date Model / Serial / Lot Graft Lyoplant 5.0x5.0cm 2x2 - [id number] - [id number] Implanted:Qty : 1 on 07/14/2024 by Peter Bates MD [place] [facility] Left: Head B JENKINS : FADICULAP [id number] 01/23/2029 [id number] / [id number] / [id number] Cover Bur Hol Ti Lo 12 421.525 - [id number] Implanted:Qty : 2 on 07/14/2024 by Peter Bates MD [place] [facility] Left: Head SYNTHES MAXILLOFACIAL 421.525 / / Plate Ti Lo Pro Str 2h 421.502 - [id number] Implanted:Qty : 2 on 07/14/2024 by Peter Bates MD [place] [facility] Left: Head SYNTHES MAXILLOFACIAL 421.502 / / Screw Ti Lo Pro Sd 4mm 400.834 - [id number] Implanted:Qty : 10 on 07/14/2024 by Peter Bates MD [place] [facility] Left: Head SYNTHES MAXILLOFACIAL 400.834 / / Screw Ti Lo Pro Sd 3mm 400.833 - [id number] Implanted:Qty : 4 on 07/14/2024 by Peter [...] Discussed due to patient's condition Care Teams Applications Development Consultant Relationship Specialty Start Date End Date Sourav Moss MD PCP - General 11/13/1997 documented as of this encounter
--- OUTSIDE RECORDS SUMMARY | 2024-10-20 14:18 | External Medical Summary | Summary of Care ---
Author Name Unknown Organization [facility] Address [address] [place] [address] Phone [phone] Care Team Providers Care Regulatory Auditor Name Role Phone Sourav Moss MD Primary Care Provider [phone] Reason for Visit * Reason Onset Date Comments Appointment 09/06/2024 Encounter Details Date Type Department Care Team (Late st Contact Info) Description 09/06/2024 Telephone Hematology/Oncology [facility] [address] [facility] [place] [address] Emily Mckinney MD [address] [place] [address] [place] [address] Appointment Allergies No known active allergiesdocumented as of this encounter (statuses as of 09/06/2024) Medications ASPIRIN 81 MG PO TABSIndications:Ot her [...] Tablet before bedtime. 60 Tablet 07/21/20 24 Active Additional Information Patient [...] bedtime. 180 Tablet 3 08/03/20 24 Active LORazepam 0.5 MG Oral Tablet (Ativan)Indication [...] as of this encounter (statuses as of 09/06/2024) Active Problems Problem Noted Date Diagnosed Date [...] as of this encounter (statuses as of 09/06/2024) Resolved Problems Problem Noted Date Diagnosed Date [...] as of this encounter (statuses as of 09/06/2024) Immunizations Name Administration Dates Next Due COVID-19 mRNA, LNP-s, No Pre serve, 2-Dose Series ([employer]) 08/04/2021,01/12/2021,12/22/2020 COVID-19, LNP-s, No Preserve , Messi-sucrose, Ages 12+ ([employer]) 07/28/2022 COVID-19, MRNA-LNP, PF, 30 M CG/0.3 [...] 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 on file Not [...] encounter Miscellaneous Notes * Telephone Encounter - Elmo Dudley OSA - 09/06/2024 8:25 AM EST Left Message & MyG Sent * Telephone Encounter - Elmo Dudley OSA - 09/06/2024 8:24 AM EST Pt needs to schedule MRI BRAIN W WO CONTRAST Associated Diagnoses Glioblastoma (HCC) [C71.9] - Primary documented in this encounter Plan of Treatment Upcoming Encounters Date Type Department Care Team (Late st Contact Info) Description 09/08/2024 3:30 PM EST Pharmacy Pharmacy Hematology Oncology [facility] [address] [place] [address] [facility], [facility] Hem/Onc [address] [facility] [place] [address] 10/12/2024 4:20 PM EST Office Visit [facility] [address] [place] [address] Sourav Moss MD [address] [place] [facility] [place] [address] 10/17/2024 2:30 PM EST Office Visit Hematology/Oncology [facility] [address] [facility], [place] [address] Emily Mckinney MD [address] [place] [phone] Health Maintenance Due Date Last Done Comments Adult Wellness Visit 2012 HbA1c 01/10/2025 07/13/2024, 01/25, 08/17/2023, Additional history exists Depression Screening 02/17/2025 02/18/2024 Diabetic Eye Exam 02/17/2025 02/18/2024, 02/15/2024 Diabetic Foot Exam 02/17/2025 02/18/2024 Albumin/Creatinine Ratio 02/21/2025 024, 08/17/2023, 02/04/2022, Additional history exists GFR 02/28/2025 08/31/2024, 07/28, 08/05/2024, Additional history exists CKD PHOS USE SMARTSET 66007 07/16/202506/27, 07/15/2024, 07/14/2024, Additional history exists CKD HGB USE SMARTSET 26768 08/31/202508/31, 08/24/2024, 08/05/2024, Additional history exists DTap/Tdap Vaccines (3 - [...] this encounter Medical Devices Implanted Type Area Barrel Loader And Cleaner Device Identifier Shelf Expiration Date Model / Serial / Lot Graft Lyoplant 5.0x5.0cm 2x2 - [id number] - [id number] Implanted:Qty : 1 on 07/14/2024 by Peter Bates MD at [place] [facility] [place] [place] Left: Head B JENKINS : AESCULAP [id number] 01/23/2029 [id number] / [id number] / [id number] Cover Bur Hol Ti Lo 12 421.525 - [id number] Implanted:Qty : 2 on 07/14/2024 by Peter Bates MD at [place] [facility] [place] [place] Left: Head SYNTHES MAXILLOFACIAL 421.525 / / Plate Ti Lo Pro Str 2h 421.502 - [id number] Implanted:Qty : 2 on 07/14/2024 by Peter Bates MD at [place] [facility] [place] [place] Left: Head SYNTHES MAXILLOFACIAL 421.502 / / Screw Ti Lo Pro Sd 4mm 400.834 - [id number] Implanted:Qty : 10 on 07/14/2024 by Peter Bates MD at [place] [facility] [place] [place] Left: Head SYNTHES MAXILLOFACIAL 400.834 / / Screw Ti Lo Pro Sd 3mm 400.833 - [id number] Implanted:Qty : 4 on 07/14/2024 by Peter Bates MD at [place] [facility] [place] [place] Left: Head SYNTHES MAXILLOFACIAL 400.833 / / [...] Discussed due to patient's condition Care Teams Regulatory Auditor Relationship Specialty Start Date End Date Sourav Moss MD [address] [place] [address] PCP - General 11/13/1997 documented as of this encounter
--- OUTSIDE RECORDS SUMMARY | 2024-10-20 14:18 | External Medical Summary | Summary of Care ---
Author Name Unknown Organization [facility] Address [address] [facility] [place] [address] Phone [phone] Care Team Providers Care Racking Machine Operator Name Role Phone Sourav Moss MD Primary Care Provider [phone] Reason for Visit * Reason Onset Date Comments Appointment Canceled 10/14/2024 Encounter Details Date Type Department Care Team (Late st Contact Info) Description 10/14/2024 Telephone Hematology/Oncology [facility] [place] [facility] [address] Emily Mckinney MD [address] [place] [address] [place] [address] Appointment Canceled Allergies No known active allergiesdocumented as of this encounter (statuses as of 10/14/2024) Medications ASPIRIN 81 MG PO TABSIndications:Ot her [...] as of this encounter (statuses as of 10/14/2024) Active Problems Problem Noted Date Diagnosed Date [...] as of this encounter (statuses as of 10/14/2024) Resolved Problems Problem Noted Date Diagnosed Date [...] as of this encounter (statuses as of 10/14/2024) Immunizations Name Administration Dates Next Due COVID-19 mRNA, LNP-s, No Pre serve, 2-Dose Series ([employer]) 08/04/2021,01/12/2021,12/22/2020 COVID-19, LNP-s, No Preserve , Messi-sucrose, Ages 12+ (Pfizer) 07/28/2022 COVID-19, MRNA-LNP, PF, 30 M CG/0.3 mL, 12 YRS AND ABOVE, IM ([facility]) 06/29/2024,07/16/2023 Covid-19, Mrna, Lnp-s, Pf, B ivalent, [...] 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 on file Not [...] encounter Miscellaneous Notes * Telephone Encounter - Cecily Stephenson OSA [...] 3:45 PM EST Pharmacy Pharmacy Hematology Oncology [address] [address] [facility] Hem/Onc [facility] [place] [address] 11/11/2024 1:45 PM EST Imaging Radiology [facility] 1st [facility], [place] [address] [place] [address] 01/18/2025 4:20 PM EDT [facility] [address] [facility] [place] [address] Sourav Moss MD [address] [facility] [place] [address] Health Maintenance Due Date Last Done Comments Adult Wellness Visit 2012 HbA1c 01/10/2025 07/13/2024, 01/25, 08/17/2023, Additional history exists Depression Screening 02/17/2025 02/18/2024 Diabetic Eye Exam 02/17/2025 02/18/2024, 02/15/2024 Diabetic Foot Exam 02/17/2025 02/18/2024 Albumin/Creatinine Ratio 02/21/2025 024, 08/17/2023, 02/04/2022, Additional history exists GFR 03/07/2025 09/07/2024, 03/2024, 08/24/2024, Additional history exists CKD PHOS USE SMARTSET 30012 07/16/202506/27, 07/15/2024, 07/14/2024, Additional history exists CKD HGB USE SMARTSET 46120 09/07/202509/07, 08/31/2024, 08/24/2024, Additional history exists DTap/Tdap [...] this encounter Medical Devices Implanted Type Area Dimension Mill Worker Device Identifier Shelf Expiration Date Model / Serial / Lot Graft Lyoplant 5.0x5.0cm 2x2 - [id number] - [id number] Implanted:Qty : 1 on 07/14/2024 by Peter Bates MD [place] [facility] [place] Head B JENKINS : AESCULAP [id number] 01/23/2029 [id number] / [id number] / [id number] Cover Bur Hol Ti Lo 12 421.525 - [id number] Implanted:Qty : 2 on 07/14/2024 by Peter Bates MD [place] [facility]: Head SYNTHES MAXILLOFACIAL 421.525 / / Plate Ti Lo Pro Str 2h 421.502 - [id number] Implanted:Qty : 2 on 07/14/2024 by Peter Bates MD at [place] [facility]: Head SYNTHES MAXILLOFACIAL 421.502 / / Screw Ti Lo Pro Sd 4mm 400.834 - [id number] Implanted:Qty : 10 on 07/14/2024 by Peter Bates MD at [place] [facility] [place]: Head SYNTHES MAXILLOFACIAL 400.834 / / Screw Ti Lo Pro Sd 3mm 400.833 - [id number] Implanted:Qty : 4 on 07/14/2024 by Peter Bates MD at [place] [facility] [place]: Head SYNTHES MAXILLOFACIAL 400.833 / / [...] Discussed due to patient's condition Care Teams Racking Machine Operator Relationship Specialty Start Date End Date Sourav Moss MD PCP - General 11/13/1997 documented as of this encounter
--- OUTSIDE RECORDS SUMMARY | 2024-10-20 14:18 | External Medical Summary | Summary of Care ---
Author Name Unknown Organization [facility] Address [address] [place] [facility] [place] [address] Phone [phone] Care Team Providers Care Semiconductor Processing Technician Name Role Phone Sourav Moss MD Primary Care Provider [phone] Reason for Visit * Reason Onset Date Comments Appointment 10/17/2024 Encounter Details Date Type Department Care Team (Late st Contact Info) Description 10/17/2024 Telephone Hematology/Oncology Treatment, [place] [address] [place] [address] Emily Mckinney MD [address] [place] [address] Appointment Allergies No known active allergiesdocumented [...] mRNA, LNP-s, No Pre serve, 2-Dose Series ([employer]) 08/04/2021,01/12/2021,12/22/2020 COVID-19, LNP-s, No Preserve , Messi-sucrose, Ages 12+ ([employer]) 07/28/2022 COVID-19, MRNA-LNP, PF, 30 M CG/0.3 [...] 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, [facility] 226 [facility] [place] [address] Sourav Moss MD 226 [facility] [place] [address] Health Maintenance Due Date Last Done Comments Adult Wellness Visit 2012 HbA1c 01/10/2025 07/13/2024, 01/25, 08/17/2023, Additional history exists Depression Screening 02/17/2025 02/18/2024 Diabetic Eye Exam 02/17/2025 02/18/2024, 02/15/2024 Diabetic Foot Exam 02/17/2025 02/18/2024 Albumin/Creatinine Ratio 02/21/2025 024, 08/17/2023, 02/04/2022, Additional history exists GFR 03/07/2025 09/07/2024, 1103/2024, 08/24/2024, Additional history exists CKD PHOS USE SMARTSET 86426 07/16/202506/27, 07/15/2024, 07/14/2024, Additional history exists CKD HGB USE SMARTSET 53378 09/07/202509/07, 08/31/2024, 08/24/2024, Additional history exists DTap/Tdap [...] this encounter Medical Devices Implanted Type Area Residential Mental Health Worker Device Identifier Shelf Expiration Date Model / Serial / Lot Graft Lyoplant 5.0x5.0cm 2x2 - [id number] - [id number] Implanted:Qty : 1 on 07/14/2024 by Peter Bates MD at [place] [facility] Left: Head B JENKINS : AESCULAP [id number] 01/23/2029 [id number] / [id number] / [id number] Cover Bur Hol Ti Lo 12 421.525 - [id number] Implanted:Qty : 2 on 07/14/2024 by Peter Bates MD at [place] [facility] Left: Head SYNTHES MAXILLOFACIAL 421.525 / / Plate Ti Lo Pro Str 2h 421.502 - [id number] Implanted:Qty : 2 on 07/14/2024 by Peter Bates MD at [place] [facility] Left: Head SYNTHES MAXILLOFACIAL 421.502 / / Screw Ti Lo Pro Sd 4mm 400.834 - [id number] Implanted:Qty : 10 on 07/14/2024 by Peter Bates MD at [place] [facility] Left: Head SYNTHES MAXILLOFACIAL 400.834 / / Screw Ti Lo Pro Sd 3mm 400.833 - [id number] Implanted:Qty : 4 on 07/14/2024 by Peter Bates MD at [place] [facility] Left: Head SYNTHES [...] Discussed due to patient's condition Care Teams Semiconductor Processing Technician Relationship Specialty Start Date End Date Sourav Moss MD PCP - General 11/13/1997 documented as of this encounter
--- OUTSIDE RECORDS SUMMARY | 2024-10-20 14:18 | External Medical Summary | Summary of Care ---
Author Name Unknown Organization [facility] Address [address] [facility] [place] [address] Phone [phone] Care Team Providers Care Histology Teacher Name Role Phone Sourav Moss MD Primary Care Provider [phone] Reason for Visit * Reason Onset Date Comments Appointment Canceled 10/14/2024 Encounter Details Date Type Department Care Team (Late st Contact Info) Description 10/14/2024 Telephone Hematology/Oncology [facility] [place] [address] [facility] [address] Emily Mckinney MD [address] [place] [address] [place] [address] Appointment Canceled Allergies No [...] mRNA, LNP-s, No Pre serve, 2-Dose Series ([employer]) 08/04/2021,01/12/2021,12/22/2020 COVID-19, LNP-s, No Preserve , Messi-sucrose, Ages 12+ (Pfizer) 07/28/2022 COVID-19, MRNA-LNP, PF, 30 M CG/0.3 mL, 12 YRS AND ABOVE, IM ([facility]) 06/29/2024,07/16/2023 Covid-19, Mrna, Lnp-s, Pf, B ivalent, [...] 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 on file [...] 3:45 PM EST Pharmacy Pharmacy Hematology Oncology [address] [address] [place], [facility] Clinic Hem/Onc [facility] [place] [address] 11/11/2024 1:45 PM EST Imaging Radiology [facility] 1st [facility], [place] [address] [place] [address] 01/18/2025 4:20 PM EDT Office [facility] [place] [facility] [address] [facility] [place] [address] Sourav Moss MD [address] [facility] [place] [address] Health Maintenance Due Date Last Done Comments Adult Wellness Visit 2012 HbA1c 01/10/2025 07/13/2024, 01/25, 08/17/2023, Additional history exists Depression Screening 02/17/2025 02/18/2024 Diabetic Eye Exam 02/17/2025 02/18/2024, 02/15/2024 Diabetic Foot Exam 02/17/2025 02/18/2024 Albumin/Creatinine Ratio 02/21/2025 024, 08/17/2023, 02/04/2022, Additional history exists GFR 03/07/2025 09/07/2024, 03/2024, 08/24/2024, Additional history exists CKD PHOS USE SMARTSET 75709 07/16/202506/27, 07/15/2024, 07/14/2024, Additional history exists CKD HGB USE SMARTSET 29152 09/07/202509/07, 08/31/2024, 08/24/2024, Additional history exists DTap/Tdap [...] this encounter Medical Devices Implanted Type Area Heel Nail Rasper Device Identifier Shelf Expiration Date Model / Serial / Lot Graft Lyoplant 5.0x5.0cm 2x2 - [id number] - [id number] Implanted:Qty : 1 on 07/14/2024 by Peter Bates MD at OR [place] Left: Head B JENKINS : AESCULAP [id number] 01/23/2029 [id number] / [id number] / [id number] Cover Bur Hol Ti Lo 12 421.525 - [id number] Implanted:Qty : 2 on 07/14/2024 by Peter Bates MD at OR [place] Left: Head SYNTHES MAXILLOFACIAL 421.525 / / Plate Ti Lo Pro Str 2h 421.502 - [id number] Implanted:Qty : 2 on 07/14/2024 by Peter Bates MD at OR [place] Left: Head SYNTHES MAXILLOFACIAL 421.502 / / Screw Ti Lo Pro Sd 4mm 400.834 - [id number] Implanted:Qty : 10 on 07/14/2024 by Peter Bates MD at OR [place] Left: Head SYNTHES MAXILLOFACIAL 400.834 / / Screw Ti Lo Pro Sd 3mm 400.833 - [id number] Implanted:Qty : 4 on 07/14/2024 by Peter Bates MD at OR [place] Left: Head SYNTHES MAXILLOFACIAL 400.833 / / [...] Discussed due to patient's condition Care Teams Histology Teacher Relationship Specialty Start Date End Date Sourav Moss MD PCP - General 11/13/1997 documented as of this encounter
--- OUTSIDE RECORDS SUMMARY | 2024-10-20 14:19 | External Medical Summary | Summary of Care ---
Author Name Unknown Organization [facility] Address [address] [place] [address] Phone [phone] Care Team Providers Care Fruit Or Nut Grower Name Role Phone Sourav Moss MD Primary Care Provider [phone] Encounter Details Date Type Department Care Team (Late st Contact Info) Description 09/01/2024 Orders Only [facility] [address] [place] [address] Sourav Moss MD [address] [place] [address] Allergies No known active allergiesdocumented as of this encounter (statuses as of 09/01/2024) Medications Medication Sig Dispensed Refills Start Date [...] for arthritis 100 Tab 0 09/16/2013 Active Atorvastatin Calcium 20 MG Oral Tablet [...] the morning. 90 Tablet 3 03/07/2024 Active PreserVision AREDS Oral Capsule Take 1 Capsule by mouth in the morning and 1 Capsule before bedtime. 05/10/2024 Active oxyCODONE HCl 5 MG Oral Tablet (Oxy IR) Take 1 Tablet by mouth every 4 hours as needed for Pain, Severe. 30 Tablet 07/21/2024 Active Additional Information Patient not taking.Reported on 08/09/2024 Brivaracetam 25 MG Oral Tablet (Briviact) Take 1 Tablet by mouth in the morning and 1 Tablet before bedtime. 60 Tablet 07/21/2024 Active Polyethylene Glycol 3350 17 GM/SCOOP Oral Powder (Miralax) Take 17 grams by mouth in the morning. 238 g 07/21/2024 Active Additional Information Patient not taking.Reported on 08/09/2024 Sennosides 8.6 MG Oral Tablet (Senokot) Take 2 Tablets by mouth in the morning. 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 180 Tablet 3 08/03/2024 Active LORazepam 0.5 MG Oral Tablet (Ativan)Indications: Insomnia, unspecified type Take 1 Tablet by mouth at bedtime. 30 Tablet 3 08/03/2024 Active Additional Information Patient not taking.Reported on 08/09/2024 Doxylamine Succinate (Sleep) 25 MG Oral Tablet (Sleep Aid) Take 1 Tablet by mouth at bedtime as needed. Active Ondansetron HCl 8 MG Oral Tablet (Zofran)Indications: Glioblastoma (HCC) Take 1 tablet by mouth 30 minutes prior to temozolomide (Temodar) and every 8 hours as needed for nausea. Do not exceed 3 tablets per 24 hours. 60 Tablet 1 08/09/2024 Active Temozolomide 5 MG Oral Capsule (Temodar)Indications :Glioblastoma (HCC) Take 1 Capsule by mouth in the morning. Take with other temozolomide prescription for dose of 145 mg by mouth daily. Take 1 hour prior to radiation therapy and at the same time on weekends. 21 Capsule 08/09/2024 Active Temozolomide 140 MG Oral Capsule (Temodar)Indications :Glioblastoma (HCC) Take 1 Capsule by mouth in the morning. Take with other temozolomide prescription for dose of 145 mg by mouth daily. Take 1 hour prior to radiation therapy and at the same time on weekends. 21 Capsule 08/09/2024 Active documented as of this encounter (statuses as of 09/01/2024) Active Problems Problem Noted Date Diagnosed Date [...] as of this encounter (statuses as of 09/01/2024) Resolved Problems Problem Noted Date Diagnosed Date [...] 01/26/2006 Overview: ICD-10 update of inactive term ADVANCE DIRECTIVE INFORMATION 07/14/2005 08/29/2024 Overview: No, Advance Directive brochure offered , patient declined. PROPHYLACTIC MEASURE NEC 07/14/2005 DEPRESS PSYCHOSIS-UNSPEC 07/12/1999 documented as of this encounter (statuses as of 09/01/2024) Immunizations Name Administration Dates Next Due COVID-19 mRNA, LNP-s, No Pre serve, 2-Dose Series ([employer]) 08/04/2021,01/12/2021,12/22/2020 COVID-19, LNP-s, No Preserve , Messi-sucrose, Ages 12+ (Pfizer) 07/28/2022 COVID-19, MRNA-LNP, PF, 30 M CG/0.3 mL, 12 YRS AND ABOVE, IM ([facility]) 06/29/2024,07/16/2023 Covid-19, Mrna, Lnp-s, Pf, B ivalent, [...] No 05/26/2024 Does the household have a [facility] source of income? (Household - for [...] documented as of this encounter Functional Status Functional Status Response Date of Assess ment Are you deaf or do you have serious difficulty h earing? No 07/11/2024 Are you blind or do you have serious difficulty seeing, even when wearing glasses? No 07/11/2024 Do you have serious difficul ty walking or climbing stairs? (5 years old or older) Yes 07/11/2024 Do you have difficulty dress ing or bathing? (5 years old or older) No 07/11/2024 Because of a physical, menta l, or emotional condition, do you have difficulty doing errands alone such as visiting a doctor s office or shopping? (15 years old or older) Yes 07/11/20 Cognitive Status Response Date of Assessm ent Because of a physical, menta l, or emotional condition, do you have serious difficulty concentrating, remembering, or making decisions? (5 years old or older) No 07/11/2024 documented as of this encounter Plan of Treatment Upcoming Encounters Date Type Department Care Team (Late st Contact Info) Description 09/01/2024 3:30 PM EST Pharmacy Pharmacy Hematology Oncology [facility] [address] [place] [address] [facility], [facility] Clinic Hem/Onc [address] [place] [address] 09/05/2024 1:00 PM EST Office Visit Hematology/Oncology [facility] [place] [address] [facility] [place] [address] Emily Mckinney MD [address] [place] [address] 10/12/2024 4:20 PM EST Office Visit [facility] [address] [place] [address] Sourav Moss MD [address] [place] [address] Health Maintenance Due Date Last Done Comments Adult Wellness Visit 2012 HbA1c 01/10/2025 07/13/2024, 01/25, 08/17/2023, Additional history exists Depression Screening 02/17/2025 02/18/2024 Diabetic Eye Exam 02/17/2025 02/18/2024, 02/15/2024 Diabetic Foot Exam 02/17/2025 02/18/2024 Albumin/Creatinine Ratio 02/21/2025 024, 08/17/2023, 02/04/2022, Additional history exists GFR 02/22/2025 08/31/2024, 07/28, 08/05/2024, Additional history exists CKD PHOS USE SMARTSET 15411 07/16/202506/27, 07/15/2024, 07/14/2024, Additional history exists CKD HGB USE SMARTSET 39478 08/24/202508/31, 08/24/2024, 08/05/2024, Additional history exists DTap/Tdap Vaccines [...] this encounter Medical Devices Implanted Type Area Chief Contract Officer Device Identifier Shelf Expiration Date Model / Serial / Lot Graft Lyoplant 5.0x5.0cm 2x2 - [id number] - [id number] Implanted:Qty : 1 on 07/14/2024 by Peter Bates MD at [place] [facility] [place] Left: Head B JENKINS : AESCULAP [id number] 01/23/2029 [id number] / [id number] / [id number] Cover Bur Hol Ti Lo 12 421.525 - [id number] Implanted:Qty : 2 on 07/14/2024 by Peter Bates MD at [place] [facility] [place] Left: Head SYNTHES MAXILLOFACIAL 421.525 / / Plate Ti Lo Pro Str 2h 421.502 - [id number] Implanted:Qty : 2 on 07/14/2024 by Peter Bates MD at [place] [facility] [place] Left: Head SYNTHES MAXILLOFACIAL 421.502 / / Screw Ti Lo Pro Sd 4mm 400.834 - [id number] Implanted:Qty : 10 on 07/14/2024 by Peter Bates MD at [place] [facility] [place] Left: Head SYNTHES MAXILLOFACIAL 400.834 / / Screw Ti Lo Pro Sd 3mm 400.833 - [id number] Implanted:Qty : 4 on 07/14/2024 by Peter Bates MD at [place] [facility] [place] Left: Head SYNTHES MAXILLOFACIAL 400.833 / / documented as of this encounter Procedures Procedure Name Priority Date/Time Associated Diagnosis Comments CHEMISTRY-OUTSIDE Routine 08/31/2024 documented in this encounter Results * (ABNORMAL) CHEMISTRY-OUTSIDE (08/31/2024) Not all results display below - see scan for full detail OUTSIDE LAB (SEE SCANNED REPORT) Comment:SEE SCAN - CMP, CBCD CREATININE 1.21 0.6 - 1.4 MG/DL OUTSIDE LAB (SEE SCANNED REPORT) EGFR 61.67 ML/MIN OUTSIDE LA B (SEE SCANNED REPORT) POTASSIUM 4.1 3.5 - 5.1 MMOL/L OUTSIDE LAB (SEE SCANNED REPORT) GLUCOSE 128(A) 70 - 99 MG/DL OUTSIDE LAB (SEE [...] LAB OUTSIDE LAB (SEE SCANNED REPORT) HEMOGLOBIN, D2M-OTICZVT LAB OUTSIDE LAB (SEE SCANNED REPORT) PHOSPHORUS-OUTSID E LAB OUTSIDE LAB (SEE SCANNED REPORT) PTH-OUTSIDE LAB OUTS VINICIO LAB (SEE SCANNED REPORT) MICROALBUMIN RATIO-OUTSIDE LAB OUTSIDE LA B (SEE SCANNED REPORT) PROTEIN, UA-OUTSIDE LAB OUTSIDE LAB (SEE SCANNED REPORT) HGB 15.5 14.0 - 18.0 G/DL OUTSIDE LAB (SEE SCANNED REPORT) 08/31/2024 Emily SERRANO OUTSIDE LAB (SEE SCANNED REPORT) documented in [...] Discussed due to patient's condition Care Teams Fruit Or Nut Grower Relationship Specialty Start Date End Date Sourav Moss MD [address] [place] [address] PCP - General 11/13/1997 documented as of this encounter
--- OUTSIDE RECORDS SUMMARY | 2024-10-20 14:19 | External Medical Summary | Summary of Care ---
Author Name Unknown Organization [facility] Address [address] [facility] [place] [address] Phone [phone] Care Team Providers Care Screener And Blender Name Role Phone Sourav Moss MD Primary Care Provider [phone] Reason for Referral * Precert (Within 24 hrs (call dept; emergent)) - Pending Review Specialty Diagnoses / Procedures Referred By Cosmo flores Referred To Contact Radiology Diagnoses Glioblastoma (HCC) Procedures MRI BRAIN W WO CONTRAST Emily Mckinney MD [address] [place] [address] Phone: tel: fax: Referral ID Status Reason Start Date Expiration Date V isits Requested Visits Authorized [id number] Pending Review 10/12/2024 999 999 Reason for Visit * Reason Comments Follow Up 2wk Encounter Details Date Type Department Care Team (Late st Contact Info) Description 09/05/2024 1:00 PM EST Office Visit Hematology/Oncology [place] Adelfo Weber [address] [facility] [place] [address] Emily Mckinney MD [address] [place] [id number] Glioblastoma (HCC)* Allergies No known active allergiesdocumented [...] mRNA, LNP-s, No Pre serve, 2-Dose Series ([employer]) 08/04/2021,01/12/2021,12/22/2020 COVID-19, LNP-s, No Preserve , Messi-sucrose, Ages 12+ ([employer]) 07/28/2022 COVID-19, MRNA-LNP, PF, 30 M CG/0.3 mL, 12 YRS AND ABOVE, IM ([facility] 06/29/2024,07/16/2023 Covid-19, Mrna, Lnp-s, Pf, B ivalent, 30 Mcg, IM, 12 yrs and above ([employer]) 12/01/2022 PPD 08/16/2007 Pneumococcal Conjugate Vacc, 13 [...] 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 on file Not on file Not on file documented as of this encounter Last Filed Vital Signs Vital Sign Reading Time Taken Comments Blood Pressure 97/61 09/05/2024 1:15 PM EST Pulse 90 09/05/2024 1:15 PM EST Temperature 36.4 C (97.5 F) 09/05/2024 1:15 PM ES T Respiratory Rate 16 09/05/2024 1:15 PM EST Oxygen Saturation 94% 09/05/2024 1: 15 PM EST Inhaled Oxygen Concentration - - Weight 79.7 kg (175 lb 12.8 oz) 09/05/2024 1:15 PM EST Height - - Body Mass Index 27.53 08/03/2024 3:05 PM EDT documented in this encounter Functional Status * [...] documented in this encounter Progress Notes * Emily Mckinney MD - 09/05/2024 1:19 PM EST Images from the original note were not included. Date of visit: 09/05/2024 Chief Complaint Patient presents with Follow Up 2wk Date of visit: 09/05/2024 Subjective: Mayank Dolan is a 78 year old male re: GBM, currently receiving concurrent chemoradiation therapy with Temodar. Patient reports not feeling well, feels fatigued. On 09/05/2024, he has completed 10 XRT so far. He will be completing the planned total of 15 fractions of XRT on 09/12/2024. Reports extreme weakness today. Able to eat and drink ok Afebrile BP 97/61- offered IV fluids, pt refused IV fluids since he can drink fluids on his own - wants to go home. Had an ER visit recently at [facility] due to constipation, now taking stool softener +sennakot BID with adequate Bms. Not on steroids anymore. No seizures reported. Presents with his . Labs performed on 08/31/2024 shows WBC 7.3, hemoglobin 15.5 grams/deciliter, platelet count 213.CMPnormal with exception of blood glucose level 128 PLAN OF CARE DISCUSSED WITH PATIENT ON 09/05/2024 : Complete concurrent temodar + Xrt as planned on 09/12/2024. Repeat CBC Q Thursday while on treatment. MRI brain for follow up to be done 4-5 weeks after completion of T+XRT approx around 10/12/2024. Follow up with me in 5-6 weeks HPI: Date of consultation: 08/05/2024 Reason for consultation: New/recent diagnosis of GBM in order to transfer of care from [place] to [place]. Mayank Dolan is a 78 year old otherwise healthy male, with past medical history of stable, medically well managed hypertension, hyperlipidemia, diabetes, chronic kidney disease who was initiallyseen around April of 2024 with symptoms of right sided weakness and tremor as well as speech deficit. Reports weakness worse in the lower extremity worse than upper extremity. Imaging studies non diagnostic and hence the patient was diagnosed with left hemisphere/frontal stroke verses tumor. Ultimately he had additional imaging which on each occasion showed growth compared to his 1st study. He was admitted to [facility] on 07/09/2024 as he had developed just a sense of poor being in felt sick. MRI on 07/11/2024 concerning for brain tumor. He was transferred to [place] on 07/11/2024. On 07/14/2024, he underwent near-total resection of the tumor with small remnants of tumor that could not removed because of risk for significant neurologic deficit. Post-operative MRI with radiographic findings concerning for residual tumor at the resection margins. Patient apparently did well in the postoperative state at [place] [facility] then [facility] to home. He currently is being evaluated for home PT/OT. Prior prior to his admission at [facility] he took 1 dose of Keppra 500 mg. Shortly thereafter he was admitted not feeling well and his initial thoughts where it was the Keppra although he feels that in retrospect it was progression of the tumor. He was treated with Briviact ( brivaracetam) instead of Keppra and was discharged on the Briviact. He presents for Medical Oncology consultation on 08/05/2024. He has the radiation oncology appointment to see Dr. Mcbride on 08/09/2024. Since he has been home, he has been feeling okay, denies having tremor or speech deficit, headache.He has upcoming outpatient PT/OT evaluation appointments. He reports symptoms of insomnia. He reports the right arm and leg weakness improving slowly, he is however, unable to sign. Consent signed by the patient's Speech is slow but pt's reports is gradually improving. No symptoms s/o food or fluids aspiration/choking. 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 Negative for deletion of 1p. Negative for deletion of 19q. 1p/19q: intact (by FISH). Negative for IDH1 mutation. MIB index high. MGMT : Unmethylated. MGMT gene promotor methylation not detected (by PCR) EGFR gain, EGFR missense variant (EGFR vIII), TERT promotor mutation (c.- 124C>T), and CDKN2A copy number loss (by NGS) Treatment Summary Glioblastoma (HCC) 07/14/2024 Initial Diagnosis Glioblastoma (HCC) 07/14/2024 Surgery Surgical resection by Dr. Venegas 07/14/2024 Molecular Testing Results Final Diagnosis A. Left frontal lesion, biopsy: High-grade glioma favor glioblastoma, IDH-wild, WHO grade 4 B. Left frontal lesion, biopsy: High-grade glioma favor glioblastoma, IDH-wild, WHO grade 4 C. Left frontal lesion,Sonopet contents: High-grade glioma favor glioblastoma, IDH-wild, WHO grade 4 Final Diagnosis Comment The differential includes glioblastoma and oligodendroglioma. The glioblastoma is favored, however,molecular testing (NGS, 1p/19q, and MGMT) is ordered to better classify this tumor. The result willbe reported later with an integrated diagnosis. Microscopic Description H&E stains and immunostains are examined. Microscopic examination shows an infiltrative glial tumor composed of hypercellular areas of monomorphic cells with scant cytoplasm and round to oval hyperchromatic nuclei. The tumor also demonstrates moderately cellular areas composed of cells with mild to moderate cytoplasm and oval to irregular hyperchromatic nuclei. Mitoses are not infrequent. There is multifocal vascular endothelial vascular proliferation and necrosis with and without pseudopalisading. Rare microcalcifications are also noted. Immunostains show neoplastic cells are positive for Olig-2 and negative for synaptophysin, IDH1 [R132H] and H3 G34R. The GFAP reactivity is more robust in moderately cellular areas. There is an intact expression of ATRX and [id number]. The p53 is positive in a significant number of tumor cells. The Mib-1 labeling index is high. Interpretation NEGATIVE for the DELETION OF 1p NEGATIVE for the DELETION OF 19q MGMT unmethylated Addendum Left frontal lobe Integrated diagnosis: Glioblastoma, IDH-wild, WHO grade 4 Histopathological classification: Glioblastoma WELT TREATER WHO grade: 4 Molecular information: EGFR gain, EGFR missense variant (EGFR vIII), TERT promotor mutation (c.-124C>T), and CDKN2A copy number loss (by NGS) 1p/19q: intact (by FISH). MGMT gene promotor methylation not detected (by PCR) Addendum electronically signed by Rufino Hermosillo MD on 08/02/2024 at 0913 Final Diagnosis A. Left frontal lesion, biopsy: High-grade glioma favor glioblastoma, IDH-wild, WHO grade 4 B. Left frontal lesion, biopsy: High-grade glioma favor glioblastoma, IDH-wild, WHO grade 4 C. Left frontal lesion,Sonopet contents: High-grade glioma favor glioblastoma, IDH-wild, WHO grade 4 See comment at 1419 Final Diagnosis Comment The differential includes glioblastoma and oligodendroglioma. The glioblastoma is favored, however,molecular testing (NGS, 1p/19q, and MGMT) is ordered to better classify this tumor. The result willbe reported later with an integrated diagnosis. Clinical History Left frontal lobe and calvarial vertex enhancing mass with prominent neovascularity and vasogenic edema measures 4.0 cm Synoptic Report CENTRAL NERVOUS SYSTEM Protocol posted: 2CENTRAL NERVOUS SYSTEM - All Specimens CLINICAL History of Prior Therapy for this Neoplasm Not administered History of Previous Tumor and / or Familial Syndrome Not known Neuroimaging Findings Left frontal lobe and calvarial vertex enhancing mass with prominent neovascularity and vasogenic edema measures 4.0 cm SPECIMEN Procedure Biopsy with intraoperative consultation Resection Specimen Size, Gross Description Greatest Dimension (Centimeters): 3.1 cm TUMOR Tumor Site Brain Cerebral lobes Precise Location Frontal Tumor Laterality Left Tumor Focality Unifocal Integrated Diagnosis Glioblastoma, IDH-wildtype Integrated Histologic Molecular Grade WELT TREATER WHO grade 4 Treatment Effect (Histological Evidence of Prior Therapy) Not identified SPECIAL STUDIES EGFR gene copy number gain/amplification is identified. EGFR amplifications result in a mzef-yd-ybodrzur and are known to be oncogenic (PMID: 64396089). In addition, a splice variant is also identified in EGFR. This specific splice variant deletes exons 2 through 7 of EGFR and is known as EGFR vIII(PMID: 41918561). EGFR encodes a receptor tyrosine kinase activated by members of the epidermal growth factor family and is involved in cell proliferation, metastasis, migration and prevention of apoptosis (PMID: 22890022). EGFR amplification can lead to activation of several pathways, including the MAPK, PI3K/mTOR, FERMIN-STAT pathways, which result in cell proliferation, metastasis, and migration. EGFR amplification is identified in many cancer types, including lung, brain, and colorectal cancers (PMID: 56919393). EGFR amplifications have been reported in 23.3% of gliomas (PMID: 02290313). Some IDH wild-type diffusely infiltrative astrocytomas lack the histologic features of glioblastoma (necrosis and/or microvascular proliferation) but have one or more molecular hallmarks of glioblastoma, including the following: EGFR amplification; gain of chromosome 7 and loss of chromosome 10; and TERT promoter mutation. Insuch cases, the tumor can still be diagnosed as glioblastoma, IDH wild-type, WHO grade 4. These tumors have similar clinical outcomes as typical histologic grade 4 IDH wild-type glioblastomas, so they may be managed accordingly (NCCN, WELT TREATER v1.2023). EGFR vIII commonly co-occurs with the EGFR vII splice variant and EGFR amplification (PMID: 63801435, 85635248). EGFR vIII shows constitutive tyrosine phosphorylation, activates multiple downstream signaling pathways, and exhibits a high tumorigenic potential (PMID: 94090328, 23349508, 1822357). Itis often co- expressed with wild-type EGFR, especially in tumors with EGFR amplification (PMID: 52481432, 2068266). EGFR vIII has been reported in 25-64% of all glioblastoma multiforme (GBM) and in 20%-40% of EGFR amplified GBMs (PMID: 83284298, 07378703, 27680277, 15590937). EGFR vIII signaling plays a role in tumorigenesis and tumor progression by mediating cell survival, proliferation, motilityand invasion (PMID: 19235199). Tier II: Potential Significance Variants Gene Clinical Implications CDKN2A Copy number analysis of this tumor revealed a copy number loss at the region of chromosome 9(Chr.9. 50168635-14537276) that contains the CDKN2A gene. This finding is compatible with a deletion of the CDKN2A gene in this tumor (CNV value of 0.19). Please note: This sequencing-based estimate of copy number should be interpreted in the context of tumor cellularity. We recommend enumerating copy number using a cell-based method such as in situ hybridization before any therapeutic decision. CDKN2A, a tumor suppressor gene encodes two different proteins: p16(INK4a) and p14(ARF). p16 acts as a CDK inhibitor whereas p14 functions as a stabilizer of the tumor-suppressor protein p53 (PMID 23760066; 53025586). In the TCGA GBM cohort, CDKN2A deletions were associated with poor overall survival (OS) (PMID 00126372). In IDH-WT recurrent rGBM patients undergoing reoperation, CDKN2A/B loss was significantly associated with shorter survival (PMID 09540070). Following clinical trials are recruiting patients with Glioblastoma multiforme or solid tumors harboring CDKN2A alteration ([id number] II; [id number] early phase I; [id number] (as detected by array [facility])- early phase I). TERT A promoter region alteration in TERT, c.-124C>T, is identified. This alteration is located 124 bp upstream of the transcriptional start site of the TERT gene. This mutation has been suggestedas an oncogenic driver manager event and clinically, tumors carrying TERT promoter mutations (including c. -124C>T) express higher levels of TERT mRNA and telomerase activity, and confer cells immortal orsustained proliferation potentials in vitro (NCCN, WELT TREATER v2.2021; PMID 42730803). Given its presence at near 50% variant allele fraction, the possibility of germline derivation for this variant cannot be excluded. Determination of germline vs somatic origin would require specific testing of the germline, if clinically indicated. TERT c.-124C>T alteration has been reported frequently in gliomas (including anaplastic astrocytoma (AA), WHO grade III) (PMID 38666032; 60308080). TERT promoter mutations are frequent in certain glioma subtypes; associated with 1p19q codeletion and IDH1/2 mutations in oligodendrogliomas, and highly characteristic of IDH-wt and ATRX-wt glioblastomas (NCCN, WELT TREATER cancers v2.2021; PMID: 06287250, 41427433, 02969013). TERT promoter variants are associated with less favorable prognosis and shorter overall survival compared to IDH-wt high-grade gliomas without a TERT mutation. (NCCN, WELT TREATER Cancers v2.2021; AMP, MIMP Oncology: Molecular Biomarkers in Tumors of the WELT TREATER, 06/2020). While TERT promoter mutations are significantly associated with poor prognosis in patients with GBM, this correlation may be due to the association with primary GBM as opposed to IDH-positive secondary GBM (PMID: 37518860, 04651464, 12673217, 87477779). In one study of IDH1-wild type/TERT- mutant GBM patients, dendritic cell (DC)-based vaccination treatment prolonged overall survival and progression-free survival (PMID: 04944674). Tumor mutational burden (TMB) measures the quantity of somatic mutations of any pathogenicity in a tumor per million coding base pair (Mb). Microsatellite instability (MSI) refers to the hypermutability caused by genetic or acquired defects in the DNA mismatch repair pathway. MSI is reported as High, Stable, or Equivocal. Tested Case/Block [id number] Immunotherapy Markers Tumor Mutational [place] (TMB): TMB Unit [place] 3.78 m/MB Low Microsatellite Instability Status (MSI): MSI Status 0.35 Stable Glial cells with moderate cytoplasm Compact hypercellular area Monomorphic nuclei and mitoses Necrosis 07/14/2024: MRI BRAIN W WO CONTRAST : Status post resection of LEFT frontal intra-axial mass, expected immediate postoperative changes including hemorrhagic products in the resection cavity. Residual peripheral enhancement most prominent in the inferior and posterior aspect of the resection cavity indicative of residual tumor. Mild surrounding vasogenic edema. Postoperative pneumocephalus LEFT frontal pole measures 1.9 cm maximum thickness. Mild extra-axial fluid/hemorrhage LEFT frontal pole. Findings of LEFT frontal craniotomy. IMPRESSION: Status post resection of LEFT posterior frontal lesion. Residual peripheral enhancementmost prominent in the inferior and posterior aspect of the resection cavity indicative of residual tumor. 07/11/2024: MRI BRAIN W WO CONTRAST; MRI NEURO 3-D RECONSTRUCTION COMPARISON: 07/07/2024 FINDINGS: Enhancing left frontal lobe mass and calvarial vertex as before. Prominent neovascularity Y tumoralrecruitment of left anterior cerebral artery and prominent draining cortical vein. As expected, degree of T2 hyperintensity extends beyond area of enhancement, likely reflecting vasogenic edema and/or tumoral extents. This lesion overall measures 40 x 32 x 33 mm on T2 weighted images, similar to prior. Findings are unchanged from 07/07/2024. There is a thin tendril of enhancing tissue extending towards the frontal horn of the left lateral ventricle, near the body of the corpus callosum as seen on series 27, image 110. On T2 weighted images, this structure appears thinned and low signal, possibly flow void from small vessel/vein. There is an enhancing lesion present anterior in the left parasagittal region, which appears to be cortically based or within meninges and measures approximately 4 x 9 x 10 mm on postcontrast images series 27, image 95 and series 28, image 125 with mild associated T2 hyperintensity, similar to prior. This lesion is located approximately 9 mm anterior to the larger mass the color coded diffusion tensor imaging sequence appears to have skips/missing images. The source data appears intact although un-processed and DTI processing software is not available in [employer]. Left sphenoid sinus mucous retention cyst. No acute infarct. IMPRESSION IMPRESSION: 1. Stable hyperenhancing heterogeneous left calvarial vertex frontal lobe intraparenchymal mass with neovascularity. Finding concerning for primary brain tumor/glioneuronal neoplasm. Likely high grade given enhancement. Differential considerations would include metastasis. 2. Additional findings as above. MRI BRAIN W WO CONTRAST-07/07/2024 HISTORY stroke vs lesion; assess stability COMPARISON Correlation made with outside MRI dated 05/10/2024 TECHNIQUE Multiplanar multisequence MRI brain performed with and without IV contrast. FINDINGS Previously seen enhancing lesion at the left frontal vertex involving the precentral gyrus has significantly increased in size, currently measuring 2.9 x 3.5 x 3.9 cm with mild surrounding vasogenic edema. The lesion previously measured 2.2 x 2.0 x 2.1 cm. There are also areas of leptomeningeal enhancement which are new in the left parietal and frontal regions, most prominently along the medial left frontal lobe (image 116 series 21 and image 90 series 20). 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 Generalized volume loss is present with prominence of the ventricles and sulci. Minimal white matter changes are present with a few scattered foci of hyperintense T2 FLAIR signal within the cerebral white matter which are nonspecific. No diffusion evidence of acute infarction. Vascular flow voids are maintained at the skull base. Cerebellar tonsils are normal in position andconfiguration. The sellar and parasellar regions are within normal limits. No suspicious calvarial signal abnormality. Orbits are unremarkable on this nondedicated exam. Trace paranasal sinus mucosal thickening is present. The report was submitted to the radiology front office developer for communication with the referring provider. IMPRESSION IMPRESSION Significant interval increase in size of enhancing lesion at the left frontal vertex involving the precentral gyrus with new areas of leptomeningeal enhancement in the left frontal and parietal regions. 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 No midline shift. ASSESSMENT/PLAN: Mayank Dolan is a 78 year old with High-grade glioma, glioblastoma IDH wild-type who grade 4. MGMT is unmethylated, MSI-Stable and Low TMB. He presented as an enhancing lesion at the left frontal cortex measuring 2.9 x 3.5 x 3.9 cm with surrounding vasogenic edema. Also were noted new areas of leptomeningeal enhancement in the left frontal and parietal areas. He underwent left craniotomy on 07/14/2024 for near-total removal of the tumor by Dr. Venegas. Patient is aware of his diagnosis of Glioblastoma and the aggressive rapidly growing brain tumor. Recommended Oncology treatment: Daily Temodar 75mg/m2 with concurrent radiation therapy with weekly lab monitoring - CBCd and CMP. Plan to hold chemotherapy for ANC<1000; platelets<100k; Abnormal creat of LFTs >2xULN He has upcoming appointment with radiation oncology on 08/09/2024. Informed consent for Temodar signed by the patient's due to patient's inability to sign. PJP prophylaxis is required for all patients. See PI for details. Temozolomide is given continually during radiation therapy (RT) including on weekend days. Administer 1 hour prior to radiation on days with RT. Poor Performance Status and an elderly patients, data suggests treatment with adjuvant temozolomidebeyond 6 cycles may not be beneficial, particularly in MGMT promoter unmethylated tumors. Poor prognosis is defined as patients with age >= 65 or KPS < 60. Recommend Temozolomide 75 mg/m Daily concurrent with radiation therapy x 3 Weeks, to be followed by adjuvant temozolomide if tolerated. Temozolomide is given continually during radiation therapy (RT) including on weekend days. The patient has been instructed to take temozolomide 1 hour prior to radiation therapy on days with RT. We will plan to repeat MRI 1 month after completion of concurrent radiation therapy. Glioblastoma (HCC) (Primary) - CBC WITH WBC DIFFERENTIAL; Future; Expected date: 08/05/2024 - COMPREHENSIVE METABOLIC PANEL; Future; Expected date: 08/05/2024 Patient instructions given on 08/05/2024 Follow-up: Return in about 1 week (around 08/12/2024). Labs today- Labs performed on 08/05/2024 shows creat 1.3, BUN24, normal LFTs, HgB 16.3, HCT 49%, MCV 93.5, RDW 14.5%, plt 232, WBC 9.4 with mostly normal diff. Hepatitis screening tests: negative. Patient is not immune to hepatitis-B. See me back in [address] Mcbride (radiation oncologist) on 08/09/2024 09/05/2024 He has completed 10 XRT so far. He will be completing 15 fractions of XRT on 09/12/2024. Reports extreme weakness Able to eat and drink ok Afebrile BP 97/61- offered IV fluids, pt refused IV fluids since he can drink fluids on his own - wants to go home. Had an ER visit recently at [facility] due to constipation. Labs performed on 08/31/2024 shows WBC 7.3, hemoglobin 15.5 grams/deciliter, platelet count 213 CMPnormal with exception of blood glucose level 128 PMH: Patient Active Problem List Diagnosis Cervical spondylosis Allergic rhinitis Vertigo History of tobacco use Vitamin D deficiency Generalized osteoarthritis Hyperlipidemia with target LDL less than 100 Hypertensive kidney disease with stage 3a chronic kidney disease Chronic kidney disease, stage 3a (HCC) Diabetes mellitus without complication (HCC) Glioblastoma (HCC) Current Outpatient Medications Medication Sig Dispense Refill Doxylamine Succinate (Sleep) 25 MG Oral Tablet (Sleep Aid) Take 1 Tablet by mouth at bedtime as needed. ASPIRIN 81 MG PO TABS one tab [...] the morning and 1 Capsule before bedtime. oxyCODONE HCl 5 MG Oral Tablet (Oxy IR) Take 1 Tablet by mouth every 4 hours as needed for Pain, Severe. (Patient not taking: Reported on 08/09/2024) 30 Tablet 0 Brivaracetam 25 MG Oral Tablet (Briviact) Take 1 Tablet by mouth in the morning and 1 Tablet beforebedtime. (Patient not taking: Reported on 09/05/2024) 60 Tablet 0 Polyethylene Glycol 3350 17 GM/SCOOP Oral Powder (Miralax) Take 17 grams by mouth in the morning. (Patient not taking: Reported on 08/09/2024) 238 g 0 Sennosides 8.6 MG Oral Tablet (Senokot) Take 2 Tablets by mouth in the morning. 60 Tablet 0 levETIRAcetam 500 MG Oral Tablet (Keppra) Take 1 Tablet by mouth in the morning and 1 Tablet beforebedtime. 180 Tablet 3 LORazepam 0.5 MG Oral Tablet (Ativan) Take 1 Tablet by mouth at bedtime. (Patient not taking: Reported on 08/09/2024) 30 Tablet 3 Ondansetron HCl 8 MG Oral Tablet (Zofran) Take 1 tablet by mouth 30 minutes prior to temozolomide (Temodar) and every 8 hours as needed for nausea. Do not exceed 3 tablets per 24 hours. 60 Tablet 1 Temozolomide 5 MG Oral [...] of patient's allergies indicates: No Known Allergies Review of Systems Constitutional: Positive for activity change, fatigue and unexpected weight change. Negative for appetite change and fever. HENT: Negative. Eyes: Negative. Respiratory: Negative. Cardiovascular: Negative. Gastrointestinal: Negative. Endocrine: Negative. Genitourinary: Negative. Musculoskeletal: Negative. Skin: Negative. Neurological: Positive for tremors (improving), speech difficulty (improving), weakness (improving)and light-headedness. Negative for dizziness, seizures, syncope, facial asymmetry, numbness and headaches. Hematological: Negative. Psychiatric/Behavioral: Positive for sleep disturbance. Objective BP 97/61 (BP Site: Left Arm, BP Position: Sitting, BP Cuff Size: Large) | Pulse 90 | Temp 36.4 C (97.5 F) (Tympanic) | Resp 16 | Wt 79.7 kg (175 lb 12.8 oz) | SpO2 94% | BMI 27.53 kg/m | BSA 1.94 m Physical Exam Constitutional: Appearance: Normal appearance. HENT: Head: Normocephalic and atraumatic. Mouth/Throat: Mouth: Mucous membranes are moist. Pharynx: No oropharyngeal exudate or posterior oropharyngeal erythema. Eyes: General: No scleral icterus. Extraocular Movements: Extraocular movements intact. Pupils: Pupils are equal, round, and reactive to light. Cardiovascular: Rate and Rhythm: Normal rate and regular rhythm. Heart sounds: Normal heart sounds. Pulmonary: Breath sounds: Normal breath sounds. Abdominal: Palpations: Abdomen is soft. Musculoskeletal: General: Normal range of motion. Cervical back: Normal range of motion and neck supple. Skin: Coloration: Skin is not jaundiced or pale. Findings: No bruising, erythema or rash. Neurological: Mental Status: He is alert and oriented to person, place, and time. Motor: Weakness (Right sided) present. Gait: Gait abnormal. ASSESSMENT/PLAN: Mayank Dolan is a 78 year old male re: GBM, currently receiving concurrent chemoradiation therapy with Temodar. Patient reports not feeling well, feels fatigued. On 09/05/2024, he has completed 10 XRT so far. He will be completing the planned total of 15 fractions of XRT on 09/12/2024. Reports extreme weakness today. Able to eat and drink ok Afebrile BP 97/61- offered IV fluids, pt refused IV fluids since he can drink fluids on his own - wants to go home. Had an ER visit recently at [facility] due to constipation, now taking stool softener +sennakot BID with adequate Bms. Not on steroids anymore. No seizures reported. Presents with his . Labs performed on 08/31/2024 shows WBC 7.3, hemoglobin 15.5 grams/deciliter, platelet count 213.CMPnormal with exception of blood glucose level 128 Glioblastoma (HCC) (Primary) - MRI BRAIN W WO CONTRAST; Future; Expected date: 10/12/2024 PLAN OF CARE DISCUSSED WITH PATIENT ON 09/05/2024 : Complete concurrent temodar + Xrt as planned on 09/12/2024. Repeat CBC Q Thursday while on treatment. MRI brain for follow up to be done 4-5 weeks after completion of T+XRT approx around 10/12/2024. Follow up with me in 5-6 weeks Follow Up: Return in about 6 weeks (around 10/17/2024) for MD visit with me. | For: MD visit with me Emily Mckinney MD documented in this encounter Nursing Notes * Nikkie Jim LPN - 09/05/2024 1:17 PM EST Patient identifed by name and birthdate Do you have any concerns about pain management for today's visit? No Living Will or Advance Directive for Health Care as noted on the problem list. [facility] is a way you can talk to your provider on line through e-mail. Would you like to sign up? I can activate it for you? ALREADY ACTIVE Filed Vitals: 09/05/24 1315 BP: 97/61 Pulse: 90 Resp: 16 Temp: 36.4 C (97.5 F) TempSrc: Tympanic SpO2: 94% Weight: 79.7 kg (175 lb 12.8 oz) Patient was instructed to not get up on the exam table/exam chair until directed and assisted by their provider; patient is to remain seated in the chair/ wheelchair/ exam table/ exam chair for fall prevention and safety reasons. Patient is aware to have assistance to step down off exam table/exam chair with personnel. Patient voiced full comprehension of instructions. documented in this encounter Plan of Treatment Upcoming Encounters Date Type Department Care Team (Late st Contact Info) Description 09/08/2024 3:30 PM EST Pharmacy Pharmacy Hematology Oncology [facility] [address] [place] [address] [facility], [facility] Hem/Onc [address] [place] [address] 10/12/2024 4:20 PM EST Office Visit [facility] [address] [place] [address] Sourav Moss MD [address] [place] [address] 10/17/2024 2:30 PM EST Office Visit Hematology/Oncology [facility] [address] [place] [address] Emily Mckinney MD [address] [place] [phone] Scheduled Orders Name Type Priority Associated Diagnoses Orde r Schedule MRI BRAIN W WO CONTRAST Medical Imaging STAT Glioblastoma (HCC) Expected: 10/12/2024 (Approximate), Expires: 10/05/2025 Health Maintenance Due Date Last Done Comments Adult Wellness Visit 2012 HbA1c 01/10/2025 07/13/2024, 01/25, 08/17/2023, Additional history exists Depression Screening 02/17/2025 02/18/2024 Diabetic Eye Exam 02/17/2025 02/18/2024, 02/15/2024 Diabetic Foot Exam 02/17/2025 02/18/2024 Albumin/Creatinine Ratio 02/21/2025 024, 08/17/2023, 02/04/2022, Additional history exists GFR 02/28/2025 08/31/2024, 07/28, 08/05/2024, Additional history exists CKD PHOS USE SMARTSET 98388 07/16/202506/27, 07/15/2024, 07/14/2024, Additional history exists CKD HGB USE SMARTSET 71067 08/31/202508/31, 08/24/2024, 08/05/2024, Additional history exists DTap/Tdap [...] this encounter Medical Devices Implanted Type Area Finance Director Device Identifier Shelf Expiration Date Model / Serial / Lot Graft Lyoplant 5.0x5.0cm 2x2 - [id number] - [id number] Implanted:Qty : 1 on 07/14/2024 by Peter Bates MD at [place] [facility] [place] Left: Head B JENKINS : CHRIS [id number] 01/23/2029 [id number] / [id number] / [id number] Cover Bur Hol Ti Lo 12 421.525 - [id number] Implanted:Qty : 2 on 07/14/2024 by Peter Bates MD at [place] [facility] [place] Left: Head SYNTHES MAXILLOFACIAL 421.525 / / Plate Ti Lo Pro Str 2h 421.502 - [id number] Implanted:Qty : 2 on 07/14/2024 by Peter Bates MD at [place] [facility] [place] Left: Head SYNTHES MAXILLOFACIAL 421.502 / / Screw Ti Lo Pro Sd 4mm 400.834 - [id number] Implanted:Qty : 10 on 07/14/2024 by Peter Bates MD at [place] [facility] [place] Left: Head SYNTHES MAXILLOFACIAL 400.834 / / Screw Ti Lo Pro Sd 3mm 400.833 - [id number] Implanted:Qty : 4 on 07/14/2024 by Peter [...] Discussed due to patient's condition Care Teams Screener And Blender Relationship Specialty Start Date End Date Sourav Moss MD [address] [facility] [place] [address] PCP - General 11/13/1997 documented as of this encounter"
--- OUTSIDE RECORDS SUMMARY | 2024-10-20 14:19 | External Medical Summary | Summary of Care ---
Author Name Unknown Organization [facility] Address [address] [place] [address] Phone [phone] Care Team Providers Care Correctional Lieutenant Name Role Phone Sourav Moss MD Primary Care Provider [phone] Reason for Visit * Reason Comments Medication Management Encounter Details Date Type Department Care Team (Late st Contact Info) Description 09/01/2024 3:30 PM [facility] Pharmacy Pharmacy Hematology Oncology [facility] [address] [place] [address] [facility], [facility] Hem[facility]Onc [address] [place] [address] Glioblastoma (HCC)* Allergies No known active allergiesdocumented [...] mRNA, LNP-s, No Pre serve, 2-Dose Series ([employer]) 08/04/2021,01/12/2021,12/22/2020 COVID-19, LNP-s, No Preserve , Messi-sucrose, Ages 12+ (Pfizer) 07/28/2022 COVID-19, MRNA-LNP, PF, 30 M CG/0.3 mL, 12 YRS AND ABOVE, IM ([employer]ir[employer]) 06/29/2024,07/16/2023 Covid-19, Mrna, Lnp-s, Pf, B ivalent, 30 Mcg, IM, 12 yrs and above ([place]) 12/01/2022 PPD 08/16/2007 Pneumococcal Conjugate Vacc, 13 [...] No 05/26/2024 Does the household have a [facility] source of income? (Household - for ages [...] shopping? (15 years old or older) Yes 09/16/20 24 Cognitive Status Response Date of Assessm ent Because of a physical, menta l, or emotional condition, do you have serious difficulty concentrating, remembering, or making decisions? (5 years old or older) No 07/11/2024 documented as of this encounter Progress Notes * Grace Pfeiffer OSA - 09/01/2024 3:30 PM EST MEDICATION THERAPY MANAGEMENT TEMOZOLOMIDE TREATMENT EDUCATION NOTE Mayank Dolan [id number] Patient Phone Numbers : Tereza Communication: Spoke to: Other: Mile @ [facility] lab Treatment: Medication: Temozolomide (Temodar) Indication/Staging/Diagnosis Code: Glioblastoma, IDH WT, MGMT unmethylated, WHO Grade IV, C71.9 Dose Basis: 75 mg/m2 - 75 mg/m2 * 1.93 m2 (07/20/24) = 144.75 mg (rounded to 145 mg) Dose: 145 mg PO daily w/ RT Administration: 1 hour before RT and at the same time on non-radiation days Start Date: TBD Primary Molding Technician/Oncologist: Dr. Mckinney [facility] to fax labs completed 08/31/24. Will scan in chart when received. RUSTY Hernández Natural Science Manager Pharmacy Hematology Oncology Oral Chemotherapy Clinic Medication Therapy Disease Management [facility] 09/01/24 11:49 AM Time Spent on Encounter: 6 - 10 minutes Encounter Group: Neuro-Oncology Encounter Interventions Item Category: Oral Chemotherapy Temozolomide Problem/Rationale: Safety: Needs additional monitoring - Medication Requires monitoring Pharmacist Intervention(s): Contacted lab Magnitude of Intervention: Monitoring with no interventions (Level 0) * Daksha Miller [facility] - 09/01/2024 2:59 PM EST MEDICATION THERAPY MANAGEMENT TEMOZOLOMIDE TREATMENT PROGRESS NOTE Mayank Dolan [id number] Patient Phone Numbers : Tereza Communication: Left [...] on non-radiation days Start Date: 08/23/24 Primary Molding Technician/Oncologist: Dr. Mckinney Additional Therapy: RT @ [facility] Supportive Care Meds: Ondansetron Senna Miralax Prophylactic [...] for ALC > 0.5 Continue current therapy and weekly labs LM regarding above Assessment of compliance: compliant Assessment of adverse effects attributed to drug therapy: N/A Dose adjustment needed based on lab or adverse drug reaction? No Follow up: 1 week Daksha Miller, PharmD, BCOP Ambulatory Clinical Pharmacist | Oral Chemotherapy Clinic [facility] 09/01/2024, 3:00 PM Monitoring Parameters: Estimated CrCl Serum creatinine: 1.21 mg/dL 08/31/24 0000 Estimated creatinine clearance: 47.8 mL/min Hepatitis panel Complete 08/05/24 Not immune to hepatitis B virus Suggested lab monitoring CBCd and CMP weekly Treatment Parameters Please refer to PI Pertinent Labs: Time Spent on Encounter: 6 - 10 minutes Encounter Group: Neuro-Oncology Encounter Interventions Item Category: Oral Chemotherapy Temozolomide Problem/Rationale: Safety: Needs additional monitoring - Medication Requires monitoring Pharmacist Intervention(s): Lab monitoring Magnitude of Intervention: Monitoring with direction (Level 1) documented in this encounter Plan of Treatment Upcoming Encounters Date Type Department Care Team (Late st Contact Info) Description 09/05/2024 1:00 PM EST Office Visit Hematology/Oncology [facility] [address] [place] [address] Emily Mckinney MD [address] [place] [phone] 09/08/2024 3:30 PM EST Pharmacy Pharmacy Hematology Oncology [facility] [address] [place] [address] [facility], [facility] Hem/Onc [address] [place] [address] 10/12/2024 4:20 PM EST Office Visit [address] [place] [address] Sourav Moss MD [address] [place] [address] Health Maintenance Due Date Last Done Comments Adult Wellness Visit 2012 HbA1c 01/10/2025 07/13/2024, 01/25, 08/17/2023, Additional history exists Depression Screening 02/17/2025 02/18/2024 Diabetic Eye Exam 02/17/2025 02/18/2024, 02/15/2024 Diabetic Foot Exam 02/17/2025 02/18/2024 Albumin/Creatinine Ratio 02/21/2025 024, 08/17/2023, 02/04/2022, Additional history exists GFR 02/28/2025 08/31/2024, 07/28, 08/05/2024, Additional history exists CKD PHOS USE SMARTSET 96685 07/16/202506/27, 07/15/2024, 07/14/2024, Additional history exists CKD HGB USE SMARTSET 90786 08/31/202508/31, 08/24/2024, 08/05/2024, Additional history exists DTap/Tdap [...] this encounter Medical Devices Implanted Type Area Hard Rock Drill Operator Device Identifier Shelf Expiration Date Model / Serial / Lot Graft Lyoplant 5.0x5.0cm 2x2 - [id number] - [id number] Implanted:Qty : 1 on 07/14/2024 by Peter Bates MD [place] [facility] [place] B JENKINS : AESCULAP [id number] 01/23/2029 [id number] / [id number] / [id number] Cover Bur Hol Ti Lo 12 421.525 - [id number] Implanted:Qty : 2 on 07/14/2024 by Peter Bates MD [place] [facility] [place]: Head SYNTHES MAXILLOFACIAL 421.525 / / Plate Ti Lo Pro Str 2h 421.502 - [id number] Implanted:Qty : 2 on 07/14/2024 by Peter Bates MD at [place] [facility] [place]: Head SYNTHES MAXILLOFACIAL 421.502 / / Screw Ti Lo Pro Sd 4mm 400.834 - [id number] Implanted:Qty : 10 on 07/14/2024 by Peter Bates MD at [place] [facility] [place]: Head SYNTHES MAXILLOFACIAL 400.834 / / Screw Ti Lo Pro Sd 3mm 400.833 - [id number] Implanted:Qty : 4 on 07/14/2024 by Peter [...] Discussed due to patient's condition Care Teams Correctional Lieutenant Relationship Specialty Start Date End Date Sourav Moss MD [address] [facility] [place] [address] PCP - General 11/13/1997 documented as of this encounter"
[2024-10-20] MEDS ORDERED: ACETAMINOPHEN 325 MG TAB PO PRN (15:21)
[2024-10-20] MEDS ORDERED: GLUCOSE 40% GEL 15 GM TUBE PO PRN (15:21)
[2024-10-20] MEDS ORDERED: ONDANSETRON INJ 2 MG/ML 2 ML VIAL IV PRN (15:21)
[2024-10-20] MEDS ORDERED: DEXTROSE 50% 50 ML SYRINGE IV PRN (15:21)
[2024-10-20] MEDS ORDERED: CARBOHYDRATES FOR HYPOGLYCEMIA PO PRN (15:21)
[2024-10-20] MEDS ORDERED: GLUCAGON FOR INJ 1 MG VIAL SQ PRN (15:21)
[2024-10-20] MEDS ORDERED: POLYETHYLENE (MIRALAX) 17 GM PACK PO PRN (15:21)
[2024-10-20] MEDS ORDERED: GLUCOSE 10 TAB/TUBE PO PRN (15:21)
[2024-10-20] MEDS: SODIUM CHLORIDE 0.9% 500 ML IV SCH (15:54)
--- NOTE | 2024-10-20 16:16 | Neurology Consultation ---
Date of Consultation October 20, 2024 Assessment & Plan (1) Seizure: Focal Seizure in a 78M wiht a PMH of GBM sp resection, chemo and radiation therapy. He is currently doing well and has had no further seizure, and the weakness is improving. CT head shows expected evolution of the tumor with radiation. Plan -- no need for EEG and MRI as he has clear reason for seizure, exam changes have resolved and CT shows no hemorrhage -- continue Keppra 1g BID -- please notify neurology if he has any further seizures, and would recommend 1g Keppra IV load and increase maintenance to 1500 mg BID Telehealth Consultation Telehealth Information Telehealth Information: I performed this visit using a real-time telehealth connection between my location and the patients location ([facility]). After connecting through interactive tele-video, patient was identified by name and date of and/or wristband check.Patient (or authorized healthcare shipping services sales representative) was informed that this was a telemedicine visit and it was being conducted confidentially over secure lines. My office door was closed and no one else was present in the room with me.Patient (or authorized healthcare shipping services sales representative) provided consent to proceed with the visit, expressed an understanding of privacy and security of the telemedicine visit, and gave permission to have a hospital shipping services sales representative in the room in order to assist with the visit and to conduct portions of the visit, as needed. I informed the patient (or authorized healthcare shipping services sales representative) that I reviewed their record and presented the opportunity for them to ask any questions regarding the visit today. The patient agreed to participate. History of Present Illness Reason for Consultation: seizure Attending Physician: Marcelo Gamino MD History of Present Illness Mayank Dolan is a 78M with a pMH of left frontal lobe GBM sp resection, radiation and chemotherapy who presents with seizure like activity. He reports that he was having a tremor in the left arm and leg which was rhythmic. He says that it would occasionally stiffen up but then would start twitching again. The whole thing lasted for about 10-15 minutes and then the left side was significantly weaker. He reports prior episodes of seizure but nothing this severe. He is feeling close to his baseline now. He denies recent infection, he has missed no doses of medication. He denies fevers, chills, chest pain, SOB and headache. He was feeling pretty fatigued while undergoing radiation which ended about 4 weeks ago. Allergies Allergy/AdvReac Type Severity Reaction Status Date / Time No Known Allergies Allergy Unknown Verified 09/05/24 11:10 Home Medications Medication Instructions Recorded Confirmed Type atorvastatin 20 mg tablet 20 mg PO DAILY 05/12/22 10/20/24 History omeprazole 20 mg capsule,delayed 20 mg PO DAILY 05/12/22 10/20/24 History release aspirin 81 mg tablet,delayed 81 mg PO DAILY 05/10/24 10/20/24 History release cholecalciferol (vitamin D3) 25 25 mcg PO DAILY 05/10/24 10/20/24 History mcg (1,000 unit) tablet (Vitamin D3) empagliflozin 10 mg tablet 10 mg PO DAILY 05/10/24 10/20/24 History (Jardiance) acetaminophen 325 mg capsule 650 mg PO QID PRN pain or fever 08/29/24 10/20/24 History (Tylenol) levetiracetam 500 mg tablet 500 mg PO BID 08/29/24 10/20/24 History (Keppra) amlodipine 5 mg tablet 5 mg PO DAILY 10/20/24 10/20/24 History vit C 250 mg-vit E 90 mg-zinc 40 1 tab PO AMHS 10/20/24 10/20/24 History mg-copper 1 [id number] capsule (PreserVision AREDS-2) Patient History Medical History (Updated 10/20/24 @ 14:37 by Luz Higuera PA-C) CKD (chronic kidney disease), stage III DM type 2 (diabetes mellitus, type 2) AMD (age-related macular degeneration), wet wet to right eye, dry to left eye Acid reflux Elevated lipids Hypertension Surgical History S/P cervical spinal fusion H/O craniotomy 07/14/[address] Venegas Family History Brother Cancer kidney cancer Mother Cancer Colon cancer Social History Smoking Status: Current some day smoker Tobacco Type: Cigarettes Age Started Using Tobacco: 20; packs per day: 1.5; Hx Alcohol Use: No Hx Substance Use: No Preferred Language: Barbadian Communication Ability: Effective Graphic Design Assistant Required: No Beliefs That Will Affect Care: Gnosticist Current Living Situation: Spouse current occupational status: retired Feels Safe at Home: Yes Assistive Devices: Cane Review of Systems see HPI Physical Exam NEUROLOGIC EXAMINATION: Mental Status:alert, oriented to time, place, person, normal recent memory, normal remote memory, normal attention span, normal concentration, normal language, and normal fund of knowledge Cranial Nerves: CN 2 - no visual defect on confrontation and pupils round, equal, reactive to light CN 3, 4, 6 - extra-ocular movements intact and no nystagmus CN 5 - facial sensation intact CN 7 - no facial asymmetry CN 8 - intact hearing CN 9, 10 - palate symmetric, normal gag CN 11 - good shoulder shrug CN 12 - tongue midline MOTOR: Strength was at least antigravity throughout, Pronator drift was absent, and There were no abnormal movements SENSATION: intact GAIT: deferred COORDINATION: no ataxia with finger to nose testing and heel to barcenas testing REFLEXES: cannot assess over telemedicine Results & Data Vital Signs (Past 12 Hours) Vital Signs Temp Pulse Pulse Resp BP BP Pulse Ox 10/20/24 15:24 10/20/24 15:04 36.6 C 79 18 152/76 H 98 10/20/24 14:41 87 18 138/75 94 10/20/24 14:22 87 18 157/84 H 93 10/20/24 12:51 91 H 10/20/24 12:48 94 H 18 147/86 H 97 10/20/24 12:27 92 H 18 143/68 H 96 O2 Del Method O2 Del Method 10/20/24 15:24 Room Air 10/20/24 15:04 Room Air 10/20/24 14:41 Room Air 10/20/24 14:22 Room Air 10/20/24 12:51 10/20/24 12:48 Room Air 10/20/24 12:27 Room Air Laboratory Results Abnormal Lab Results 10/20/24 12:45 WBC 7.38 RBC 5.22 Hgb 16.2 Hct 48.0 MCV 92.0 MCH 31.0 MCHC 33.8 RDW Std Deviation 44.2 RDW Coeff of Irvin 13.1 Plt Count 175 MPV 9.7 Immature Gran % (Auto) 0.3 Neut % (Auto) 74.0 Lymph % (Auto) 14.8 [place] % (Auto) 7.6 Eos % (Auto) 2.6 Baso % (Auto) 0.7 Neut # (Auto) 5.47 Lymph # (Auto) 1.09 L [place] # (Auto) 0.56 Eos # (Auto) 0.19 Baso # (Auto) 0.05 Immature Gran # (Auto) 0.02 PT 11.0 INR 1.0 APTT 26 PTT Ratio 1.0 Sodium 137 Potassium 4.1 Chloride 105 Carbon Dioxide 20 L Anion Gap 12 H BUN 18 Creatinine 1.18 Est Cr Clr Drug Dosing 53.4 eGFR 63.55 BUN/Creatinine Ratio 15.3 Glucose 96 Calcium 8.8 Magnesium 2.1 Total Bilirubin 0.7 AST 15 ALT 9 Alkaline Phosphatase 71 Troponin I High Sens 8.9 Total Protein 6.2 Albumin 4.0 Globulin 2.2 L Albumin/Globulin Ratio 1.[address] 10/20/24 12:09 CT head/brain wo con CLINICAL HISTORY: neuro deficit, acute stroke suspected Technique: Contiguous axial CT images of the head were acquired from the base of the skull to the vertex without intravenous contrast administration. Images were viewed in brain, subdural and bone windows. Automated dose lowering techniques and/or adjustment according to patient size were utilized for this exam. Comparison: Comparison is made to CT head 07/09/2014 Findings: Interval increase in conspicuity of a region of vasogenic edema in the left frontal lobe. Previously noted mass lesion is not as well seen. Imaged portions of the paranasal sinuses and mastoid air cells are clear. The orbits appear normal. Postcraniotomy changes are seen apex. Impression: Increased vasogenic edema in the left frontal lobe is likely secondary to post craniotomy change. No acute abnormalities are seen against this background. ACT 112: Negative or not required by law. Electronically signed by: Gilberto Cruz M.D. 10/20/2024 12:49 PM Head CTA 10/20/24 12:09 CT angio head w con, CT angio neck with con CLINICAL HISTORY: 78 years-old Male with neuro deficit, acute stroke suspected. Acute stroke like symptoms COMPARISON STUDY: Head CT of same day, Brain MRI 07/14/2024 TECHNIQUE: Following the IV administration of 120 cc of Optiray, CT angiogram of the head and neck was performed from the aortic arch to the skull apex. Images are reviewed in the axial, sagittal, and coronal planes. 3-D MIPS images are created and assessed. IV contrast was administered without complication. All measurements were obtained according to NASCET criteria. A dose lowering technique was utilized adhering to the principles of ALARA. CT DOSE: 1913.79 mGy.cm FINDINGS: CT BRAIN: Dictated separately. Left parietal calvarial craniotomy. Posttreatment related changes of the superior left frontal lobe with encephalomalacia and vasogenic edema redemonstrated. CT ANGIOGRAM OF THE HEAD AND NECK: Bovine morphology of the thoracic aortic arch which demonstrates mild atherosclerosis. Patency of the innominate and image subclavian arteries. The common carotid arteries are patent. Atherosclerosis of the carotid bulbs without significant stenosis. The internal carotid arteries are patent. The vertebral arteries are patent. There is short segment high-grade stenosis involving the distal V4 segment right vertebral artery on image 340 of series 10. Patent basilar artery. There is origin of the left posterior cerebral artery. Posterior cerebral arteries are patent bilaterally. The middle and anterior cerebral arteries appear patent. Cerebral venous sinuses are patent. No definite intracranial enhancing lesion identified by CT. Lung apices appear clear. No pneumothorax. Unremarkable soft tissues. Degenerative and postoperative changes of the cervical spine. Mild polypoid mucosal thickening of the right maxillary sinus. IMPRESSION: 1. 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 2. No aneurysm, dissection or arterial occlusion identified within the head or neck. 3. Postoperative changes of the left frontal lobe with prior left-sided craniotomy. Please refer to the same day head CT for additional findings. ACT 112: Negative or not required by law. The above report was generated using voice recognition software. It may contain grammatical, syntax or spelling errors. Electronically signed by: Miko Rodriguez M.D. 10/20/2024 1:04 PM Neck CTA 10/20/24 12:09 CT angio head w con, CT angio neck with con CLINICAL HISTORY: 78 years-old Male with neuro deficit, acute stroke suspected. Acute stroke like symptoms COMPARISON STUDY: Head CT of same day, Brain MRI 07/14/2024 TECHNIQUE: Following the IV administration of 120 cc of Optiray, CT angiogram of the head and neck was performed from the aortic arch to the skull apex. Images are reviewed in the axial, sagittal, and coronal planes. 3-D MIPS images are created and assessed. IV contrast was administered without complication. All measurements were obtained according to NASCET criteria. A dose lowering technique was utilized adhering to the principles of ALARA. CT DOSE: 1913.79 mGy.cm FINDINGS: CT BRAIN: Dictated separately. Left parietal calvarial craniotomy. Posttreatment related changes of the superior left frontal lobe with encephalomalacia and vasogenic edema redemonstrated. CT ANGIOGRAM OF THE HEAD AND NECK: Bovine morphology of the thoracic aortic arch which demonstrates mild atherosclerosis. Patency of the innominate and image subclavian arteries. The common carotid arteries are patent. Atherosclerosis of the carotid bulbs without significant stenosis. The internal carotid arteries are patent. The vertebral arteries are patent. There is short segment high-grade stenosis involving the distal V4 segment right vertebral artery on image 340 of series 10. Patent basilar artery. There is origin of the left posterior cerebral artery. Posterior cerebral arteries are patent bilaterally. The middle and anterior cerebral arteries appear patent. Cerebral venous sinuses are patent. No definite intracranial enhancing lesion identified by CT. Lung apices appear clear. No pneumothorax. Unremarkable soft tissues. Degenerative and postoperative changes of the cervical spine. Mild polypoid mucosal thickening of the right maxillary sinus.
[2024-10-20] MEDS: INSULIN ASPART PER UNIT CHARGE SC SCH (17:53)
[2024-10-20] MEDS: levETIRAcetam 500 MG TAB PO SCH (21:16)
[2024-10-20] MEDS: CEROVITE ADV FORMULA TAB PO SCH (21:19)
[2024-10-21 07:32] VITALS: RESP 18
[2024-10-21] MEDS: ATORVASTATIN 20 MG TAB PO SCH (08:26)
[2024-10-21] MEDS: CHOLECALCIFEROL 25 MCG (1000 UNITS) TAB PO SCH (08:26)
[2024-10-21] MEDS: ASPIRIN 81 MG ECTAB PO SCH (08:26)
[2024-10-21] MEDS: PANTOprazole 40 MG TAB PO SCH (08:26)
[2024-10-21 09:25] LABS: Hematocrit (blood only) 50.6 % (42.0-52.0); Hemoglobin 16.9 g/dl (14.0-18.0); Mean Corpuscular Hemoglobin 30.7 pg (25.0-34.0); Mean Corpuscular Hgb Conc 33.4 g/dL (32.0-36.0); Mean Corpuscular Volume 91.8 fL (80.0-100.0); Mean Platelet Volume 9.7 fL (9.4-12.4); Platelet Count 207 K/uL (130-400); RDW Coefficient of Variation 13.2 % (11.5-14.5); RDW Standard Deviation 44.8 fL (36.4-46.3); Red Blood Count 5.51 M/uL (4.70-6.10); White Blood Count 7.69 K/ul (4.8-10.8)
[2024-10-21 09:40] LABS: Calcium 9.4 mg/dl (8.6-10.3); Chol HDL Ratio 4.1 (0-5); Creatinine Clr Calc Pharmacy 53.6 ml/min; Potassium 3.8 mmol/L (3.5-5.1)
[2024-10-21 11:22] VITALS: BP 161/78; PULSE 87; TEMP 97.9; O2SAT 93
[2024-10-21 12:01] LABS: Estimated Average Glucose 114 mg/dl; Hemoglobin A1C 5.6 % (4.5-5.6)
--- NOTE | 2024-10-21 12:17 | Discharge Summary ---
Date of Service October 21, 2024 Admission HPI Per Admitting Provider This is a 78-year-old male with PMH of glioblastoma (s/p craniotomy with bone flap excision at [facility] in June 2024, completed chemo/radiation 09/12/24), type 2 diabetes, CKD 3 and other medical problems listed below who presents from home with stroke like symptoms starting this morning. Ever since glioblastoma diagnosis and treatment, has felt weak with R sided weakness. Has been working with home PT/OT but is discouraged that he remains weak. Ambulates with a walker at baseline. Was getting ready in his room this AM and started to have spasming in his R leg followed by R arm that lasted for approximately 10-12 minutes per , who witnessed it. Spasming was very painful yet similar to presentation back in Jun when he was initially found to have glioblastoma. No LOC or difficulty speaking/swallowing although was "out of it," per . Called EMS due to concern he was having another stroke vs. seizure. R sided weakness slightly improved since arrival. Recently had lisinopril-hctz discontinued and a mlodipine ordered but has not yet started because BP has been low. No other recent medication changes. No F/C, lightheadedness, CP, SOB, N/V, abd pain, dysuria, diarrhea or constipation. Poor appetite since chemo. Following with Dr. Mckinney (heme/onc) and Dr. Mcbride (rad onc) due for repeat Brain MRI 11/11 2024 to determine next phase of treatment. ED provider discussed with cone chocolate dipper neuro from [facility], who reviewed imaging - recommended increasing Keppra from 500mg BID to 1000mg BID, considering addition of steroids but holding off for now. Admission Exam Per Admitting Provider General- oriented x 3, not in distress, speaks in sentences with no effort or accessory muscle use Head- atraumatic Eyes- PERRL, EOMI, anicteric ENT- oropharynx clear Neck- supple, no JVD, no adenopathy, no thyromegaly; carotids +2/2, no bruits appreciated Lungs- clear to auscultation bilaterally, no rales/wheezes Heart- normal rate, regular rhythm; no murmur, no gallop, no rub appreciated Abdomen- normal bowel sounds, nondistended, soft, nontender, no masses or hepatosplenomegaly Extremities- no pretibial edema, no calf tenderness; peripheral pulses intact Neuro- alert, oriented x 3; CN 2-12 grossly intact; motor 4/5 R side, 5/5 left side;sensation 100% on all extremities; no other gross focal neurologic deficits Skin- warm & dry Principal Diagnosis Seizure-like activity: Right sided weakness: Discharge Exam General- oriented x 3, not in distress, speaks in sentences with no effort or accessory muscle use Head- atraumatic Eyes- PERRL, EOMI, anicteric ENT- oropharynx clear Neck- supple, no JVD, no adenopathy, no thyromegaly; carotids +2/2, no bruits appreciated Lungs- clear to auscultation bilaterally, no rales/wheezes Heart- normal rate, regular rhythm; no murmur, no gallop, no rub appreciated Abdomen- normal bowel sounds, nondistended, soft, nontender, no masses or hepatosplenomegaly Extremities- no pretibial edema, no calf tenderness; peripheral pulses intact Neuro- alert, oriented x 3; CN 2-12 grossly intact; motor 4/5 R side, 5/5 left side;sensation 100% on all extremities; no other gross focal neurologic deficits Skin- warm & dry Discharge Data Allergies Allergy/AdvReac Type Severity Reaction Status Date / Time No Known Allergies Allergy Unknown Verified 09/05/24 11:10 Consultations 10/20/24 13:35 ED Decision to Admit Stat 10/20/24 14:09 Consult Neurology Routine Ordered Studies 10/20/24 12:09 CT angio head w con Stat CT angio neck with con Stat CT head/brain wo con Stat Hospital Course (1) Seizure-like activity: (2) Right sided weakness: Per Prior Attending w/ Addendum: This is a 78-year-old male with PMH of glioblastoma (s/p craniotomy with bone flap excision at [facility] in June 2024, completed chemo/radiation 09/12/24), type 2 diabetes, CKD 3 and other medical problems listed below who presents from home with stroke vs seizure like symptoms starting this morning. Painful spasms of RUE and RLE at home this AM, resolved after 10-12 minutes Back to residual R sided weakness that has been baseline since glioblastoma diagnosed in Jun [address] head with increased vasogenic edema in the left frontal lobe is likely secondary to post craniotomy change. No acute abnormalities are seen against this background CTA head/neck with : 1. 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 2. No aneurysm, dissection or arterial occlusion identified within the head or neck. 3. Postoperative changes of the left frontal lobe with prior left-sided craniotomy. Please refer to the same day head CT for additional findings. ED provider discussed with cone chocolate dipper neuro from [facility], who reviewed imaging- recommended increasing Keppra from 500mg BID to 1000mg BID, holding off on steroids for now Plan for repeat brain MRI tomorrow as patient has already received IV contrast Neuro checks, PT/OT speech evals, seizure precautions PRN Ativan for seizure Neuro to consult, appreciate recs (3) Glioblastoma of frontal lobe: S/p craniotomy with bone flap excision at [facility] in June 2024, completed chemo/radiation 09/12/[address] Mckinney (heme/onc) and Dr. Mcbride (rad onc), scheduled for repeat Brain MRI 11/11 2024 to determine next phase of treatment Will obtain repeat brain MRI while admitted (4) DM type 2 (diabetes mellitus, type 2): A1c 6.6 Jun 2024 Hold home agents SSI while in-patient BSG AC HS (5) CKD (chronic kidney disease), stage III: Cr 1.18 (at baseline), monitor with daily BMP (6) Hypertension: BP has been low over past few months - PCP discontinued lisinopril-hctz in favor of amlodipine 5mg but has not yet started Hold for now DVT Ppx: SCDs Code status: DNR/DNI per patient, paperwork PCP: sIa Dispo: admitted to [facility] tele Addendum 10/21/2024: Patient was seen and examined at bedside as a follow-up of seizure-like activity. Patient and RN confirms that no further seizure since admission. His Keppra dose has been increased to 1 g twice daily, discussed with neurology MRI can be done as an outpatient as scheduled prior. He feels stable and back to his baseline. Patient is hemodynamically stable. He would like to go home. He states that he has physical therapy arranged at home. He is being discharged with following instruction at the point of discharge: Follow-up with your primary care physician within a week time and likely you will need labs CBC/CMP/magnesium/phosphorus. You were evaluated for concerns of seizure-like activity, your Keppra dose has been increased to 1 g twice a day. Neurology evaluated you while in the [facility]. You will need your repeat MRI of the brain as a scheduled November 11, 2024. Continue to follow-up with your oncology as an outpatient as prior. Follow-up with neurology in 2 to 4 weeks time upon discharge. Take your medications as prescribed. Please make sure that you are able to get your medications today by calling your pharmacy before you leave the hospital so that your treatment continuity is not broken. Home Health Attestation I certify that this patient is under my care and that I, or a physicians melter assistant working with me, had a face to-face encounter that meets the home health [id number] encounter requirements with this patient. The encounter with the patient was in whole, or in part, for the following medical condition, which is the primary reason for home health care (list medical condition): I certify that, based on my findings, the following services are medically necessary home health services: My clinical findings support the need for the above services because: Further, I certify that my clinical findings support that this patient is homebound (i.e. absences from home require considerable and taxing effort and are for medical reasons or [facility] services or infrequently or of short duration when for other reasons) because: Certification for Home Health Services: Based on the above findings, I certify that this patient is confined to the home and needs intermittent custodial care, physical therapy and/or speech therapy or continues to need occupational therapy. The patient is under my care, and I have initiated the establishment of the plan of care. This patient will be followed by a physician who will periodically review the plan of care. Total Time Total Time Spent Total Time Spent (In Minutes): 45 Discharge Plan Discharge Items Patient Disposition: Home - Home Health Services Reason For Visit: STROKELIKE SX Discharge Diagnosis: Seizure-like activity: Right sided weakness: Activity: As commented below Activity Comment: cw PT at home Non-emergency contact: Primary Care Provider Call non-emergency contact if: you have any medication questions and your symptoms worsen Follow-up/Referrals: Sourav Moss MD [Primary Care Provider] - Diet: Carb Consistent or DM2 Addtl Attending Provider Instructions: Follow-up with your primary care physician within a week time and likely you will need labs CBC/CMP/magnesium/phosphorus. You were evaluated for concerns of seizure-like activity, your Keppra dose has been increased to 1 g twice a day. Neurology evaluated you while in the hospital. You will need your repeat MRI of the brain as a scheduled November 11, 2024. Continue to follow-up with your oncology as an outpatient as prior. Follow-up with neurology in 2 to 4 weeks time upon discharge. Take your medications as prescribed. Please make sure that you are able to get your medications today by calling your pharmacy before you leave the hospital so that your treatment continuity is not broken. Pending Studies at Discharge: No Stand-Alone Forms: My [facility] Buru Buru, Smoking Cessation Medications and DC Order Prescriptions: New levetiracetam [Keppra] 500 mg Tablet 1,000 mg PO BID Qty: 120 0RF Continued acetaminophen [Tylenol] 325 mg capsule 650 mg PO QID PRN (Reason: pain or fever) omeprazole 20 mg capsule,delayed release(DR/EC) 20 mg PO DAILY atorvastatin 20 mg tablet 20 mg PO DAILY amlodipine 5 mg tablet 5 mg PO DAILY Rx Instructions: has not yet started due to low BP PreserVision AREDS-2 250-90-40-1 mg Capsule 1 tab PO AMHS aspirin 81 mg Tablet,Delayed Release (Dr/Ec) 81 mg PO DAILY Hold Instructions: Resume on 07/25/24. cholecalciferol (vitamin D3) [Vitamin D3] 25 mcg (1,000 unit) Tablet 25 mcg PO DAILY Rx Instructions: takes 2 tabs Tues, Thurs, Sat Jardiance 10 mg tablet 10 mg PO DAILY Discontinued levetiracetam [Keppra] 500 mg tablet 500 mg PO BID Discharge Orders: Discharge Order (Routine); Ordered 10/21/24 Ordered By: Arjun Plasencia Admission Data Admit Date/Time: 10/20/24 13:50 Attending Provider: Arjun Plasencia Admit Provider: Marcelo Gamino Primary Care Provider: Sourav Moss Other Providers: Marcelo Gamino; Kenny Burciaga
== END 2024-10-21 13:22 | disposition home health service (06) | DRG 100 ==
LOC: ED 12:12 → SUATTDRO 13:50 → INTOOBSV 13:50 → 2N 13:50